=== PATIENT | male | born 1940 | race Caucasian/White ===

== ENCOUNTER → 2017-08-23 07:00 | Outpatient (CLI) | payer MEDICARE, SELFPAY ==
--- NOTE | 2017-08-23 07:04 | CT_ITS ---
STUDY: CT ABDOMEN AND PELVIS WITHOUT CONTRAST REASON FOR EXAM: Male, 77 years old. History of lymphoma in remission for 5 years. Follow-up exam. RADIATION DOSAGE (If Supplied By Facility): CTDIvol = ( 19.02 ) mGy, DLP = ( 1026.65 ) mGycm TECHNIQUE: Transaxial images were obtained from the dome of the diaphragm to the symphysis pubis without oral contrast, and without intravenous contrast. Sagittal and coronal images were reconstructed. Individualized dose optimization techniques were used for this CT. COMPARISON: 10/28/2016. FINDINGS: The visualized lung bases are unremarkable. The heart size is normal. There are pacemaker wires. There again is a small calcification in the liver unchanged since prior exam. No focal lesion is seen on this noncontrast examination Normal gallbladder and extrahepatic biliary system. Normal spleen. There is diffuse atrophy of the pancreas. Normal bilateral adrenal glands. There again is right extrarenal pelvis. There is nonspecific mild right perinephric stranding again unchanged. There is severe atrophy of the left kidney. There is a small hiatal hernia. Normal small intestine. There are multiple colonic diverticula consistent with diverticulosis. There is no evidence of acute diverticulitis. The appendix is visualized and appears normal. There is diffuse atherosclerotic calcification of the abdominal aorta, without a demonstrated aneurysm. Normal inferior vena cava. There is no evidence of retroperitoneal adenopathy. Hazy mesenteric stranding inferior to the pancreas is again seen The stomach consistent There are prostatic calcifications. There are small bilateral inguinal hernias containing fat. There are diffuse degenerative changes of the visualized lumbar spine. 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 CT/Abdomen/Pelvis without Cont IMPRESSION: No demonstrated acute process since the previous examination. No evidence of adenopathy. Diverticulosis without evidence of acute diverticulitis. Atrophic left kidney. 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 Electronically Signed: Jonathan Nuñez MD at 8:14 EST Tel , Service support ,
== END ==
PROVIDERS: Family Provider Family Medicine Geriatric Medicine; PCP Family Medicine Geriatric Medicine; Visit Provider Nurse Practitioner Family
DX: C83.30 Diffuse large B-cell lymphoma, unspecified site (principal); K57.30 Diverticulosis of large intestine without perforation or abscess without bleeding; N26.1 Atrophy of kidney (terminal); M16.12 Unilateral primary osteoarthritis, left hip
CPT/HCPCS: 74176

== ENCOUNTER → 2017-09-09 11:00 | Outpatient (CLI) | payer MEDICARE, SELFPAY | PROVIDERS: Family Provider Family Medicine Geriatric Medicine; PCP Family Medicine Geriatric Medicine; Visit Provider Internal Medicine Critical Care Medicine | DX: Z46.89 Encounter for fitting and adjustment of other specified devices (principal) | CPT/HCPCS: 98960; G0463 ==

== ENCOUNTER → 2017-12-05 14:05 | Outpatient (CLI) | payer MEDICARE, SELFPAY ==
--- NOTE | 2017-12-05 14:05 | DT_ITS ---
This patient was seen during an EMR downtime December 01, 2017 - December 08, 2017. This patient may have a combination of paper and electronic documentation or all paper documentation. All documentation is viewable within the e-chart portion of [facility] for each patient visit.
[2017-12-06 06:15] LABS: Anion Gap 11 (5-15); BUN 21 mg/dL (7-18); BUN/Creat Ratio 12.8 RATIO (10-20); Calcium,Total 8.6 mg/dL (8.5-10.1); Chloride 107 mmol/L (98-107); Creatinine, Serum 1.64 mg/dL (0.70-1.30); EST Glomerular Filtration Rate 44 mL/min (>60); Est Glom Filt Rate - Afr Amer 53 mL/min (>60); Glucose 74 mg/dL (74-106); Potassium 4.1 mmol/L (3.5-5.1); Sodium Level 143 mmol/L (136-145)
== END ==
PROVIDERS: Family Provider Family Medicine Geriatric Medicine; PCP Family Medicine Geriatric Medicine; Visit Provider Nurse Practitioner Family
DX: I42.9 Cardiomyopathy, unspecified (principal)
CPT/HCPCS: 36415; 80048

== ENCOUNTER → 2018-01-22 11:43 | Outpatient (CLI) | payer MEDICARE, SELFPAY ==
[2018-01-22 12:35] LABS: Absolute Lymphocyte Count 0.95 X10^3/ul (0.83-4.51); Absolute Neutrophil Count 7.5 X10^3/uL (2.0-7.7); Basophil# 0.02 X10^3/uL; Basophil% 0.2 % (0-1); Eosinophil# 0.06 X10^3/uL; Eosinophils% 0.6 % (0-5); Hematocrit 50.1 % (40-54); Hemoglobin 16.4 g/dl (13.0-16.5); Lymphocyte # 0.95 X10^3/ul (4.0); Lymphocyte % 10.2 % (19-41); Mean Corp Hgb Conc 32.7 g/gl (32-36); Mean Corpuscular Hgb 26.9 pg (27.0-32.0); Mean Corpuscular Volume 82.1 fL (80-94); Mean Platelet Vol. 10.3 fl (6.2-12.0); Monocyte% 7.5 % (0-10); Neutrophil # 7.54 X10^3/uL (2.7-7.7); Neutrophil % 81.3 % (47-70); Platelet Count 201 K/mm3 (150-450); RBC Distribution Width SD 51.4 fl (35.1-43.9); White Blood Count 9.3 K/mm3 (4.4-11.0)
[2018-01-22 12:36] LABS: POSITIVE COUNT NO; POSITIVE DIFFERENTIAL NO; POSITIVE MORPHOLOGY NO
[2018-01-22 12:59] LABS: ALB/GLOB Ratio 1.1 RATIO (0.9-2.4); AST(SGOT) 29 U/L (15-37); Alanine Aminotransfer ALT/SGPT 27 U/L (16-61); Albumin, Serum 3.7 g/dL (3.2-5.0); Alkaline Phosphatase 89 U/L (45-117); Anion Gap 7 (5-15); BUN 25 mg/dL (7-18); BUN/Creat Ratio 15.3 RATIO (10-20); Calcium,Total 8.7 mg/dL (8.5-10.1); Chloride 107 mmol/L (98-107); Creatinine, Serum 1.63 mg/dL (0.70-1.30); EST Glomerular Filtration Rate 44 mL/min (>60); Est Glom Filt Rate - Afr Amer 53 mL/min (>60); Globulin 3.3 g/dL (2.2-4.2); Glucose 92 mg/dL (74-106); Potassium 4.4 mmol/L (3.5-5.1); Sodium Level 143 mmol/L (136-145); Thyroid Stim Hormone (TSH) 1.84 uIU/mL (0.358-3.74); Uric Acid 6.4 mg/dL (3.5-7.2)
[2018-01-23 10:08] LABS: Vitamin D,25 Hydroxy 20.8 ng/mL (29.95-100.01)
== END ==
PROVIDERS: Family Provider Family Medicine Geriatric Medicine; PCP Family Medicine Geriatric Medicine; Visit Provider Family Medicine Geriatric Medicine
DX: E23.6 Other disorders of pituitary gland (principal); E55.9 Vitamin D deficiency, unspecified; I10 Essential (primary) hypertension; M10.9 Gout, unspecified
CPT/HCPCS: 36415; 80053; 82306; 84403; 84443; 84550; 85025

== ENCOUNTER → 2018-02-09 10:35 | Outpatient (CLI) | payer MEDICARE, SELFPAY | PROVIDERS: Family Provider Family Medicine Geriatric Medicine; PCP Family Medicine Geriatric Medicine; Visit Provider Nurse Practitioner Family | DX: I42.9 Cardiomyopathy, unspecified (principal); I48.0 Paroxysmal atrial fibrillation; I10 Essential (primary) hypertension; Z95.0 Presence of cardiac pacemaker | CPT/HCPCS: 93306; Q9957; A4216; C8929 ==

== ENCOUNTER → 2018-04-03 12:12 | Outpatient (CLI) | payer MEDICARE, SELFPAY ==
--- NOTE | 2018-04-03 12:17 | RAD_ITS ---
STUDY: X-RAY CHEST REASON FOR EXAM: Male, 77 years old. Cough. Chest congestion. TECHNIQUE: Frontal and lateral views of the chest. COMPARISON: 03/18/2017. FINDINGS: The lungs are clear and expanded. There is no demonstrated pleural abnormality. Normal size heart. Pacemaker is seen with leads terminating in the right atrium and right ventricle. Normal mediastinum and jay. Normal visualized pulmonary arteries. There is atherosclerotic tortuosity of the aortic arch and descending thoracic aorta. There are diffuse degenerative changes of the visualized thoracic spine. There is mild scoliosis to the right. There appears to be diffuse ankylosis. Normal visualized ribs, clavicles, and shoulders. There is no demonstrated abnormality of the visualized soft tissue structures of the upper abdomen. RAD/Chest PA and Lateral IMPRESSION: No definite change or acute chest disease. Electronically Signed: Jeffrey Lawrence MD at 23:22 EDT , Service support ,
== END ==
PROVIDERS: Family Provider Family Medicine Geriatric Medicine; PCP Family Medicine Geriatric Medicine; Visit Provider Family Medicine Geriatric Medicine
DX: R05 Cough (principal); R68.83 Chills (without fever)
CPT/HCPCS: 71046; 87633

== ENCOUNTER → 2018-07-28 13:53 | Outpatient (CLI) | payer MEDICARE, SELFPAY ==
[2018-07-16 10:31] VITALS: BMI 37.6
[2018-07-28 14:39] LABS: Absolute Lymphocyte Count 0.74 X10^3/ul (0.83-4.51); Absolute Neutrophil Count 8.2 X10^3/uL (2.0-7.7); Basophil# 0.02 X10^3/uL; Basophil% 0.2 % (0-1); Eosinophil# 0.05 X10^3/uL; Eosinophils% 0.5 % (0-5); Lymphocyte # 0.74 X10^3/ul (4.0); Lymphocyte % 7.7 % (19-41); Mean Corp Hgb Conc 31.4 g/gl (32-36); Mean Corpuscular Volume 89.1 fL (80-94); Mean Platelet Vol. 10.5 fl (6.2-12.0); Monocyte# 0.59 X10^3/uL; Monocyte% 6.1 % (0-10); Neutrophil # 8.23 X10^3/uL (2.7-7.7); Neutrophil % 85.2 % (47-70); Platelet Count 153 K/mm3 (150-450); RBC Distribution Width CV 17.5 % (11.6-14.6); Red Blood Count 6.68 M/mm3 (4.6-6.2); White Blood Count 9.7 K/mm3 (4.4-11.0)
[2018-07-28 14:40] LABS: Hematocrit 59.5 % (40-54)
[2018-07-28 14:47] LABS: Hemoglobin 18.7 g/dl (13.0-16.5); POSITIVE COUNT NO; POSITIVE DIFFERENTIAL NO; POSITIVE MORPHOLOGY NO
[2018-07-28 14:57] LABS: Vitamin D,25 Hydroxy 18.3 ng/mL (29.95-100.01)
[2018-07-28 15:01] LABS: ALB/GLOB Ratio 1.2 RATIO (0.9-2.4); AST(SGOT) 25 U/L (15-37); Alanine Aminotransfer ALT/SGPT 35 U/L (16-61); Albumin, Serum 3.8 g/dL (3.2-5.0); Alkaline Phosphatase 72 U/L (45-117); Anion Gap 7 (5-15); BUN 28 mg/dL (7-18); BUN/Creat Ratio 17.6 RATIO (10-20); Calcium,Total 8.9 mg/dL (8.5-10.1); Chloride 108 mmol/L (98-107); Creatinine, Serum 1.59 mg/dL (0.70-1.30); EST Glomerular Filtration Rate 45 mL/min (>60); Est Glom Filt Rate - Afr Amer 55 mL/min (>60); Globulin 3.2 g/dL (2.2-4.2); Glucose 83 mg/dL (74-106); Potassium 4.4 mmol/L (3.5-5.1); Sodium Level 141 mmol/L (136-145); T4 Free Direct 0.92 ng/dL (0.76-1.46); Thyroid Stim Hormone (TSH) 2.15 uIU/mL (0.358-3.74); Uric Acid 5.7 mg/dL (3.5-7.2)
== END ==
PROVIDERS: Family Provider Family Medicine Geriatric Medicine; PCP Family Medicine Geriatric Medicine; Visit Provider Family Medicine Geriatric Medicine
DX: I10 Essential (primary) hypertension (principal); E55.9 Vitamin D deficiency, unspecified; E23.6 Other disorders of pituitary gland; M10.9 Gout, unspecified; E23.7 Disorder of pituitary gland, unspecified; E29.1 Testicular hypofunction
CPT/HCPCS: 36415; 80053; 82306; 82533; 84403; 84439; 84443; 84550; 85025

== ENCOUNTER → 2018-08-06 17:25 | Outpatient (CLI) | payer MEDICARE, SELFPAY ==
[2018-08-06 10:02] VITALS: BMI 37.2
--- NOTE | 2018-08-06 17:30 | CT_ITS ---
STUDY: CT BRAIN WITHOUT CONTRAST REASON FOR EXAM: Male, 77 years old. 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 History of non-Hodgkin's lymphoma. RADIATION DOSAGE (If Supplied By Facility): CTDIvol = ( 60.81 ) mGy, DLP = ( 1089.89 ) mGycm TECHNIQUE: Transaxial CT imaging of the brain was performed without administration of intravenous contrast material. Individualized dose optimization techniques were used for this CT. COMPARISON: None. FINDINGS: Normal soft tissue structures. Normal calvarium. Normal size ventricles and extra-axial spaces for the patient's age. Normal white matter tracts of the cerebral hemispheres. Normal basal ganglia and thalami. Normal brainstem. Normal cerebellum. There is evidence of a empty sella. There is no intracranial hemorrhage. There are no findings of an acute ischemic infarction. Partial opacification of the maxillary sinus bilaterally. Partial opacification of the ethmoid sinuses bilaterally. CT/Brain/Head without Contrast IMPRESSION: Status post pituitary resection. Partial opacification of the maxillary sinuses and ethmoid sinuses Electronically Signed: Nik Martines MD at 15:36 EST , Service support ,
== END ==
PROVIDERS: Family Provider Family Medicine Geriatric Medicine; PCP Family Medicine Geriatric Medicine; Referring Provider Family Medicine Geriatric Medicine; Visit Provider Family Medicine Geriatric Medicine
DX: E23.0 Hypopituitarism (principal)
CPT/HCPCS: 70450

== ENCOUNTER → 2018-09-04 10:41 | Outpatient (CLI) | payer MEDICARE, SELFPAY ==
[2018-09-01 12:32] VITALS: BMI 37.2
[2018-09-04 11:26] LABS: Allen Test POS; Base Excess -2 mmol/L (-2 to +2); Bicarbonate 22.3 mmol/L (22-26); Blood Gas Specimen Type ART; O2 Delivery Device Room Air; PO2 97 mmHG (75-100); SITE R Radial; SO2 98 % (95-99); Time Given 1115; Total Carbon Dioxide 23 mmol/L; pCO2 32.8 mmHg (35-45); pH 7.44 (7.35-7.45)
== END ==
PROVIDERS: Family Provider Family Medicine Geriatric Medicine; PCP Family Medicine Geriatric Medicine; Referring Provider Internal Medicine Medical Oncology; Visit Provider Internal Medicine Medical Oncology
DX: C83.30 Diffuse large B-cell lymphoma, unspecified site (principal); D45 Polycythemia vera
CPT/HCPCS: 36600; 82803

== ENCOUNTER 2018-09-30 17:48 | Inpatient (IN) | payer MEDICARE, SELFPAY ==
[2018-09-29 10:15] VITALS: BMI 36.9
[2018-09-30] VITALS (8 sets, daily range): BP systolic 117–144; BP diastolic 62–73; PULSE 64–88; RESP 20–23; TEMP 36.4–37.2; O2SAT 91–96; BMI 37.3; BMI 36.0; BMI 36.1
--- NOTE | 2018-09-30 18:05 | RAD_ITS ---
STUDY: X-RAY CHEST REASON FOR EXAM: Male, 78 years old. Dyspnea. TECHNIQUE: Single AP portable upright view of the chest. The patient again is rotated to the left. COMPARISON: PA and lateral chest x-ray April 03, 2018. FINDINGS: Dual lead left subclavian cardiac pacemaker unchanged. There is patchy segmental/subsegmental density in the right base as well as smaller patchy subsegmental densities in the right midlung and medial left base that may be atelectasis or infection. Possible small nodule in the lateral left lung base. There is no demonstrated pleural abnormality. Normal size heart. Normal mediastinum and jay. Normal visualized pulmonary arteries. Normal visualized aortic arch and descending thoracic aorta. There are stable multilevel degenerative changes of the visualized thoracic spine. Normal visualized ribs, clavicles, and shoulders. There is no demonstrated abnormality of the visualized soft tissue structures of the upper abdomen. RAD/Chest 1 View (Portable) IMPRESSION: 1. Patchy atelectasis or infection in the bilateral lung bases and right midlung, as noted. 2. Possible small nodule in the lateral left lung base. These findings might be reevaluated for clearing on a time interval follow-up study. 3. Dual-lead cardiac pacemaker again noted. Heart size and pulmonary vascular pattern within normal limits. Electronically Signed: Connor Perkins MD at 18:33 EDT , Service support ,
[2018-09-30] MEDS: 0.9% Normal Saline 1,000 ML 150 ML IV (18:39)
[2018-09-30 18:49] LABS: Absolute Lymphocyte Count 0.72 X10^3/ul (0.83-4.51); Absolute Neutrophil Count 9.7 X10^3/uL (2.0-7.7); Basophil# 0.04 X10^3/uL; Basophil% 0.3 % (0-1); Eosinophil# 0.11 X10^3/uL; Eosinophils% 0.9 % (0-5); Hematocrit 50.4 % (40-54); Lymphocyte # 0.72 X10^3/ul (4.0); Lymphocyte % 6.1 % (19-41); Mean Corp Hgb Conc 33.7 g/gl (32-36); Mean Corpuscular Hgb 29.6 pg (27.0-32.0); Mean Corpuscular Volume 87.8 fL (80-94); Mean Platelet Vol. 9.7 fl (6.2-12.0); Monocyte% 10.2 % (0-10); Neutrophil # 9.67 X10^3/uL (2.7-7.7); Neutrophil % 82.4 % (47-70); Platelet Count 141 K/mm3 (150-450); RBC Distribution Width CV 16.7 % (11.6-14.6); RBC Distribution Width SD 53.5 fl (35.1-43.9); Red Blood Count 5.74 M/mm3 (4.6-6.2); White Blood Count 11.8 K/mm3 (4.4-11.0)
[2018-09-30 18:53] LABS: POSITIVE COUNT NO; POSITIVE DIFFERENTIAL NO; POSITIVE MORPHOLOGY NO
[2018-09-30 19:12] LABS: Anion Gap 9 (5-15); BUN 19 mg/dL (7-18); BUN/Creat Ratio 12.1 RATIO (10-20); Calcium,Total 7.9 mg/dL (8.5-10.1); Chloride 111 mmol/L (98-107); Creatinine, Serum 1.57 mg/dL (0.70-1.30); EST Glomerular Filtration Rate 46 mL/min (>60); Est Glom Filt Rate - Afr Amer 55 mL/min (>60); Estimated Creatinine Clearance 40.68 ml/min; Glucose 70 mg/dL (74-106); Potassium 3.4 mmol/L (3.5-5.1); Sodium Level 140 mmol/L (136-145)
[2018-09-30 19:16] LABS: Lactic Acid 1.1 mmol/L (0.4-2.0)
--- NOTE | 2018-09-30 19:54 | ED.VISSUMM ---
- ER Visit Summary Date of Service: 09/30/18 Chief Complaint: [Shortness of breath] History of Present Illness: The patient is a 78 M [presents the emergency department shortness of breath started 3 days ago. Patient complains of cough with brown sputum production. Patient was seen by his primary care physician in the office today and was given Rocephin and Zithromax IV. Patient also was given a breathing treatment. Patient has been complaining of just some generalized weakness and he had a sore throat for about 3 days. Patient developed drainage from both his eyes today. Fever up to 100 at home. While in the office today he started having sweats and felt presyncopal. Patient denies any chest pain.] Physical Examination: [HEENT-PERRLA, EOMI. Cranial nerves II through XII grossly intact. TMs clear. Mucous membranes moist. No adenopathy. Cardiovascular-regular rate and rhythm without murmur or ectopy Lungs-aeration bilaterally. Patient has coarse breath sounds bilaterally. Patient has some pain expiratory wheezes noted. Patient is tachypneic. No accessory muscle use or retractions. Abdomen-normoactive bowel sounds, soft, nontender, no rebound or rigidity, no peritoneal signs. Extremities-intact ?4, normal range of motion, normal pulses, atraumatic] Test Results: [Blood cultures ordered and pending. CBC with differential showed a white count of 11.8, heme globin 17, hematocrit 50, platelets 141. Chemistry showed a sodium 140, potassium 3.4, chloride 111, CO2 20, BUN 19, creatinine 1.57, glucose 70. Influenza was negative. Lactate was 1.1. Chest x-ray showed bilateral bibasilar patchy infiltrates] Emergency Department Course and Treatment: [Patient had been given Rocephin and Zithromax prior to arrival in emergency department IV. Patient was ordered a DuoNeb aerosol.] Treatment Plan: [Admit] Disposition: Admit [] Impression: [Bilateral [id number]] This note was generated with [employer] dictation software. It may contain incorrect words, spelling, and punctuation that were not noted in review of the chart prior to signing ED Disposition - Plan for ED Patient: Referrals: Suraj Damian Chi, MD [Primary Care Provider] -
--- NOTE | 2018-09-30 19:57 | ED.DCSUM_ITS ---
- ER Visit Summary Date of Service: 09/30/18 Chief Complaint: [Shortness of breath] History of Present Illness: The patient is a 78 M [presents the emergency department shortness of breath started 3 days ago. Patient complains of cough with brown sputum production. Patient was seen by his primary care physician in the office today and was given Rocephin and Zithromax IV. Patient also was given a breathing treatment. Patient has been complaining of just some generalized weakness and he had a sore throat for about 3 days. Patient developed drainage from both his eyes today. Fever up to 100 at home. While in the office today he started having sweats and felt presyncopal. Patient denies any chest pain.] Physical Examination: [HEENT-PERRLA, EOMI. Cranial nerves II through XII grossly intact. TMs clear. Mucous membranes moist. No adenopathy. Cardiovascular-regular rate and rhythm without murmur or ectopy Lungs-aeration bilaterally. Patient has coarse breath sounds bilaterally. Patient has some pain expiratory wheezes noted. Patient is tachypneic. No accessory muscle use or retractions. Abdomen-normoactive bowel sounds, soft, nontender, no rebound or rigidity, no peritoneal signs. Extremities-intact ?4, normal range of motion, normal pulses, atraumatic] Test Results: [Blood cultures ordered and pending. CBC with differential showed a white count of 11.8, heme globin 17, hematocrit 50, platelets 141. Chemistry showed a sodium 140, potassium 3.4, chloride 111, CO2 20, BUN 19, creatinine 1.57, glucose 70. Influenza was negative. Lactate was 1.1. Chest x-ray showed bilateral bibasilar patchy infiltrates] Emergency Department Course and Treatment: [Patient had been given Rocephin and Zithromax prior to arrival in emergency department IV. Patient was ordered a DuoNeb aerosol.] Treatment Plan: [Admit] Disposition: Admit [] Impression: [Bilateral uibexabqv-flopjccol-yxfstrzm] This note was generated with [employer] dictation software. It may contain incorrect words, spelling, and punctuation that were not noted in review of the chart prior to signing ED Disposition - Plan for ED Patient: Referrals: Suraj Damian Chi, MD [Primary Care Provider] -
--- NOTE | 2018-09-30 20:20 | CPS ---
PT REFUSED AEROSOL TREATMENT. DR. DIETRICH MADE AWARE.
--- NOTE | 2018-09-30 20:33 | HP.PCM_ITS ---
Problem List (1) Community acquired pneumonia Status: Acute History of Present Illness Date of Admission: 09/30/18 Chief Complaint: shortness of breath The patient is a 78 year old M with a significant congestive heart failure; pituitary benign tumor status post resection and on daily hydrocortisone; paroxysmal A. fib; hypertension; B-cell lymphoma who presented to the emergency department with a 2-day history of shortness of breath at rest. His shortness of breath increases markedly with mild exertion. Associated with his symptoms is productive cough of brown to alonzo sputum. Also he had nasal congestion; chills; generalized body aches; increased warmth; diaphoresis and poor appetite. He went to his PCPs office Dr. Damian where he was given Rocephin and azithromycin and IV hydration as well as a breathing treatment. Because the patient was very weak and was about to pass out he was sent to the emergency department. At the emergency department chest x-ray showed patchy infiltrates in bilateral lung base and right midlung; as well as possible small nodule in the lateral left lung base. Past Medical History Past Medical History (Chronic Problems): Chronic Problems (Last Reviewed 09/30/18 @ 21:40 by Rene Velez MD) History of non-Hodgkin's lymphoma (Chronic) History of pituitary adenoma (Chronic) Acute systolic (congestive) heart failure (Chronic) Dyspnea on exertion (Chronic) Nonrheumatic mitral (valve) insufficiency (Chronic) Cardiac pacemaker in situ (Chronic) January 02, 2015 Primary pacemaker insertion Mobitz (type) II atrioventricular block (Chronic) Hyperlipidemia (Chronic) Encounter for long-term (current) use of other medications (Chronic) Body mass index (BMI) 35 or more (Chronic) Diffuse large B cell lymphoma (Chronic) Cardiomyopathy (Chronic) Acute systolic heart failure (Chronic) PORTILLO (obstructive sleep apnea) (Chronic) 18/14 cmH2O Dyspnea (Chronic) The patient reports that his dyspnea on exertion has improved since initiating and becoming compliant with his pressure support therapy. No additional studies at this time. If dyspnea worsens may consider doing a pulmonary stress test or a complete pulmonary function test. Follow-up with Dr. Dorman in 3 months. Esophageal reflux (Chronic) Gout (Chronic) HTN (hypertension) (Chronic) Malignant lymphoma of extranodal and solid organ sites (Chronic) last chemo was 2 years ago.....treated with CHOP Hypercholesterolemia (Chronic) History of pituitary tumor (Chronic) Status post surgery, currently on hydrocortisone replacement. 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 Intermittent second degree atrioventricular block (Chronic) in the setting of beta blockers CKD (chronic kidney disease) stage 3, GFR 30-59 ml/min (Chronic) Simple obesity (Chronic) Medical History: Medical History (Last Reviewed 09/30/18 @ 21:40 by Rene Velez MD) History of non-Hodgkin's lymphoma (Chronic) Z85.72 History of pituitary adenoma (Chronic) Z86.39 Acute systolic (congestive) heart failure (Chronic) I50.21 Dyspnea on exertion (Chronic) R06.09 Nonrheumatic mitral (valve) insufficiency (Chronic) I34.0 Cardiac pacemaker in situ (Chronic) Z95.0 January 02, 2015 Primary pacemaker insertion Mobitz (type) II atrioventricular block (Chronic) I44.1 Hyperlipidemia (Chronic) E78.5 Encounter for long-term (current) use of other medications (Chronic) Z79.899 Body mass index (BMI) 35 or more (Chronic) Diffuse large B cell lymphoma (Chronic) C83.30 Cardiomyopathy (Chronic) I42.9 Acute systolic heart failure (Chronic) I50.21 PORTILLO (obstructive sleep apnea) (Chronic) G47.33 18/14 cmH2O Dyspnea (Chronic) R06.00 The patient reports that his dyspnea on exertion has improved since initiating and becoming compliant with his pressure support therapy. No additional studies at this time. If dyspnea worsens may consider doing a pulmonary stress test or a complete pulmonary function test. Follow-up with Dr. Dorman in 3 months. Esophageal reflux (Chronic) K21.9 Gout (Chronic) M10.9 HTN (hypertension) (Chronic) I10 Malignant lymphoma of extranodal and solid organ sites (Chronic) C85.99 last chemo was 2 years ago.....treated with CHOP Hypercholesterolemia (Chronic) E78.00 History of pituitary tumor (Chronic) Z87.898 Status post surgery, currently on hydrocortisone replacement. Secondary adrenal insufficiency (Chronic) E27.49 after pituitary surgery to remove a benign tumor Intermittent second degree atrioventricular block (Chronic) I44.1 in the setting of beta blockers CKD (chronic kidney disease) stage 3, GFR 30-59 ml/min (Chronic) Simple obesity (Chronic) E66.9 Community acquired pneumonia (Acute) J18.9 treated recently for CAP with Levaquin and culture was + for MRSA Pericardial effusion (Acute) I31.3 Pleural effusion (Acute) J90 MRSA (methicillin resistant staphylococcus aureus) pneumonia (Acute) J15.212 + MRSA on sputum from admission on 12/03 Hyponatremia (Acute) E87.1 PAF (paroxysmal atrial fibrillation) (Acute) I48.0 SSS (sick sinus syndrome) (Acute) I49.5 Sinus pause (Acute) I45.5 Allergies lisinopril Allergy (Verified 09/30/18 17:49) Swelling aspirin Adverse Reaction (Verified 09/30/18 17:49) Other Home Medications: Ambulatory Orders Medication Instructions Recorded Pravastatin [Pravachol] 40 mg PO DAILY #0 12/21/13 famotidine 40 mg tablet 40 mg PO DAILY 07/16/18 Hydrocortisone [Cortef] 20 mg PO DAILY 09/01/18 Allopurinol 300 mg PO DAILY 09/30/18 Carvedilol 25 mg PO QHS 09/30/18 Carvedilol [Coreg] 12.5 mg PO DAILY 09/30/18 Furosemide 40 mg PO QODAY 09/30/18 Hydrocortisone 10 mg PO QHS 09/30/18 Metoprolol Succinate [Toprol Xl] 25 mg PO DAILY 09/30/18 Omeprazole 20 mg PO DAILY 09/30/18 Surgical History: Surgical History (Last Reviewed 09/29/18 @ 10:15 by Kalee Tavares) History of surgical removal of pituitary gland E89.3 partial removal Surgical History: - - Pituitary Surgery. Placement of a port Psychiatric History: No pertinent psych hx Lives: With Family Smoking Status: Former smoker Alcohol: None - *Family History Maternal Family History: Family History (Last Reviewed 09/30/18 @ 21:25 by Rene Velez MD) Father FH: kidney cancer Mother Heart disease Diabetes History Items: No pertinent history Paternal Family History: Family History (Last Reviewed 09/30/18 @ 21:25 by Rene Velez MD) Father FH: kidney cancer Mother Heart disease Diabetes History Items: No pertinent history Review of Systems Constitutional: Reports: Chills. Denies: Fever, Weight Change HEENT: Reports: Sinus Congestion. Denies: Head Aches, Sinus Drainage Cardiovascular: Denies: Chest Pain, Palpitations Respiratory: Reports: Cough, Shortness of breath at rest, Sputum production Gastrointestinal: Denies: Abdominal Pain, Nausea, Vomiting Genitourinary: Denies: Dysuria Musculoskeletal: Denies: Joint Pain, Joint Tenderness Skin: Denies: Rash, Wounds Neurological: Denies: Numbness, Tingling, Focal weakness Psychiatric: Denies: Anxiety, Depression, Homicidal Ideations, Suicidal Ideations Hematologic/ Lymphatic: Denies: Easy Bruising, Easy Bleeding VTE Information - Inpt Only VTE Present on Admission: No VTE Mechan Device Prophylaxis: None VTE Pharm Prophylaxis ordered?: Yes Patient Problems: Active and Suspected Problems (Last Reviewed 09/30/18 @ 21:40 by Rene Velez MD) Community acquired pneumonia (Acute) - Physical Exam General: Alert, Oriented x3, Cooperative HEENT: Atraumatic, PERRLA, EOMI, Normocephalic Neck: Supple, No JVD, Negative Carotid Bruits Lungs: - - coarse Cardiovascular: Regular rate, No murmurs Abdomen: Bowel Sounds Present, Soft, Non Tender Extremities: No edema, Capillary Refill Less than 3 Seconds Skin: No rashes, No breakdown Musculoskeletal: No Tenderness to Palpation of Joints or Extremities Neurological: Neuro grossly intact Psych/Mental Status: Normal Affect, Appropriate Vital Signs Temp Pulse Resp BP Pulse Ox 97.5 F L 64 23 H 126/64 H 94 09/30/18 19:01 09/30/18 20:02 09/30/18 19:01 09/30/18 20:02 09/30/18 20:02 Oxygen Flow Rate (L/min) 2 Oxygen Delivery Method Nasal Cannula Weight: 118 kg Body Mass Index (BMI) 37.3 Microbiology Past 72 Hours 09/30/18 18:35 Influenza Types A,B Direct FA (JOSEPH) - Final Mucosa - Nose Laboratory Tests Past 24 Hrs 09/30/18 09/30/18 09/30/18 18:15 18:15 18:27 WBC 11.8 H RBC 5.74 Hgb 17.0 H Hct 50.4 MCV 87.8 MCH 29.6 MCHC 33.7 RDW 16.7 H RDW Differential 53.5 H Plt Count 141 L MPV 9.7 Immature Gran % (Auto) 0.100 Neut % (Auto) 82.4 H Lymph % (Auto) 6.1 L [place] % (Auto) 10.2 H Eos % (Auto) 0.9 Baso % (Auto) 0.3 Absolute Neuts (auto) 9.7 H Absolute Lymphs (auto) 0.72 L Total Counted Not Reportable Sodium 140 Potassium 3.4 L Chloride 111 H Carbon Dioxide 20.0 L Anion Gap 9 BUN 19 H Creatinine 1.57 H Estim Creat Clear Calc 40.68 Est GFR (MDRD) Af Amer 55 L Est GFR (MDRD) Non-Af 46 L BUN/Creatinine Ratio 12.1 Glucose 70 L Lactic Acid 1.1 Calcium 7.9 L Assessment/Plan All Active Problems (Last Reviewed 09/30/18 @ 21:40 by Rene Velez MD) Polycythemia (Resolved) Community acquired pneumonia (Acute) Community acquired pneumonia (Acute) Pericardial effusion (Acute) Pleural effusion (Acute) MRSA (methicillin resistant staphylococcus aureus) pneumonia (Acute) Hyponatremia (Acute) PAF (paroxysmal atrial fibrillation) (Acute) SSS (sick sinus syndrome) (Acute) Sinus pause (Acute) The patient is a 78 year old M with a significant congestive heart failure; pituitary benign tumor status post resection and on daily hydrocortisone; paroxysmal A. fib; hypertension; B-cell lymphoma who presented to the emergency department for 2-day history of shortness of breath at rest after he had received empiric treatment for community-acquired pneumonia at his PCPs office. Community-acquired pneumonia Insert pneumonia admission Lactic acid: 1.1 Blood culture ?2 is pending Chest x-ray:Showed patchy infiltrates in bilateral lung base and right midlung. As well as possible small nodule in the lateral left lung base. Chest x-ray was independently reviewed. Respiratory Gram stain and culture pending Antibiotics: Received azithromycin and ceftriaxone PCP's office on 09/30/2018. Azithromycin and ceftriaxone continued. IV hydration: Received normal saline hydration at emergency department. Received breathing treatment at emergency department. DuoNeb scheduled. Albuterol as needed Legionella antigen screen and Strep antigen ordered Lung nodule. Discussed with patient. Patient to follow-up longitudinally outpatient. Pituitary tumor status post resection Continue home Cortef. Congestive heart failure Furosemide continued. Continue Coreg Trend blood pressure Hypertension On admission his blood pressure was within goal. Coreg and furosemide continued Trend blood pressure and adjust blood pressure medications. Hypokalemia His potassium on admission was 3.4 Potassium supplement ordered. Trend BMP. CKD stage III. Stable Hypoglycemia On admission his blood glucose was 70 on BMP. Fingerstick QA CHS and hypoglycemia protocol ordered. Hypocalcemia On admission his calcium level was 7.9. Will get albumin level. DVT prophylaxis Subcutaneous Lovenox. Code Visit Inpatient E&M: 58910 Init Hosp L3
[2018-10-01] VITALS (10 sets, daily range): BP systolic 104–131; BP diastolic 55–73; PULSE 60–70; RESP 14–18; TEMP 36.3–36.6; O2SAT 94–98
[2018-10-01] MEDS: Carvedilol 25 MG Tablet PO ×2 (00:08→21:06)
[2018-10-01] MEDS: guaiFENesin 1,200 MG Tablet 1200 MG PO ×3 (00:08→21:06)
[2018-10-01] MEDS: Hydrocortisone 10 MG Tablet PO ×2 (00:09→21:06)
[2018-10-01 00:31] LABS: Bedside Glucose 97 mg/dL (70-110)
[2018-10-01] MEDS: 0.9% NaCl IVPB Med Flush (250 mL) 15 ML IV (04:21)
[2018-10-01 06:00] LABS: Absolute Lymphocyte Count 0.31 X10^3/ul (0.83-4.51); Absolute Neutrophil Count 8.4 X10^3/uL (2.0-7.7); Hematocrit 51.8 % (40-54); Hemoglobin 17.3 g/dl (13.0-16.5); Lymphocyte # 0.31 X10^3/ul (4.0); Lymphocyte % 3.4 % (19-41); Mean Corp Hgb Conc 33.4 g/gl (32-36); Mean Corpuscular Hgb 28.5 pg (27.0-32.0); Mean Corpuscular Volume 85.5 fL (80-94); Mean Platelet Vol. 9.6 fl (6.2-12.0); Monocyte# 0.35 X10^3/uL; Monocyte% 3.9 % (0-10); Neutrophil # 8.41 X10^3/uL (2.7-7.7); Neutrophil % 92.6 % (47-70); Platelet Count 146 K/mm3 (150-450); RBC Distribution Width CV 16.9 % (11.6-14.6); RBC Distribution Width SD 53.2 fl (35.1-43.9); Red Blood Count 6.06 M/mm3 (4.6-6.2); White Blood Count 9.1 K/mm3 (4.4-11.0)
[2018-10-01 06:08] LABS: Differential Indicated SCAN CRITERIA MET; POSITIVE COUNT NO; POSITIVE DIFFERENTIAL YES; POSITIVE MORPHOLOGY NO
[2018-10-01 06:17] LABS: Anion Gap 9 (5-15); BUN 29 mg/dL (7-18); BUN/Creat Ratio 17.2 RATIO (10-20); Calcium,Total 8.2 mg/dL (8.5-10.1); Chloride 111 mmol/L (98-107); Creatinine, Serum 1.69 mg/dL (0.70-1.30); EST Glomerular Filtration Rate 42 mL/min (>60); Est Glom Filt Rate - Afr Amer 51 mL/min (>60); Glucose 132 mg/dL (74-106); Potassium 4.2 mmol/L (3.5-5.1); Sodium Level 142 mmol/L (136-145)
[2018-10-01] MEDS: Ipratropium/Albuterol Sulfate 3 ML AMPUL.NEB INHALATION ×3 (06:35→19:06)
[2018-10-01] MEDS: Carvedilol 12.5 MG Tablet PO (07:59)
[2018-10-01] MEDS: Hydrocortisone 10 MG Tablet 20 MG PO (08:01)
[2018-10-01] MEDS: Allopurinol 300 MG Tablet PO (08:02)
[2018-10-01] MEDS: Furosemide 40 MG Tablet PO (08:03)
[2018-10-01] MEDS: Enoxaparin 40 MG/0.4 ML Syringe SC (08:03)
[2018-10-01] MEDS: Metoprolol(XL)Succ 25 MG Tablet PO (08:04)
[2018-10-01] MEDS: Famotidine 20 MG Tablet 40 MG PO (08:04)
[2018-10-01] MEDS: Ceftriaxone 1 GM/50 ML BAG IV (09:50)
--- NOTE | 2018-10-01 11:10 | CASEMGMT ---
RN CM Face to Face with patient for initial transition planning/care coordination assessment. RN CM introduced self and role at [facility]. Patient sitting in chair, alert and oriented. Patient willing to participate in assessment and is able to answer all questions appropriately. Care providers, pharmacy, and demographics verified. Patient wishes to discharge home, denies need for home health at this time. Patient states he has no further needs or concerns at this time. CM to follow for discharge planning needs that may arise. PCP: Rickie Specialists: Chandler, oncologist; Yanet, survey research manager; Dandy, complaint coordinator Preferred Pharmacy: [facility] Insurance: [employer] Prescription Benefit: yes Living Will/HPOA: yes, Benita Garces, HPOA LNOK: Living Arrangements: Patient lives with in 1 story home with 3 steps and railing to enter the home. Transportation: self/ DME/HHC: Patient has Cpap through [employer], denies further DME. Disposition Plan: Patient to discharge home with family support and follow-up plans in place. Lili MÁRQUEZ, RN, CM
[2018-10-01 11:50] LABS: Bedside Glucose 255 mg/dL (70-110)
--- NOTE | 2018-10-01 14:26 | PN_ITS ---
<Jonathan Vo - Last Filed: 10/01/18 14:21> Patient Problems: Active and Suspected Problems (Last Reviewed 09/30/18 @ 21:40 by Rene Velez MD) Community acquired pneumonia (Acute) Subjective: SOB has improved. Cough productive with brown sputum continues. He has been weaned off O2 at rest. He is still somewhat SOB. No fevers/chills. - Physical Exam General: Alert, Oriented x3, Cooperative HEENT: Atraumatic, PERRLA, EOMI, Normocephalic Neck: Supple, No JVD, Negative Carotid Bruits Lungs: Rales - BL bases, Wheezes Cardiovascular: Regular rate, No murmurs Abdomen: Bowel Sounds Present, Soft, Non Tender Extremities: No edema, Capillary Refill Less than 3 Seconds Skin: No rashes, No breakdown Musculoskeletal: No Tenderness to Palpation of Joints or Extremities Neurological: Cranial nerves II-XII grossly intact Psych/Mental Status: Normal Affect, Appropriate Vital Signs Temp Pulse Resp BP Pulse Ox 97.7 F L 63 18 104/62 97 10/01/18 11:36 10/01/18 13:06 10/01/18 13:06 10/01/18 11:36 10/01/18 11:36 Oxygen Flow Rate (L/min) 2 Oxygen Delivery Method Room Air Weight: 251 lb 4 oz Body Mass Index (BMI) 36.0 Intake and Output for Last 24 Hours 09/29/18 09/30/18 10/01/18 23:59 23:59 23:59 Intake Total 150 / 150 Balance 150 / 150 Microbiology Past 72 Hours 10/01/18 05:17 Streptococcus pneumoniae Antigen (M - Final Urine, Clean Catch 10/01/18 05:17 Legionella Antigen - Final Urine, Clean Catch 09/30/18 18:35 Influenza Types A,B Direct FA (JOSEPH) - Final Mucosa - Nose Laboratory Tests Past 24 Hrs 09/30/18 09/30/18 09/30/18 18:15 18:15 18:15 WBC 11.8 H RBC 5.74 Hgb 17.0 H Hct 50.4 MCV 87.8 MCH 29.6 MCHC 33.7 RDW 16.7 H RDW Differential 53.5 H Plt Count 141 L MPV 9.7 Immature Gran % (Auto) 0.100 Neut % (Auto) 82.4 H Lymph % (Auto) 6.1 L [place] % (Auto) 10.2 H Eos % (Auto) 0.9 Baso % (Auto) 0.3 Absolute Neuts (auto) 9.7 H Absolute Lymphs (auto) 0.72 L Total Counted Not Reportable Differential Comment Sodium 140 Potassium 3.4 L Chloride 111 H Carbon Dioxide 20.0 L Anion Gap 9 BUN 19 H Creatinine 1.57 H Estim Creat Clear Calc 40.68 Est GFR (MDRD) Af Amer 55 L Est GFR (MDRD) Non-Af 46 L BUN/Creatinine Ratio 12.1 Glucose 70 L Lactic Acid Calcium 7.9 L Albumin 3.0 L 09/30/18 10/01/18 10/01/18 18:27 05:32 05:32 WBC 9.1 RBC 6.06 Hgb 17.3 H Hct 51.8 MCV 85.5 MCH 28.5 MCHC 33.4 RDW 16.9 H RDW Differential 53.2 H Plt Count 146 L MPV 9.6 Immature Gran % (Auto) 0.100 Neut % (Auto) 92.6 H Lymph % (Auto) 3.4 L [place] % (Auto) 3.9 Eos % (Auto) 0.0 Baso % (Auto) 0.0 Absolute Neuts (auto) 8.4 H Absolute Lymphs (auto) 0.31 L Total Counted Not Reportable Differential Comment Sodium 142 Potassium 4.2 Chloride 111 H Carbon Dioxide 22.0 Anion Gap 9 BUN 29 H Creatinine 1.69 H Estim Creat Clear Calc 37.80 Est GFR (MDRD) Af Amer 51 L Est GFR (MDRD) Non-Af 42 L BUN/Creatinine Ratio 17.2 Glucose 132 H Lactic Acid 1.1 Calcium 8.2 L Albumin POC Glucose 10/01/18 10/01/18 11:44 00:22 POC Glucose 255 H 97 Medical Necessity - Tobacco Use Smoking Status: Former smoker Assessment/Plan All Active Problems (Last Reviewed 09/30/18 @ 21:40 by Rene Velez MD) Polycythemia (Resolved) Community acquired pneumonia (Acute) Community acquired pneumonia (Acute) Pericardial effusion (Acute) Pleural effusion (Acute) MRSA (methicillin resistant staphylococcus aureus) pneumonia (Acute) Hyponatremia (Acute) PAF (paroxysmal atrial fibrillation) (Acute) SSS (sick sinus syndrome) (Acute) Sinus pause (Acute) 1. Acute CAP - Continue current therapy. Pt is improving. WBC elevation resolved, afebrile. 2. Lung nodule - outpatient follow up. He does have a hx lymphoma, . 3. Hx pituitary tumor, s/p resection 4. Hx CHF - continue home diuretics, does not appear volume overloaded. 5. HTN -stable 6. CKD III - stable 7. Mild thrombocytopenia - stable 8. SSS, pafib - has PM. DVT ppx: lovenox DC planning: walking pulse ox, likely home tomorrow This patient was seen by Jonathan Vo PA-C under the supervision of Doctor Dary. <Gregoria Foote - Last Filed: 10/01/18 14:43> - Physical Exam Vital Signs Temp Pulse Resp BP Pulse Ox 97.7 F L 63 18 104/62 97 10/01/18 11:36 10/01/18 13:06 10/01/18 13:06 10/01/18 11:36 10/01/18 11:36 Oxygen Flow Rate (L/min) 2 Oxygen Delivery Method Room Air Weight: 251 lb 4 oz Body Mass Index (BMI) 36.0 Intake and Output for Last 24 Hours 09/29/18 09/30/18 10/01/18 23:59 23:59 23:59 Intake Total 1750 / 1750 Balance 1750 / 1750 Microbiology Past 72 Hours 10/01/18 08:12 Gram Stain - Final Sputum, Expectorated/Coughed 10/01/18 05:17 Streptococcus pneumoniae Antigen (M - Final Urine, Clean Catch 10/01/18 05:17 Legionella Antigen - Final Urine, Clean Catch 09/30/18 18:35 Influenza Types A,B Direct FA (JOSEPH) - Final Mucosa - Nose Laboratory Tests Past 24 Hrs 09/30/18 09/30/18 09/30/18 18:15 18:15 18:15 WBC 11.8 H RBC 5.74 Hgb 17.0 H Hct 50.4 MCV 87.8 MCH 29.6 MCHC 33.7 RDW 16.7 H RDW Differential 53.5 H Plt Count 141 L MPV 9.7 Immature Gran % (Auto) 0.100 Neut % (Auto) 82.4 H Lymph % (Auto) 6.1 L [place] % (Auto) 10.2 H Eos % (Auto) 0.9 Baso % (Auto) 0.3 Absolute Neuts (auto) 9.7 H Absolute Lymphs (auto) 0.72 L Total Counted Not Reportable Differential Comment Sodium 140 Potassium 3.4 L Chloride 111 H Carbon Dioxide 20.0 L Anion Gap 9 BUN 19 H Creatinine 1.57 H Estim Creat Clear Calc 40.68 Est GFR (MDRD) Af Amer 55 L Est GFR (MDRD) Non-Af 46 L BUN/Creatinine Ratio 12.1 Glucose 70 L Lactic Acid Calcium 7.9 L Albumin 3.0 L 09/30/18 10/01/18 10/01/18 18:27 05:32 05:32 WBC 9.1 RBC 6.06 Hgb 17.3 H Hct 51.8 MCV 85.5 MCH 28.5 MCHC 33.4 RDW 16.9 H RDW Differential 53.2 H Plt Count 146 L MPV 9.6 Immature Gran % (Auto) 0.100 Neut % (Auto) 92.6 H Lymph % (Auto) 3.4 L [place] % (Auto) 3.9 Eos % (Auto) 0.0 Baso % (Auto) 0.0 Absolute Neuts (auto) 8.4 H Absolute Lymphs (auto) 0.31 L Total Counted Not Reportable Differential Comment Sodium 142 Potassium 4.2 Chloride 111 H Carbon Dioxide 22.0 Anion Gap 9 BUN 29 H Creatinine 1.69 H Estim Creat Clear Calc 37.80 Est GFR (MDRD) Af Amer 51 L Est GFR (MDRD) Non-Af 42 L BUN/Creatinine Ratio 17.2 Glucose 132 H Lactic Acid 1.1 Calcium 8.2 L Albumin POC Glucose 10/01/18 10/01/18 11:44 00:22 POC Glucose 255 H 97 Assessment/Plan Patient seen by Jonathan Vo PA-C under my supervision. Patient was admitted with a complaint of shortness of breath and a productive cough and was found to have infiltrates on chest x-ray. He is been managed for community-acquired pneumonia and is on IV ceftriaxone and azithromycin. Patient seen and examined. He feels much better today. Shortness of breath has resolved. He still has a cough which is productive of brownish sputum. He denies any fever chills, palpitations or dizziness, chest pain, diarrhea vomiting. Review of systems otherwise negative. Labs and vitals reviewed. O/E: Vital Signs Height 5 ft 10 in Weight: 251 lb 4 oz Weight in Pounds 251.3 lbs Pulse Ox 98 Temperature 97.6 F Pulse Rate 65 Respiratory Rate 16 Blood Pressure [BP] 131/61 Blood Pressure 113/55 Blood Pressure Position [BP] Semi-Fowlers Blood Pressure Position Sitting General: Alert, Oriented x3, Cooperative HEENT: Atraumatic, PERRLA, EOMI, Normocephalic Neck: Supple, No JVD, Negative Carotid Bruits Lungs: Rales - BL bases, Wheezes Cardiovascular: Regular rate, No murmurs Abdomen: Bowel Sounds Present, Soft, Non Tender Extremities: No edema, Capillary Refill Less than 3 Seconds Skin: No rashes, No breakdown Musculoskeletal: No Tenderness to Palpation of Joints or Extremities Neurological: Cranial nerves II-XII grossly intact Plan is to continue with IV ceftriaxone and azithromycin for now. Titrate oxygen to maintain saturation above 90%. Continue breathing treatments. Rest of management as per Jonathan Vo PA-C's note which I have reviewed and endorse Code Visit Inpatient E&M: 88712 Subs Hosp L2
[2018-10-01] MEDS: Pantoprazole Sodium 20 MG Tablet PO (14:35)
[2018-10-01] MEDS: 0.9% NaCl Peripheral Flush Adult/Peds IV (14:42)
[2018-10-01 16:25] LABS: Bedside Glucose 146 mg/dL (70-110)
[2018-10-01] MEDS: Pravastatin 40 MG Tablet PO (21:06)
[2018-10-01 22:55] LABS: Bedside Glucose 138 mg/dL (70-110)
[2018-10-02] VITALS (8 sets, daily range): BP systolic 123–135; BP diastolic 58–73; PULSE 60–65; RESP 16–18; TEMP 36.3–36.4; O2SAT 94–96
[2018-10-02] MEDS: Ipratropium/Albuterol Sulfate 3 ML AMPUL.NEB INHALATION ×2 (00:50→07:18)
[2018-10-02 06:40] LABS: Bedside Glucose 144 mg/dL (70-110)
[2018-10-02 07:46] LABS: Absolute Lymphocyte Count 0.59 X10^3/ul (0.83-4.51); Absolute Neutrophil Count 12.4 X10^3/uL (2.0-7.7); Basophil# 0.01 X10^3/uL; Basophil% 0.1 % (0-1); Hematocrit 48.8 % (40-54); Hemoglobin 16.6 g/dl (13.0-16.5); Lymphocyte # 0.59 X10^3/ul (4.0); Lymphocyte % 4.3 % (19-41); Mean Corpuscular Hgb 28.7 pg (27.0-32.0); Mean Corpuscular Volume 84.4 fL (80-94); Mean Platelet Vol. 10.1 fl (6.2-12.0); Monocyte# 0.77 X10^3/uL; Monocyte% 5.6 % (0-10); Neutrophil # 12.35 X10^3/uL (2.7-7.7); Neutrophil % 89.7 % (47-70); Platelet Count 197 K/mm3 (150-450); RBC Distribution Width CV 16.9 % (11.6-14.6); RBC Distribution Width SD 52.4 fl (35.1-43.9); Red Blood Count 5.78 M/mm3 (4.6-6.2); White Blood Count 13.8 K/mm3 (4.4-11.0)
[2018-10-02 07:57] LABS: Differential Indicated SCAN CRITERIA MET; POSITIVE COUNT NO; POSITIVE DIFFERENTIAL YES; POSITIVE MORPHOLOGY NO
[2018-10-02] MEDS: Allopurinol 300 MG Tablet PO (08:40)
[2018-10-02] MEDS: Carvedilol 12.5 MG Tablet PO (08:40)
[2018-10-02] MEDS: Enoxaparin 40 MG/0.4 ML Syringe SC (08:41)
[2018-10-02] MEDS: Famotidine 20 MG Tablet 40 MG PO (08:42)
[2018-10-02] MEDS: Pantoprazole Sodium 20 MG Tablet PO (08:42)
[2018-10-02] MEDS: Metoprolol(XL)Succ 25 MG Tablet PO (08:42)
[2018-10-02] MEDS: guaiFENesin 1,200 MG Tablet 1200 MG PO (08:42)
[2018-10-02] MEDS: Furosemide 40 MG Tablet PO (08:43)
[2018-10-02] MEDS: Ceftriaxone 1 GM/50 ML BAG IV (09:20)
[2018-10-02] MEDS: 0.9% NaCl Peripheral Flush Adult/Peds IV (09:20)
[2018-10-02] MEDS: Hydrocortisone 10 MG Tablet 20 MG PO (10:45)
--- NOTE | 2018-10-02 11:41 | DCINST_ITS ---
- Discharge Diagnoses Current Active Problems: Current Active and Chronic Problems (Last Reviewed 09/30/18 @ 21:40 by Rene Velez MD) Community acquired pneumonia (Acute) You will use the following diet at home:: Cardiac Your food should be the consistency of: Regular Your liquids should be the consistency of: Regular/Thin Discharge Activity: Return to Normal Activity Allergies/Adverse Reactions: Allergies lisinopril Allergy (Verified 09/30/18 17:49) Swelling aspirin Adverse Reaction (Verified 09/30/18 17:49) Other Medications to take at Discharge Pravastatin [Pravachol] 40 mg PO DAILY #0 12/21/13 famotidine 40 mg tablet 40 mg PO DAILY 07/16/18 Hydrocortisone [Cortef] 20 mg PO DAILY 09/01/18 Allopurinol 300 mg PO DAILY 09/30/18 Carvedilol 25 mg PO QHS 09/30/18 Carvedilol [Coreg] 12.5 mg PO DAILY 09/30/18 Furosemide 40 mg PO QODAY 09/30/18 Hydrocortisone 10 mg PO QHS 09/30/18 Metoprolol Succinate [Toprol Xl] 25 mg PO DAILY 09/30/18 Omeprazole 20 mg PO DAILY 09/30/18 Azithromycin 500 mg PO DAILY #1 tablet 10/02/18 Cefdinir [Omnicef [equiv]] 300 mg PO Q12H #8 capsule 10/02/18 The following prescriptions were given: Azithromycin 500 mg PO DAILY #1 tablet Cefdinir [Omnicef [equiv]] 300 mg PO Q12H #8 capsule Primary Care Physician: Suraj Damian Chi, MD [Primary Care Provider] - Please follow up with your Primary Care Physician in: 1-2 weeks Test Results: Test results from this visit will be discussed in further detail at your follow- up appointment, if applicable. Proposed Discharge Date: 10/02/18
[2018-10-02 11:45] LABS: Bedside Glucose 169 mg/dL (70-110)
--- NOTE | 2018-10-02 14:56 | DS.PCM_ITS ---
<Jonathan Vo - Last Filed: 10/02/18 14:51> Discharge Date and Diagnosis Date of Admission: 09/30/18 Date of Discharge: 10/02/18 - Primary Discharge Diagnosis Acute CAP presumed streptococcal Lung nodule Hx pituitary tumor s/p resection Hx CHF HTN CKDIII Mild thrombocytopenia SSS, pAfib, s/p PM - Secondary Discharge Diagnosis Chronic Problems (Last Reviewed 09/30/18 @ 21:40 by Rene Velez MD) History of non-Hodgkin's lymphoma (Chronic) History of pituitary adenoma (Chronic) Acute systolic (congestive) heart failure (Chronic) Dyspnea on exertion (Chronic) Nonrheumatic mitral (valve) insufficiency (Chronic) Cardiac pacemaker in situ (Chronic) January 02, 2015 Primary pacemaker insertion Mobitz (type) II atrioventricular block (Chronic) Hyperlipidemia (Chronic) Encounter for long-term (current) use of other medications (Chronic) Body mass index (BMI) 35 or more (Chronic) Diffuse large B cell lymphoma (Chronic) Cardiomyopathy (Chronic) Acute systolic heart failure (Chronic) PORTILLO (obstructive sleep apnea) (Chronic) 18/14 cmH2O Dyspnea (Chronic) The patient reports that his dyspnea on exertion has improved since initiating and becoming compliant with his pressure support therapy. No additional studies at this time. If dyspnea worsens may consider doing a pulmonary stress test or a complete pulmonary function test. Follow-up with Dr. Dorman in 3 months. Esophageal reflux (Chronic) Gout (Chronic) HTN (hypertension) (Chronic) Malignant lymphoma of extranodal and solid organ sites (Chronic) last chemo was 2 years ago.....treated with CHOP Hypercholesterolemia (Chronic) History of pituitary tumor (Chronic) Status post surgery, currently on hydrocortisone replacement. 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 Patchy atelectasis or infection in the bilateral lung bases and right midlung, as noted. 2. Possible small nodule in the lateral left lung base. These findings might be reevaluated for clearing on a time interval follow-up study. 3. Dual-lead cardiac pacemaker again noted. Heart size and pulmonary vascular pattern within normal limits. Operations: None Procedures: None Summary of Care Provided: Hospital course: The patient is a 78 year old M past medical history as above who presented to the emergency room with complaints of shortness of breath over the past 2 days progressively worsening. He has also had a cough productive of brown sputum, congestion, chills, body aches, warmth, diaphoresis, poor appetite. He had been treated as an outpatient at his PCPs office with Rocephin and azithromycin however he felt very weak and that he might pass out so he was sent to the emergency room. In the ER chest x-ray demonstrated bilateral infiltrates and possible small nodule in the left lateral lung base, he was afebrile however he did have leukocytosis. He was able to maintain oxygen saturation without supplemental oxygen. He was given further Rocephin and azithromycin for community-acquired pneumonia. He was admitted to general medical floor and he progressively improved over the next 2 days. Respiratory panel was negative, respiratory culture was negative, urine antigens were negative. He was ambulated in the unit did not require oxygen. He was transitioned to p.o. Omnicef and azithromycin to complete a 5-day total course of antibiotics. He was advised to follow-up with his PCP in 1-2 weeks. He was discharged home in stable condition. He will need outpatient follow-up for his lung nodule by his PCP. This patient was seen by Jonathan Vo PA-C under the supervision of Doctor Foote. [] - Physical Exam General: Alert, Oriented x3, Cooperative HEENT: Atraumatic, PERRLA, EOMI, Normocephalic Neck: Supple, No JVD, Negative Carotid Bruits Lungs: Clear to auscultation, Normal air movement Cardiovascular: Regular rate, No murmurs Abdomen: Bowel Sounds Present, Soft, Non Tender Extremities: No edema, Capillary Refill Less than 3 Seconds Skin: No rashes, No breakdown Musculoskeletal: No Tenderness to Palpation of Joints or Extremities Neurological: Cranial nerves II-XII grossly intact Psych/Mental Status: Normal Affect, Appropriate, Alert and oriented to time, place, person, mood and affect Vital Signs Temp Pulse Resp BP Pulse Ox 97.5 F L 65 18 123/58 H 96 10/02/18 11:41 10/02/18 11:41 10/02/18 11:41 10/02/18 11:41 10/02/18 11:41 Oxygen Flow Rate (L/min) 2 Oxygen Delivery Method Room Air Weight: 251 lb 4 oz Body Mass Index (BMI) 36.0 Intake and Output for Last 24 Hours 09/30/18 10/01/18 10/02/18 23:59 23:59 23:59 Intake Total 1750 / 1750 2104 / 2104 Balance 1750 / 1750 210 / 210 Microbiology Past 72 Hours 10/01/18 08:12 Gram Stain - Final Sputum, Expectorated/Coughed Respiratory Culture - Preliminary Appears to be normal respiratory asha. Further studies to follow. 10/01/18 05:17 Streptococcus pneumoniae Antigen (M - Final Urine, Clean Catch 10/01/18 05:17 Legionella Antigen - Final Urine, Clean Catch 09/30/18 18:35 Influenza Types A,B Direct FA (JOSEPH) - Final Mucosa - Nose Laboratory Tests Past 24 Hrs 10/02/18 06:45 WBC 13.8 H RBC 5.78 Hgb 16.6 H Hct 48.8 MCV 84.4 MCH 28.7 MCHC 34.0 RDW 16.9 H RDW Differential 52.4 H Plt Count 197 MPV 10.1 Immature Gran % (Auto) 0.300 Neut % (Auto) 89.7 H Lymph % (Auto) 4.3 L [place] % (Auto) 5.6 Eos % (Auto) 0.0 Baso % (Auto) 0.1 Absolute Neuts (auto) 12.4 H Absolute Lymphs (auto) 0.59 L Total Counted Not Reportable Differential Comment COMMENT POC Glucose 10/02/18 10/02/18 10/01/18 11:36 06:37 22:50 POC Glucose 169 H 144 H 138 H 10/01/18 16:23 POC Glucose 146 H Discharge Diet: Low fat/ Low Cholesterol, 2000 mg Sodium Diet Discharge Activity: Return to Normal Activity Home Medications: Medications to take at Discharge Pravastatin [Pravachol] 40 mg PO DAILY #0 12/21/13 famotidine 40 mg tablet 40 mg PO DAILY 07/16/18 Hydrocortisone [Cortef] 20 mg PO DAILY 09/01/18 Allopurinol 300 mg PO DAILY 09/30/18 Carvedilol 25 mg PO QHS 09/30/18 Carvedilol [Coreg] 12.5 mg PO DAILY 09/30/18 Furosemide 40 mg PO QODAY 09/30/18 Hydrocortisone 10 mg PO QHS 09/30/18 Metoprolol Succinate [Toprol Xl] 25 mg PO DAILY 09/30/18 Omeprazole 20 mg PO DAILY 09/30/18 Azithromycin 500 mg PO DAILY #1 tablet 10/02/18 Cefdinir [Omnicef [equiv]] 300 mg PO Q12H #8 capsule 10/02/18 Following Prescrptions Were Given to Patient: Azithromycin 500 mg PO DAILY #1 tablet Cefdinir [Omnicef [equiv]] 300 mg PO Q12H #8 capsule Primary Care Physician: Suraj Damian Chi, MD [Primary Care Provider] - Please follow up with your Primary Care Physician in: 1-2 weeks Disposition: Home Minutes spent on discharge:: 35 Patient Condition:: Stable Medical Necessity - Tobacco Use Smoking Status: Former smoker Meaningful Use Info Meaningful Use Diagnoses (Choose all that apply): None applicable <LorenadulceGregoria Portilloa - Last Filed: 10/02/18 16:26> Discharge Date and Diagnosis - Secondary Discharge Diagnosis Chronic Problems (Last Reviewed 09/30/18 @ 21:40 by Rene Velez MD) History of non-Hodgkin's lymphoma (Chronic) History of pituitary adenoma (Chronic) Acute systolic (congestive) heart failure (Chronic) Dyspnea on exertion (Chronic) Nonrheumatic mitral (valve) insufficiency (Chronic) Cardiac pacemaker in situ (Chronic) January 02, 2015 Primary pacemaker insertion Mobitz (type) II atrioventricular block (Chronic) Hyperlipidemia (Chronic) Encounter for long-term (current) use of other medications (Chronic) Body mass index (BMI) 35 or more (Chronic) Diffuse large B cell lymphoma (Chronic) Cardiomyopathy (Chronic) Acute systolic heart failure (Chronic) PORTILLO (obstructive sleep apnea) (Chronic) 18/14 cmH2O Dyspnea (Chronic) The patient reports that his dyspnea on exertion has improved since initiating and becoming compliant with his pressure support therapy. No additional studies at this time. If dyspnea worsens may consider doing a pulmonary stress test or a complete pulmonary function test. Follow-up with Dr. Dorman in 3 months. Esophageal reflux (Chronic) Gout (Chronic) HTN (hypertension) (Chronic) Malignant lymphoma of extranodal and solid organ sites (Chronic) last chemo was 2 years ago.....treated with CHOP Hypercholesterolemia (Chronic) History of pituitary tumor (Chronic) Status post surgery, currently on hydrocortisone replacement. 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 He has a past medical history as listed. Cough was productive of bloody sputum. He has had assisted chills and fever. He went to his PCPs office where he was given IV Rocephin and azithromyc in. However due to persistent weakness he was sent to the ED where chest x-ray showed bilateral infiltrates and a possible small nodule in the left lateral lung base. He had elevated white cell count was afebrile. He was admitted and managed for community-acquired pneumonia and started on IV ceftriaxone and azithromycin. Patient did not require oxygen during admission. Respiratory panel was negative and respiratory cultures were also negative as well as urine for strep and Legionella antigens. Walking pulse ox did not indicates need for oxygen. He remained stable and was discharged home with a prescription for p.o. Omnicef and azithromycin to complete a 5-day course of antibiotics. He is to follow-up with his primary care doctor in 1-2 weeks. Primary care doctor to follow-up lung nodule with further imaging and for referral to pulmonology as needed. Patient seen and examined prior to discharge. He had no complaints and felt well. Cough is resolved. Review of systems otherwise negative. Labs and vitals reviewed. Home medication reviewed and reconciled. o/e: [] Vital Signs Height 5 ft 10 in Weight: 251 lb 4 oz Weight in Pounds 251.3 lbs Pulse Ox 96 Temperature 97.5 F Pulse Rate 65 Respiratory Rate 18 Blood Pressure [BP] 131/61 Blood Pressure 123/58 Blood Pressure Position [BP] Semi-Fowlers Blood Pressure Position Sitting General: Alert, Oriented x3, Cooperative HEENT: Atraumatic, PERRLA, EOMI, Normocephalic Neck: Supple, No JVD, Negative Carotid Bruits Lungs: clear to auscultation, no wheezes or crackles. Cardiovascular: Regular rate, No murmurs Abdomen: Bowel Sounds Present, Soft, Non Tender Extremities: No edema, Capillary Refill Less than 3 Seconds Skin: No rashes, No breakdown Musculoskeletal: No Tenderness to Palpation of Joints or Extremities Neurological: Cranial nerves II-XII grossly intact Plan as described above. - Physical Exam Vital Signs Temp Pulse Resp BP Pulse Ox 97.5 F L 65 18 123/58 H 96 10/02/18 11:41 10/02/18 11:41 10/02/18 11:41 10/02/18 11:41 10/02/18 11:41 Oxygen Flow Rate (L/min) 2 Oxygen Delivery Method Room Air Weight: 251 lb 4 oz Body Mass Index (BMI) 36.0 Intake and Output for Last 24 Hours 09/30/18 10/01/18 10/02/18 23:59 23:59 23:59 Intake Total 1750 / 1750 2104 / 2104 Balance 1750 / 1750 2104 / 2104 Microbiology Past 72 Hours 10/01/18 08:12 Gram Stain - Final Sputum, Expectorated/Coughed Respiratory Culture - Preliminary Appears to be normal respiratory asha. Further studies to follow. 10/01/18 05:17 Streptococcus pneumoniae Antigen (M - Final Urine, Clean Catch 10/01/18 05:17 Legionella Antigen - Final Urine, Clean Catch 09/30/18 18:35 Influenza Types A,B Direct FA (JOSEPH) - Final Mucosa - Nose Laboratory Tests Past 24 Hrs 10/02/18 06:45 WBC 13.8 H RBC 5.78 Hgb 16.6 H Hct 48.8 MCV 84.4 MCH 28.7 MCHC 34.0 RDW 16.9 H RDW Differential 52.4 H Plt Count 197 MPV 10.1 Immature Gran % (Auto) 0.300 Neut % (Auto) 89.7 H Lymph % (Auto) 4.3 L [place] % (Auto) 5.6 Eos % (Auto) 0.0 Baso % (Auto) 0.1 Absolute Neuts (auto) 12.4 H Absolute Lymphs (auto) 0.59 L Total Counted Not Reportable Differential Comment COMMENT POC Glucose 10/02/18 10/02/18 10/01/18 11:36 06:37 22:50 POC Glucose 169 H 144 H 138 H 10/01/18 16:23 POC Glucose 146 H Code Visit Inpatient E&M: 48625 Disch Hosp
--- NOTE | 2018-10-05 14:37 | CASEMGMT ---
RN CM DC PHONE CALL DC DATE: 10/03/18 DC Disposition: Home LACE/STRATA:04/01 Intro role of CM to patient via phone. Pt states he does not have questions re: medications, f/u or instructions. No care improvement suggestions were given. Pt states everyone was really nice and my care was great. Zahida LEALN RN ACM
== END 2018-10-02 12:33 | disposition home or self-care (01) | DRG 194 ==
LOC: ED 18:36 → MS3 21:19
PROVIDERS: Admitting Provider Hospitalist; Emergency Provider Emergency Medicine; Family Provider Family Medicine Geriatric Medicine; PCP Family Medicine Geriatric Medicine; Referring Provider Hospitalist; Visit Provider Student in an Organized Health Care Education/Training Program
DX: J15.4 Pneumonia due to other streptococci (principal); I13.0 Hypertensive heart and chronic kidney disease with heart failure and stage 1 through stage 4 chronic kidney disease, or unspecified chronic kidney disease; I50.20 Unspecified systolic (congestive) heart failure; I42.9 Cardiomyopathy, unspecified; E87.6 Hypokalemia; D69.6 Thrombocytopenia, unspecified; N18.3 Chronic kidney disease, stage 3 (moderate); E78.5 Hyperlipidemia, unspecified; Z85.72 Personal history of non-Hodgkin lymphomas; Z92.21 Personal history of antineoplastic chemotherapy; Z95.0 Presence of cardiac pacemaker; M10.9 Gout, unspecified; E66.9 Obesity, unspecified; Z68.36 Body mass index [BMI] 36.0-36.9, adult; Z87.891 Personal history of nicotine dependence; E83.51 Hypocalcemia; E16.2 Hypoglycemia, unspecified; R91.1 Solitary pulmonary nodule; G47.33 Obstructive sleep apnea (adult) (pediatric); I44.1 Atrioventricular block, second degree; K21.9 Gastro-esophageal reflux disease without esophagitis
CPT/HCPCS: 36415; 71045; 80048; 82040; 82962; 83605; 85025; 87040; 87070; 87205; 87449; 87804; 94640; 94668; 97162; 97165; 97530; 99282; J7030; J7050; A4216

== ENCOUNTER → 2018-10-08 10:29 | Outpatient (CLI) | payer MEDICARE, SELFPAY ==
[2018-09-30 21:58] VITALS: BMI 36.0
--- NOTE | 2018-10-08 10:34 | RAD_ITS ---
STUDY: X-RAY CHEST REASON FOR EXAM: Male, 78 years old. History of pneumonia. TECHNIQUE: PA and lateral views of the chest. COMPARISON: Comparison is made with prior study dated September 30, 2018. FINDINGS: Residual infiltrate is seen in the right lung base although this has improved as compared to prior study. Mild residual increased markings at the left lung base suggestive of scarring. The lungs are clear and expanded. There is no demonstrated pleural abnormality. There is borderline cardiomegaly. A left-sided dual-chamber pacemaker is seen. Normal mediastinum and jay. Normal visualized pulmonary arteries. There is atherosclerotic calcification of the aortic arch with tortuosity. There are diffuse degenerative changes of the visualized thoracic spine. Dextroscoliosis. Normal visualized ribs, clavicles, and shoulders. There is no demonstrated abnormality of the visualized soft tissue structures of the upper abdomen. RAD/Chest PA and Lateral IMPRESSION: Mild residual infiltrate in the right lung base although this has improved. Chronic scarring at the left lung base. Electronically Signed: Nik Martines, at 10:56 EDT , Service support ,
== END ==
PROVIDERS: Family Provider Family Medicine Geriatric Medicine; PCP Family Medicine Geriatric Medicine; Referring Provider Family Medicine Geriatric Medicine; Visit Provider Family Medicine Geriatric Medicine
DX: R06.02 Shortness of breath (principal)
CPT/HCPCS: 71046

== ENCOUNTER → 2018-10-21 12:41 | Outpatient (CLI) | payer MEDICARE, SELFPAY ==
[2018-09-30 21:58] VITALS: BMI 36.0
--- NOTE | 2018-10-21 12:45 | ECHOCS_ITS ---
Reason For Study: SOB Procedure This was a 2D Doppler, Color Flow transthoracic echocardiogram. Exam performed in department. Left Ventricle Normal LV size. Moderate concentric left ventricular hypertrophy. The estimated ejection fraction is 40 %. Moderate segmental systolic dysfunction (see wall motion). Septal motion consistent with IVCD. Stage 1 diastolic dysfunction. Harris : Severely Hypokinetic. Right Ventricle Normal RV size. ICD or pacer leads identified within the right ventricle. Normal systolic function. Atria Normal left atrium. Normal right atrium. Mitral Valve Normal mitral valve. Mild (1+) mitral valve insufficiency. Tricuspid Valve Normal tricuspid valve. Mild tricuspid valve insufficiency. Pulmonary artery systolic pressure is 21 mmHg. Aortic Valve Trisinus/trileaflet aortic valve. Mild focal aortic valve calcification. Peak aortic valve gradient 30 mmHg. Mean aortic valve gradient 16 mmHg. Calculated aortic valve area (continuity equation) is 1.2 cm2. Mild (1+) aortic valve insufficiency. Pulmonic Valve Normal pulmonic valve. Great Vessels Normal aortic root. The pulmonary artery is normal size. Normal inferior vena cava. Pericardium/Pleural No pericardial effusion. Medication 22 gauge I.V. with prn adaptor inserted into right arm. Diluted definity 4.5ml given slow IV push to enhance endocardial definition. MMode/2D Measurements & Calculations LVIDd: 5.1 cm IVSd: 1.4 cm LVOT diam: 2.1 cm LVIDs: 3.3 cm LVPWd: 1.4 cm FS: 35.5 % LVOT area: 3.4 cm2 Ao root diam: 4.3 cm LA dimension(2D): 4.8 cm Time Measurements MV dec time: 0.34 sec Doppler Measurements & Calculations MV E max terrence: 60.2 cm/sec Lat Peak E' Terrence: 2.8 cm/sec Med Peak E' Terrence: 3.4 cm/sec MV A max terrence: 105.3 cm/sec E/E' lat: 21.7 E/E' med: 17.6 MV E/A: 0.57 Ao V2 max: 273.9 cm/sec AI max terrence: 296.2 cm/sec LV V1 max: 97.2 cm/sec Ao max P.0 mmHg AI max P.2 mmHg LV V1 max P.8 mmHg Ao V2 mean: 188.2 cm/sec LV V1 mean P.0 mmHg Ao mean P.8 mmHg AI dec slope: 110.2 cm/sec2 LV V1 mean: 66.2 cm/sec Ao V2 VTI: 61.2 cm AI P1/2t: 787.3 msec LV V1 VTI: 22.8 cm GILMA(I,D): 1.3 cm2 GILMA(V,D): 1.2 cm2 SV(LVOT): 77.9 ml TR max terrence: 209.5 cm/sec TR max P.6 mmHg Interpretation Summary Normal LV size. The estimated ejection fraction is 40 %. Moderate concentric left ventricular hypertrophy. Mild focal aortic valve calcification. Mean aortic valve gradient 16 mmHg. Calculated aortic valve area (continuity equation) is 1.2 cm2. Moderate segmental systolic dysfunction (see wall motion). Stage 1 diastolic dysfunction. Compared to prior study, there is no significant change. Ordering Physician: Suraj Damian Referring Physician: Suraj Damian Chi Performed By: Vianey Marcano, TARAN, RVT
== END ==
PROVIDERS: Family Provider Family Medicine Geriatric Medicine; PCP Family Medicine Geriatric Medicine; Referring Provider Family Medicine Geriatric Medicine; Visit Provider Family Medicine Geriatric Medicine
DX: R06.02 Shortness of breath (principal)
CPT/HCPCS: 93306; Q9957; A4216; C8929

== ENCOUNTER → 2018-11-10 12:09 | Outpatient (CLI) | payer MEDICARE, SELFPAY ==
[2018-09-30 21:58] VITALS: BMI 36.0
[2018-11-10 13:16] LABS: Anion Gap 8 (5-15); BUN 19 mg/dL (7-18); BUN/Creat Ratio 10.9 RATIO (10-20); Calcium,Total 8.7 mg/dL (8.5-10.1); Chloride 106 mmol/L (98-107); Creatinine, Serum 1.74 mg/dL (0.70-1.30); EST Glomerular Filtration Rate 41 mL/min (>60); Est Glom Filt Rate - Afr Amer 49 mL/min (>60); Glucose 108 mg/dL (74-106); Potassium 3.4 mmol/L (3.5-5.1); Sodium Level 138 mmol/L (136-145)
[2018-11-10 13:18] LABS: Absolute Lymphocyte Count 0.53 X10^3/ul (0.83-4.51); Absolute Neutrophil Count 9.3 X10^3/uL (2.0-7.7); Basophil# 0.04 X10^3/uL; Basophil% 0.4 % (0-1); Differential Indicated SCAN CRITERIA MET; Eosinophil# 0.12 X10^3/uL; Eosinophils% 1.1 % (0-5); Hematocrit 49.3 % (40-54); Hemoglobin 16.6 g/dl (13.0-16.5); Lymphocyte # 0.53 X10^3/ul (4.0); Mean Corp Hgb Conc 33.7 g/gl (32-36); Mean Corpuscular Hgb 29.4 pg (27.0-32.0); Mean Corpuscular Volume 87.3 fL (80-94); Mean Platelet Vol. 9.8 fl (6.2-12.0); Monocyte# 0.63 X10^3/uL; Monocyte% 5.9 % (0-10); Neutrophil # 9.33 X10^3/uL (2.7-7.7); Neutrophil % 87.4 % (47-70); POSITIVE COUNT NO; POSITIVE DIFFERENTIAL YES; POSITIVE MORPHOLOGY NO; Platelet Count 132 K/mm3 (150-450); Red Blood Count 5.65 M/mm3 (4.6-6.2); White Blood Count 10.7 K/mm3 (4.4-11.0)
--- NOTE | 2018-11-10 13:30 | RAD_ITS ---
STUDY: X-RAY CHEST REASON FOR EXAM: Male, 78 years old. Cough, chest congestion and shortness of breath. TECHNIQUE: PA and lateral views of the chest. COMPARISON: Comparison is made with prior study dated October 08, 2014. FINDINGS: The lungs are clear and expanded. There is no demonstrated pleural abnormality. Normal size heart. A left-sided dual-chamber pacemaker is seen. Normal mediastinum and jay. Normal visualized pulmonary arteries. There is atherosclerotic tortuosity of the aortic arch and descending thoracic aorta. There are diffuse degenerative changes of the visualized thoracic spine. Dextroscoliosis. Increased thoracic kyphosis. Normal visualized ribs, clavicles, and shoulders. There is no demonstrated abnormality of the visualized soft tissue structures of the upper abdomen. RAD/Chest PA and Lateral IMPRESSION: Dextroscoliosis. The lungs are clear. Electronically Signed: Nik Martines, at 14:00 EDT , Service support ,
== END ==
LOC: POLAB3 12:09 → RAD 13:21
PROVIDERS: Family Provider Family Medicine Geriatric Medicine; PCP Family Medicine Geriatric Medicine; Referring Provider Family Medicine Geriatric Medicine; Visit Provider Family Medicine Geriatric Medicine
DX: R50.9 Fever, unspecified (principal); R05 Cough
CPT/HCPCS: 36415; 71046; 80048; 85025; 87040; 87633

== ENCOUNTER → 2019-01-26 10:57 | Outpatient (CLI) | payer MEDICARE, SELFPAY ==
[2018-08-06 10:02] VITALS: BMI 37.2
[2019-01-21 12:55] VITALS: BMI 35.4
[2019-01-26 13:03] LABS: Absolute Lymphocyte Count 0.69 X10^3/uL (0.83-4.51); Absolute Neutrophil Count 7.1 X10^3/uL (2.0-7.7); Basophil# 0.04 X10^3/uL; Basophil% 0.5 % (0-1); Eosinophil# 0.09 X10^3/uL; Eosinophils% 1.1 % (0-5); Hematocrit 45.9 % (40-54); Hemoglobin 15.5 g/dL (13.0-16.5); Lymphocyte # 0.69 X10^3/ul (4.0); Lymphocyte % 8.2 % (19-41); Mean Corp Hgb Conc 33.8 g/dL (32-36); Mean Corpuscular Hgb 31.7 pg (27.0-32.0); Mean Corpuscular Volume 93.9 fL (80-94); Monocyte# 0.49 X10^3/uL; Monocyte% 5.8 % (0-10); NRBC Flagged by Analyzer 0 % (0-5); Neutrophil % 83.9 % (47-70); Platelet Count 169 K/mm3 (150-450); RBC Distribution Width CV 13.6 % (11.6-14.6); RBC Distribution Width SD 46.7 fl (35.1-43.9); Red Blood Count 4.89 M/mm3 (4.6-6.2); White Blood Count 8.5 K/mm3 (4.4-11.0)
[2019-01-26 13:15] LABS: Vitamin D,25 Hydroxy 20.6 ng/mL (29.95-100.01)
[2019-01-26 13:56] LABS: ALB/GLOB Ratio 1.3 RATIO (0.9-2.4); AST(SGOT) 21 U/L (15-37); Alanine Aminotransfer ALT/SGPT 27 U/L (16-61); Albumin, Serum 3.5 g/dL (3.2-5.0); Alkaline Phosphatase 53 U/L (45-117); Anion Gap 12 (5-15); BUN 24 mg/dL (7-18); BUN/Creat Ratio 16.4 RATIO (10-20); Chloride 111 mmol/L (98-107); Creatinine, Serum 1.46 mg/dL (0.70-1.30); EST Glomerular Filtration Rate 50 mL/min (>60); Est Glom Filt Rate - Afr Amer 60 mL/min (>60); Globulin 2.7 g/dL (2.2-4.2); Glucose 95 mg/dL (74-106); Potassium 3.8 mmol/L (3.5-5.1); Protein, Total 6.2 g/dL (6.4-8.2); Sodium Level 143 mmol/L (136-145); Thyroid Stim Hormone (TSH) 1.76 uIU/mL (0.358-3.74); Uric Acid 7.4 mg/dL (3.5-7.2)
== END ==
PROVIDERS: Family Provider Family Medicine Geriatric Medicine; PCP Family Medicine Geriatric Medicine; Visit Provider Family Medicine Geriatric Medicine
DX: E23.6 Other disorders of pituitary gland (principal); E55.9 Vitamin D deficiency, unspecified; I10 Essential (primary) hypertension; M10.9 Gout, unspecified
CPT/HCPCS: 36415; 80053; 82306; 84403; 84443; 84550; 85025

== ENCOUNTER → 2019-06-04 12:01 | Outpatient (CLI) | payer MEDICARE, SELFPAY ==
[2019-06-04 11:19] VITALS: BMI 35.4
[2019-06-04 13:40] LABS: Free T3 3.2 pg/mL (2.18-3.98); T4 Free Direct 0.97 ng/dL (0.76-1.46)
[2019-06-07 09:36] LABS: Somatomedin C 124 ng/mL (37-172)
== END ==
PROVIDERS: Family Provider Family Medicine Geriatric Medicine; PCP Family Medicine Geriatric Medicine; Referring Provider Internal Medicine Endocrinology, Diabetes & Metabolism; Visit Provider Internal Medicine Endocrinology, Diabetes & Metabolism
DX: E23.0 Hypopituitarism (principal); Z86.39 Personal history of other endocrine, nutritional and metabolic disease
CPT/HCPCS: 36415; 84305; 84439; 84481

== ENCOUNTER → 2019-07-27 10:31 | Outpatient (CLI) | payer MEDICARE, SELFPAY ==
[2019-06-04 11:19] VITALS: BMI 35.4
[2019-07-27 12:31] LABS: Absolute Lymphocyte Count 0.68 X10^3/uL (0.83-4.51); Absolute Neutrophil Count 6.4 X10^3/uL (2.0-7.7); Basophil# 0.04 X10^3/uL; Basophil% 0.5 % (0-1); Eosinophil# 0.08 X10^3/uL; Hematocrit 46.5 % (40-54); Hemoglobin 15.7 g/dL (13.0-16.5); Lymphocyte # 0.68 X10^3/ul (4.0); Lymphocyte % 8.8 % (19-41); Mean Corp Hgb Conc 33.8 g/dL (32-36); Mean Corpuscular Hgb 31.5 pg (27.0-32.0); Mean Corpuscular Volume 93.4 fL (80-94); Mean Platelet Vol. 9.3 fl (6.2-12.0); Monocyte% 6.5 % (0-10); NRBC Flagged by Analyzer 0 % (0-5); Neutrophil # 6.35 X10^3/uL (2.7-7.7); Neutrophil % 82.6 % (47-70); Platelet Count 179 K/mm3 (150-450); RBC Distribution Width CV 12.8 % (11.6-14.6); RBC Distribution Width SD 43.9 fl (35.1-43.9); Red Blood Count 4.98 M/mm3 (4.6-6.2); White Blood Count 7.7 K/mm3 (4.4-11.0)
[2019-07-27 12:49] LABS: Vitamin D,25 Hydroxy 20.8 ng/mL (29.95-100.01)
[2019-07-27 12:57] LABS: ALB/GLOB Ratio 1.2 RATIO (0.9-2.4); AST(SGOT) 19 U/L (15-37); Alanine Aminotransfer ALT/SGPT 25 U/L (16-61); Albumin, Serum 3.6 g/dL (3.2-5.0); Alkaline Phosphatase 89 U/L (45-117); Anion Gap 6 (5-15); BUN 31 mg/dL (7-18); Calcium,Total 9.5 mg/dL (8.5-10.1); Chloride 109 mmol/L (98-107); Creatinine, Serum 1.63 mg/dL (0.70-1.30); EST Glomerular Filtration Rate 44 mL/min (>60); Est Glom Filt Rate - Afr Amer 53 mL/min (>60); Glucose 103 mg/dL (74-106); Potassium 4.3 mmol/L (3.5-5.1); Protein, Total 6.6 g/dL (6.4-8.2); Sodium Level 139 mmol/L (136-145); Thyroid Stim Hormone (TSH) 2.12 uIU/mL (0.358-3.74); Uric Acid 7.3 mg/dL (3.5-7.2)
== END ==
LOC: POLAB3 10:32
PROVIDERS: PCP Family Medicine Geriatric Medicine; Visit Provider Family Medicine Geriatric Medicine
DX: I10 Essential (primary) hypertension (principal); E55.9 Vitamin D deficiency, unspecified; M10.9 Gout, unspecified; E23.6 Other disorders of pituitary gland
CPT/HCPCS: 36415; 80053; 82306; 84403; 84443; 84550; 85025

== ENCOUNTER → 2019-12-03 10:54 | Outpatient (CLI) | payer MEDICARE, SELFPAY ==
[2019-12-03 10:37] VITALS: BMI 35.4
[2019-12-03 12:31] LABS: Hematocrit 49.5 % (40-54); Hemoglobin 16.3 g/dL (13.0-16.5)
[2019-12-08 12:08] LABS: Testosterone, Free 3.15 ng/dL (5.00-21.00)
[2019-12-08 12:18] LABS: Testosterone, % Free 2.28 % (1.50-4.20); Testosterone, Total 138 ng/dL (264-916)
== END ==
PROVIDERS: PCP Family Medicine Geriatric Medicine; Referring Provider Internal Medicine Endocrinology, Diabetes & Metabolism; Visit Provider Internal Medicine Endocrinology, Diabetes & Metabolism
DX: E27.49 Other adrenocortical insufficiency (principal); E29.1 Testicular hypofunction; Z12.5 Encounter for screening for malignant neoplasm of prostate
CPT/HCPCS: 36415; 84153; 84402; 84403; 85014; 85018; G0103

== ENCOUNTER → 2019-12-06 12:32 | Outpatient (CLI) | payer MEDICARE, SELFPAY ==
[2019-12-03 11:00] VITALS: BMI 35.9
[2019-12-06 13:32] LABS: Absolute Lymphocyte Count 0.57 X10^3/uL (0.83-4.51); Absolute Neutrophil Count 7.8 X10^3/uL (2.0-7.7); Basophil# 0.02 X10^3/uL; Basophil% 0.2 % (0-1); Eosinophil# 0.06 X10^3/uL; Eosinophils% 0.7 % (0-5); Hematocrit 43.8 % (40-54); Hemoglobin 14.9 g/dL (13.0-16.5); Lymphocyte # 0.57 X10^3/ul (4.0); Lymphocyte % 6.3 % (19-41); Mean Corpuscular Hgb 31.4 pg (27.0-32.0); Mean Corpuscular Volume 92.4 fL (80-94); Mean Platelet Vol. 9.1 fl (6.2-12.0); Monocyte# 0.69 X10^3/uL; Monocyte% 7.6 % (0-10); NRBC Flagged by Analyzer 0 % (0-5); Neutrophil # 7.75 X10^3/uL (2.7-7.7); Neutrophil % 84.9 % (47-70); POSITIVE DIFFERENTIAL YES; Platelet Count 165 K/mm3 (150-450); RBC Distribution Width CV 13.7 % (11.6-14.6); RBC Distribution Width SD 45.7 fl (35.1-43.9); Red Blood Count 4.74 M/mm3 (4.6-6.2); White Blood Count 9.1 K/mm3 (4.4-11.0)
[2019-12-06 13:37] LABS: Differential Indicated SCAN CRITERIA MET
[2019-12-06 13:40] LABS: Vitamin B12 262 pg/mL (211-911)
[2019-12-06 13:48] LABS: ALB/GLOB Ratio 1.2 RATIO (0.9-2.4); AST(SGOT) 19 U/L (15-37); Alanine Aminotransfer ALT/SGPT 26 U/L (16-61); Albumin, Serum 3.3 g/dL (3.2-5.0); Alkaline Phosphatase 95 U/L (45-117); Anion Gap 7 (5-15); BUN 22 mg/dL (7-18); BUN/Creat Ratio 15.5 RATIO (10-20); Calcium,Total 8.7 mg/dL (8.5-10.1); Chloride 114 mmol/L (98-107); Creatinine, Serum 1.42 mg/dL (0.70-1.30); EST Glomerular Filtration Rate 51 mL/min (>60); Est Glom Filt Rate - Afr Amer 62 mL/min (>60); Ferritin 205 ng/mL (26-388); Globulin 2.8 g/dL (2.2-4.2); Glucose 114 mg/dL (74-106); Iron 46 ug/dL (65-175); Iron Binding Capacity,Total 249 ug/dL (250-450); LDH 162 U/L (87-241); PERCENT IRON SATURATION 18.5 % (15.0-55.0); Potassium 4.2 mmol/L (3.5-5.1); Protein, Total 6.1 g/dL (6.4-8.2); Sodium Level 145 mmol/L (136-145)
== END ==
PROVIDERS: PCP Family Medicine Geriatric Medicine; Referring Provider Internal Medicine Medical Oncology; Visit Provider Internal Medicine Medical Oncology
DX: C83.30 Diffuse large B-cell lymphoma, unspecified site (principal); D75.1 Secondary polycythemia
CPT/HCPCS: 36415; 80053; 82607; 82728; 82746; 83540; 83550; 83615; 85025

== ENCOUNTER → 2019-12-17 07:40 | Outpatient (CLI) | payer MEDICARE, SELFPAY ==
[2019-12-13 10:52] VITALS: BMI 36.2
--- NOTE | 2019-12-17 07:41 | NM_ITS ---
CLINICAL: 79-year-old male with reported history of elevation of the serum PSA level. WHOLE BODY 99m Tc MDP RADIONUCLIDE BONE SCINTIGRAPHY COMPARISON: None available FINDINGS: Following the intravenous administration of 25.4 mCi of 99m Tc MDP, whole body bone images reveal: 1. Increased radiopharmaceutical concentration is identified in the acromioclavicular compartment of the right shoulder, sternoclavicular and glenohumeral compartments of both shoulders, the left wrist, bilateral hands, fifth-sixth thoracic, third lumbar vertebra, bilateral posterior sacrum, left hip, right-left knees, bilateral ankle articulations. 2. The remaining skeletal structures are scintigraphically unremarkable with normal-appearing renal images and urinary bladder activity identified. An increase in tracer distribution is defined in the bilateral maxilla most consistent with periodontal disease and/or periostitis. NM/Bone Scan Whole Body IMPRESSION: 1. The increase in radiopharmaceutical concentration identified in the bilateral shoulders, left wrist, right and left hands, thoracic and lumbar spine, sacrum, left hip, bilateral knees and ankles is most consistent with degenerative arthritis. Plain film radiography correlation may be of benefit in the region of the left hip. 2. There is no definitive typical scintigraphic evidence of diffuse axial skeletal metastatic disease on the current examination. Electronically Signed: Wale Cronin DO at 8:05 EDT Tel , Service support ,
== END ==
PROVIDERS: PCP Family Medicine Geriatric Medicine; Referring Provider Internal Medicine Medical Oncology; Visit Provider Internal Medicine Medical Oncology
DX: R97.20 Elevated prostate specific antigen [PSA] (principal); C83.30 Diffuse large B-cell lymphoma, unspecified site
CPT/HCPCS: 78306

== ENCOUNTER → 2019-12-21 07:48 | Outpatient (CLI) | payer MEDICARE, SELFPAY ==
[2019-12-13 10:52] VITALS: BMI 36.2
--- NOTE | 2019-12-21 07:48 | CT_ITS ---
STUDY: CT ABDOMEN AND PELVIS WITHOUT CONTRAST REASON FOR EXAM: Male, 79 years old. STAGING PROSTATE CA-NEW DX, HX- NHL IN 2012 HAD CHEMO AT THAT TIME, HAS SMALL LT KIDNEY, CHF,HTN, HAS PACEMAKER RADIATION DOSAGE (If Supplied By Facility): CTDIvol = ( 20.7 ) mGy, DLP = ( 1008.44 ) mGycm TECHNIQUE: Transaxial images were obtained from the dome of the diaphragm to the symphysis pubis without oral contrast, and without intravenous contrast. Sagittal and coronal images were reconstructed. Individualized dose optimization techniques were used for this CT. COMPARISON: 08/23/2017 FINDINGS: Lung bases show chronic interstitial changes with stable small subcentimeter pleural-based nodules in the left lung base on axial image 13. Pacer leads seen along the base of the heart. Normal liver. Subtle hyperdensities noted in the dependent gallbladder likely sludge or small gallstones. Normal spleen. There is atrophy of the pancreas. Normal bilateral adrenal glands. Normal right kidney. There is stable severe cortical atrophy of the left kidney. There is a small hiatal hernia. Normal small intestine. There are multiple colonic diverticula consistent with diverticulosis. The appendix is visualized and appears normal. Appendix best seen on axial image 102. Stable nonspecific induration of the mid mesenteric fat There is diffuse atherosclerotic calcification of the abdominal aorta, without a demonstrated aneurysm. Normal inferior vena cava. Normal retroperitoneum. Bladder is incompletely distended but shows diffuse wall thickening. There are prostatic calcifications. There is a right-sided inguinal hernia containing adipose tissue. There are diffuse degenerative changes of the visualized lumbar spine, and pelvis. Progression of changes in the left femoral head suggesting AVN. CT/Abdomen/Pelvis without Cont IMPRESSION: No new suspicious solid organ abnormality. Stable severe atrophy of the left kidney, stable pancreatic atrophy, hyperdense sludge or small gallstones noted without CT evidence of acute cholecystitis. Stable nonspecific induration of the mesenteric fat. No suspicious mesenteric or retroperitoneal adenopathy. Stable nonspecific bladder wall thickening likely due to patient''s history of prostate issues Degenerative bony changes with worsening left hip arthrosis, and changes of AVN. Electronically Signed: Connor Izaguirre MD at 8:36 EDT , Service support ,
== END ==
PROVIDERS: PCP Family Medicine Geriatric Medicine; Referring Provider Internal Medicine Medical Oncology; Visit Provider Internal Medicine Medical Oncology
DX: R97.20 Elevated prostate specific antigen [PSA] (principal); C83.30 Diffuse large B-cell lymphoma, unspecified site
CPT/HCPCS: 74176

== ENCOUNTER → 2020-01-20 11:21 | Outpatient (CLI) | payer MEDICARE, SELFPAY ==
[2019-12-27 09:04] VITALS: BMI 36.1
--- NOTE | 2020-01-20 | IMM_PTH ---
PATIENT: DANITZA JAIN LOC: [facility] U#:[id number] AGE/SX: 84/M ROOM: RE01/20/[address]: Dr. Domenico Starr MD : 1940 BED: DIS: SPEC #: [id number] RECD: 01/21/20 12:20 STATUS: MENDY REAngeles #: [id number] MARSHAL: 01/20/20 00:[address]: Domenico Starr DEPT: IMMUNOHISTOCHEMISTRY RECD BY: Michelle Monterroso ENTERED: 01/21/20 12:22 SP TYPE: IMMUNO OTHR DR: Dr. Suraj Damian MD Tissues: B - PROSTATE RIGHT C - PROSTATE RIGHT Procedures: 34BE12 (add) P40 (add) 34BE12 (initial) PHYSICIAN & INSTITUTION [place] [id number] SPECIMEN INFORMATION: Tissue Source: B - Right prostate, mid, core biopsy, C - Right prostate, base, core biopsy Clinical Info: Elevated PSA Specimen Number: [id number] B & C CPT code: 93843, 66490 x3 METHODOLOGY: Deparaffinized sections of prefer/formalin-fixed tissue or PAP/DQ stained slides are incubated with monoclonal/polyclonal antibodies/oligonucleotide probes. Localization is made via biotin free immunoperoxidase method. Appropriate controls are performed and reacted as expected. Results on target cell population are indicated in the following table: RESULTS: ANTIBODY / CLONE RESULT Block B P40 (BC28) negative 34BE12 (34BE12) negative Block C P40 (BC28) negative 34BE12 (34BE12) negative These tests were developed and their performance characteristics determined by [facility]. They may not have been cleared or approved by the U.S. Food and Drug Administration. The FDA has determined that such clearance or approval is not necessary. The above immunohistochemical/dualISH markers are ordered and reviewed by the Pathologist. INTERPRETATION: B. Right prostate, mid, core biopsy: Adenocarcinoma. C. Right prostate, base, core biopsy: Focal atypical small acinar proliferation (FÉLIX). See comment. AMBERLY:tiarra 01/21/20 Comment: C. Atypical focus consists of only two glands.
--- NOTE | 2020-01-20 | PROSBIL_PTH ---
PATIENT: DANITZA JAIN LOC: [facility] U#:[id number] AGE/SX: 84/M ROOM: RE01/20/[address]: Dr. Domenico Starr MD : 1940 BED: DIS: SPEC #: [id number] RECD: 01/20/20 12:29 STATUS: MENDY BONNIE #: [id number] MARSHAL: 01/20/20 00:[address]: Domenico Starr DEPT: SURGICAL PATHOLOGY RECD BY: Sebastian Marshall ENTERED: 01/20/20 12:29 SP TYPE: PROST BX RENETTA DR: Dr. Sruaj Damian MD Tissues: A - PROSTATE RIGHT B - PROSTATE RIGHT C - PROSTATE RIGHT D - PROSTATE LEFT E - PROSTATE LEFT F - PROSTATE LEFT Procedures: PROSTATE BX HEADER OPERATION: Prostate biopsy PRE-OP DIAGNOSIS: Elevated PSA TISSUE SUBMITTED: A - Right apex, B - Right mid, C - Right base, D - Left apex, E - Left mid, F - Left base MICROSCOPIC DIAGNOSIS A. Right prostate, apex, core biopsy: Prostatic tissue, negative for malignancy. B. Right prostate, mid, core biopsy: Prostatic adenocarcinoma. Sim grade: 3+3=6 Number of cores involved: 1/1 Proportion of tissue involved: ~5-10% Perineural invasion: Not identified. Greatest tumor length: 0.1 cm See comment. C. Right prostate, base, core biopsy: Focal atypical small acinar proliferation (FÉLIX). See comment. D. Left prostate, apex, core biopsy: Prostatic adenocarcinoma. Sim grade: 3+3=6 Number of cores involved: 1/1 Proportion of tissue involved: ~90% Perineural invasion: Present, focal Greatest tumor length: 0.8 cm E. Left prostate, mid, core biopsy: Prostatic adenocarcinoma. Sim grade: 3+4=7 Number of cores involved: 1/1 Proportion of tissue involved: ~90% Perineural invasion: Present, focal Greatest tumor length: 1.2 cm, discontinuous F. Left prostate, base, core biopsy: Prostatic adenocarcinoma. Huntington grade: 3+4=7 Number of cores involved: 1/1 Proportion of tissue involved: ~90% Perineural invasion: Present, focal Greatest tumor length: 1.4 cm, discontinuous. SJ:tiarra 01/21/20 COMMENT B. Immunohistochemistry ([id number]) supports the above diagnosis. C. Immunohistochemistry ([id number]) supports the above diagnosis. Atypical focus consists of only two glands. Case has been reviewed in consultation with Dr. Roca who concurs with the above diagnosis. IDC:AM MICROSCOPIC DESCRIPTION Slides are reviewed. GROSS DESCRIPTION A - Received is one container designated prostate, right apex. The specimen consists of one elongated fragment of light alonzo-white soft tissue measuring 1 cm in length and 0.1 cm in diameter. The specimen is totally submitted in one cassette. B - Received is one container designated prostate, right mid. The specimen consists of one elongated fragment of light alonzo-white soft tissue measuring 1.3 cm in length and 0.1 cm in diameter. The specimen is totally submitted in one cassette. C - Received is one container designated prostate, right base. The specimen consists of one elongated fragment of light alonzo-white soft tissue measuring 0.7 cm in length and 0.1 cm in diameter. The specimen is totally submitted in one cassette. D - Received is one container designated prostate, left apex. The specimen consists of one elongated fragment of light alonzo-white soft tissue measuring 1 cm in length and 0.1 cm in diameter. The specimen is totally submitted in one cassette. E - Received is one container designated prostate, left mid. The specimen consists of one elongated fragment of light alonzo-white soft tissue measuring 2 cm in length and 0.1 cm in diameter. The specimen is totally submitted in one cassette. F - Received is one container designated prostate, left base. The specimen consists of one elongated fragment of light alonzo-white soft tissue measuring 1.5 cm in length and 0.1 cm in diameter. The specimen is totally submitted in one cassette. / SJ:rg 01/20/20 TC:0 [facility]: [id number]
== END ==
PROVIDERS: PCP Family Medicine Geriatric Medicine; Referring Provider Urology; Visit Provider Urology
DX: R97.20 Elevated prostate specific antigen [PSA] (principal)
CPT/HCPCS: 88305; 88341; 88342; G0416

== ENCOUNTER → 2020-01-31 11:43 | Outpatient (CLI) | payer MEDICARE, SELFPAY ==
[2019-12-27 09:04] VITALS: BMI 36.1
[2020-01-31 12:17] LABS: Absolute Lymphocyte Count 0.92 X10^3/uL (0.83-4.51); Absolute Neutrophil Count 5.8 X10^3/uL (2.0-7.7); Basophil# 0.03 X10^3/uL; Basophil% 0.4 % (0-1); Eosinophils% 1.3 % (0-5); Hematocrit 44.8 % (40-54); Hemoglobin 14.9 g/dL (13.0-16.5); Lymphocyte # 0.92 X10^3/ul (4.0); Lymphocyte % 12.1 % (19-41); Mean Corp Hgb Conc 33.3 g/dL (32-36); Mean Corpuscular Hgb 31.4 pg (27.0-32.0); Mean Corpuscular Volume 94.3 fL (80-94); Mean Platelet Vol. 9.7 fl (6.2-12.0); Monocyte% 9.2 % (0-10); NRBC Flagged by Analyzer 0 % (0-5); Neutrophil # 5.82 X10^3/uL (2.7-7.7); Neutrophil % 76.5 % (47-70); Platelet Count 162 K/mm3 (150-450); RBC Distribution Width CV 13.5 % (11.6-14.6); RBC Distribution Width SD 46.6 fl (35.1-43.9); Red Blood Count 4.75 M/mm3 (4.6-6.2); White Blood Count 7.6 K/mm3 (4.4-11.0)
[2020-01-31 12:31] LABS: Vitamin D,25 Hydroxy 30.5 ng/mL
[2020-01-31 13:08] LABS: ALB/GLOB Ratio 1.2 RATIO (0.9-2.4); AST(SGOT) 19 U/L (15-37); Alanine Aminotransfer ALT/SGPT 24 U/L (16-61); Albumin, Serum 3.4 g/dL (3.2-5.0); Alkaline Phosphatase 85 U/L (45-117); Anion Gap 7 (5-15); BUN 31 mg/dL (7-18); BUN/Creat Ratio 20.8 RATIO (10-20); Calcium,Total 8.8 mg/dL (8.5-10.1); Chloride 111 mmol/L (98-107); Creatinine, Serum 1.49 mg/dL (0.70-1.30); EST Glomerular Filtration Rate 48 mL/min (>60); Est Glom Filt Rate - Afr Amer 59 mL/min (>60); Globulin 2.9 g/dL (2.2-4.2); Glucose 97 mg/dL (74-106); Protein, Total 6.3 g/dL (6.4-8.2); Sodium Level 143 mmol/L (136-145); Thyroid Stim Hormone (TSH) 3.13 uIU/mL (0.358-3.74); Uric Acid 8.2 mg/dL (3.5-7.2)
== END ==
PROVIDERS: PCP Family Medicine Geriatric Medicine; Visit Provider Family Medicine Geriatric Medicine
DX: E23.6 Other disorders of pituitary gland (principal); E55.9 Vitamin D deficiency, unspecified; I10 Essential (primary) hypertension; M10.9 Gout, unspecified
CPT/HCPCS: 36415; 80053; 82306; 84403; 84443; 84550; 85025

== ENCOUNTER 2020-02-25 06:19 | Day surgery (SDC) | payer MEDICARE, SELFPAY ==
[2019-12-27 09:04] VITALS: BMI 36.1
[2020-02-25 07:06] VITALS: BP 169/73; PULSE 60; RESP 16; TEMP 36.4; O2SAT 100; BMI 35.2
[2020-02-25] MEDS: Lactated Ringers 1,000 ML 100 ML IV (07:22)
--- NOTE | 2020-02-25 07:59 | HP.PCM_ITS ---
History of Present Illness Date of Admission: 02/25/20 Chief Complaint: Prostate cancer The patient is a 79 year old male with a PSA of 16, had [place] 7 intermediate risk well differentiated prostate cancer. He is elected undergo radiation therapy and today were to place gold markers for radiation and also spacer gel matrix. 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) Nonrheumatic aortic (valve) stenosis (Chronic) History of non-Hodgkin's lymphoma (Chronic) History of pituitary adenoma (Chronic) Acute systolic (congestive) heart failure (Chronic) Dyspnea on exertion (Chronic) Nonrheumatic mitral (valve) insufficiency (Chronic) Cardiac pacemaker in situ (Chronic) January 02, 2015 Primary pacemaker insertion Mobitz (type) II atrioventricular block (Chronic) Hyperlipidemia (Chronic) Encounter for long-term (current) use of other medications (Chronic) Body mass index (BMI) 35 or more (Chronic) Diffuse large B cell lymphoma (Chronic) Cardiomyopathy (Chronic) Acute systolic heart failure (Chronic) PORTILLO (obstructive sleep apnea) (Chronic) 18/14 cmH2O Dyspnea (Chronic) The patient reports that his dyspnea on exertion has improved since initiating and becoming compliant with his pressure support therapy. No additional studies at this time. If dyspnea worsens may consider doing a pulmonary stress test or a complete pulmonary function test. Follow-up with Dr. Dorman in 3 months. Esophageal reflux (Chronic) Gout (Chronic) HTN (hypertension) (Chronic) Malignant lymphoma of extranodal and solid organ sites (Chronic) last chemo was 2 years ago.....treated with CHOP Hypercholesterolemia (Chronic) History of pituitary tumor (Chronic) Status post surgery, currently on hydrocortisone replacement. 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 Intermittent second degree atrioventricular block (Chronic) in the setting of beta blockers CKD (chronic kidney disease) stage 3, GFR 30-59 ml/min (Chronic) Simple obesity (Chronic) Medical History: Medical History (Last Reviewed 02/25/20 @ 08:[address] Domenico Starr MD) History of non-Hodgkin's lymphoma (Chronic) Z85.72 History of pituitary adenoma (Chronic) Z86.39 Acute systolic (congestive) heart failure (Chronic) I50.21 Dyspnea on exertion (Chronic) R06.09 Nonrheumatic mitral (valve) insufficiency (Chronic) I34.0 Cardiac pacemaker in situ (Chronic) Z95.0 January 02, 2015 Primary pacemaker insertion Mobitz (type) II atrioventricular block (Chronic) I44.1 Hyperlipidemia (Chronic) E78.5 Encounter for long-term (current) use of other medications (Chronic) Z79.899 Body mass index (BMI) 35 or more (Chronic) Diffuse large B cell lymphoma (Chronic) C83.30 Cardiomyopathy (Chronic) I42.9 Acute systolic heart failure (Chronic) I50.21 PORTILLO (obstructive sleep apnea) (Chronic) G47.33 18/14 cmH2O Dyspnea (Chronic) R06.00 The patient reports that his dyspnea on exertion has improved since initiating and becoming compliant with his pressure support therapy. No additional studies at this time. If dyspnea worsens may consider doing a pulmonary stress test or a complete pulmonary function test. Follow-up with Dr. Dorman in 3 months. Esophageal reflux (Chronic) K21.9 Gout (Chronic) M10.9 HTN (hypertension) (Chronic) I10 Malignant lymphoma of extranodal and solid organ sites (Chronic) C85.99 last chemo was 2 years ago.....treated with CHOP Hypercholesterolemia (Chronic) E78.00 History of pituitary tumor (Chronic) Z87.898 Status post surgery, currently on hydrocortisone replacement. Secondary adrenal insufficiency (Chronic) E27.49 after pituitary surgery to remove a benign tumor Intermittent second degree atrioventricular block (Chronic) I44.1 in the setting of beta blockers CKD (chronic kidney disease) stage 3, GFR 30-59 ml/min (Chronic) Simple obesity (Chronic) E66.9 Community acquired pneumonia (Acute) J18.9 treated recently for CAP with Levaquin and culture was + for MRSA Pericardial effusion (Acute) I31.3 Pleural effusion (Acute) J90 MRSA (methicillin resistant staphylococcus aureus) pneumonia (Acute) J15.212 + MRSA on sputum from admission on 12/03 Hyponatremia (Acute) E87.1 PAF (paroxysmal atrial fibrillation) (Acute) I48.0 SSS (sick sinus syndrome) (Acute) I49.5 Sinus pause (Acute) I45.5 Allergies lisinopril Allergy (Verified 02/25/20 06:51) Swelling aspirin Adverse Reaction (Verified 02/25/20 06:51) Other Home Medications: Ambulatory Orders Medication Instructions Recorded Pravastatin [Pravachol] 40 mg PO DAILY #0 12/21/13 famotidine 40 mg tablet 40 mg PO DAILY 07/16/18 Allopurinol 300 mg PO DAILY 09/30/18 furosemide 40 mg tablet 40 mg PO QODAY #45 tab 01/21/19 potassium chloride 20 mEq 20 meq PO DAILY #90 tab 01/21/19 tablet,extended release(part/cryst) cholecalciferol (vitamin D3) 100 4,000 unit PO DAILY 06/04/19 mcg (4,000 unit) capsule testosterone 20.25 mg/1.25 gram 1 pump TOPICAL DAILY #75 g 06/04/19 (1.62 %) transdermal gel pump hydrocortisone 10 mg tablet See Rx Instructions PO BID #100 tab 12/03/19 Carvedilol 18.75 mg PO 0800 02/16/20 Carvedilol [Coreg] 25 mg PO 1800 02/16/20 Surgical History: Surgical History (Last Reviewed 12/27/19 @ 09:04 by Francheska Goldman) History of surgical removal of pituitary gland E89.3 partial removal Surgical History: - - Pituitary Surgery. Placement of a port Psychiatric History: No pertinent psych hx Smoking Status: Former smoker Tobacco Use: Non-smoker - *Family History Maternal Family History: Family History (Last Reviewed 12/27/19 @ 09:04 by Francheska Goldman) Father FH: kidney cancer Mother Heart disease Diabetes History Items: No pertinent history Paternal Family History: Family History (Last Reviewed 12/27/19 @ 09:04 by Francheska Goldman) Father FH: kidney cancer Mother Heart disease Diabetes History Items: No pertinent history Review of Systems Constitutional: Denies: Chills, Fever, Weight Change HEENT: Denies: Head Aches, Sinus Congestion, Sinus Drainage Cardiovascular: Denies: Chest Pain, Palpitations Respiratory: Denies: Cough, Shortness of breath at rest, Sputum production Gastrointestinal: Denies: Abdominal Pain, Nausea, Vomiting Genitourinary: Denies: Dysuria Musculoskeletal: Denies: Joint Pain, Joint Tenderness Skin: Denies: Rash, Wounds Neurological: Denies: Numbness, Tingling, Focal weakness Psychiatric: Denies: Anxiety, Depression, Homicidal Ideations, Suicidal Ideations Hematologic/ Lymphatic: Denies: Easy Bruising, Easy Bleeding VTE Information - Inpt Only VTE Present on Admission: No - Physical Exam Vitals/I&O's: Vital Signs Temp Pulse Resp BP Pulse Ox 97.6 F L 60 16 169/73 H 100 02/25/20 07:06 02/25/20 07:06 02/25/20 07:06 02/25/20 07:06 02/25/20 07:06 Oxygen Delivery Method Room Air Weight: 111.2 kg Body Mass Index (BMI) 35.2 General: Alert, Oriented x3, Cooperative HEENT: Atraumatic, PERRLA, EOMI, Normocephalic Neck: Supple, No JVD, Negative Carotid Bruits Lungs: Clear to auscultation, Normal air movement Cardiovascular: Regular rate, No murmurs Abdomen: Bowel Sounds Present, Soft, Non Tender Extremities: No edema, Capillary Refill Less than 3 Seconds Skin: No rashes, No breakdown Musculoskeletal: No Tenderness to Palpation of Joints or Extremities Neurological: Cranial nerves II-XII grossly intact Psych/Mental Status: Normal Affect, Appropriate Current Medications Cefazolin Sodium 2 gm/ Sodium (Chloride) 110 mls @ 150 mls/hr IV PREOP ONE Stop: 02/25/20 11:08 Lactated Ringer's () 1,000 mls @ 100 mls/hr IV .Q10H RACHEAL Last Admin: 02/25/20 07:22 Dose: 100 mls/hr Documented by: Assessment/Plan All Active Problems (Last Reviewed 12/27/19 @ 09:03 by Francheska Goldman) Increasing prostate specific antigen level (Acute) Polycythemia (Resolved) Community acquired pneumonia (Acute) Community acquired pneumonia (Acute) Pericardial effusion (Acute) Pleural effusion (Acute) MRSA (methicillin resistant staphylococcus aureus) pneumonia (Acute) Hyponatremia (Acute) PAF (paroxysmal atrial fibrillation) (Acute) SSS (sick sinus syndrome) (Acute) Sinus pause (Acute) Plan to proceed with placement of gold fiducial markers and spacer organ at risk gel matrix and is also can proceed with hormone deprivation therapy and high- dose radiation therapy.
--- NOTE | 2020-02-25 08:01 | DCINST_ITS ---
Discharge Diet: Light diet - advance as tolerated Discharge Activity: Return to Normal Activity Allergies/Adverse Reactions: Allergies lisinopril Allergy (Verified 02/25/20 06:51) Swelling aspirin Adverse Reaction (Verified 02/25/20 06:51) Other Medications to take at Discharge Pravastatin [Pravachol] 40 mg PO DAILY #0 12/21/13 famotidine 40 mg tablet 40 mg PO DAILY 07/16/18 Allopurinol 300 mg PO DAILY 09/30/18 furosemide 40 mg tablet 40 mg PO QODAY #45 tab 01/21/19 potassium chloride 20 mEq tablet,extended release(part/cryst) 20 meq PO DAILY #90 tab 01/21/19 cholecalciferol (vitamin D3) 100 mcg (4,000 unit) capsule 4,000 unit PO DAILY 06/04/19 testosterone 20.25 mg/1.25 gram (1.62 %) transdermal gel pump 1 pump TOPICAL DAILY #75 g 06/04/19 hydrocortisone 10 mg tablet See Rx Instructions PO BID #100 tab 12/03/19 Carvedilol 18.75 mg PO 0800 02/16/20 Carvedilol [Coreg] 25 mg PO 1800 02/16/20 Primary Care Physician: Suraj Damian Chi, MD [Primary Care Provider] - Test Results: Test results from this visit will be discussed in further detail at your follow- up appointment, if applicable. Please Follow Up With: Domenico Starr MD When: Keep appointment for hormone therapy shot
[2020-02-25] MEDS: Cefazolin 2 GM in 0.9% Normal Saline 100 ML IV (08:04)
--- NOTE | 2020-02-25 08:23 | PCM.OPRPT ---
Report of Operation Date of Procedure: 02/25/20 Pre-Operative Diagnosis: Prostate cancer Post-Operative Diagnosis: The same Surgery/Procedure Performed:: Transrectal ultrasound-guided placement of gold fiducial markers. Transrectal ultrasound-guided placement of a spacer gel matrix Description of Surgical Findings:: 79-year-old male with a history of prostate cancer he is elected to undergo radiation treatments today when taken to surgery for placement of gold fiducial markers for the radiation treatments and also organ to place a spacer gel matrix between the rectum and the prostate. Patient was taken back to the operating room after smooth induction of general anesthesia he was placed in dorsolithotomy position with the legs in high lithotomy. The testicles scrotum and penis were taped to the anterior abdominal wall to allow for access to the perineum. The perineum was then prepped and draped in usual sterile fashion, I then placed a ultrasound biplanar probe into the rectum performed ultrasonography identified the landmarks identified the prostate seminal vesicles the base apex middle the prostate and the bladder. I then used the first gold fiducial marker and placed that through the perineum to the prostate left base and deployed the marker, I then placed a second head inspector and center marker and placed into the right base of the prostate and deployed a marker and then placed a final fiducial marker in the apex of the prostate. Once all 3 gold fiducial markers were placed in the prostate the gel matrix was prepared in the back table per supervisor inspection and testing's instructions. I then used the bevel needle down tip to advance below the prostate into the space Denonvilliers' fascia gently injected normal saline into the space and the created a nice separation between the rectum and the prostate once the space was identified using biplanar ultrasonography guidance I then injected the gel matrix between the rectum and the prostate over a course of 15 seconds the 10 cc of gel matrix was then injected had a nice separation between the rectum the prostate I then withdrew the needle the perineum was cleaned patient is taken out of lithotomy and was taken back to the PACU in good condition he will then proceed for radiation treatment and see me in the office for hormone therapy. Type of Anesthesia:: General Drains: none - Admit VTE Documentation VTE Present on Admission: No VTE Mechan Device Prophylaxis: SCD's
[2020-02-25 08:30] VITALS: BP 105/60; BP 169/73; PULSE 60; RESP 16; TEMP 36.2; O2SAT 93
[2020-02-25 08:45] VITALS: BP 123/67; BP 169/73; PULSE 64; RESP 16; TEMP 36.1; O2SAT 94
[2020-02-25 09:45] VITALS: BP 142/78; BP 169/73; PULSE 59; RESP 16; TEMP 35.7; O2SAT 98
== END 2020-02-25 09:50 | disposition home or self-care (01) ==
LOC: SDC 06:19 → AC 06:20
PROVIDERS: Anesthesiology; PCP Family Medicine Geriatric Medicine; Referring Provider Urology; Visit Provider Urology
PROC: (CPT 55874; principal; 2020-02-25 08:15)
DX: C61 Malignant neoplasm of prostate (principal); Z11.59 Encounter for screening for other viral diseases; I13.0 Hypertensive heart and chronic kidney disease with heart failure and stage 1 through stage 4 chronic kidney disease, or unspecified chronic kidney disease; I50.22 Chronic systolic (congestive) heart failure; G47.33 Obstructive sleep apnea (adult) (pediatric); E78.5 Hyperlipidemia, unspecified; I42.9 Cardiomyopathy, unspecified; N18.3 Chronic kidney disease, stage 3 (moderate); K21.9 Gastro-esophageal reflux disease without esophagitis; I48.0 Paroxysmal atrial fibrillation; M10.9 Gout, unspecified; Z87.891 Personal history of nicotine dependence; Z85.72 Personal history of non-Hodgkin lymphomas; Z79.899 Other long term (current) drug therapy; Z95.0 Presence of cardiac pacemaker
CPT/HCPCS: 00902; 55876; 87635; 94799; J7120; J2405; U0003

== ENCOUNTER → 2020-03-10 11:35 | Outpatient (CLI) | payer MEDICARE, SELFPAY ==
[2019-12-27 09:04] VITALS: BMI 36.1
[2020-02-25 07:06] VITALS: BMI 35.2
[2020-03-09 12:44] LABS: Absolute Lymphocyte Count 0.76 X10^3/uL (0.83-4.51); Absolute Neutrophil Count 6.2 X10^3/uL (2.0-7.7); Basophil# 0.03 X10^3/uL; Basophil% 0.4 % (0-1); Eosinophil# 0.09 X10^3/uL; Eosinophils% 1.1 % (0-5); Hematocrit 45.7 % (40-54); Hemoglobin 15.5 g/dL (13.0-16.5); Lymphocyte # 0.76 X10^3/ul (4.0); Lymphocyte % 9.7 % (19-41); Mean Corp Hgb Conc 33.9 g/dL (32-36); Mean Corpuscular Hgb 31.4 pg (27.0-32.0); Mean Corpuscular Volume 92.5 fL (80-94); Mean Platelet Vol. 9.4 fl (6.2-12.0); Monocyte# 0.72 X10^3/uL; Monocyte% 9.2 % (0-10); NRBC Flagged by Analyzer 0 % (0-5); Platelet Count 172 K/mm3 (150-450); RBC Distribution Width CV 13.1 % (11.6-14.6); RBC Distribution Width SD 43.8 fl (35.1-43.9); Red Blood Count 4.94 M/mm3 (4.6-6.2); White Blood Count 7.9 K/mm3 (4.4-11.0)
--- NOTE | 2020-03-10 11:37 | CT_ITS ---
STUDY: CT PELVIS WITHOUT CONTRAST REASON FOR EXAM: Male, 79 years old. PROSTATE CA THERAPY PLANNING. RADIATION DOSAGE (If Supplied By Facility): CTDIvol = ( 24.62 ) mGy, DLP = ( 874.93 ) mGycm TECHNIQUE: Transaxial imaging of the pelvis was performed with oral contrast, and without intravenous administration of contrast material. Individualized dose optimization techniques were used for this CT. COMPARISON: Comparison is made with prior study dated 12/21/2019. FINDINGS: Small capacity urinary bladder with diffusely thickened bladder wall. Central calcifications are seen within the prostate. The prostate measures 3.6 cm x 4.8 cm. Metallic radiation seeds are seen. Normal visualized small intestine. There are multiple colonic diverticula of the sigmoid colon consistent with chronic diverticulosis. There is no pelvic fluid. There is no pelvic mass lesion or lymphadenopathy. There is diffuse atherosclerotic calcification of the pelvic arteries. Normal abdominal wall. There are diffuse degenerative changes of the visualized lumbar spine. CT/CT Pelvis w/o Cont/Therapy IMPRESSION: Diffusely thickened urinary bladder wall. Prostatic seeds are seen. Electronically Signed: Nik Martines, at 13:03 EDT , Service support ,
== END ==
PROVIDERS: PCP Family Medicine Geriatric Medicine; Referring Provider Radiology Radiation Oncology; Visit Provider Radiology Radiation Oncology
DX: Z01.818 Encounter for other preprocedural examination (principal); C61 Malignant neoplasm of prostate
CPT/HCPCS: 36415; 51600; 72192; 84153; 85025

== ENCOUNTER → 2020-04-04 10:13 | Outpatient (CLI) | payer MEDICARE, SELFPAY ==
[2020-03-17 11:11] VITALS: BMI 36.0
[2020-04-04 12:23] LABS: Absolute Lymphocyte Count 0.63 X10^3/uL (0.83-4.51); Absolute Neutrophil Count 6.8 X10^3/uL (2.0-7.7); Basophil# 0.03 X10^3/uL; Basophil% 0.4 % (0-1); Eosinophil# 0.14 X10^3/uL; Eosinophils% 1.7 % (0-5); Hematocrit 44.8 % (40-54); Hemoglobin 14.8 g/dL (13.0-16.5); Lymphocyte # 0.63 X10^3/ul (4.0); Lymphocyte % 7.6 % (19-41); Mean Corpuscular Hgb 31.2 pg (27.0-32.0); Mean Corpuscular Volume 94.3 fL (80-94); Mean Platelet Vol. 9.4 fl (6.2-12.0); Monocyte# 0.66 X10^3/uL; Monocyte% 7.9 % (0-10); NRBC Flagged by Analyzer 0 % (0-5); Neutrophil # 6.84 X10^3/uL (2.7-7.7); Neutrophil % 81.9 % (47-70); Platelet Count 146 K/mm3 (150-450); RBC Distribution Width CV 12.9 % (11.6-14.6); RBC Distribution Width SD 44.7 fl (35.1-43.9); Red Blood Count 4.75 M/mm3 (4.6-6.2); White Blood Count 8.3 K/mm3 (4.4-11.0)
== END ==
PROVIDERS: PCP Family Medicine Geriatric Medicine; Referring Provider Radiology Radiation Oncology; Visit Provider Radiology Radiation Oncology
DX: C61 Malignant neoplasm of prostate (principal)
CPT/HCPCS: 36415; 85025

== ENCOUNTER → 2020-06-01 11:42 | Outpatient (CLI) | payer MEDICARE, SELFPAY ==
[2020-03-17 11:11] VITALS: BMI 36.0
[2020-06-01 12:36] LABS: Hematocrit 43.4 % (40-54); Hemoglobin 14.5 g/dL (13.0-16.5); Mean Corp Hgb Conc 33.4 g/dL (32-36); Mean Corpuscular Hgb 31.7 pg (27.0-32.0); Mean Corpuscular Volume 94.8 fL (80-94); Mean Platelet Vol. 9.3 fl (6.2-12.0); Platelet Count 154 K/mm3 (150-450); RBC Distribution Width CV 13.5 % (11.6-14.6); Red Blood Count 4.58 M/mm3 (4.6-6.2); White Blood Count 7.1 K/mm3 (4.4-11.0)
[2020-06-01 12:42] LABS: PTHIN 54.1 pg/mL (18.4-80.1)
[2020-06-01 12:55] LABS: Albumin, Serum 3.6 g/dL (3.2-5.0); BUN 25 mg/dL (7-18); BUN/Creat Ratio 17.4 RATIO (10-20); Calcium,Total 9.1 mg/dL (8.5-10.1); Chloride 109 mmol/L (98-107); Creatinine, Serum 1.44 mg/dL (0.70-1.30); EST Glomerular Filtration Rate 50 mL/min (>60); Est Glom Filt Rate - Afr Amer 61 mL/min (>60); Ferritin 375 ng/mL (26-388); Glucose 95 mg/dL (74-106); Iron 93 ug/dL (65-175); Iron Binding Capacity,Total 280 ug/dL (250-450); PERCENT IRON SATURATION 33.2 % (15.0-55.0); Phosphorus 3.7 mg/dL (2.5-4.9); Potassium 4.1 mmol/L (3.5-5.1); Sodium Level 141 mmol/L (136-145)
== END ==
LOC: LAB.FUTURE 11:42 → LAB 06-07 06:42
PROVIDERS: PCP Family Medicine Geriatric Medicine; Referring Provider Internal Medicine Nephrology; Visit Provider Internal Medicine Nephrology
DX: N18.31 Chronic kidney disease, stage 3a (principal); D50.9 Iron deficiency anemia, unspecified
CPT/HCPCS: 36415; 80069; 82728; 83540; 83550; 83970; 85027

== ENCOUNTER → 2020-07-31 10:09 | Outpatient (CLI) | payer MEDICARE, SELFPAY ==
[2020-03-17 11:11] VITALS: BMI 36.0
[2020-07-31 12:34] LABS: Absolute Lymphocyte Count 0.99 X10^3/uL (0.83-4.51); Absolute Neutrophil Count 4.1 X10^3/uL (2.0-7.7); Basophil# 0.03 X10^3/uL; Basophil% 0.5 % (0-1); Eosinophil# 0.11 X10^3/uL; Eosinophils% 1.8 % (0-5); Hematocrit 43.2 % (40-54); Hemoglobin 14.5 g/dL (13.0-16.5); Lymphocyte # 0.99 X10^3/ul (4.0); Lymphocyte % 16.6 % (19-41); Mean Corp Hgb Conc 33.6 g/dL (32-36); Mean Corpuscular Hgb 32.4 pg (27.0-32.0); Mean Corpuscular Volume 96.4 fL (80-94); Mean Platelet Vol. 9.5 fl (6.2-12.0); Monocyte# 0.72 X10^3/uL; NRBC Flagged by Analyzer 0 % (0-5); Neutrophil % 68.6 % (47-70); Platelet Count 176 K/mm3 (150-450); RBC Distribution Width CV 13.2 % (11.6-14.6); RBC Distribution Width SD 46.2 fl (35.1-43.9); Red Blood Count 4.48 M/mm3 (4.6-6.2)
[2020-07-31 12:58] LABS: ALB/GLOB Ratio 1.2 RATIO (0.9-2.4); AST(SGOT) 23 U/L (15-37); Alanine Aminotransfer ALT/SGPT 33 U/L (16-61); Albumin, Serum 3.5 g/dL (3.2-5.0); Alkaline Phosphatase 96 U/L (45-117); Anion Gap 8 (5-15); BUN 28 mg/dL (7-18); Calcium,Total 9.2 mg/dL (8.5-10.1); Chloride 108 mmol/L (98-107); Creatinine, Serum 1.47 mg/dL (0.70-1.30); EST Glomerular Filtration Rate 49 mL/min (>60); Est Glom Filt Rate - Afr Amer 59 mL/min (>60); Globulin 2.9 g/dL (2.2-4.2); Glucose 92 mg/dL (74-106); Potassium 3.8 mmol/L (3.5-5.1); Protein, Total 6.4 g/dL (6.4-8.2); Sodium Level 144 mmol/L (136-145); Thyroid Stim Hormone (TSH) 3.01 uIU/mL (0.358-3.74); Uric Acid 7.1 mg/dL (3.5-7.2)
[2020-07-31 14:48] LABS: Vitamin D,25 Hydroxy 23.8 ng/mL
== END ==
PROVIDERS: PCP Family Medicine Geriatric Medicine; Visit Provider Family Medicine Geriatric Medicine
DX: E23.6 Other disorders of pituitary gland (principal); E55.9 Vitamin D deficiency, unspecified; I10 Essential (primary) hypertension; M10.9 Gout, unspecified
CPT/HCPCS: 36415; 80053; 82306; 84403; 84443; 84550; 85025

== ENCOUNTER 2020-08-31 12:55 | Outpatient (RCR) | payer MEDICARE, SELFPAY ==
[2020-03-17 11:11] VITALS: BMI 36.0
[2020-08-31] MEDS: COVID-19 VACC, MRNA(PFIZER)/PF 30 MCG/0.3 ML SYRINGE IM (12:49)
[2020-09-21] MEDS: COVID-19 VACC, MRNA(PFIZER)/PF 30 MCG/0.3 ML SYRINGE IM (12:44)
== END 2020-08-31 23:59 ==
LOC: IMMUN 12:55
PROVIDERS: PCP Family Medicine Geriatric Medicine; Visit Provider Family Medicine
DX: Z23 Encounter for immunization (principal)
CPT/HCPCS: 0001A; 0002A; 91300

== ENCOUNTER → 2020-11-02 09:54 | Outpatient (CLI) | payer MEDICARE, SELFPAY ==
[2020-03-17 11:11] VITALS: BMI 36.0
[2020-11-02 11:42] LABS: Albumin, Serum 3.6 g/dL (3.2-5.0); BUN 32 mg/dL (7-18); BUN/Creat Ratio 24.2 RATIO (10-20); Chloride 107 mmol/L (98-107); Creatinine, Serum 1.32 mg/dL (0.70-1.30); EST Glomerular Filtration Rate 56 mL/min (>60); Est Glom Filt Rate - Afr Amer 67 mL/min (>60); Glucose 74 mg/dL (74-106); Phosphorus 3.9 mg/dL (2.5-4.9); Potassium 4.7 mmol/L (3.5-5.1); Sodium Level 142 mmol/L (136-145)
== END ==
PROVIDERS: PCP Family Medicine Geriatric Medicine; Referring Provider Internal Medicine Nephrology; Visit Provider Internal Medicine Nephrology
DX: N18.31 Chronic kidney disease, stage 3a (principal)
CPT/HCPCS: 36415; 80069

== ENCOUNTER → 2020-11-23 12:50 | Outpatient (CLI) | payer MEDICARE, SELFPAY ==
[2020-11-17 14:22] VITALS: BMI 36.4
--- NOTE | 2020-11-23 12:51 | ECHOCS_ITS ---
Reason For Study: DYSPNEA Procedure This was a 2D Doppler, Color Flow transthoracic echocardiogram. The study was technically difficult. Contrast injection was performed. Exam performed in department. Left Ventricle Normal LV size. The estimated ejection fraction is 40 %. Mild to moderate segmental systolic dysfunction (see wall motion). Stage 1 diastolic dysfunction. Ardara : Akinetic. The rest of the wall segments are hypokinetic. Apical wall motion abnormality may reflect pacemaker activation. Right Ventricle Normal RV size. ICD or pacer leads identified within the right ventricle. Normal systolic function. Mitral Valve Normal mitral valve. Mild (1+) eccentric mitral valve insufficiency. Aortic Valve Trisinus/trileaflet aortic valve. Mild focal aortic valve calcification. Peak aortic valve gradient 41 mmHg. Mean aortic valve gradient 22 mmHg. Moderate aortic stenosis. Mild (1+) aortic valve insufficiency. Pulmonic Valve The pulmonic valve is not well visualized. Great Vessels Normal aortic root. Pericardium/Pleural No pericardial effusion. Medication 22 gauge I.V. with prn adaptor inserted into right arm. Diluted definity 4ml given slow IV push to enhance endocardial definition. MMode/2D Measurements & Calculations LVIDd: 5.8 cm IVSd: 1.0 cm LVOT diam: 2.0 cm LVIDs: 4.1 cm LVPWd: 0.99 cm LVOT area: 3.0 cm2 RVDd: 3.8 cm FS: 29.0 % Ao root diam: 4.4 cm LAV(MOD-bp): 56.1 ml LVAd ap4: 46.2 cm2 LAV(MOD-bp) Indexed: 24.3 ml/m2 LVLd ap4: 10.2 cm LAV(MOD-sp2): 67.7 ml EDV(MOD-sp4): 168.9 ml LAV(MOD-sp4): 45.4 ml EDV(sp4-el): 177.5 ml LVAs ap4: 34.8 cm2 LVLs ap4: 9.2 cm ESV(MOD-sp4): 108.6 ml ESV(sp4-el): 112.1 ml EF(MOD-sp4): 35.7 % EF(sp4-el): 36.9 % SV(MOD-sp4): 60.3 ml SV(sp4-el): 65.4 ml LA A4 area: 19.0 cm2 LA dimension(2D): 4.6 cm RA A4 area: 15.7 cm2 Time Measurements MV dec time: 0.69 sec Doppler Measurements & Calculations MV E max terrence: 54.3 cm/sec Lat Peak E' Terrence: 3.9 cm/sec Med Peak E' Terrence: 3.9 cm/sec MV A max terrence: 117.6 cm/sec E/E' lat: 14.0 E/E' med: 14.0 MV E/A: 0.46 Ao V2 max: 320.0 cm/sec AI max terrence: 423.8 cm/sec LV V1 max: 88.5 cm/sec Ao max P.1 mmHg AI max P.2 mmHg LV V1 max P.1 mmHg Ao V2 mean: 225.0 cm/sec LV V1 mean P.7 mmHg Ao mean P.3 mmHg AI dec slope: 333.9 cm/sec2 LV V1 mean: 61.3 cm/sec Ao V2 VTI: 74.3 cm AI P1/2t: 371.8 msec LV V1 VTI: 23.3 cm GILMA(I,D): 0.94 cm2 GILMA(V,D): 0.83 cm2 SV(LVOT): 69.6 ml ECHO/Echo Complete W/ Contrast Interpretation Summary The estimated ejection fraction is 40 %. Mild to moderate segmental systolic dysfunction (see wall motion). Normal LV size. Mild (1+) aortic valve insufficiency. ICD or pacer leads identified within the right ventricle. Stage 1 diastolic dysfunction. Moderate aortic stenosis. Contrast injection was performed. Ordering Physician: Ammon Holt Referring Physician: RENAN ALCALA Performed By: Vianey Marcano, GALILEACS, RVT
== END ==
PROVIDERS: PCP Family Medicine Geriatric Medicine; Referring Provider Internal Medicine Cardiovascular Disease; Visit Provider Internal Medicine Cardiovascular Disease
DX: I48.0 Paroxysmal atrial fibrillation (principal)
CPT/HCPCS: 93306; Q9957; C8929; J3490

== ENCOUNTER → 2020-11-28 09:37 | Outpatient (CLI) | payer MEDICARE, SELFPAY ==
[2020-11-17 14:22] VITALS: BMI 36.4
[2020-11-28 11:36] LABS: PSA,Total- Diagnostic 0.04 ng/mL (0.0-4.0)
== END ==
PROVIDERS: PCP Family Medicine Geriatric Medicine; Referring Provider Urology; Visit Provider Urology
DX: C61 Malignant neoplasm of prostate (principal)
CPT/HCPCS: 36415; 84153

== ENCOUNTER → 2020-12-13 15:16 | Outpatient (CLI) | payer MEDICARE, SELFPAY ==
[2020-12-01 09:30] VITALS: BMI 36.4
--- NOTE | 2020-12-13 | CYSPIN_PTH ---
PATIENT: DANITZA JAIN LOC: [facility] U#:[id number] AGE/SX: 84/M ROOM: RE12/13/[address]: Dr. Domenico Starr MD : 1940 BED: DIS: SPEC #: [id number] RECD: 12/14/20 08:14 STATUS: MENDY BONNIE #: [id number] MARSHAL: 12/13/20 00:[address]: Domenico Starr DEPT: CYTOLOGY RECD BY: Sebastian Marshall ENTERED: 12/14/20 08:14 SP TYPE: CYSPIN FL OTHR DR: Dr. Suraj Damian MD Tissues: Urine Procedures: Pap Stain (control) Special Stain Group II Cytospin Fluid HEADER OPERATION: Not noted PRE-OP DIAGNOSIS: Gross hematuria TISSUE SUBMITTED: Urine for cytology DIAGNOSIS CYTOLOGY Urine for cytology (cytospin): Positive for malignant cells, consistent with high-grade urothelial carcinoma. AM:tiarra 12/15/2020 COMMENT Case has been reviewed in consultation with Dr. Navarrete who concurs with the above diagnosis. IDC:SJ CYTOLOGY STUDY Slides are reviewed. CYTOLOGY GROSS Received is 60 ml of red cloudy fluid labeled with the patient's name and and designated per the requisition as urine. Submitted for cytology preparation. / tiarra 12/14/2020 TC:0 [facility]: [id number]
[2020-12-13 15:27] LABS: Cytology, Body Fluid / CSF SEE PATHOLOGY REPORT
== END ==
PROVIDERS: PCP Family Medicine Geriatric Medicine; Visit Provider Urology
DX: R31.0 Gross hematuria (principal)
CPT/HCPCS: 88108; 88313

== ENCOUNTER → 2020-12-18 07:09 | Outpatient (CLI) | payer MEDICARE, SELFPAY ==
[2020-12-01 09:30] VITALS: BMI 36.4
--- NOTE | 2020-12-18 07:12 | CT_ITS ---
STUDY: CT ABDOMEN AND PELVIS WITH AND WITHOUT CONTRAST REASON FOR EXAM: Male, 80 years old. MALIGNANT NEOPLASM OF PROSTATE RADIATION DOSAGE (If Supplied By Facility): CTDIvol = ( 24.22 ) mGy, DLP = ( 5716.82 ) mGycm TECHNIQUE: Transaxial images were obtained from the dome of the diaphragm to the symphysis pubis without oral contrast. 75mL Isovue 300 was administered. Sagittal and coronal images were reconstructed. Individualized dose optimization techniques were used for this CT. COMPARISON: None. FINDINGS: The visualized lung bases are unremarkable. The visualized portions of the heart are within normal limits. Normal liver. Small gallbladder with possible tiny stones. Normal spleen. Small pancreas. Normal bilateral adrenal glands. Right kidney measures 10.8 x 6.8 with fullness of the right renal pelvis no stone formation noted. The left kidney is extremely small barely identified. Normal visualized stomach. Normal small intestine. There are multiple diverticula involving the sigmoid and descending colon without obvious diverticulitis. The appendix is visualized and appears normal. Extensive calcifications of the abdominal aorta. Normal inferior vena cava. Normal retroperitoneum. Normal urinary bladder. Normal abdominal wall. Normal osseous structures. No evidence of free air or ascites. CT/CT Abd/Pelvis W/WO Contrast IMPRESSION: Atrophic left kidney. Colonic diverticulosis Multiple tiny gallstones Electronically Signed: Michael Boyer, at 11:54 EDT Tel , Service support ,
[2020-12-18 07:31] LABS: CREATININE FINGERSTICK 1.2 mg/dL (0.70-1.30); EGFR FINGERSTICK > 60.0000 mL/min (>60)
== END ==
PROVIDERS: PCP Family Medicine Geriatric Medicine; Referring Provider Urology; Visit Provider Urology
DX: C61 Malignant neoplasm of prostate (principal); K57.30 Diverticulosis of large intestine without perforation or abscess without bleeding; N26.1 Atrophy of kidney (terminal)
CPT/HCPCS: 74178; Q9967

== ENCOUNTER 2020-12-27 09:21 | Day surgery (SDC) | payer MEDICARE, SELFPAY ==
[2020-12-01 09:30] VITALS: BMI 36.4
[2020-12-25 13:23] VITALS: BMI 38.2
--- NOTE | 2020-12-27 09:33 | EKG12_ITS ---
Test Reason : PRE OP Blood Pressure : / mmHG Vent. Rate : 060 BPM Atrial Rate : 060 BPM P-R Int : 226 ms QRS Dur : 194 ms QT Int : 506 ms P-R-T Axes : -07 -71 107 degrees QTc Int : 506 ms AV dual-paced rhythm with prolonged AV conduction Abnormal ECG Confirmed by MARCUS NICHOLAS, JESUS ([id number]), newspaper copy editor CAROL MANSFIELD ([id number]) on 01/03/2021 2:13:53 PM Referred By: Domenico Starr Confirmed By:JESUS VELAZQUEZ MD
[2020-12-27 09:47] VITALS: BP 170/83; PULSE 71; RESP 18; TEMP 35.7; O2SAT 100; BMI 37.4
[2020-12-27] MEDS: Lactated Ringers 1,000 ML 100 ML IV (10:05)
[2020-12-27] MEDS: Cefazolin 2 GM in 0.9% Normal Saline 100 ML IV (11:30)
--- NOTE | 2020-12-27 12:45 | TISS_PTH ---
PATIENT: DANITZA JAIN LOC: [facility] U#:[id number] AGE/SX: 80/M ROOM: RE12/27/[address]: Dr. Domenico Starr MD : 1940 BED: DIS: 12/27/2020 SPEC #: [id number] RECD: 12/27/20 14:46 STATUS: MENDY REAngeles #: [id number] MARSHAL: 12/27/20 12:[address]: Domenico Starr DEPT: SURGICAL PATHOLOGY RECD BY: Dipti Farmer ENTERED: 12/28/20 07:08 SP TYPE: Tissue Bx OT DR: Dr. Suraj Damian MD Tissues: Kidney, NOS Procedures: Surgery Specimen Level IV HEADER OPERATION: Cystoscopy, cauterization of bladder for radiation cystitis PRE-OP DIAGNOSIS: Gross hematuria TISSUE SUBMITTED: Tumor right renal pelvis MICROSCOPIC DIAGNOSIS Right renal pelvis tumor, biopsy: Papillary urothelial carcinoma, grade 1-2. See comment. AM:tiarra 12/29/2020 COMMENT There is no evidence of lamina propria invasion. Clinical correlation is suggested. Reference is made to the patient's previous cytology ([id number]) from 12/15/20 in which malignant cells consistent with high-grade urothelial carcinoma were identified. Case has been reviewed in consultation with Dr. Navarrete who concurs with the above diagnosis. BRITT:AMBERLY MICROSCOPIC DESCRIPTION Slides are reviewed. GROSS DESCRIPTION Received in metal wire basked labeled with the patient's name and designated tumor right renal pelvis. The specimen consists of multiple fragments of brownish-black tissue measuring in aggregate 0.4 x 0.4 x 0.1 cm. The entire specimen is submitted in one cassette. / AMBERLY:tiarra 12/28/20 TC:0 CPT: 95090
--- NOTE | 2020-12-27 13:45 | PCM.HP.STD ---
HPI - General HPI Narrative DANITZA JAIN, is a 80 M who presents for evaluation he has a history of prostate cancer treated in the past with radiation but has been having recurrent bleeding on CAT scan I suspect it might be a tumor up in the right kidney and working to do a cystoscopy right retrograde pyelogram diagnostic right ureteroscopy hopefully biopsy and fulguration to identify the cause of the recurrent bleeding. [facility] Medical History (Updated 12/27/20 @ 13:[address] Domenico Starr MD) Arthritis Back pain Body mass index (BMI) 35 or more Cancer Cardiac pacemaker in situ (01/02/15) Cardiology follow-up encounter Chronic systolic (congestive) heart failure CKD (chronic kidney disease) stage 3, GFR 30-59 ml/min Community acquired pneumonia CPAP (continuous positive airway pressure) dependence Diffuse large B cell lymphoma Dyspnea on exertion Esophageal reflux Former smoker Gastric reflux Gout Gout High cholesterol History of CHF (congestive heart failure) History of diverticulitis History of edema History of non-Hodgkin's lymphoma History of pacemaker History of pituitary adenoma History of pituitary tumor History of renal disease History of steroid therapy History of stress test History of ulceration Hx of echocardiogram Hyperlipidemia Hyponatremia Increasing prostate specific antigen level Malignant lymphoma of extranodal and solid organ sites Mobitz (type) II atrioventricular block MRSA (methicillin resistant staphylococcus aureus) pneumonia Non-ischemic cardiomyopathy PORTILLO (obstructive sleep apnea) PAF (paroxysmal atrial fibrillation) Pericardial effusion Pleural effusion Prostate cancer Prostate disease Secondary adrenal insufficiency Shortness of breath on exertion Simple obesity SSS (sick sinus syndrome) Wears partial dentures Home Medications pravastatin 40 mg PO DAILY #0 12/21/13 [History Last Taken 12/26/20] famotidine 40 mg tablet 40 mg PO DAILY 07/16/18 [History Last Taken 12/27/20] allopurinol 300 mg PO DAILY 09/30/18 [History Last Taken 12/26/20] potassium chloride 20 mEq tablet,extended release(part/cryst) 20 meq PO DAILY #90 tab 01/21/19 [Rx Last Taken 12/26/20] carvedilol 25 mg tablet 25 mg PO BID 11/17/20 [History Last Taken 12/26/20] furosemide [Lasix] 40 mg PO PRN PRN 12/26/20 [History Last Taken 12/26/20] hydrocortisone 5 mg PO QHS 12/26/20 [History Last Taken 12/26/20] hydrocortisone 20 mg PO DAILY 12/26/20 [History Last Taken 12/26/20] ciprofloxacin HCl [Cipro] 500 mg PO BID #10 tab 12/27/20 [Rx Last Taken Unknown] oxycodone-acetaminophen 1 tab PO Q4H PRN 7 Days #14 tab 12/27/20 [Rx Last Taken Unknown] Allergy/AdvReac Type Severity Reaction Status Date / Time lisinopril Allergy Swelling Verified 12/26/20 11:11 aspirin AdvReac GI BLEED, Verified 12/27/20 09:46 UPPER Family History Father FH: kidney cancer Mother Heart disease Diabetes Surgical History (Updated 12/26/20 @ 11:30 by Fariba Farris) History of cardiac catheterization History of surgical removal of pituitary gland History of vascular access device Hx of lymph node biopsy Status post transsphenoidal pituitary resection Social History (Updated 12/25/20 @ 13:38 by Carito Zaragoza) Smoking Status: Former smoker quit date: 06/30/81 pack-years: 20 how long ago did patient quit smokin second hand exposure: No alcohol intake: never substance use type: does not use caffeine: Yes Type: coffee Number of servings: 3 what type of physical activity do you participate in: none xavi/moravian: Uatsdin seatbelt use: always do you feel safe at home: Yes ROS Constitutional Constitutional: Denies chills, fever(s) or malaise Eyes Eyes: Denies blurry vision or change in vision ENT HEENT: Reports none Cardiovascular Cardiovascular: Denies chest pain or palpitations Respiratory/Chest Respiratory/Chest: Denies cough or shortness of breath with exertion Gastrointestinal Gastrointestinal: Denies abdominal pain, constipation or diarrhea Musculoskeletal Musculoskeletal: Denies back pain, joint stiffness or joint swelling Integumentary Integumentary: Denies dry skin, jaundice, lesions or rash Neurologic Neurologic: Denies confusion, syncope or weakness Psychiatric Psychiatric: Reports none; Denies anxiety or depression Endocrine Endocrinology: Denies excessive sweating, fatigue or flushing Hematologic/Lymphatic Hematologic/Lymphatic: Denies anemia, easy bleeding or easy bruising Vital Signs Vital Signs Vital Signs: 12/27/20 09:47 Temperature 96.3 F L Temperature Source Temporal Pulse Rate 71 Respiratory Rate 18 Respiratory Pattern Normal Blood Pressure 170/83 H Blood Pressure Mean 112 Blood Pressure Source Monitor Blood Pressure Position Semi-Fowlers Blood Pressure Location Left Arm Pulse Ox 100 Oxygen Delivery Method Room Air Weight Weight: 114.9 kg Body Mass Index (BMI) 37.4 Physical Exam Const alert and oriented x3 General Appearance: cooperative HEENT normocephalic, head/scalp atraumatic, EAC's normal and TM's normal bilaterally Eyes PERRL and EOMs intact bilaterally Pupil: sluggish Neck no lymphadenopathy, supple and no JVD General: trachea midline Lymph Lymphatic: no lymphadenopathy noted, lymphedema and lymphadenopathy Resp normal respiratory effort, normal air movement and clear to auscultation bilaterally Cardio regular rate, regular rhythm and peripheral pulses 2+ throughout GI soft to palpation, non-tender and non-distended Extremity normal capillary refill and no clubbing, cyanosis or edema General Extremity: no tenderness to palpation of joints or extremities Skin no rashes or lesions noted General Skin Exam: turgor normal Lesions: no lesions Rashes: no rashes Neuro CN's II-XII intact bilaterally Speech: speech normal Motor Exam: strength 5/5 throughout; Negative for general weakness Psych thought process normal, cooperative and affect normal Appearance: appropriate Assessment & Plan Assessment/Plan (1) Gross hematuria: PLAN: Plan to proceed with cystoscopy diagnostic retrograde pyelogram ureteroscopy biopsy for suspected tumor in the right kidney he does have a solitary right kidney will need a stent afterwards.
--- NOTE | 2020-12-27 13:47 | PCM.DC ---
Discharge Instructions Diet Discharge Diet: No restrictions Activity Discharge Activity: Return to Normal Activity and May Not Drive (while taking narcotic pain medications.) Dressing / Incision Call your doctor if you observe: Fever of 101 or Higher Follow Up Care Please Follow Up With: Domenico Starr MD When: Call [phone] for an appointment Test Results: Test results from this visit will be discussed in further detail at your follow-up appointment, if applicable. Discharge Plan Admission Primary Reason for Your Visit: ureteroscopy and biopsy Attending Provider: Domenico Starr Primary Care Provider: Suraj Damian Chi Discharge Orders/Prescriptions Prescriptions: New ciprofloxacin HCl [Cipro] 500 mg tablet 500 mg PO BID Qty: 10 RF: 0 oxycodone-acetaminophen 5-325 mg tablet 1 tab PO Q4H PRN (Reason: pain) 7 Days Qty: 14 RF: 0 Continued famotidine 40 mg tablet 40 mg PO DAILY RF: 0 potassium chloride 20 mEq tablet,ER particles/crystals 20 meq PO DAILY Qty: 90 RF: 3 carvedilol [Coreg] 25 mg tablet 25 mg PO BID RF: 0 pravastatin 40 MG tablet 40 mg PO DAILY Qty: 0 RF: 0 allopurinol 300 MG tablet 300 mg PO DAILY RF: 0 hydrocortisone 10 mg Tablet 5 mg PO QHS RF: 0 furosemide [Lasix] 40 mg tablet 40 mg PO PRN PRN (Reason: water retention) RF: 0 hydrocortisone 10 mg tablet 20 mg PO DAILY RF: 0 Referrals / Follow Up: Domenico Starr MD [STAFF PHYSICIAN] - Suraj Damian Chi, MD [Primary Care Provider] - Disposition Disposition (needs filled in before D/C Order can be placed): Home, Self Care
--- NOTE | 2020-12-27 14:09 | CYSPIN_PTH ---
PATIENT: DANITZA JAIN LOC: [facility] [place] U[place][id number] AGE/SX: 80/M ROOM: RE12/27/[address]: Dr. Domenico Starr MD : 1940 BED: DIS: 12/27/2020 SPEC #: [id number] RECD: 12/28/20 07:05 STATUS: MENDY RE #: [id number] MARSHAL: 12/27/20 14:[address]: Domenico Starr DEPT: CYTOLOGY RECD BY: Dipti Farmer ENTERED: 12/28/20 07:06 SP TYPE: CYSPIN FL OTHR DR: Dr. Suraj Damian MD Tissues: Urine Procedures: Pap Stain (control) Special Stain Group II Cytospin Fluid HEADER OPERATION: Not noted PRE-OP DIAGNOSIS: Hematuria TISSUE SUBMITTED: Urine for cytology DIAGNOSIS CYTOLOGY Urine for cytology (cytospin): Positive for malignant cells consistent with urothelial carcinoma. AM:tiarra 12/29/2020 COMMENT Please see recent biopsy ([id number]) in which urothelial carcinoma was identified. Case has been reviewed in consultation with Dr. Navarrete who concurs with the above diagnosis. IDC:SJ CYTOLOGY STUDY Slides are reviewed. CYTOLOGY GROSS Received is 5 ml of red cloudy fluid labeled with the patient's name and and designated per the requisition as urine. Submitted for cytology preparation. / tiarra 12/28/2020 TC:0 CPT: 53530
[2020-12-27 14:20] LABS: Cytology, Body Fluid / CSF SEE PATHOLOGY REPORT
--- NOTE | 2020-12-27 14:22 | OP.PCM_ITS ---
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 Description of Surgical Findings:: Patient was taken back to the operating room at the smooth induction of general anesthesia he was placed in supine position and then dorsolithotomy position. The penis and testicles were prepped and draped in usual sterile fashion went into the bladder with a 21 [place] rigid cystourethroscope, the length the urethra was normal the prostate was normal inside the bladder there was a lot of blood in that the bladder neck there was some bleeding from the length Asiatic blood vessels from radiation cystitis the blood vessels were cauterized with a Bugbee electrode I then performed a retrograde pyelogram and on the retrograde I thought I could identify what appeared to be a filling defect in the right kidney and the retrograde pyelogram. I then obtained urine for cytology from the right kidney renal pelvis. And then I advanced a wire up into the right kidney and over the wire went over the flexible ureteroscope once I got into the kidney there was some blood in the renal pelvis and then once the blood was cleared out I could see a tumor that was fairly large about 2 cm in size occupying the renal pelvis in the midpole of the kidney. 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 At this point the bladder was drained patient acetic reversed we will see him next week for discussion of the possible surgery to do a percutaneous approach to resect this transitional cell carcinoma of the kidney other option would be to do a nephrectomy and then dialysis. Surgeon: lay Type of Anesthesia: General Drains: none Admit VTE Documentation VTE Present on Admission: No VTE Mechan Device Prophylaxis: SCD's
[2020-12-27 14:36] VITALS: BP 170/67; BP 170/83; PULSE 60; RESP 16; TEMP 35.8; O2SAT 98
[2020-12-27 14:45] VITALS: BP 136/61; BP 170/83; PULSE 62; RESP 16; O2SAT 98
[2020-12-27 15:00] VITALS: BP 143/68; BP 170/83; PULSE 60; RESP 16; O2SAT 95
[2020-12-27 15:05] VITALS: BP 163/64; BP 170/83; PULSE 62; RESP 16; TEMP 35.6; O2SAT 97
[2020-12-27 16:12] VITALS: BP 170/83; BP 172/53; PULSE 61; RESP 16; TEMP 36.2; O2SAT 100
== END 2020-12-27 16:21 | disposition home or self-care (01) ==
LOC: SDC 09:22 → AC 09:23
PROVIDERS: PCP Family Medicine Geriatric Medicine; Referring Provider Urology; Visit Provider Urology
PROC: 0TBB8ZX Excision of Bladder, Via Natural or Artificial Opening Endoscopic, Diagnostic (ICD-10-PCS; CPT 52354; principal; 2020-12-27 12:35)
DX: N30.41 Irradiation cystitis with hematuria (principal); Y84.2 Radiological procedure and radiotherapy as the cause of abnormal reaction of the patient, or of later complication, without mention of misadventure at the time of the procedure; C65.1 Malignant neoplasm of right renal pelvis; Z85.46 Personal history of malignant neoplasm of prostate; E78.5 Hyperlipidemia, unspecified; G47.33 Obstructive sleep apnea (adult) (pediatric); I48.0 Paroxysmal atrial fibrillation; I50.22 Chronic systolic (congestive) heart failure; N18.30 Chronic kidney disease, stage 3 unspecified; Z79.82 Long term (current) use of aspirin; Z86.018 Personal history of other benign neoplasm; Z87.891 Personal history of nicotine dependence; Z95.0 Presence of cardiac pacemaker
CPT/HCPCS: 00912; 52354; 76000; 88108; 88305; 88313; 93005; J7120; C1769; J2405

== ENCOUNTER 2020-12-29 09:29 | Inpatient (IN) | payer MEDICARE, SELFPAY ==
[2020-12-29] VITALS (11 sets, daily range): BP systolic 90–148; BP diastolic 44–70; PULSE 78–83; RESP 16–20; TEMP 36.1–38.1; O2SAT 95–97; BMI 36.9; BMI 37.6
--- NOTE | 2020-12-29 09:48 | EDS_ITS ---
HPI History of Present Illness Chief Complaint: Complaint Informant: patient Narrative Narrative: Patient is a 80-year-old male who presents to the emergency department for inability to urinate and right-sided flank pain. He had a kidney biopsy performed this past Friday. He states last time he was able to urinate was 2 yesterday and it was only a few small drops of blood. He does not have the urge to urinate at this time. He currently rates his pain as a 6 out of 10. He has been taking medicines at home for this pain. He has been nauseous and vomited started last night. He denies any fevers or chills. He has been mildly constipated. He is not on any blood thinning medications or antiplatelet medications. Patient CT scan did show hydronephrosis with blood in the ureter. His creatinine has increased to almost 5. He does have a leukocytosis associated with this. Findings discussed with his urologist. Patient will be admitted to the hospital at this time. [facility] Medical History (Updated 12/29/20 @ 13:58 by Verónica Avila) AAA (abdominal aortic aneurysm) Arthritis Back pain Body mass index (BMI) 35 or more Cancer Cardiac pacemaker in situ (01/02/15) Cardiology follow-up encounter Chronic systolic (congestive) heart failure CKD (chronic kidney disease) stage 3, GFR 30-59 ml/min Community acquired pneumonia Congestive heart failure (CHF) CPAP (continuous positive airway pressure) dependence Diffuse large B cell lymphoma Dyspnea on exertion Esophageal reflux Former smoker Gastric reflux Gout Gout High cholesterol History of CHF (congestive heart failure) History of diverticulitis History of edema History of non-Hodgkin's lymphoma History of pacemaker History of pituitary adenoma History of pituitary tumor History of renal disease History of steroid therapy History of stress test History of ulceration Hx of echocardiogram Hyperlipidemia Hyponatremia Increasing prostate specific antigen level Kidney disease Malignant lymphoma of extranodal and solid organ sites Mobitz (type) II atrioventricular block MRSA (methicillin resistant staphylococcus aureus) pneumonia Non-ischemic cardiomyopathy PORTILLO (obstructive sleep apnea) Pacemaker PAF (paroxysmal atrial fibrillation) Pericardial effusion Pleural effusion Prostate cancer Prostate disease Secondary adrenal insufficiency Shortness of breath on exertion Simple obesity Sleep apnea SSS (sick sinus syndrome) Wears partial dentures Home Medications pravastatin 40 mg PO DAILY #0 12/21/13 [History Last Taken 12/26/20] famotidine 40 mg tablet 40 mg PO DAILY 07/16/18 [History Last Taken 12/27/20] allopurinol 300 mg PO DAILY 09/30/18 [History Last Taken 12/26/20] carvedilol 25 mg tablet 25 mg PO BID 11/17/20 [History Last Taken 12/26/20] furosemide [Lasix] 40 mg PO PRN PRN 12/26/20 [History Last Taken 12/26/20] hydrocortisone 5 mg PO QHS 12/26/20 [History Last Taken 12/26/20] hydrocortisone 20 mg PO DAILY 12/26/20 [History Last Taken 12/26/20] oxycodone-acetaminophen 1 tab PO Q4H PRN 7 Days #14 tab 12/27/20 [Rx Last Taken 3 Days Ago ~12/26/20] ciprofloxacin HCl [Cipro] 500 mg PO BID 12/29/20 [History Last Taken 12/27/20] potassium chloride 20 meq PO DAILY 12/29/20 [History Last Taken 3 Days Ago ~12/26/20] Allergy/AdvReac Type Severity Reaction Status Date / Time lisinopril Allergy Swelling Verified 12/29/20 09:32 aspirin AdvReac GI BLEED, Verified 12/29/20 09:32 UPPER Family History Father FH: kidney cancer Mother Heart disease Diabetes Surgical History History of cardiac catheterization History of surgical removal of pituitary gland History of vascular access device Hx of lymph node biopsy Status post transsphenoidal pituitary resection Social History Smoking Status: Former smoker quit date: 06/30/81 pack-years: 20 how long ago did patient quit smokin second hand exposure: No alcohol intake: never substance use type: does not use caffeine: Yes Type: coffee Number of servings: 3 what type of physical activity do you participate in: none xavi/yarsanism: Orthodox seatbelt use: always do you feel safe at home: Yes ROS ROS ED Constitutional Constitutional ED: Denies chills or fever(s) Eyes Eyes: Denies change in vision ENT ENT ED: Denies epistaxis or rhinorrhea Cardiovascular Cardiovascular: Denies chest pain or palpitations Respiratory/Chest Respiratory/Chest: Denies cough, dyspnea or dyspnea on exertion Gastrointestinal Gastrointestinal: Reports abdominal pain, nausea and vomiting; Denies diarrhea Genitourinary Genitourinary ED: Reports hematuria Musculoskeletal Musculoskeletal: Reports back pain; Denies neck pain Integumentary Denies rash Neurologic Neurologic: Denies dizziness, headache(s) or weakness EXAM Physical Exam Const Vital Signs: 12/29/20 09:30 12/29/20 10:19 Temperature 98 F 98 F Temperature Source Temporal Temporal Pulse Rate 82 82 Respiratory Rate 20 H 20 H Blood Pressure 141/60 H 141/60 H Blood Pressure Mean 87 87 Pulse Ox 96 96 Oxygen Delivery Method Room Air Room Air Positive well nourished and well developed General Appearance ED: well developed and NAD HEENT Reports normocephalic, head/scalp atraumatic and moist mucous membranes Eyes PERRL and EOMs intact bilaterally Neck no lymphadenopathy and supple General: Negative for tenderness Chest Wall inspection of chest normal Resp normal respiratory effort and clear to auscultation bilaterally Auscultation: Negative for rales, rhonchi or wheezes Cardio regular rate and regular rhythm GI normal to inspection, nondistended, normoactive bowel sounds and non-tender Palpation: soft; Negative for guarding or rebound tenderness present Back/Spine no CVA tenderness Extremity normal to inspection General Extremety ED: Negative for edema or tenderness General Extremity: Negative for edema Neuro oriented x3, CN's II-XII intact bilaterally and no sensory deficits noted Sensorium / Orientation: alert Motor Exam: strength 5/5 throughout Psych mental status grossly normal Skin no rashes or lesions noted MDM MDM MDM Narrative Medical decision making narrative: Patient presents the ED for inability to urinate. He does not have the urge at this time. He did have a kidney biopsy performed. He does have a history of prostate cancer with no kidney mass. His urologist, Dr. Starr, requested that he get a CT scan of his abdomen/pelvis. He will likely need ureteral stent placed in the hospital setting. Will check basic lab work. Patient currently declining anything for pain or nausea. Patient CT scan did show hydronephrosis. There is obstruction with likely blood in the right ureter. Left kidney is atrophied. His creatinine is elevated. I did speak with his urologist about findings. Patient will require hospital admission. He otherwise has been stable throughout ED stay. Lab Data Labs: Laboratory Results - last 24 hr 12/29/20 12/29/20 10:15 10:15 WBC 15.7 H RBC 4.79 Hgb 15.3 Hct 45.4 MCV 94.8 H MCH 31.9 MCHC 33.7 RDW Std Deviation 47.0 H RDW Coeff of Deyvi 13.5 Plt Count 122 L MPV 9.7 Immature Gran % (Auto) 0.700 Neut % (Auto) 84.3 H Lymph % (Auto) 5.1 L [place] % (Auto) 9.3 Eos % (Auto) 0.3 Baso % (Auto) 0.3 Absolute Neuts (auto) 13.3 H Absolute Lymphs (auto) 0.80 L Nucleated RBC % 0 Sodium 132 L Potassium 5.1 Chloride 102 Carbon Dioxide 20.0 L Anion Gap 10 BUN 41 H Creatinine 4.95 H Estim Creat Clear Calc 12.10 Est GFR (MDRD) Af Amer 15 L Est GFR (MDRD) Non-Af 12 L BUN/Creatinine Ratio 8.3 L Glucose 93 Calcium 8.3 L Total Bilirubin 2.00 H AST 51 H ALT 22 Alkaline Phosphatase 63 Total Protein 6.0 L Albumin 2.9 L Globulin 3.1 Albumin/Globulin Ratio 0.9 Radiography Diagnostic Testing: Radiology Impression Abdomen/Pelvis CT 12/29/20 10:49 IMPRESSION: Right hydronephrosis and hydroureter with increased density within the collecting system suggestive of blood. Mild degree of right perinephric and periureteric stranding. New small bilateral pleural effusions with bibasilar atelectasis more prominent on the right side. Small gallstones. Electronically Signed: Nik Martines MD at 11:31 EDT , Service support , Discharge Plan Dx/Rx/DC Orders Clinical Impression: Obstructed, uropathy, DELIA (acute kidney injury), Leukocytosis, Flank pain Disposition Disposition: Acute Care Hospital [facility] Discharge Date/Time: 12/29/20 13:47
[2020-12-29 10:26] LABS: Absolute Neutrophil Count 13.3 X10^3/uL (2.0-7.7); Basophil# 0.04 X10^3/uL; Basophil% 0.3 % (0-1); Eosinophil# 0.04 X10^3/uL; Eosinophils% 0.3 % (0-5); Hematocrit 45.4 % (40-54); Hemoglobin 15.3 g/dL (13.0-16.5); Lymphocyte % 5.1 % (19-41); Mean Corp Hgb Conc 33.7 g/dL (32-36); Mean Corpuscular Hgb 31.9 pg (27.0-32.0); Mean Corpuscular Volume 94.8 fL (80-94); Mean Platelet Vol. 9.7 fl (6.2-12.0); Monocyte# 1.46 X10^3/uL; Monocyte% 9.3 % (0-10); NRBC Flagged by Analyzer 0 % (0-5); Neutrophil # 13.27 X10^3/uL (2.7-7.7); Neutrophil % 84.3 % (47-70); Platelet Count 122 K/mm3 (150-450); RBC Distribution Width CV 13.5 % (11.6-14.6); Red Blood Count 4.79 M/mm3 (4.6-6.2); White Blood Count 15.7 K/mm3 (4.4-11.0)
[2020-12-29 10:41] LABS: ALB/GLOB Ratio 0.9 RATIO (0.9-2.4); AST(SGOT) 51 U/L (15-37); Alanine Aminotransfer ALT/SGPT 22 U/L (16-61); Albumin, Serum 2.9 g/dL (3.2-5.0); Alkaline Phosphatase 63 U/L (45-117); Anion Gap 10 (5-15); BUN 41 mg/dL (7-18); BUN/Creat Ratio 8.3 RATIO (10-20); Calcium,Total 8.3 mg/dL (8.5-10.1); Chloride 102 mmol/L (98-107); Creatinine, Serum 4.95 mg/dL (0.70-1.30); EST Glomerular Filtration Rate 12 mL/min (>60); Est Glom Filt Rate - Afr Amer 15 mL/min (>60); Globulin 3.1 g/dL (2.2-4.2); Glucose 93 mg/dL (74-106); Potassium 5.1 mmol/L (3.5-5.1); Sodium Level 132 mmol/L (136-145)
--- NOTE | 2020-12-29 10:49 | CT_ITS ---
STUDY: CT ABDOMEN AND PELVIS WITHOUT CONTRAST REASON FOR EXAM: Male, 80 years old. Flank pain post R kidney biopsy, new DELIA. Hematuria. Urinary retention. RADIATION DOSAGE (If Supplied By Facility): CTDIvol = ( 21.08 ) mGy, DLP = ( 1095.61 ) mGycm TECHNIQUE: Transaxial images were obtained from the dome of the diaphragm to the symphysis pubis without oral contrast, and without intravenous contrast. Sagittal and coronal images were reconstructed. Individualized dose optimization techniques were used for this CT. COMPARISON: Comparison is made with prior study dated 12/18/2020. FINDINGS: There are new small bilateral pleural effusions right greater than left with bibasilar atelectasis. Dual-chamber pacemaker is seen. Coronary artery calcification. Normal liver. There are small gallstones along the dependent portion of the gallbladder lumen. Normal spleen. Normal pancreas. Normal bilateral adrenal glands. Moderate degree of right hydronephrosis. The right renal pelvis and calyceal system is distended with hyperdense material. This may represent blood. There is evidence of hydroureter down to the ureterovesical junction. There is severe cortical atrophy of the left kidney, consistent with chronic medical renal disease. Normal visualized stomach. Normal small intestine. There are multiple colonic diverticula consistent with diverticulosis. The appendix is visualized and appears normal. There is diffuse atherosclerotic calcification of the abdominal aorta and its major visceral branches, without a demonstrated aneurysm. Normal inferior vena cava. Normal retroperitoneum. Small caliber urinary bladder with diffuse bladder wall thickening. A small amount of air is seen in the anterior aspect of the bladder most likely secondary to the recent manipulation. There are prostatic calcifications. Metallic radiation seeds are seen within the prostate. Normal abdominal wall. There are diffuse degenerative changes of the visualized lumbar spine. CT/Abdomen/Pelvis without Cont IMPRESSION: Right hydronephrosis and hydroureter with increased density within the collecting system suggestive of blood. Mild degree of right perinephric and periureteric stranding. New small bilateral pleural effusions with bibasilar atelectasis more prominent on the right side. Small gallstones. Electronically Signed: Nik Martines MD at 11:31 EDT , Service support ,
--- NOTE | 2020-12-29 12:50 | NURSING ---
med surg lay simran
[2020-12-29 13:26] LABS: Bacteria 0 SEEN /hpf (None Seen); Mucous, Urine 0 SEEN /hpf (<or=2+); Squamous Epithelial Cells - UA 0 SEEN /hpf (0-5)
[2020-12-29 13:50] LABS: Color, Urine Red (Yellow); Glucose, Dipstick Normal (Normal); Ketone-Dipstick 15 mg/dl (Negative); Leukocyte Esterase-Dipstick Negative /ul (Negative); Nitrite-Dipstick Negative (Negative); Occult Blood-Urine 250 /ul (Negative); Protein-Dipstick 500 mg/dl (Negative); Specific Gravity, Urine 1.015 (1.002-1.030); Urine Bilirubin Dipstick Negative (Negative); Urine Clarity Turbid (Clear); Urine Urobilinogen Normal (Normal)
[2020-12-29 14:15] LABS: Red Blood Cells-Urine > 100 SEEN /hpf (0-5)
[2020-12-29 14:29] LABS: White Blood Cells 10-25 SEEN /hpf (0-5)
--- NOTE | 2020-12-29 14:58 | PN.HOSP_ITS ---
Documented by User: Adali Feliciano NP, [employer] 12/29/20 15:38 Subjective Subjective Patient seen and examined. Reports hematuria which has been ongoing since Friday and has worsened since that time. 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 Patient states yesterday and today he has had difficulty urinating and hematuria has worsened. He denies fever, chills. He does report nausea with emesis today and was unable to take his morning medications. He reports right flank pain. Denies chest pain, shortness of breath. Objective Data Objective Data Vital Signs: Vital Signs Temp Pulse Resp BP Pulse Ox 98.5 F 80 16 146/58 H 96 12/29/20 14:29 12/29/20 14:29 12/29/20 14:29 12/29/20 14:29 12/29/20 14:29 Oxygen Delivery Method Room Air Weight: 255 lb Body Mass Index (BMI) 37.6 Intake & Output: Intake and Output for Last 24 Hours 12/27/20 12/28/20 12/29/20 23:59 23:59 23:59 Intake Total 500 / 500 Balance 500 / 500 Lab / Micro Data Result Diagrams: 12/29/20 10:15 12/29/20 10:15 Labs: Laboratory Results - last 24 hr 12/29/20 12/29/20 12/29/20 10:15 10:15 13:15 WBC 15.7 H RBC 4.79 Hgb 15.3 Hct 45.4 MCV 94.8 H MCH 31.9 MCHC 33.7 RDW Std Deviation 47.0 H RDW Coeff of Deyvi 13.5 Plt Count 122 L MPV 9.7 Immature Gran % (Auto) 0.700 Neut % (Auto) 84.3 H Lymph % (Auto) 5.1 L [place] % (Auto) 9.3 Eos % (Auto) 0.3 Baso % (Auto) 0.3 Absolute Neuts (auto) 13.3 H Absolute Lymphs (auto) 0.80 L Nucleated RBC % 0 Sodium 132 L Potassium 5.1 Chloride 102 Carbon Dioxide 20.0 L Anion Gap 10 BUN 41 H Creatinine 4.95 H Estim Creat Clear Calc 12.10 Est GFR (MDRD) Af Amer 15 L Est GFR (MDRD) Non-Af 12 L BUN/Creatinine Ratio 8.3 L Glucose 93 Calcium 8.3 L Total Bilirubin 2.00 H AST 51 H ALT 22 Alkaline Phosphatase 63 Total Protein 6.0 L Albumin 2.9 L Globulin 3.1 Albumin/Globulin Ratio 0.9 Urine Color Red Urine Clarity Turbid Urine pH 7.0 Ur Specific [place] 1.015 Urine Protein 500 H Urine Glucose (UA) Normal Urine Ketones 15 H Urine Occult Blood 250 H Urine Nitrite Negative Urine Bilirubin Negative Urine Urobilinogen Normal Ur Leukocyte Esterase Negative Urine RBC > 100 SEEN Urine WBC 10-25 SEEN Ur Squamous Epith Cells 0 SEEN Urine Bacteria 0 SEEN Urine Mucus 0 SEEN Radiography Diagnostic Testing: Radiology Impression Abdomen/Pelvis CT 12/29/20 10:49 IMPRESSION: Right hydronephrosis and hydroureter with increased density within the collecting system suggestive of blood. Mild degree of right perinephric and periureteric stranding. New small bilateral pleural effusions with bibasilar atelectasis more prominent on the right side. Small gallstones. Electronically Signed: Nik Martines MD at 11:31 EDT , Service support , Physical Exam Narrative Siva hematuria noted, Phipps catheter in place Const alert, oriented x3 and no apparent distress Orientation / Consciousness: awake, oriented to person, oriented to place and oriented to time HEENT normocephalic and moist oral mucous membranes Eyes PERRL, EOMs intact bilaterally and conjunctivae normal Neck no lymphadenopathy Resp normal respiratory effort and clear to auscultation bilaterally Cardio regular rate, regular rhythm and no murmurs Peripheral Pulses: pulses 2+ throughout GI normal to inspection, nondistended, normoactive bowel sounds, non-tender and non-distended Extremity normal to inspection Skin no rashes or lesions noted Lesions: no lesions Rashes: no rashes Trauma: no lacerations or abrasions Neuro CN's II-XII intact bilaterally, no focal motor deficits, no sensory deficits noted and deep tendon reflexes 2+ bilaterally Psych mental status grossly normal and affect normal Assessment & Plan Assessment/Plan (1) DELIA (acute kidney injury): (2) Obstructed, uropathy: (3) Gross hematuria: PLAN: 1. DELIA on CKD stage IIIa secondary to obstructive uropathy with associated hematuria-CT of abdomen pelvis on admission shows right hydronephrosis and hydroureter. Mild degree of right perinephric and periureteric stranding, increased density within the collecting system. Phipps in place. Urology admitting. Plan for likely ureteral stent placement. 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 Starr. Management per urology. 2. 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 Prostate biopsy diagnosed 01/20/2020 followed by ADT and radiation. Following with Dr. Starr and Dr. Arteaga. 3. Nonischemic cardiomyopathy-echocardiogram 11/23/2020 demonstrated an EF of 40%, mild aortic valve insufficiency, stage I diastolic dysfunction. Temporarily hold Lasix pending improvement in renal function. 4. Status post pacemaker placement- follows with Dr. Holt. 5. Hypertension- stable, continue carvedilol. Hold Lasix. 6. Hyperlipidemia- continue statin. 7. Adrenal insufficiency- Following with Dr. Yuan, endocrinology. On hydrocortisone. 8. PORTILLO-on CPAP. 9. GERD- on famotidine. 10. Gout- on allopurinol. DVT prophylaxis- SCDs This patient was seen by Adali Feliciano NP-Nick under the supervision of Dr. Joyce. Documented by User: Dr. Cristian Joyce DO 12/29/20 18:06 Objective Data Lab / Micro Data Result Diagrams: 12/29/20 10:15 12/29/20 10:15 Charges/Coding Addendum Addendum: Patient was seen and examined independently of Adali Feliciano today, he underwent placement of a stent in the right ureter today due to severe hematuria and hydronephrosis, patient had a kidney biopsy done earlier in the week that was positive for transitional carcinoma of the right kidney. Patient was seen by me postop, I talked at length with his who was in the room. I will give the patient a dose of Rocephin tonight. I talked briefly with urology about his care. Patient's creatinine and BUN were elevated as well as his white blood cell count. On examination he appeared in good health and spirits. Vital signs as documented. Skin warm and dry and without overt rashes. Neck without JVD, neck was supple, trachea midline, thyroid was normal. Lungs clear bilaterally, normal air movement was noted. Heart exam notable for regular rhythm, normal sounds and absence of murmurs, rubs or gallops. Abdomen unremarkable and without evidence of organomegaly, masses, or abdominal aortic enlargement. Bowel sounds are pre sent, abdomen is not distended. Extremities nonedematous, no cyanosis was noted, no clubbing was noted. Neuro: Cranial nerves II through XII are grossly intact, no focal motor deficits were noted, sensation to light touch and pinprick intact, motor exam 5/5 throughout. Psych: Patient is alert and oriented x3, he does not appear anxious or depressed, he does not appear agitated. I have reviewed Adali Feliciano's progress note including her medical assessment and plan of care and endorse it. Visit Charges Inpatient E&M: 34224 Subs Hosp L2
--- NOTE | 2020-12-29 15:20 | RAD_ITS ---
HISTORY: pre-op for surgery today. TECHNIQUE: XR Chest 1 View. # of images incl. paperwork: 1. COMPARISON: 11/10/2018. FINDINGS: CARDIOMEDIASTINAL STRUCTURES: Cardiac silhouette not enlarged. Mediastinal contour unchanged with cardiac pacemaker again noted. LUNGS: Probable calcified granuloma in the left midlung. Mild scarring in the right lung base. PLEURA: No significant pleural effusion or pneumothorax. OSSEOUS STRUCTURES: Degenerative change. RAD/Chest 1 View (Portable) IMPRESSION: No radiographic evidence of acute cardiopulmonary disease. Mild right basilar scarring. at 1607 Reported and signed by: Susan Pfeiffer MD Electronically Signed: Susan Pfeiffer MD at 16:06 EDT Tel , Service support ,
--- NOTE | 2020-12-29 15:22 | NURSING ---
pt to surgeryr
[2020-12-29] MEDS: 0.9% Normal Saline 1,000 ML 15 ML IV (15:23)
--- NOTE | 2020-12-29 15:25 | NURSING ---
pt being taken down for surgery.. CPS and XRay called to update that pt is currently heading down to [facility] to do the CXR and EKG down there.
[2020-12-29] MEDS: Lidocaine Jelly 2% 20 ML Syringe (URO-JET) 20 APPLIC (16:00)
--- NOTE | 2020-12-29 16:04 | CON.PCM.UR_ITS ---
Assessment & Plan Assessment/Plan (1) Hydronephrosis: (2) Transitional cell carcinoma of right kidney: PLAN: Plan to proceed with a cystoscopy right stent placement. HPI Consult Data Date of Consult: 12/29/20 HPI Narrative HPI Narrative: DANITZA JAIN, is a 80 M who presents to the emergency room with severe pain on the right side also an uric has not been able to void catheter was placed with minimal to no urine output CAT scan was done demonstrated hydronephrosis in the right kidney he is going to go surgery today for placement of a stent in the right side he does have a tumor within the right kidney that is bleeding causing obstruction had a biopsy recently. [facility] Medical History (Updated 12/29/20 @ 16:[address] Domenico Starr MD) AAA (abdominal aortic aneurysm) Arthritis Back pain Body mass index (BMI) 35 or more Cancer Cardiac pacemaker in situ (01/02/15) Cardiology follow-up encounter Chronic systolic (congestive) heart failure CKD (chronic kidney disease) stage 3, GFR 30-59 ml/min Community acquired pneumonia Congestive heart failure (CHF) CPAP (continuous positive airway pressure) dependence Diffuse large B cell lymphoma Dyspnea on exertion Esophageal reflux Former smoker Gastric reflux Gout Gout High cholesterol History of CHF (congestive heart failure) History of diverticulitis History of edema History of non-Hodgkin's lymphoma History of pacemaker History of pituitary adenoma History of pituitary tumor History of renal disease History of steroid therapy History of stress test History of ulceration Hx of echocardiogram Hyperlipidemia Hyponatremia Increasing prostate specific antigen level Kidney disease Malignant lymphoma of extranodal and solid organ sites Mobitz (type) II atrioventricular block MRSA (methicillin resistant staphylococcus aureus) pneumonia Non-ischemic cardiomyopathy PORTILLO (obstructive sleep apnea) Pacemaker PAF (paroxysmal atrial fibrillation) Pericardial effusion Pleural effusion Prostate cancer Prostate disease Secondary adrenal insufficiency Shortness of breath on exertion Simple obesity Sleep apnea SSS (sick sinus syndrome) Wears partial dentures Home Medications pravastatin 40 mg PO DAILY #0 12/21/13 [History Last Taken 12/26/20] famotidine 40 mg tablet 40 mg PO DAILY 07/16/18 [History Last Taken 12/27/20] allopurinol 300 mg PO DAILY 09/30/18 [History Last Taken 12/26/20] carvedilol 25 mg tablet 25 mg PO BID 11/17/20 [History Last Taken 12/26/20] furosemide [Lasix] 40 mg PO PRN PRN 12/26/20 [History Last Taken 12/26/20] hydrocortisone 5 mg PO QHS 12/26/20 [History Last Taken 12/26/20] hydrocortisone 20 mg PO DAILY 12/26/20 [History Last Taken 12/26/20] oxycodone-acetaminophen 1 tab PO Q4H PRN 7 Days #14 tab 12/27/20 [Rx Last Taken 3 Days Ago ~12/26/20] ciprofloxacin HCl [Cipro] 500 mg PO BID 12/29/20 [History Last Taken 12/27/20] potassium chloride 20 meq PO DAILY 12/29/20 [History Last Taken 3 Days Ago ~12/26/20] Allergy/AdvReac Type Severity Reaction Status Date / Time lisinopril Allergy Swelling Verified 12/29/20 09:32 aspirin AdvReac GI BLEED, Verified 12/29/20 09:32 UPPER Family History Father FH: kidney cancer Mother Heart disease Diabetes Surgical History History of cardiac catheterization History of surgical removal of pituitary gland History of vascular access device Hx of lymph node biopsy Status post transsphenoidal pituitary resection Social History Smoking Status: Former smoker quit date: 06/30/81 pack-years: 20 how long ago did patient quit smokin second hand exposure: No alcohol intake: never substance use type: does not use caffeine: Yes Type: coffee Number of servings: 3 what type of physical activity do you participate in: none xavi/hindu: Uatsdin seatbelt use: always do you feel safe at home: Yes ROS Constitutional Constitutional: Denies chills, fever(s) or malaise Eyes Eyes: Denies blurry vision or change in vision ENT HEENT: Reports none Cardiovascular Cardiovascular: Denies chest pain or palpitations Respiratory/Chest Respiratory/Chest: Denies cough or shortness of breath with exertion Gastrointestinal Gastrointestinal: Denies abdominal pain, constipation or diarrhea Musculoskeletal Musculoskeletal: Denies back pain, joint stiffness or joint swelling Integumentary Integumentary: Denies dry skin, jaundice, lesions or rash Neurologic Neurologic: Denies confusion, syncope or weakness Psychiatric Psychiatric: Reports none; Denies anxiety or depression Endocrine Endocrinology: Denies excessive sweating, fatigue or flushing Hematologic/Lymphatic Hematologic/Lymphatic: Denies anemia, easy bleeding or easy bruising Physical Exam Const alert and oriented x3 General Appearance: cooperative HEENT normocephalic, head/scalp atraumatic, EAC's normal and TM's normal bilaterally Eyes PERRL and EOMs intact bilaterally Pupil: sluggish Neck no lymphadenopathy, supple and no JVD General: trachea midline Lymph Lymphatic: no lymphadenopathy noted, lymphedema and lymphadenopathy Resp normal respiratory effort, normal air movement and clear to auscultation bilaterally Cardio regular rate, regular rhythm and peripheral pulses 2+ throughout GI soft to palpation, non-tender and non-distended Extremity normal capillary refill and no clubbing, cyanosis or edema General Extremity: no tenderness to palpation of joints or extremities Skin no rashes or lesions noted General Skin Exam: turgor normal Lesions: no lesions Rashes: no rashes Neuro CN's II-XII intact bilaterally Speech: speech normal Motor Exam: strength 5/5 throughout; Negative for general weakness Psych thought process normal, cooperative and affect normal Appearance: appropriate Lab / Micro Data Result Diagrams: 12/29/20 10:15 12/29/20 10:15 Labs: Laboratory Results - last 24 hr 12/29/20 12/29/20 12/29/20 10:15 10:15 13:15 WBC 15.7 H RBC 4.79 Hgb 15.3 Hct 45.4 MCV 94.8 H MCH 31.9 MCHC 33.7 RDW Std Deviation 47.0 H RDW Coeff of Deyvi 13.5 Plt Count 122 L MPV 9.7 Immature Gran % (Auto) 0.700 Neut % (Auto) 84.3 H Lymph % (Auto) 5.1 L [place] % (Auto) 9.3 Eos % (Auto) 0.3 Baso % (Auto) 0.3 Absolute Neuts (auto) 13.3 H Absolute Lymphs (auto) 0.80 L Nucleated RBC % 0 Sodium 132 L Potassium 5.1 Chloride 102 Carbon Dioxide 20.0 L Anion Gap 10 BUN 41 H Creatinine 4.95 H Estim Creat Clear Calc 12.10 Est GFR (MDRD) Af Amer 15 L Est GFR (MDRD) Non-Af 12 L BUN/Creatinine Ratio 8.3 L Glucose 93 Calcium 8.3 L Total Bilirubin 2.00 H AST 51 H ALT 22 Alkaline Phosphatase 63 Total Protein 6.0 L Albumin 2.9 L Globulin 3.1 Albumin/Globulin Ratio 0.9 Urine Color Red Urine Clarity Turbid Urine pH 7.0 Ur Specific [place] 1.015 Urine Protein 500 H Urine Glucose (UA) Normal Urine Ketones 15 H Urine Occult Blood 250 H Urine Nitrite Negative Urine Bilirubin Negative Urine Urobilinogen Normal Ur Leukocyte Esterase Negative Urine RBC > 100 SEEN Urine WBC 10-25 SEEN Ur Squamous Epith Cells 0 SEEN Urine Bacteria 0 SEEN Urine Mucus 0 SEEN Radiology Impression Abdomen/Pelvis CT 12/29/20 10:49 IMPRESSION: Right hydronephrosis and hydroureter with increased density within the collecting system suggestive of blood. Mild degree of right perinephric and periureteric stranding. New small bilateral pleural effusions with bibasilar atelectasis more prominent on the right side. Small gallstones. Electronically Signed: Nik Martines MD at 11:31 EDT , Service support ,
--- NOTE | 2020-12-29 16:13 | PCM.OPRPT ---
Report of Operation Date of Procedure: 12/29/20 Pre-Operative Diagnosis: Right hydronephrosis, tumor in the right renal pelvis transitional cell carcinoma status post biopsy 2 days ago Post-Operative Diagnosis: Same Surgery/Procedure Performed:: Cystoscopy and right stent placement Description of Surgical Findings:: This is a 80-year-old male who has been having bleeding from the right kidney 2 days ago at went to surgery here at [facility] and looked up in the right kidney and found a tumor growing in the renal pelvis a small biopsy was this was taken which came back positive transitional cell carcinoma he then went home called back today the family said that he not been urinating so instructed to go the emergency room CAT scan was done demonstrated what appeared to be some blood clots in the proximal ureter causing obstruction and hydronephrosis also elevated creatinine senses this is practically his only kidney left kidney is atrophic. He was brought back to the operating room today underwent anesthesia and then he was prepped and draped in usual sterile fashion went in the bladder with a 21 Samo[place] rigid cystourethroscope cannulated the right ureteral orifice with a wire advanced up to the right kidney coil in the kidney and then after coil then advanced a 7 Samoan by 26 cm stent and then the stent was up in the kidney pulled the wire the stent coiled in the kidney bladder good position I then drained the bladder and was draining dark bloody urine. His anesthesia was reversed taken back to PACU in good condition. Type of Anesthesia: General Admit VTE Documentation VTE Present on Admission: No VTE Mechan Device Prophylaxis: SCD's
[2020-12-29] MEDS: 0.9% Normal Saline 1,000 ML 125 ML IV (20:15)
[2020-12-29] MEDS: Ceftriaxone 1 GM/50 ML BAG IV (22:14)
[2020-12-29] MEDS: Hydrocortisone 10 MG Tablet 5 MG PO (22:15)
[2020-12-29] MEDS: Carvedilol 25 MG Tablet PO (22:15)
[2020-12-29] MEDS: Pravastatin 40 MG Tablet PO (22:15)
[2020-12-30] VITALS (7 sets, daily range): BP systolic 92–122; BP diastolic 42–59; PULSE 63–75; RESP 18; TEMP 36.2–36.9; O2SAT 93–99
[2020-12-30] MEDS: 0.9% Normal Saline 1,000 ML 125 ML IV ×4 (04:04→17:14)
[2020-12-30 07:43] LABS: Absolute Lymphocyte Count 0.47 X10^3/uL (0.83-4.51); Absolute Neutrophil Count 8.1 X10^3/uL (2.0-7.7); Basophil# 0.01 X10^3/uL; Basophil% 0.1 % (0-1); Eosinophil# 0.04 X10^3/uL; Eosinophils% 0.4 % (0-5); Hematocrit 35.5 % (40-54); Hemoglobin 11.5 g/dL (13.0-16.5); Lymphocyte # 0.47 X10^3/ul (0.83-4.51); Lymphocyte % 4.9 % (19-41); Mean Corp Hgb Conc 32.4 g/dL (32-36); Mean Corpuscular Hgb 31.6 pg (27.0-32.0); Mean Corpuscular Volume 97.5 fL (80-94); Mean Platelet Vol. 9.1 fl (6.2-12.0); Monocyte# 0.87 X10^3/uL; Monocyte% 9.1 % (0-10); NRBC Flagged by Analyzer 0 % (0-5); Neutrophil # 8.13 X10^3/uL (2.7-7.7); Neutrophil % 84.9 % (47-70); POSITIVE DIFFERENTIAL YES; Platelet Count 101 K/mm3 (150-450); RBC Distribution Width CV 13.5 % (11.6-14.6); RBC Distribution Width SD 49.1 fl (35.1-43.9); Red Blood Count 3.64 M/mm3 (4.6-6.2); White Blood Count 9.6 K/mm3 (4.4-11.0)
[2020-12-30 07:47] LABS: Differential Indicated SCAN CRITERIA MET
--- NOTE | 2020-12-30 07:56 | PCM.PN.GU ---
Subjective Subjective Status post ureteroscopy and biopsy on Friday for a tumor growing in the renal pelvis the biopsy came back positive with transitional cell carcinoma low-grade cytology was also positive unfortunately he bled from the biopsy which caused a large hematoma in the renal pelvis and he developed acute renal failure creatinine going up to 4 with no to very little urine output. He presented to the hospital yesterday we took him the surgery but a stent and over the course of the night he is only produced about 450 cc of urine his creatinine is pending this morning. Objective Data Objective Data Vital Signs: Vital Signs Temp Pulse Resp BP Pulse Ox 98.2 F 75 18 92/42 L 98 12/30/20 03:30 12/30/20 07:47 12/30/20 07:47 12/30/20 03:30 12/30/20 07:47 Oxygen Delivery Method Room Air Weight: 116.8 kg Body Mass Index (BMI) 37.6 Intake & Output: Intake and Output for Last 24 Hours 12/28/20 12/29/20 12/30/20 23:59 23:59 23:59 Intake Total 500.25 / 500.25 1906.25 / 1906.25 Output Total 0 / 300 450 / 450 Balance 500.25 / 200.25 1456.25 / 1456.25 Lab / Micro Data Result Diagrams: 12/30/20 07:27 12/29/20 10:15 Labs: Laboratory Results - last 24 hr 12/29/20 12/29/20 12/29/20 10:15 10:15 13:15 WBC 15.7 H RBC 4.79 Hgb 15.3 Hct 45.4 MCV 94.8 H MCH 31.9 MCHC 33.7 RDW Std Deviation 47.0 H RDW Coeff of Deyvi 13.5 Plt Count 122 L MPV 9.7 Immature Gran % (Auto) 0.700 Neut % (Auto) 84.3 H Lymph % (Auto) 5.1 L [place] % (Auto) 9.3 Eos % (Auto) 0.3 Baso % (Auto) 0.3 Absolute Neuts (auto) 13.3 H Absolute Lymphs (auto) 0.80 L Nucleated RBC % 0 Sodium 132 L Potassium 5.1 Chloride 102 Carbon Dioxide 20.0 L Anion Gap 10 BUN 41 H Creatinine 4.95 H Estim Creat Clear Calc 12.10 Est GFR (MDRD) Af Amer 15 L Est GFR (MDRD) Non-Af 12 L BUN/Creatinine Ratio 8.3 L Glucose 93 Calcium 8.3 L Total Bilirubin 2.00 H AST 51 H ALT 22 Alkaline Phosphatase 63 Total Protein 6.0 L Albumin 2.9 L Globulin 3.1 Albumin/Globulin Ratio 0.9 Urine Color Red Urine Clarity Turbid Urine pH 7.0 Ur Specific [place] 1.015 Urine Protein 500 H Urine Glucose (UA) Normal Urine Ketones 15 H Urine Occult Blood 250 H Urine Nitrite Negative Urine Bilirubin Negative Urine Urobilinogen Normal Ur Leukocyte Esterase Negative Urine RBC > 100 SEEN Urine WBC 10-25 SEEN Ur Squamous Epith Cells 0 SEEN Urine Bacteria 0 SEEN Urine Mucus 0 SEEN 12/30/20 07:27 WBC 9.6 RBC 3.64 L Hgb 11.5 L Hct 35.5 L MCV 97.5 H MCH 31.6 MCHC 32.4 RDW Std Deviation 49.1 H RDW Coeff of Deyvi 13.5 Plt Count 101 L MPV 9.1 Immature Gran % (Auto) 0.600 Neut % (Auto) 84.9 H Lymph % (Auto) 4.9 L [place] % (Auto) 9.1 Eos % (Auto) 0.4 Baso % (Auto) 0.1 Absolute Neuts (auto) 8.1 H Absolute Lymphs (auto) 0.47 L Nucleated RBC % 0 Sodium Potassium Chloride Carbon Dioxide Anion Gap BUN Creatinine Estim Creat Clear Calc Est GFR (MDRD) Af Amer Est GFR (MDRD) Non-Af BUN/Creatinine Ratio Glucose Calcium Total Bilirubin AST ALT Alkaline Phosphatase Total Protein Albumin Globulin Albumin/Globulin Ratio Urine Color Urine Clarity Urine pH Ur Specific [place] Urine Protein Urine Glucose (UA) Urine Ketones Urine Occult Blood Urine Nitrite Urine Bilirubin Urine Urobilinogen Ur Leukocyte Esterase Urine RBC Urine WBC Ur Squamous Epith Cells Urine Bacteria Urine Mucus Radiography Diagnostic Testing: Radiology Impression Abdomen/Pelvis CT 12/29/20 10:49 IMPRESSION: Right hydronephrosis and hydroureter with increased density within the collecting system suggestive of blood. Mild degree of right perinephric and periureteric stranding. New small bilateral pleural effusions with bibasilar atelectasis more prominent on the right side. Small gallstones. Electronically Signed: Nik Martines MD at 11:31 EDT , Service support , Chest X-Ray 12/29/20 15:20 IMPRESSION: No radiographic evidence of acute cardiopulmonary disease. Mild right basilar scarring. at 1607 Reported and signed by: Susan Pfeiffer MD Electronically Signed: Susan Pfeiffer MD at 16:06 EDT Tel , Service support , Physical Exam Const alert and oriented x3 General Appearance: cooperative HEENT normocephalic, head/scalp atraumatic, EAC's normal and TM's normal bilaterally Eyes PERRL and EOMs intact bilaterally Pupil: sluggish Neck no lymphadenopathy, supple and no JVD General: trachea midline Lymph Lymphatic: no lymphadenopathy noted, lymphedema and lymphadenopathy Resp normal respiratory effort, normal air movement and clear to auscultation bilaterally Cardio regular rate, regular rhythm and peripheral pulses 2+ throughout GI soft to palpation, non-tender and non-distended Extremity normal capillary refill and no clubbing, cyanosis or edema General Extremity: no tenderness to palpation of joints or extremities Skin no rashes or lesions noted General Skin Exam: turgor normal Lesions: no lesions Rashes: no rashes Neuro CN's II-XII intact bilaterally Speech: speech normal Motor Exam: strength 5/5 throughout; Negative for general weakness Psych thought process normal, cooperative and affect normal Appearance: appropriate Assessment & Plan Assessment/Plan (1) Transitional cell carcinoma of right kidney: PLAN: 80-year-old male presented to the hospital after biopsy of a renal pelvic mass still continues to bleed him hemoglobin is coming down some his creatinine is pending this morning I would expect it to improve but it might still be very high we will probably set him for 2 days to let the blood in the urine clear out but if he continues to bleed probably out the taken back surgery may be Friday for ureteroscopy and cauterization of the renal pelvic mass to see if we can control the bleeding may not be possible to cauterize this mass completely since it is a fairly large mass but would like to see if we get the bleeding to stop we will see if over the next 2 days we can do conservative measures to stop the bleeding but if it does not plan to taken the surgery Friday for ureteroscopy and cauterization of the renal pelvic mass.
[2020-12-30 08:16] LABS: Anion Gap 10 (5-15); BUN 53 mg/dL (7-18); Chloride 105 mmol/L (98-107); Creatinine, Serum 6.65 mg/dL (0.70-1.30); EST Glomerular Filtration Rate 9 mL/min (>60); Est Glom Filt Rate - Afr Amer 10 mL/min (>60); Estimated Creatinine Clearance 9.01 ml/min; Glucose 99 mg/dL (74-106); Potassium 5.3 mmol/L (3.5-5.1); Sodium Level 137 mmol/L (136-145)
[2020-12-30] MEDS: Carvedilol 25 MG Tablet PO ×2 (10:16→22:32)
[2020-12-30] MEDS: Hydrocortisone 10 MG Tablet 20 MG PO (10:16)
[2020-12-30] MEDS: Famotidine 20 MG Tablet 40 MG PO (10:16)
--- NOTE | 2020-12-30 10:59 | PN.HOSP_ITS ---
Subjective Subjective Patient seen and examined. Reports right flank pain that has improved. Denies further nausea, vomiting. Continues to have significant hematuria. Denies other symptoms or complaints. Objective Data Objective Data Vital Signs: Vital Signs Temp Pulse Resp BP Pulse Ox 97.8 F 75 18 100/59 L 98 12/30/20 09:30 12/30/20 09:30 12/30/20 09:30 12/30/20 09:30 12/30/20 09:30 Oxygen Delivery Method Room Air Weight: 257 lb 7.999 oz Body Mass Index (BMI) 37.6 Intake & Output: Intake and Output for Last 24 Hours 12/28/20 12/29/20 12/30/20 23:59 23:59 23:59 Intake Total 500.25 / 500.25 2677.08 / 2677.08 Output Total 0 / 300 450 / 450 Balance 500.25 / 200.25 2227.08 / 2227.08 Lab / Micro Data Result Diagrams: 12/30/20 07:27 12/30/20 07:27 Labs: Laboratory Results - last 24 hr 12/29/20 12/30/20 12/30/20 13:15 07:27 07:27 WBC 9.6 RBC 3.64 L Hgb 11.5 L Hct 35.5 L MCV 97.5 H MCH 31.6 MCHC 32.4 RDW Std Deviation 49.1 H RDW Coeff of Deyvi 13.5 Plt Count 101 L MPV 9.1 Immature Gran % (Auto) 0.600 Neut % (Auto) 84.9 H Lymph % (Auto) 4.9 L [place] % (Auto) 9.1 Eos % (Auto) 0.4 Baso % (Auto) 0.1 Absolute Neuts (auto) 8.1 H Absolute Lymphs (auto) 0.47 L Nucleated RBC % 0 Sodium 137 Potassium 5.3 H Chloride 105 Carbon Dioxide 22.0 Anion Gap 10 BUN 53 H Creatinine 6.65 H Estim Creat Clear Calc 9.01 Est GFR (MDRD) Af Amer 10 L Est GFR (MDRD) Non-Af 9 L BUN/Creatinine Ratio 8.0 L Glucose 99 Calcium 8.0 L Urine Color Red Urine Clarity Turbid Urine pH 7.0 Ur Specific [place] 1.015 Urine Protein 500 H Urine Glucose (UA) Normal Urine Ketones 15 H Urine Occult Blood 250 H Urine Nitrite Negative Urine Bilirubin Negative Urine Urobilinogen Normal Ur Leukocyte Esterase Negative Urine RBC > 100 SEEN Urine WBC 10-25 SEEN Ur Squamous Epith Cells 0 SEEN Urine Bacteria 0 SEEN Urine Mucus 0 SEEN Radiography Diagnostic Testing: Radiology Impression Abdomen/Pelvis CT 12/29/20 10:49 IMPRESSION: Right hydronephrosis and hydroureter with increased density within the collecting system suggestive of blood. Mild degree of right perinephric and periureteric stranding. New small bilateral pleural effusions with bibasilar atelectasis more prominent on the right side. Small gallstones. Electronically Signed: Nik Martines MD at 11:31 EDT , Service support , Chest X-Ray 12/29/20 15:20 IMPRESSION: No radiographic evidence of acute cardiopulmonary disease. Mild right basilar scarring. at 1607 Reported and signed by: Susan Pfeiffer MD Electronically Signed: Susan Pfeiffer MD at 16:06 EDT Tel , Service support , Physical Exam Const alert, oriented x3 and no apparent distress Orientation / Consciousness: awake, oriented to person, oriented to place and oriented to time HEENT normocephalic and moist oral mucous membranes Eyes PERRL, EOMs intact bilaterally and conjunctivae normal Neck no lymphadenopathy Resp normal respiratory effort and clear to auscultation bilaterally Cardio regular rate, regular rhythm and no murmurs Peripheral Pulses: pulses 2+ throughout GI normal to inspection, nondistended, normoactive bowel sounds, non-tender and non-distended Extremity normal to inspection Skin no rashes or lesions noted Lesions: no lesions Rashes: no rashes Trauma: no lacerations or abrasions Neuro CN's II-XII intact bilaterally, no focal motor deficits, no sensory deficits noted and deep tendon reflexes 2+ bilaterally Psych mental status grossly normal and affect normal Assessment & Plan Assessment/Plan (1) DELIA (acute kidney injury): (2) Obstructed, uropathy: (3) Gross hematuria: PLAN: 1. DELIA on CKD stage IIIa secondary to obstructive uropathy with associated hematuria-CT of abdomen pelvis on admission shows right hydronephrosis and hydroureter. Mild degree of right perinephric and periu reteric stranding, increased density within the collecting system. Phipps in place. Urology admitting. Underwent right ureteral stent placement 12/29/20. 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 Starr. Management per urology. May need to return to or on Friday if patient continues to have bleeding for possible cauterization of mass. 2. 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 Prostate biopsy diagnosed 01/20/2020 followed by ADT and radiation. Following with Dr. Starr and Dr. Arteaga. 3. Nonischemic cardiomyopathy-echocardiogram 11/23/2020 demonstrated an EF of 40%, mild aortic valve insufficiency, stage I diastolic dysfunction. Lasix on hold. 4. Status post pacemaker placement- follows with Dr. Holt. 5. Hypertension- stable, continue carvedilol. Hold Lasix. 6. Hyperlipidemia- continue statin. 7. Adrenal insufficiency- Following with Dr. Yuan, endocrinology. On hydrocortisone. 8. PORTILLO-on CPAP. 9. GERD- on famotidine. 10. Gout- on allopurinol. DVT prophylaxis- SCDs This patient was seen by BONIFACIO Tarango under the supervision of Dr. Joyce.
--- NOTE | 2020-12-30 11:00 | CASEMGMT ---
GIANNI TURPIN assessment: Face to Face with patient for initial transition planning/care coordination assessment. GIANNI TURPIN introduced self and role at [facility], pt voices understanding and consents to assessment. Pt is sitting up in chair in no distress. Pt is A/Ox4 and answers all questions appropriately. Care providers, pharmacy, and demographics verified. Presentation: Inability to urinate, recent surgery Admitting dx: Obstructive uropathy, DELIA PCP: Rickie Specialists: Ro, uro; Yanet, cardio; diego Yuan Preferred [facility]acy: [facility] Insurance: [facility] Prescription Benefit: [facility] Living Will/HPOA: Pt states has LW/HPOA and is aware that they are not on file at [facility]. Pt encouraged to bring AD's in. Pt states his , Bneita Garces, is HPOA. LNOK: Benita Garces, Living Arrangements: Pt states lives with in 1 story home and states no concerns at home. Pt states is independent with ADL's. Transportation: Pt states drives self and states no transportation concerns. DME/HHC: Pt states has a cpap thru [facility] and states no need for any further DME. Pt states no hx of SNF but has had HHC in the past. Pt states no concerns with going home at time of discharge. Pt is retired. Pt states does not smoke cigarettes or drink ETOH. Pt states no further concerns/needs. CM to follow for any further discharge planning/needs. Advised pt to ask for CM if any further questions/concerns/needs arise, voices understanding. Pt Goal: Home Plan[place] GIANNI TURPIN
[2020-12-30] MEDS: Pravastatin 40 MG Tablet PO (22:32)
[2020-12-30] MEDS: Hydrocortisone 10 MG Tablet 5 MG PO (22:32)
[2020-12-31] MEDS: 0.9% Normal Saline 1,000 ML 125 ML IV ×3 (00:47→18:04)
[2020-12-31 04:20] VITALS: BP 131/94; PULSE 67; RESP 18; TEMP 35.8; O2SAT 97
[2020-12-31 06:12] LABS: Absolute Lymphocyte Count 0.28 X10^3/uL (0.83-4.51); Absolute Neutrophil Count 7.3 X10^3/uL (2.0-7.7); Basophil# 0.01 X10^3/uL; Basophil% 0.1 % (0-1); Eosinophil# 0.06 X10^3/uL; Eosinophils% 0.7 % (0-5); Hematocrit 33.8 % (40-54); Hemoglobin 11.4 g/dL (13.0-16.5); Lymphocyte # 0.28 X10^3/ul (0.83-4.51); Lymphocyte % 3.4 % (19-41); Mean Corp Hgb Conc 33.7 g/dL (32-36); Mean Corpuscular Hgb 32.5 pg (27.0-32.0); Mean Corpuscular Volume 96.3 fL (80-94); Mean Platelet Vol. 9.2 fl (6.2-12.0); Monocyte# 0.56 X10^3/uL; Monocyte% 6.8 % (0-10); NRBC Flagged by Analyzer 0 % (0-5); Neutrophil % 88.5 % (47-70); POSITIVE DIFFERENTIAL YES; Platelet Count 107 K/mm3 (150-450); RBC Distribution Width CV 13.8 % (11.6-14.6); RBC Distribution Width SD 48.3 fl (35.1-43.9); Red Blood Count 3.51 M/mm3 (4.6-6.2); White Blood Count 8.3 K/mm3 (4.4-11.0)
[2020-12-31 06:18] LABS: Differential Indicated SCAN CRITERIA MET
[2020-12-31 06:35] LABS: Anion Gap 10 (5-15); BUN 67 mg/dL (7-18); BUN/Creat Ratio 9.9 RATIO (10-20); Calcium,Total 8.3 mg/dL (8.5-10.1); Chloride 105 mmol/L (98-107); Creatinine, Serum 6.75 mg/dL (0.70-1.30); EST Glomerular Filtration Rate 8 mL/min (>60); Est Glom Filt Rate - Afr Amer 10 mL/min (>60); Estimated Creatinine Clearance 8.87 ml/min; Glucose 123 mg/dL (74-106); Potassium 5.3 mmol/L (3.5-5.1); Sodium Level 137 mmol/L (136-145)
[2020-12-31 07:30] VITALS: BP 115/46; PULSE 61; RESP 16; TEMP 36.7; O2SAT 97
[2020-12-31] MEDS: Hydrocortisone 10 MG Tablet 20 MG PO (07:41)
--- NOTE | 2020-12-31 07:53 | PCM.PN.GU ---
Subjective Subjective bleeding slowed down h/h stable cr peaked good urine output Objective Data Objective Data Vital Signs: Vital Signs Temp Pulse Resp BP Pulse Ox 98.0 F 61 16 115/46 L 97 12/31/20 07:30 12/31/20 07:30 12/31/20 07:30 12/31/20 07:30 12/31/20 07:30 Oxygen Delivery Method Room Air Weight: 120.9 kg Body Mass Index (BMI) 37.6 Intake & Output: Intake and Output for Last 24 Hours 12/29/20 12/30/20 12/31/20 23:59 23:59 23:59 Intake Total 500.25 / 500.25 5637.16 / 5637.16 943.75 / 943.75 Output Total 0 / 300 1125 / 1550 925 / 925 Balance 500.25 / 200.25 4512.16 / 4087.16 18.75 / 18.75 Lab / Micro Data Result Diagrams: 12/31/20 05:30 12/31/20 05:30 Labs: Laboratory Results - last 24 hr 12/30/20 12/31/20 12/31/20 07:27 05:30 05:30 WBC 8.3 RBC 3.51 L Hgb 11.4 L Hct 33.8 L MCV 96.3 H MCH 32.5 H MCHC 33.7 RDW Std Deviation 48.3 H RDW Coeff of Deyvi 13.8 Plt Count 107 L MPV 9.2 Immature Gran % (Auto) 0.500 Neut % (Auto) 88.5 H Lymph % (Auto) 3.4 L [place] % (Auto) 6.8 Eos % (Auto) 0.7 Baso % (Auto) 0.1 Absolute Neuts (auto) 7.3 Absolute Lymphs (auto) 0.28 L Nucleated RBC % 0 Sodium 137 137 Potassium 5.3 H 5.3 H Chloride 105 105 Carbon Dioxide 22.0 22.0 Anion Gap 10 10 BUN 53 H 67 H Creatinine 6.65 H 6.75 H Estim Creat Clear Calc 9.01 8.87 Est GFR (MDRD) Af Amer 10 L 10 L Est GFR (MDRD) Non-Af 9 L 8 L BUN/Creatinine Ratio 8.0 L 9.9 L Glucose 99 123 H Calcium 8.0 L 8.3 L Physical Exam Const alert and oriented x3 General Appearance: cooperative HEENT normocephalic, head/scalp atraumatic, EAC's normal and TM's normal bilaterally Eyes PERRL and EOMs intact bilaterally Pupil: sluggish Neck no lymphadenopathy, supple and no JVD General: trachea midline Lymph Lymphatic: no lymphadenopathy noted, lymphedema and lymphadenopathy Resp normal respiratory effort, normal air movement and clear to auscultation bilaterally Cardio regular rate, regular rhythm and peripheral pulses 2+ throughout GI soft to palpation, non-tender and non-distended Extremity normal capillary refill and no clubbing, cyanosis or edema General Extremity: no tenderness to palpation of joints or extremities Skin no rashes or lesions noted General Skin Exam: turgor normal Lesions: no lesions Rashes: no rashes Neuro CN's II-XII intact bilaterally Speech: speech normal Motor Exam: strength 5/5 throughout; Negative for general weakness Psych thought process normal, cooperative and affect normal Appearance: appropriate Assessment & Plan Assessment/Plan (1) Transitional cell carcinoma of right kidney: PLAN: plan to take to surgery in morning to cauterize bleeding tumor from right kidney, hopefully cr will improve at least stable and good urine output, Dr Langford spoke to nephrology Dr Modi who thinks his kidney function should improve with hydration, no dialysis needed now. patient knows that he has a solitary kidney with a bleedin tumor after biopsy (tumor was bleeding even before biopsy) and possible in the future he may lose his kidney to the tumor or may requrie dialysis or multiple sugeries to control his tumor, no guarentee were made to patient that his only kidney can be save. (2) Gross hematuria:
--- NOTE | 2020-12-31 09:42 | PN.HOSP_ITS ---
Documented by User: Adali Feliciano NP, [employer] OPERATOR-C 12/31/20 09:55 Subjective Subjective Patient seen and examined. Denies current symptoms or complaints. No acute events overnight. Patient states he follows with Dr. Gonzales if nephrology is consulted. Objective Data Objective Data Vital Signs: Vital Signs Temp Pulse Resp BP Pulse Ox 98.0 F 61 16 115/46 L 97 12/31/20 07:30 12/31/20 07:30 12/31/20 07:30 12/31/20 07:30 12/31/20 07:30 Oxygen Delivery Method Room Air Weight: 266 lb 8.622 oz Body Mass Index (BMI) 37.6 Intake & Output: Intake and Output for Last 24 Hours 12/29/20 12/30/20 12/31/20 23:59 23:59 23:59 Intake Total 500.25 / 500.25 5637.16 / 5637.16 943.75 / 943.75 Output Total 0 / 300 1125 / 1550 925 / 925 Balance 500.25 / 200.25 4512.16 / 4087.16 18.75 / 18.75 Lab / Micro Data Result Diagrams: 12/31/20 05:30 12/31/20 05:30 Labs: Laboratory Results - last 24 hr 12/31/20 12/31/20 05:30 05:30 WBC 8.3 RBC 3.51 L Hgb 11.4 L Hct 33.8 L MCV 96.3 H MCH 32.5 H MCHC 33.7 RDW Std Deviation 48.3 H RDW Coeff of Deyvi 13.8 Plt Count 107 L MPV 9.2 Immature Gran % (Auto) 0.500 Neut % (Auto) 88.5 H Lymph % (Auto) 3.4 L Esmeralda % (Auto) 6.8 Eos % (Auto) 0.7 Baso % (Auto) 0.1 Absolute Neuts (auto) 7.3 Absolute Lymphs (auto) 0.28 L Nucleated RBC % 0 Sodium 137 Potassium 5.3 H Chloride 105 Carbon Dioxide 22.0 Anion Gap 10 BUN 67 H Creatinine 6.75 H Estim Creat Clear Calc 8.87 Est GFR (MDRD) Af Amer 10 L Est GFR (MDRD) Non-Af 8 L BUN/Creatinine Ratio 9.9 L Glucose 123 H Calcium 8.3 L Physical Exam Const alert, oriented x3 and no apparent distress Orientation / Consciousness: awake, oriented to person, oriented to place and oriented to time HEENT normocephalic and moist oral mucous membranes Eyes PERRL, EOMs intact bilaterally and conjunctivae normal Neck no lymphadenopathy Resp normal respiratory effort and clear to auscultation bilaterally Cardio regular rate, regular rhythm and no murmurs Peripheral Pulses: pulses 2+ throughout GI normal to inspection, nondistended, normoactive bowel sounds, non-tender and non-distended Extremity normal to inspection Skin no rashes or lesions noted Lesions: no lesions Rashes: no rashes Trauma: no lacerations or abrasions Neuro CN's II-XII intact bilaterally, no focal motor deficits, no sensory deficits noted and deep tendon reflexes 2+ bilaterally Psych mental status grossly normal and affect normal Assessment & Plan Assessment/Plan (1) DELIA (acute kidney injury): (2) Obstructed, uropathy: (3) Gross hematuria: PLAN: 1. DELIA on CKD stage IIIa secondary to obstructive uropathy with associated hematuria-CT of abdomen pelvis on admission shows right hydronephrosis and hydroureter. Mild degree of right perinephric and periureteric stranding, increased density within the collecting system. Phipps in place. Urology admitting. Underwent right ureteral stent placement 12/29/20. 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 Starr. Management per urology. Plan to return to OR on Friday if patient for cauterization of mass. Patient follows with Dr. Gonzales, plan to consult if renal function worsens. 2. 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 Prostate biopsy diagnosed 01/20/2020 followed by ADT and radiation. Following with Dr. Starr and Dr. Arteaga. 3. Nonischemic cardiomyopathy-echocardiogram 11/23/2020 demonstrated an EF of 40%, mild aortic valve insufficiency, stage I diastolic dysfunction. Lasix on hold. 4. Status post pacemaker placement- follows with Dr. Holt. 5. Hypertension- stable, continue carvedilol. Hold Lasix. 6. Hyperlipidemia- continue statin. 7. Adrenal insufficiency- Following with Dr. Yuan, endocrinology. On hydrocortisone. 8. PORTILLO-on CPAP. 9. GERD- on famotidine. 10. Gout- on allopurinol. DVT prophylaxis- SCDs This patient was seen by Adali Feliciano NP-C under the supervision of Dr. Joyce. Documented by User: Dr. Cristian Joyce, 12/31/20 11:56 Objective Data Lab / Micro Data Result Diagrams: 12/31/20 05:30 12/31/20 05:30 Charges/Coding Addendum Addendum: Patient was seen and examined independently of Adali Feliciano, his creatinine remains elevated and essentially unchanged from yesterday. I talked with urology about his care, they are planning on taking him to surgery tomorrow for cauterization of his renal tumor. I do not think is necessary to get nephrology involved with his care at this point, he is putting out urine. On examination he appeared in good health and spirits. Vital signs as documented. Skin warm and dry and without overt rashes. Neck without JVD, neck was supple, trachea midline, thyroid was normal. Lungs clear bilaterally, normal air movement was noted. Heart exam notable for regular rhythm, normal sounds and absence of murmurs, rubs or gallops. Abdomen unremarkable and without evidence of organomegaly, masses, or abdominal aortic enlargement. Bowel sounds are present, abdomen is not distended. Extremities nonedematous, no cyanosis was no mateo, no clubbing was noted. Neuro: Cranial nerves II through XII are grossly intact, no focal motor deficits were noted, sensation to light touch and pinprick intact, motor exam 5/5 throughout. Psych: Patient is alert and oriented x3, he does not appear anxious or depressed, he does not appear romana tated. I have reviewed Adali Feliciano's progress note including her medical assessment and plan of care and endorse it. Visit Charges Inpatient E&M: 22504 Subs Hosp L2
[2020-12-31] MEDS: Polyethylene Glycol 3350 17 GM PACKET PO (10:24)
[2020-12-31] MEDS: Famotidine 20 MG Tablet 40 MG PO (10:24)
[2020-12-31] MEDS: Carvedilol 25 MG Tablet PO ×2 (10:24→23:00)
--- NOTE | 2020-12-31 10:28 | CON.PCM.RE_ITS ---
Assessment & Plan Assessment/Plan (1) DELIA (acute kidney injury): PLAN: DELIA on CKD due to ATN, obstruction in functioning kidney, atrophic left kidney. Baseline creatinine 1.3 increased to 6.75. Currently with mild uremic symptoms of anrexia, no nausea, vomiting, confusion. Mild leg edema, nonoliguric. Will hold on dialysis today. Discussed with pt and family at bedside that he may need temporary dialysis if azotemia does not improve next few days. (2) CKD (chronic kidney disease) stage 3, GFR 30-59 ml/min: PLAN: due to renal atrophy on left, hypertensive nephropathy (3) Flank pain: PLAN: on right due to obstruction from blood clot, renal mass (4) Hematuria: PLAN: s/p cauterization with continued hematuria, to OR tomorrow (5) Obstructed, uropathy: PLAN: due to clot, renal mass (6) History of pituitary adenoma: PLAN: endocrine following (7) Prostate cancer: PLAN: following (8) History of non-Hodgkin's lymphoma: PLAN: hx chemo (9) Essential (primary) hypertension: PLAN: stable BP (10) Cardiac pacemaker in situ: (11) Secondary adrenal insufficiency: PLAN: hx pituitary adenoma, empty sella HPI Consult Data Date of Consult: 12/31/20 HPI Narrative HPI Narrative: DANITZA JAIN, is a 80 M well known to me with CKD stage 3 due to left renal atrophy, baseline creatinine 1.32 in October 2020 when he was last seen in my office. I was told today that he was in the hospital for acute on CKD by medical team and asked to see pt on consult per pt request. He presented to [facility] on 12/29/20 for gross hematuria. He was seen by on 12/27 undergoing cystoscopy with prophylactic antibiotics given, name of antibiotic unknown. Creatinine 1.39 on 12/25 now with gross hematuria since Friday with blood clots in the urine. Admits to right flank pain. He underwent ureteral stent in the right kidney for hydronephrosis. He had a shadow in the right kidney with recent CT abdomen w/o iv contrast s/p biopsy with cysto/stent placement. He denied change in urine output. He had intermittent hematuria past several weeks according to the pt present at bedside with his son. He had anorexia, nausea since past Friday. Creatinine on admit 4.95 on 12/29 progressed to 6.65 on 12/30, 6.75 today. He is scheduled for surgery tomorrow by for cauterization of bleeding tumor. He had a CT abdomen w/o iv contrast in November 2019 that showed normal right kidney, atrophic LK. He has a history of prostate cancer s/p radiation with elevated PSA, NHL s/p chemotherapy, pituitary adenoma with adrenal insufficiency on cortef managed by endocrine. He continues to have gross hematuria in gutiérrez. He is nonoliguric. Denies nauasea, vomiting, tremors, confusion, or SOB. He has mild leg swelling. [facility] Medical History (Updated 12/29/20 @ 16:[address] Domenico Starr MD) AAA (abdominal aortic aneurysm) Arthritis Back pain Body mass index (BMI) 35 or more Cancer Cardiac pacemaker in situ (01/02/15) Cardiology follow-up encounter Chronic systolic (congestive) heart failure CKD (chronic kidney disease) stage 3, GFR 30-59 ml/min Community acquired pneumonia Congestive heart failure (CHF) CPAP (continuous positive airway pressure) dependence Diffuse large B cell lymphoma Dyspnea on exertion Esophageal reflux Former smoker Gastric reflux Gout Gout High cholesterol History of CHF (congestive heart failure) History of diverticulitis History of edema History of non-Hodgkin's lymphoma History of pacemaker History of pituitary adenoma History of pituitary tumor History of renal disease History of steroid therapy History of stress test History of ulceration Hx of echocardiogram Hyperlipidemia Hyponatremia Increasing prostate specific antigen level Kidney disease Malignant lymphoma of extranodal and solid organ sites Mobitz (type) II atrioventricular block MRSA (methicillin resistant staphylococcus aureus) pneumonia Non-ischemic cardiomyopathy PORTILLO (obstructive sleep apnea) Pacemaker PAF (paroxysmal atrial fibrillation) Pericardial effusion Pleural effusion Prostate cancer Prostate disease Secondary adrenal insufficiency Shortness of breath on exertion Simple obesity Sleep apnea SSS (sick sinus syndrome) Wears partial dentures Home Medications pravastatin 40 mg PO DAILY #0 12/21/13 [History Last Taken 12/26/20] famotidine 40 mg tablet 40 mg PO DAILY 07/16/18 [History Last Taken 12/27/20] allopurinol 300 mg PO DAILY 09/30/18 [History Last Taken 12/26/20] carvedilol 25 mg tablet 25 mg PO BID 11/17/20 [History Last Taken 12/26/20] furosemide [Lasix] 40 mg PO PRN PRN 12/26/20 [History Last Taken 12/26/20] hydrocortisone 5 mg PO QHS 12/26/20 [History Last Taken 12/26/20] hydrocortisone 20 mg PO DAILY 12/26/20 [History Last Taken 12/26/20] oxycodone-acetaminophen 1 tab PO Q4H PRN 7 Days #14 tab 12/27/20 [Rx Last Taken 3 Days Ago ~12/26/20] ciprofloxacin HCl [Cipro] 500 mg PO BID 12/29/20 [History Last Taken 12/27/20] potassium chloride 20 meq PO DAILY 12/29/20 [History Last Taken 3 Days Ago ~12/26/20] Allergy/AdvReac Type Severity Reaction Status Date / Time lisinopril Allergy Swelling Verified 12/29/20 09:32 aspirin AdvReac GI BLEED, Verified 12/29/20 09:32 UPPER Family History Father FH: kidney cancer Mother Heart disease Diabetes Surgical History History of cardiac catheterization History of surgical removal of pituitary gland History of vascular access device Hx of lymph node biopsy Status post transsphenoidal pituitary resection Social History Smoking Status: Former smoker quit date: 06/30/81 pack-years: 20 how long ago did patient quit smokin second hand exposure: No alcohol intake: never substance use type: does not use caffeine: Yes Type: coffee Number of servings: 3 what type of physical activity do you participate in: none xavi/sikh: Uatsdin seatbelt use: always do you feel safe at home: Yes ROS Constitutional Constitutional: Reports weakness; Denies chills or fever(s) Eyes Eyes: Denies loss of vision ENT HEENT: Denies epistaxis Cardiovascular Cardiovascular: Reports edema and leg edema; Denies chest pain, diaphoresis, dyspnea on exertion or syncope Respiratory/Chest Respiratory/Chest: Denies hemoptysis or productive cough Gastrointestinal Gastrointestinal: Reports anorexia and nausea; Denies abdominal pain, diarrhea or vomiting Genitourinary Genitourinary: Reports flank pain, hematuria and other Details: hematuria intermittent past several weeks, worse on Friday. s/p cysto on as outpt, rt ureteral stent on 12/29. ; Denies change in urinary stream Musculoskeletal Musculoskeletal: Reports other Details: leg swelling bilat Integumentary Integumentary: Denies rash Neurologic Neurologic: Denies confusion, numbness or tremor(s) Psychiatric Psychiatric: Reports anxiety Endocrine Endocrinology: Reports fatigue Hematologic/Lymphatic Hematologic/Lymphatic: Reports anemia Physical Exam Const alert, oriented x3 and no apparent distress Nutritional Appearance: morbidly obese HEENT normocephalic Resp clear to auscultation bilaterally Cardio regular rate and no rub GI non-tender and non-distended GI Narrative: obese Palpation: soft Narrative: gross dark, maroon hematuria Bladder / Kidney Exam: catheter in place Back/Spine normal ROM Extremity General Extremity: edema bilateral (legs wrapped) Skin no wounds Neuro Sensorium / Orientation: awake and alert Psych cooperative Lab / Micro Data Result Diagrams: 12/31/20 05:30 12/31/20 05:30 Labs: Laboratory Results - last 24 hr 12/31/20 12/31/20 05:30 05:30 WBC 8.3 RBC 3.51 L Hgb 11.4 L Hct 33.8 L MCV 96.3 H MCH 32.5 H MCHC 33.7 RDW Std Deviation 48.3 H RDW Coeff of Deyvi 13.8 Plt Count 107 L MPV 9.2 Immature Gran % (Auto) 0.500 Neut % (Auto) 88.5 H Lymph % (Auto) 3.4 L [place] % (Auto) 6.8 Eos % (Auto) 0.7 Baso % (Auto) 0.1 Absolute Neuts (auto) 7.3 Absolute Lymphs (auto) 0.28 L Nucleated RBC % 0 Sodium 137 Potassium 5.3 H Chloride 105 Carbon Dioxide 22.0 Anion Gap 10 BUN 67 H Creatinine 6.75 H Estim Creat Clear Calc 8.87 Est GFR (MDRD) Af Amer 10 L Est GFR (MDRD) Non-Af 8 L BUN/Creatinine Ratio 9.9 L Glucose 123 H Calcium 8.3 L
[2020-12-31 14:51] VITALS: BP 150/58; PULSE 60; RESP 16; TEMP 36.6; O2SAT 96
[2020-12-31 22:57] VITALS: BP 165/77; PULSE 63; RESP 18; TEMP 36.4; O2SAT 96
[2020-12-31] MEDS: Pravastatin 40 MG Tablet PO (23:00)
[2020-12-31] MEDS: Hydrocortisone 10 MG Tablet 5 MG PO (23:00)
[2021-01-01] VITALS (12 sets, daily range): BP systolic 110–162; BP diastolic 50–87; PULSE 59–61; RESP 16–20; TEMP 36.2–36.7; O2SAT 16–99; BMI 39.9
[2021-01-01] MEDS: 0.9% Normal Saline 1,000 ML 125 ML IV ×3 (02:33→23:35)
[2021-01-01 05:50] LABS: Absolute Lymphocyte Count 0.34 X10^3/uL (0.83-4.51); Absolute Neutrophil Count 5.7 X10^3/uL (2.0-7.7); Basophil# 0.01 X10^3/uL; Basophil% 0.1 % (0-1); Eosinophil# 0.08 X10^3/uL; Eosinophils% 1.2 % (0-5); Hematocrit 33.3 % (40-54); Lymphocyte # 0.34 X10^3/ul (0.83-4.51); Lymphocyte % 5.1 % (19-41); Mean Corpuscular Hgb 31.9 pg (27.0-32.0); Mean Corpuscular Volume 96.5 fL (80-94); Mean Platelet Vol. 9.5 fl (6.2-12.0); Monocyte# 0.55 X10^3/uL; Monocyte% 8.2 % (0-10); NRBC Flagged by Analyzer 0 % (0-5); Neutrophil # 5.71 X10^3/uL (2.7-7.7); POSITIVE DIFFERENTIAL YES; Platelet Count 131 K/mm3 (150-450); RBC Distribution Width CV 13.9 % (11.6-14.6); RBC Distribution Width SD 49.1 fl (35.1-43.9); Red Blood Count 3.45 M/mm3 (4.6-6.2); White Blood Count 6.7 K/mm3 (4.4-11.0)
[2021-01-01 05:53] LABS: Differential Indicated SCAN CRITERIA MET
--- NOTE | 2021-01-01 05:55 | EKG12_ITS ---
Test Reason : PRE-OP Blood Pressure : / mmHG Vent. Rate : 064 BPM Atrial Rate : 064 BPM P-R Int : 116 ms QRS Dur : 194 ms QT Int : 506 ms P-R-T Axes : -28 -69 097 degrees QTc Int : 522 ms Normal sinus rhythm Ventricular Pacing Abnormal ECG When compared with ECG of 27-DEC-2020 09:53, MANUAL COMPARISON REQUIRED, DATA IS UNCONFIRMED Confirmed by TEQUILA NICHOLAS, MARIA LUZ ([id number]), magazine editor MAGALI COLE ([id number]) on 01/09/2021 7:51:32 AM Referred By: Domenico Starr Confirmed By:MARIA LUZ MANDEL MD
[2021-01-01 06:12] LABS: Anion Gap 9 (5-15); BUN 82 mg/dL (7-18); BUN/Creat Ratio 12.4 RATIO (10-20); Calcium,Total 7.9 mg/dL (8.5-10.1); Chloride 110 mmol/L (98-107); Creatinine, Serum 6.59 mg/dL (0.70-1.30); EST Glomerular Filtration Rate 9 mL/min (>60); Est Glom Filt Rate - Afr Amer 11 mL/min (>60); Estimated Creatinine Clearance 9.09 ml/min; Glucose 102 mg/dL (74-106); Potassium 5.8 mmol/L (3.5-5.1); Sodium Level 140 mmol/L (136-145)
--- NOTE | 2021-01-01 06:55 | NURSING ---
Pt is off the floor for surgery.
--- NOTE | 2021-01-01 07:54 | OP.PCM_ITS ---
Report of Operation Date of Procedure: 01/01/21 Pre-Operative Diagnosis: Solitary right kidney with transitional cell tumor wit hin the kidney with bleeding Post-Operative Diagnosis: Same Surgery/Procedure Performed:: Cystoscopy, right retrograde pyelogram, right ureteroscopy cauterization of bleeding tumor, evacuation of blood clots, and right stent placement 8.5 Vietnamese by 26 cm Description of Surgical Findings:: 80-year-old male with a solitary right kidney has been bleeding now for several weeks saw him in the office and we add him onto the schedule last week we did a cystoscopy ureteroscopy last Friday at that time we saw bleeding tumor up in the right kidney it is a solitary kidney biopsy was done which came back with transitional cell carcinoma cytology was also positive unfortunately at the biopsy he had bleeding presented back to the hospital with bleeding in the kidney and acute acute renal failure he underwent cystoscopy and stent placement over the weekend his urine output has improved and now you were taken back to surgery may be put a larger stent and to help with drainage and see if and cauterized the tumor if possible. Patient was taken back to the operating room at the [facility] general anesthesia he was placed in dorsolithotomy position. The penis and testicles were prepped and draped in usual sterile fashion. Went into the bladder with a 21 Vietnamese rigid cystourethroscope grabbed the existing 7 Vietnamese stent and pulled it out to the meatus advance a wire through the stent up into the kidney over the wire advanced the Pollack catheter performed a retrograde pyelogram could see a large blood clot within the kidney on the retrograde pyelogram. I then advanced a wire up into the kidney over the wire advanced an access sheath and put the access sheath all the way up into the renal pelvis and then through the access sheath and went in with the flexible ureteroscope. Once I got up into the kidney there was a significant blood clots cut try to get these all irrigated out there was a lot of tumor necrosis within the kidney and there was a lot of fluffy sloughy tissue within the kidney really difficult to visualize everything clearly cauterized some of the tumor a little bit but been sick since visualization was still difficult and bleeding was still ongoing I could not really cauterize the tumor completely only cauterized a super the superficial supra surface area this tumor will probably be heroic measures to try to get this tumor cauterized. So at this point I backed down the ureter and advance a wire up into the kidney and over the wire place a larger stent it was a 6 Vietnamese by 26 cm stent once a stent was in good position then I left the stent in place and then put a catheter in the bladder. At this point solitary kidney with a large bleeding tumor renal transitional cell carcinoma within the kidney we will see if the kidney will recover may be very difficult heroic to try to get this tumor out want to see if that may be an option he may want to consider nephrectomy and dialysis. We will see if his kidney function will recover and if it is if it is possible for him to have any procedures done to to resect that tumor but at this point very difficult situation where there is bleeding tumor and a solitary kidney may end up leading to dialysis and a nephrectomy if his bleeding does not stop or if his kidney function is a recover from this event. Surgeon: lay Type of Anesthesia: General Drains: stent and gutiérrez Admit VTE Documentation VTE Present on Admission: No VTE Mechan Device Prophylaxis: SCD's
[2021-01-01] MEDS: Ondansetron 4 MG/2 ML Vial IV (09:06)
--- NOTE | 2021-01-01 09:47 | PN_ITS ---
Documented by User: Adali Feliciano NP, LOTUS NOTES ADMINISTRATOR-C 01/01/21 10:07 Progress Note Patient seen and examined. Resting comfortably in bed. Family at bedside. Patient went to the OR this morning for right ureteroscopy with cauterization of bleeding tumor and right stent placement. Physical Exam Const alert, oriented x3 and no apparent distress Orientation / Consciousness: awake, oriented to person, oriented to place and oriented to time HEENT normocephalic and moist oral mucous membranes Eyes PERRL, EOMs intact bilaterally and conjunctivae normal Neck no lymphadenopathy Resp normal respiratory effort and clear to auscultation bilaterally Cardio regular rate, regular rhythm and no murmurs Peripheral Pulses: pulses 2+ throughout GI normal to inspection, nondistended, normoactive bowel sounds, non-tender and non-distended Extremity normal to inspection Skin no rashes or lesions noted Lesions: no lesions Rashes: no rashes Trauma: no lacerations or abrasions Neuro CN's II-XII intact bilaterally, no focal motor deficits, no sensory deficits noted and deep tendon reflexes 2+ bilaterally Psych mental status grossly normal and affect normal Assessment & Plan Assessment/Plan (1) Hematuria: (2) Obstructed, uropathy: (3) DELIA (acute kidney injury): PLAN: 1. DELIA on CKD stage IIIa secondary to obstructive uropathy with associated hematuria-CT of abdomen pelvis on admission shows right hydronephrosis and hydroureter. Mild degree of right perinephric and periureteric stranding, increased density within the collecting system. Phipps in place. Urology admitting. Underwent right ureteral stent placement 12/29/20. 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 Starr. Management per urology. Nephrology, Dr. Gonzales consulted. Underwent right ureteroscopy with cauterization of bleeding tumor and right stent placement 01/01/21. 2. 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 Prostate biopsy diagnosed 01/20/2020 followed by ADT and radiation. Following with Dr. Starr and Dr. Arteaga. 3. Nonischemic cardiomyopathy-echocardiogram 11/23/2020 demonstrated an EF of 40%, mild aortic valve insufficiency, stage I diastolic dysfunction. Lasix on hold. 4. Status post pacemaker placement- follows with Dr. Holt. 5. Hypertension- stable, continue carvedilol. Hold Lasix. 6. Hyperlipidemia- continue statin. 7. Adrenal insufficiency- Following with Dr. Yuan, endocrinology. On hydrocortisone. 8. PORTILLO-on CPAP. 9. GERD- on famotidine. 10. Gout- on allopurinol. DVT prophylaxis- SCDs This patient was seen by BONIFACIO Tarango under the supervision of Dr. Foote. Documented by User: Dr. Gregoria Foote MD 01/01/21 10:46 Addendum Addendum: Patient seen by Adali Lord under my supervision Patient seen and examined. He had just come back from his urological procedure, whre he had right ureteroscopy with cauterization of bhe bleeding tumor and right stent placement; he complained of some nausea. Review of systems is otherwise negative. He has remained hemodynamically stable. O/E: Const alert, oriented x3 and no apparent distress Orientation / Consciousness: awake, oriented to person, oriented to place and oriented to time HEENT normocephalic and moist oral mucous membranes Eyes PERRL, EOMs intact bilaterally and conjunctivae normal Neck no lymphadenopathy Resp normal respiratory effort and clear to auscultation bilaterally Cardio regular rate, regular rhythm and no murmurs Peripheral Pulses: pulses 2+ throughout GI normal to inspection, nondistended, normoactive bowel sounds, non-tender and non-distended Extremity normal to inspection Skin no rashes or lesions noted Lesions: no lesions Rashes: no rashes Trauma: no lacerations or abrasions Neuro CN's II-XII intact bilaterally, no focal motor deficits, no sensory deficits noted and deep tendon reflexes 2+ bilaterally Psych mental status grossly normal and affect normal Urology on board. Nephrology also on board for DELIA. Patient has hyperkalemia with potassium of 5.9 today. Given a dose of Kayexalate. On carvedilol and statin as well as hydrocortisone for adrenal insufficiency. On SCDs for DVT prophylaxis. Rest as per primary team urology. Rest as per BONIFACIO Tarango's note which I have reviewed and endorsed. Visit Charges Inpatient E&M: 43217 Subs Hosp L2
[2021-01-01] MEDS: Famotidine 20 MG Tablet 40 MG PO (10:31)
[2021-01-01] MEDS: Sodium Polystyrene Sulfonate 15 GM/60 ML UDC PO (10:31)
[2021-01-01] MEDS: Hydrocortisone 10 MG Tablet 20 MG PO (10:31)
[2021-01-01] MEDS: Carvedilol 25 MG Tablet PO ×3 (10:31→23:33)
--- NOTE | 2021-01-01 11:20 | PN.RENAL_ITS ---
Subjective Subjective underwent OR today, reviewed op report. Still with gross hematuria. Creatinine slightly improved. Still with nausea, no vomiting. Mild leg edema, receivign iv fluids. [facility] [id number] [place] [address] Consultation - Twirkyqdjk63/04/21 [id number]#: [id number]:[id number]:DANITZA JAIN #:[id number]: [id number]: Meliza Gonzales DOPCP:Dr. Suraj Damian MD Status:ADM INLocation: [id number] Assessment & Plan Assessment/Plan (1) DELIA (acute kidney injury): PLAN: DELIA on CKD due to ATN, obstruction in functioning kidney, atrophic left kidney. Baseline creatinine 1.3 increased to 6.75. Currently with mild uremic symptoms of anrexia, nausea, no vomiting, confusion. Mild leg edema, nonoliguric. Will hold on dialysis today. (2) CKD (chronic kidney disease) stage 3, GFR 30-59 ml/min: PLAN: due to renal atrophy on left, hypertensive nephropathy (3) Flank pain: PLAN: on right due to obstruction from blood clot, renal mass (4) Hematuria: PLAN: s/p cauterization with continued hematuria, OR today. Still with hematuria (5) Obstructed, uropathy: PLAN: due to clot, renal mass (6) History of pituitary adenoma: PLAN: endocrine following as outpt. BP stable on cortef (7) Prostate cancer: PLAN: following (8) History of non-Hodgkin's lymphoma: PLAN: hx chemo (9) Essential (primary) hypertension: PLAN: stable BP 10 hyperkalemia kayexalate and repeat labs tonite Objective Data Objective Data Vital Signs: Vital Signs Temp Pulse Resp BP Pulse Ox 97.7 F L 60 20 H 138/51 H 98 01/01/21 08:45 01/01/21 08:45 01/01/21 08:45 01/01/21 08:45 01/01/21 10:41 Oxygen Flow Rate (L/min) 2 Oxygen Delivery Method Room Air Weight: 122.7 kg Body Mass Index (BMI) 39.9 Intake & Output: Intake and Output for Last 24 Hours 12/30/20 12/31/20 01/01/21 23:59 23:59 23:59 Intake Total 5637.16 / 5637.16 2902.08 / 3102.08 1200 / 1200 Output Total 1125 / 1550 2325 / 2825 1455 / 1455 Balance 4512.16 / 4087.16 577.08 / 277.08 -255 / -255 Lab / Micro Data Result Diagrams: 01/01/21 05:41 01/01/21 05:41 Labs: Laboratory Results - last 24 hr 01/01/21 01/01/21 05:41 05:41 WBC 6.7 RBC 3.45 L Hgb 11.0 L Hct 33.3 L MCV 96.5 H MCH 31.9 MCHC 33.0 RDW Std Deviation 49.1 H RDW Coeff of Deyvi 13.9 Plt Count 131 L MPV 9.5 Immature Gran % (Auto) 0.400 Neut % (Auto) 85.0 H Lymph % (Auto) 5.1 L [place] % (Auto) 8.2 Eos % (Auto) 1.2 Baso % (Auto) 0.1 Absolute Neuts (auto) 5.7 Absolute Lymphs (auto) 0.34 L Nucleated RBC % 0 Sodium 140 Potassium 5.8 H Chloride 110 H Carbon Dioxide 21.0 Anion Gap 9 BUN 82 H Creatinine 6.59 H Estim Creat Clear Calc 9.09 Est GFR (MDRD) Af Amer 11 L Est GFR (MDRD) Non-Af 9 L BUN/Creatinine Ratio 12.4 Glucose 102 Calcium 7.9 L Physical Exam Const alert, oriented x3 and no apparent distress Resp Auscultation: rhonchi Cardio regular rate GI non-tender and non-distended GI Narrative: obese Palpation: soft Narrative: gross hematuria Extremity General Extremity: edema bilateral Neuro Sensorium / Orientation: awake and alert Psych cooperative
--- NOTE | 2021-01-01 12:10 | CHAPLAIN ---
Type of Pastoral Visit _x__ Initial Visit ___ Follow-up Visit ___ On-call Visit ___ General Patient Visit ___ Spiritual Assessment ___ Family Conference ___ Bereavement ___ Rapid Response ___ Code Blue ___ Other (describe below) Pastoral Care Referral From _x__ Patient ___ Family ___ Nurse ___ Physician ___ Environmental Compliance Engineer ___ Bench Worker Binding ___ Other (describe below) Sacrament/Intervention ___ Active listening ___ Anointing ___ Yazidism ___ Bereavement ___ Communion ___ Edith exploration ___ ___ Life review _x__ Prayer ___ Reconciliation ___ Sacrament of Sick _x__ Supportive presence ___ Wedding ___ Other (describe below) Pastoral Comments post surgery patient is back in room; pt states that a prayer would be appreciated;
[2021-01-01 18:40] LABS: Albumin, Serum 2.3 g/dL (3.2-5.0); BUN 86 mg/dL (7-18); BUN/Creat Ratio 13.4 RATIO (10-20); Calcium,Total 7.9 mg/dL (8.5-10.1); Chloride 113 mmol/L (98-107); EST Glomerular Filtration Rate 9 mL/min (>60); Est Glom Filt Rate - Afr Amer 11 mL/min (>60); Estimated Creatinine Clearance 9.36 ml/min; Glucose 86 mg/dL (74-106); Phosphorus 6.3 mg/dL (2.5-4.9); Potassium 5.3 mmol/L (3.5-5.1); Sodium Level 144 mmol/L (136-145)
[2021-01-01] MEDS: Pravastatin 40 MG Tablet PO (23:33)
[2021-01-01] MEDS: Hydrocortisone 10 MG Tablet 5 MG PO (23:34)
[2021-01-02 04:59] VITALS: BP 135/45; PULSE 65; RESP 18; TEMP 36.6; O2SAT 96
[2021-01-02 06:05] LABS: Absolute Neutrophil Count 4.8 X10^3/uL (2.0-7.7); Basophil# 0.02 X10^3/uL; Basophil% 0.3 % (0-1); Eosinophil# 0.09 X10^3/uL; Eosinophils% 1.5 % (0-5); Hematocrit 33.9 % (40-54); Hemoglobin 10.8 g/dL (13.0-16.5); Lymphocyte % 6.6 % (19-41); Mean Corp Hgb Conc 31.9 g/dL (32-36); Mean Corpuscular Hgb 31.2 pg (27.0-32.0); Mean Platelet Vol. 9.1 fl (6.2-12.0); Monocyte% 13.1 % (0-10); NRBC Flagged by Analyzer 0 % (0-5); Neutrophil # 4.76 X10^3/uL (2.7-7.7); Neutrophil % 78.2 % (47-70); POSITIVE DIFFERENTIAL YES; Platelet Count 150 K/mm3 (150-450); RBC Distribution Width CV 14.2 % (11.6-14.6); RBC Distribution Width SD 51.5 fl (35.1-43.9); Red Blood Count 3.46 M/mm3 (4.6-6.2); White Blood Count 6.1 K/mm3 (4.4-11.0)
[2021-01-02 06:09] LABS: Differential Indicated SCAN CRITERIA MET
[2021-01-02 06:35] LABS: Albumin, Serum 2.2 g/dL (3.2-5.0); BUN 86 mg/dL (7-18); BUN/Creat Ratio 14.5 RATIO (10-20); Calcium,Total 7.8 mg/dL (8.5-10.1); Chloride 115 mmol/L (98-107); Creatinine, Serum 5.93 mg/dL (0.70-1.30); EST Glomerular Filtration Rate 10 mL/min (>60); Est Glom Filt Rate - Afr Amer 12 mL/min (>60); Glucose 93 mg/dL (74-106); Phosphorus 5.9 mg/dL (2.5-4.9); Potassium 5.4 mmol/L (3.5-5.1); Sodium Level 143 mmol/L (136-145)
[2021-01-02] MEDS: 0.9% Normal Saline 1,000 ML 125 ML IV (06:44)
--- NOTE | 2021-01-02 07:16 | PCM.PN.GU ---
Subjective Subjective 80-year-old male who status post ureteroscopy attempted to laser the tumor but it was too bloody to difficult hard to see was not safe cauterized or laser the tumor at this point cauterized a little bit of it but a larger stent and his creatinine is coming down to 5.9 so hopefully his kidney is recovering more. At this point we do take out the catheter. I slow down his IV fluids. Objective Data Objective Data Vital Signs: Vital Signs Temp Pulse Resp BP Pulse Ox 97.8 F 65 18 135/45 H 96 01/02/21 04:59 01/02/21 04:59 01/02/21 04:59 01/02/21 04:59 01/02/21 04:59 Oxygen Flow Rate (L/min) 2 Oxygen Delivery Method Room Air Weight: 122.7 kg Body Mass Index (BMI) 39.9 Intake & Output: Intake and Output for Last 24 Hours 12/31/20 01/01/21 01/02/21 23:59 23:59 23:59 Intake Total 2902.08 / 3102.08 4750 / 4750 893.75 / 893.75 Output Total 2325 / 2825 3180 / 3180 550 / 550 Balance 577.08 / 277.08 1570 / 1570 343.75 / 343.75 Lab / Micro Data Result Diagrams: 01/02/21 05:28 01/02/21 05:28 Labs: Laboratory Results - last 24 hr 01/01/21 01/02/21 01/02/21 18:15 05:28 05:28 WBC 6.1 RBC 3.46 L Hgb 10.8 L Hct 33.9 L MCV 98.0 H MCH 31.2 MCHC 31.9 L RDW Std Deviation 51.5 H RDW Coeff of Deyvi 14.2 Plt Count 150 MPV 9.1 Immature Gran % (Auto) 0.300 Neut % (Auto) 78.2 H Lymph % (Auto) 6.6 L [place] % (Auto) 13.1 H Eos % (Auto) 1.5 Baso % (Auto) 0.3 Absolute Neuts (auto) 4.8 Absolute Lymphs (auto) 0.40 L Nucleated RBC % 0 Sodium 144 143 Potassium 5.3 H 5.4 H Chloride 113 H 115 H Carbon Dioxide 21.0 18.0 L BUN 86 H 86 H Creatinine 6.40 H 5.93 H Estim Creat Clear Calc 9.36 10.10 Est GFR (MDRD) Af Amer 11 L 12 L Est GFR (MDRD) Non-Af 9 L 10 L BUN/Creatinine Ratio 13.4 14.5 Glucose 86 93 Calcium 7.9 L 7.8 L Phosphorus 6.3 H 5.9 H Albumin 2.3 L 2.2 L Physical Exam Const alert and oriented x3 General Appearance: cooperative HEENT normocephalic, head/scalp atraumatic, EAC's normal and TM's normal bilaterally Eyes PERRL and EOMs intact bilaterally Pupil: sluggish Neck no lymphadenopathy, supple and no JVD General: trachea midline Lymph Lymphatic: no lymphadenopathy noted, lymphedema and lymphadenopathy Resp normal respiratory effort, normal air movement and clear to auscultation bilaterally Cardio regular rate, regular rhythm and peripheral pulses 2+ throughout GI soft to palpation, non-tender and non-distended Extremity normal capillary refill and no clubbing, cyanosis or edema General Extremity: no tenderness to palpation of joints or extremities Skin no rashes or lesions noted General Skin Exam: turgor normal Lesions: no lesions Rashes: no rashes Neuro CN's II-XII intact bilaterally Speech: speech normal Motor Exam: strength 5/5 throughout; Negative for general weakness Psych thought process normal, cooperative and affect normal Appearance: appropriate Assessment & Plan Assessment/Plan (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 Solitary kidney.
[2021-01-02 07:27] VITALS: BP 147/67; PULSE 60; RESP 16; TEMP 36.6; O2SAT 96
[2021-01-02] MEDS: Hydrocortisone 10 MG Tablet 20 MG PO (07:48)
[2021-01-02] MEDS: Sodium Polystyrene Sulfonate 15 GM/60 ML UDC 30 GM PO (09:13)
--- NOTE | 2021-01-02 09:27 | PCM.PN.HOSP ---
Documented by User: Adali Feliciano NP, CATALYST MANUFACTURING OPERATOR-C 01/02/21 09:31 Subjective Subjective Creatinine trending down.Patient seen and examined. Phipps taken out this morning. Patient denies symptoms or complaints. Objective Data Objective Data Vital Signs: Vital Signs Temp Pulse Resp BP Pulse Ox 97.8 F 60 16 147/67 H 96 01/02/21 07:27 01/02/21 07:27 01/02/21 07:27 01/02/21 07:27 01/02/21 07:27 Oxygen Flow Rate (L/min) 2 Oxygen Delivery Method Room Air Weight: 276 lb 14.409 oz Body Mass Index (BMI) 39.9 Intake & Output: Intake and Output for Last 24 Hours 12/31/20 01/01/21 01/02/21 23:59 23:59 23:59 Intake Total 2902.08 / 3102.08 4750 / 4750 962.50 / 962.50 Output Total 2325 / 2825 3180 / 3180 850 / 850 Balance 577.08 / 277.08 1570 / 1570 112.50 / 112.50 Lab / Micro Data Result Diagrams: 01/02/21 05:28 01/02/21 05:28 Labs: Laboratory Results - last 24 hr 01/01/21 01/02/21 01/02/21 18:15 05:28 05:28 WBC 6.1 RBC 3.46 L Hgb 10.8 L Hct 33.9 L MCV 98.0 H MCH 31.2 MCHC 31.9 L RDW Std Deviation 51.5 H RDW Coeff of Deyvi 14.2 Plt Count 150 MPV 9.1 Immature Gran % (Auto) 0.300 Neut % (Auto) 78.2 H Lymph % (Auto) 6.6 L [place] % (Auto) 13.1 H Eos % (Auto) 1.5 Baso % (Auto) 0.3 Absolute Neuts (auto) 4.8 Absolute Lymphs (auto) 0.40 L Nucleated RBC % 0 Sodium 144 143 Potassium 5.3 H 5.4 H Chloride 113 H 115 H Carbon Dioxide 21.0 18.0 L BUN 86 H 86 H Creatinine 6.40 H 5.93 H Estim Creat Clear Calc 9.36 10.10 Est GFR (MDRD) Af Amer 11 L 12 L Est GFR (MDRD) Non-Af 9 L 10 L BUN/Creatinine Ratio 13.4 14.5 Glucose 86 93 Calcium 7.9 L 7.8 L Phosphorus 6.3 H 5.9 H Albumin 2.3 L 2.2 L Physical Exam Const alert, oriented x3 and no apparent distress Orientation / Consciousness: awake, oriented to person, oriented to place and oriented to time HEENT normocephalic and moist oral mucous membranes Eyes PERRL, EOMs intact bilaterally and conjunctivae normal Neck no lymphadenopathy Resp normal respiratory effort and clear to auscultation bilaterally Cardio regular rate, regular rhythm and no murmurs Peripheral Pulses: pulses 2+ throughout GI normal to inspection, nondistended, normoactive bowel sounds, non-tender and non-distended Extremity normal to inspection Skin no rashes or lesions noted Lesions: no lesions Rashes: no rashes Trauma: no lacerations or abrasions Neuro CN's II-XII intact bilaterally, no focal motor deficits, no sensory deficits noted and deep tendon reflexes 2+ bilaterally Psych mental status grossly normal and affect normal Assessment & Plan Assessment/Plan (1) DELIA (acute kidney injury): (2) Obstructed, uropathy: (3) Gross hematuria: PLAN: 1. DELIA on CKD stage IIIa secondary to obstructive uropathy with associated hematuria-CT of abdomen pelvis on admission shows right hydronephrosis and hydroureter. Mild degree of right perinephric and periureteric stranding, increased density within the collecting system. Urology primary. Underwent right ureteral stent placement 12/29/20. 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 Starr. Nephrology, Dr. Gonzales consulted. Underwent right ureteroscopy with cauterization of bleeding tumor and right stent placement 01/01/21. Creatinine trending down. Phipps removed this morning. Possible DC 01/03/2021 per urology if continued improvement in creatinine and passes voiding trial. 2. 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 Prostate biopsy diagnosed 01/20/2020 followed by ADT and radiation. Following with Dr. Starr and Dr. Arteaga. 3. Nonischemic cardiomyopathy-echocardiogram 11/23/2020 demonstrated an EF of 40%, mild aortic valve insufficiency, stage I diastolic dysfunction. Lasix on hold. 4. Status post pacemaker placement- follows with Dr. Holt. 5. Hypertension- stable, continue carvedilol. Hold Lasix. 6. Hyperlipidemia- continue statin. 7. Adrenal insufficiency- Following with Dr. Yuan, endocrinology. On hydrocortisone. 8. PORTILLO-on CPAP. 9. GERD- on famotidine. 10. Gout- on allopurinol. DVT prophylaxis- SCDs This patient was seen by BONIFACIO Tarango under the supervision of Dr. Foote. Documented by User: Dr. Gregoria Foote MD 01/02/21 12:23 Objective Data Lab / Micro Data Result Diagrams: 01/02/21 05:28 01/02/21 05:28 Charges/Coding Addendum Addendum: Patient seen by Adali VALDOVINOS under my supervision Patient seen and examined. He feels well this morning and has no complaints. His Phipps catheter was removed this morning. Review of systems otherwise negative. He has remained hemodynamically stable. O/E: Const alert, oriented x3 and no apparent distress Orientation / Consciousness: awake, oriented to person, oriented to place and oriented to time HEENT normocephalic and moist oral mucous membranes Eyes PERRL, EOMs intact bilaterally and conjunctivae normal Neck no lymphadenopathy Resp normal respiratory effort and clear to auscultation bilaterally Cardio regular rate, regular rhythm and no murmurs Peripheral Pulses: pulses 2+ throughout GI normal to inspection, nondistended, normoactive bowel sounds, non-tender and non-distended Extremity normal to inspection Skin no rashes or lesions noted Lesions: no lesions Rashes: no rashes Trauma: no lacerations or abrasions Neuro CN's II-XII intact bilaterally, no focal motor deficits, no sensory deficits noted and deep tendon reflexes 2+ bilaterally Psych mental status grossly normal and affect normal Urology on board. Nephrology also on board for DELIA. Patient still hyperkalemic today with potassium of 5.4. Given p.o. Kayexalate. Bicarb is down to 18 and he has a non-anion gap metabolic acidosis which is likely due to DELIA on CKD. Creatinine is trending down and is down to 5.93 today. Nephrology on board. On carvedilol and statin as well as hydrocortisone for adrenal insufficiency. On SCDs for DVT prophylaxis. Rest as per primary team urology. Rest as per BONIFACIO Tarango's note which I have reviewed and endorsed. Visit Charges Inpatient E&M: 27317 Subs Hosp L2
[2021-01-02] MEDS: Polyethylene Glycol 3350 17 GM PACKET PO (10:52)
[2021-01-02] MEDS: Famotidine 20 MG Tablet 40 MG PO (10:52)
[2021-01-02 13:43] VITALS: BP 158/64; PULSE 61; RESP 16; TEMP 36.6; O2SAT 96
--- NOTE | 2021-01-02 14:16 | PN.RENAL_ITS ---
Subjective Subjective mild cough, dyspnea with exertion. Gutiérrez removed. Gross hematuria improving, creatinine improving Objective Data Objective Data Vital Signs: Vital Signs Temp Pulse Resp BP Pulse Ox 97.8 F 61 16 158/64 H 96 01/02/21 13:43 01/02/21 13:43 01/02/21 13:43 01/02/21 13:43 01/02/21 13:43 Oxygen Flow Rate (L/min) 2 Oxygen Delivery Method Room Air Weight: 125.6 kg Body Mass Index (BMI) 39.9 Intake & Output: Intake and Output for Last 24 Hours 12/31/20 01/01/21 01/02/21 23:59 23:59 23:59 Intake Total 2902.08 / 3102.08 4750 / 4750 962.50 / 962.50 Output Total 2325 / 2825 3180 / 3180 1050 / 1050 Balance 577.08 / 277.08 1570 / 1570 -87.50 / -87.50 Lab / Micro Data Result Diagrams: 01/02/21 05:28 01/02/21 05:28 Labs: Laboratory Results - last 24 hr 01/01/21 01/02/21 01/02/21 18:15 05:28 05:28 WBC 6.1 RBC 3.46 L Hgb 10.8 L Hct 33.9 L MCV 98.0 H MCH 31.2 MCHC 31.9 L RDW Std Deviation 51.5 H RDW Coeff of Deyvi 14.2 Plt Count 150 MPV 9.1 Immature Gran % (Auto) 0.300 Neut % (Auto) 78.2 H Lymph % (Auto) 6.6 L [place] % (Auto) 13.1 H Eos % (Auto) 1.5 Baso % (Auto) 0.3 Absolute Neuts (auto) 4.8 Absolute Lymphs (auto) 0.40 L Nucleated RBC % 0 Sodium 144 143 Potassium 5.3 H 5.4 H Chloride 113 H 115 H Carbon Dioxide 21.0 18.0 L BUN 86 H 86 H Creatinine 6.40 H 5.93 H Estim Creat Clear Calc 9.36 10.10 Est GFR (MDRD) Af Amer 11 L 12 L Est GFR (MDRD) Non-Af 9 L 10 L BUN/Creatinine Ratio 13.4 14.5 Glucose 86 93 Calcium 7.9 L 7.8 L Phosphorus 6.3 H 5.9 H Albumin 2.3 L 2.2 L Physical Exam Const alert, oriented x3 and no apparent distress Resp Resp Narrative: exp wheeze bilateral bases Cardio regular rate GI non-tender and non-distended GI Narrative: obese Palpation: soft Narrative: gutiérrez removed, gross hematuria in urinal Extremity General Extremity: edema Neuro Sensorium / Orientation: awake and alert Psych cooperative Assessment & Plan Assessment/Plan (1) DELIA (acute kidney injury): PLAN: in single functioning kidney on right due to clot. Creatinine improving s/p cysto, ureteral stent, cauterization. Creatinine improving. No need for dialysis (2) CKD (chronic kidney disease) stage 3, GFR 30-59 ml/min: QUALIFIERS: Chronic kidney disease stage 3 subtype: stage 3a (GFR 45-59) Qualified Code(s): N18.31 - Chronic kidney disease, stage 3a PLAN: baseline creatinine 1.30 Oct 2020 (3) Transitional cell carcinoma of right kidney: PLAN: following (4) Hydronephrosis: PLAN: s/p stent on right (5) Gross hematuria: PLAN: less blood. Urine output good (6) Obstructed, uropathy: PLAN: following (7) Flank pain: PLAN: resolved (8) Hyperkalemia: PLAN: improved with kayexalate, follow low K diet
[2021-01-02 21:30] VITALS: BP 147/88; PULSE 66; RESP 18; TEMP 36.4; O2SAT 98
[2021-01-02] MEDS: Pravastatin 40 MG Tablet PO (21:35)
[2021-01-02] MEDS: Hydrocortisone 10 MG Tablet 5 MG PO (21:36)
[2021-01-02] MEDS: Carvedilol 25 MG Tablet PO (21:36)
[2021-01-03] VITALS (7 sets, daily range): BP systolic 136–178; BP diastolic 58–77; PULSE 60–71; RESP 18–24; TEMP 36.6–36.8; O2SAT 94–100
[2021-01-03] MEDS: 0.9% Normal Saline 1,000 ML 50 ML IV (01:08)
--- NOTE | 2021-01-03 01:35 | RAD_ITS ---
STUDY: X-RAY CHEST REASON FOR EXAM: Male, 80 years old. SOB TECHNIQUE: Single AP portable view of the chest. COMPARISON: 12/29/2020 FINDINGS: Mild COPD is stable. Development of bibasilar airspace disease suggesting pulmonary edema. No consolidation. Small left effusion. Stable left chest wall pacing device There is mild cardiac enlargement. Normal mediastinum and jay. Normal visualized pulmonary arteries. Normal visualized aortic arch and descending thoracic aorta. Normal visualized thoracic spine. Normal visualized ribs, clavicles, and shoulders. There is no demonstrated abnormality of the visualized soft tissue structures of the upper abdomen. RAD/Chest 1 View (Portable) IMPRESSION: COPD with bibasilar pulmonary edema. Small left effusion Electronically Signed: John Tobar DO at 2:50 EDT Tel , Service support ,
--- NOTE | 2021-01-03 01:37 | PN_ITS ---
Progress Note Nurse reported patient's is becoming more short of breath with exertion. Wheezes and crackles in the right base. Patient required supplemental oxyg enation. Normal saline at 50 mL/h started. Get stat chest x-ray.
--- NOTE | 2021-01-03 02:57 | PCM.PN.BLA ---
Progress Note Chest x-ray with bibasilar pulmonary edema and small left pleural effusion. Nurse report that patient still continues to complain of shortness of breath. Lasix 40 mg IV ordered.
[2021-01-03] MEDS: Furosemide 40 MG/4 ML Vial IV (03:04)
[2021-01-03 05:43] LABS: Anion Gap 7 (5-15); BUN 90 mg/dL (7-18); BUN/Creat Ratio 16.3 RATIO (10-20); Calcium,Total 8.2 mg/dL (8.5-10.1); Chloride 114 mmol/L (98-107); Creatinine, Serum 5.53 mg/dL (0.70-1.30); EST Glomerular Filtration Rate 11 mL/min (>60); Est Glom Filt Rate - Afr Amer 13 mL/min (>60); Estimated Creatinine Clearance 10.83 ml/min; Glucose 103 mg/dL (74-106); Potassium 5.1 mmol/L (3.5-5.1); Sodium Level 143 mmol/L (136-145)
--- NOTE | 2021-01-03 07:28 | PN_ITS ---
Progress Note Status post placement of a larger stent, creatinine is improving, Phipps catheter removed yesterday. Patient stable Physical Exam Const alert and oriented x3 General Appearance: cooperative HEENT normocephalic, head/scalp atraumatic, EAC's normal and TM's normal bilaterally Eyes PERRL and EOMs intact bilaterally Pupil: sluggish Neck no lymphadenopathy, supple and no JVD General: trachea midline Lymph Lymphatic: no lymphadenopathy noted, lymphedema and lymphadenopathy Resp normal respiratory effort, normal air movement and clear to auscultation bilaterally Cardio regular rate, regular rhythm and peripheral pulses 2+ throughout GI soft to palpation, non-tender and non-distended Extremity normal capillary refill and no clubbing, cyanosis or edema General Extremity: no tenderness to palpation of joints or extremities Skin no rashes or lesions noted General Skin Exam: turgor normal Lesions: no lesions Rashes: no rashes Neuro CN's II-XII intact bilaterally Speech: speech normal Motor Exam: strength 5/5 throughout; Negative for general weakness Psych thought process normal, cooperative and affect normal Appearance: appropriate Assessment & Plan Assessment/Plan (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 For now catheter was removed and if the creatinine keeps improving once stable will discharge home.
[2021-01-03] MEDS: Polyethylene Glycol 3350 17 GM PACKET PO (09:36)
[2021-01-03] MEDS: Hydrocortisone 10 MG Tablet 20 MG PO (09:36)
[2021-01-03] MEDS: Carvedilol 25 MG Tablet PO (09:36)
[2021-01-03] MEDS: Famotidine 20 MG Tablet 40 MG PO (09:37)
--- NOTE | 2021-01-03 10:31 | PCM.PN.HOSP ---
Documented by User: Adali Feliciano CHAINSTITCH BINDER, CHAINSTITCH BINDER-C 01/03/21 10:35 Subjective Subjective Patient seen and examined. Developed shortness of breath overnight and received IV Lasix, shortness of breath resolved. Further fluids discontinued. Patient denies other symptoms or complaints. Objective Data Objective Data Vital Signs: Vital Signs Temp Pulse Resp BP Pulse Ox 97.8 F 66 18 162/77 H 99 01/03/21 09:45 01/03/21 09:45 01/03/21 09:45 01/03/21 09:45 01/03/21 09:45 Oxygen Flow Rate (L/min) 1 Oxygen Delivery Method Room Air Weight: 271 lb 13.279 oz Body Mass Index (BMI) 39.9 Intake & Output: Intake and Output for Last 24 Hours 01/01/21 01/02/21 01/03/21 23:59 23:59 23:59 Intake Total 4750 / 4750 962.50 / 962.50 916.66 / 916.66 Output Total 3180 / 3180 1050 / 1050 900 / 900 Balance 1570 / 1570 -87.50 / -87.50 16.66 / 16.66 Lab / Micro Data Result Diagrams: 01/02/21 05:28 01/03/21 04:48 Labs: Laboratory Results - last 24 hr 01/03/21 04:48 Sodium 143 Potassium 5.1 Chloride 114 H Carbon Dioxide 22.0 Anion Gap 7 BUN 90 H Creatinine 5.53 H Estim Creat Clear Calc 10.83 Est GFR (MDRD) Af Amer 13 L Est GFR (MDRD) Non-Af 11 L BUN/Creatinine Ratio 16.3 Glucose 103 Calcium 8.2 L Radiography Diagnostic Testing: Radiology Impression Chest X-Ray 01/03/21 01:35 IMPRESSION: COPD with bibasilar pulmonary edema. Small left effusion Electronically Signed: John Tobar DO at 2:50 EDT Tel , Service support , Physical Exam Const alert, oriented x3 and no apparent distress Orientation / Consciousness: awake, oriented to person, oriented to place and oriented to time HEENT normocephalic and moist oral mucous membranes Eyes PERRL, EOMs intact bilaterally and conjunctivae normal Neck no lymphadenopathy Resp normal respiratory effort and clear to auscultation bilaterally Cardio regular rate, regular rhythm and no murmurs Peripheral Pulses: pulses 2+ throughout GI normal to inspection, nondistended, normoactive bowel sounds, non-tender and non-distended Extremity normal to inspection Skin no rashes or lesions noted Lesions: no lesions Rashes: no rashes Trauma: no lacerations or abrasions Neuro CN's II-XII intact bilaterally, no focal motor deficits, no sensory deficits noted and deep tendon reflexes 2+ bilaterally Psych mental status grossly normal and affect normal Assessment & Plan Assessment/Plan (1) Obstructed, uropathy: (2) Gross hematuria: (3) DELIA (acute kidney injury): PLAN: 1. DELIA on CKD stage IIIa secondary to ATN and obstructive uropathy with associated hematuria-CT of abdomen pelvis on admission shows right hydronephrosis and hydroureter. Mild degree of right perinephric and periureteric stranding, increased density within the collecting system. Urology primary. Underwent right ureteral stent placement 12/29/20. 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 Starr. Nephrology, Dr. Gonzales consulted. Underwent right ureteroscopy with cauterization of bleeding tumor and right stent placement 01/01/21. Creatinine trending down. Phipps removed, voiding without diffuculty. Possible DC 01/03/2021 per urology if continued improvement in creatinine and passes voiding trial. 2. 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 Prostate biopsy diagnosed 01/20/2020 followed by ADT and radiation. Following with Dr. Starr and Dr. Arteaga. 3. Nonischemic cardiomyopathy-echocardiogram 11/23/2020 demonstrated an EF of 40%, mild aortic valve insufficiency, stage I diastolic dysfunction. Lasix on hold. 4. Status post pacemaker placement- follows with Dr. Holt. 5. Hypertension- stable, continue carvedilol. Hold Lasix. 6. Hyperlipidemia- continue statin. 7. Adrenal insufficiency- Following with Dr. Yuan, endocrinology. On hydrocortisone. 8. PORTILLO-on CPAP. 9. GERD- on famotidine. 10. Gout- on allopurinol. 11. Acute blood loss anemia secondary to bleeding tumor-status post cauterization as noted above. Baseline hemoglobin 15.3. Hemoglobin at discharge 10.8. Recommend repeat CBC as outpatient. DVT prophylaxis- SCDs Discharge plan: Okay for discharge from a medical standpoint. This patient was seen by BONIFACIO Tarango under the supervision of Dr. Foote. Documented by User: Dr. Gregoria Foote MD 01/03/21 14:02 Objective Data Lab / Micro Data Result Diagrams: 01/02/21 05:28 01/03/21 04:48 Charges/Coding Addendum Addendum: Patient seen by Adali VALDOVINOS under my supervision Patient seen and examined. He did get a little short of breath overnight and received a dose of IV lasix which helped. He was on room air at time of review and had no complaints. REview of systems is otherwise negative. O/E: Const alert, oriented x3 and no apparent distress Orientation / Consciousness: awake, oriented to person, oriented to place and oriented to time HEENT normocephalic and moist oral mucous membranes Eyes PERRL, EOMs intact bilaterally and conjunctivae normal Neck no lymphadenopathy Resp normal respiratory effort and clear to auscultation bilaterally Cardio regular rate, regular rhythm and no murmurs Peripheral Pulses: pulses 2+ throughout GI normal to inspection, nondistended, normoactive bowel sounds, non-tender and non-distended Extremity normal to inspection Skin no rashes or lesions noted Lesions: no lesions Rashes: no rashes Trauma: no lacerations or abrasions Neuro CN's II-XII intact bilaterally, no focal motor deficits, no sensory deficits noted and deep tendon reflexes 2+ bilaterally Psych mental status grossly normal and affect normal Plan is to DC any IV fluids and keep patient off IV fluids. Creatinine is trending down. Potassium is down to 5.1. Bicarb is up to 22, and CR is down to 5.53. Nephrology on board. Stable from hospitalist standpoint. Rest as per primary team urology. Rest as per Adali Feliciano CHAINSTITCH BINDER-C's note, which I have reviewed and endorsed. Visit Charges Inpatient E&M: 96116 Subs Hosp L2
--- NOTE | 2021-01-03 10:37 | PCM.PN.REN ---
Subjective Subjective episode of SOB last night improved with lasix. Creatinine slightly improved to 5.5 potassium 5.1 today. Still with hematuria but less severe. Denies flank pain Objective Data Objective Data Vital Signs: Vital Signs Temp Pulse Resp BP Pulse Ox 97.8 F 66 18 162/77 H 99 01/03/21 09:45 01/03/21 09:45 01/03/21 09:45 01/03/21 09:45 01/03/21 09:45 Oxygen Flow Rate (L/min) 1 Oxygen Delivery Method Room Air Weight: 123.3 kg Body Mass Index (BMI) 39.9 Intake & Output: Intake and Output for Last 24 Hours 01/01/21 01/02/21 01/03/21 23:59 23:59 23:59 Intake Total 4750 / 4750 962.50 / 962.50 916.66 / 916.66 Output Total 3180 / 3180 1050 / 1050 900 / 900 Balance 1570 / 1570 -87.50 / -87.50 16.66 / 16.66 Lab / Micro Data Result Diagrams: 01/02/21 05:28 01/03/21 04:48 Labs: Laboratory Results - last 24 hr 01/03/21 04:48 Sodium 143 Potassium 5.1 Chloride 114 H Carbon Dioxide 22.0 Anion Gap 7 BUN 90 H Creatinine 5.53 H Estim Creat Clear Calc 10.83 Est GFR (MDRD) Af Amer 13 L Est GFR (MDRD) Non-Af 11 L BUN/Creatinine Ratio 16.3 Glucose 103 Calcium 8.2 L Radiography Diagnostic Testing: Radiology Impression Chest X-Ray 01/03/21 01:35 IMPRESSION: COPD with bibasilar pulmonary edema. Small left effusion Electronically Signed: John Tobar DO at 2:50 EDT Tel , Service support , Physical Exam Const alert, oriented x3 and no apparent distress Resp clear to auscultation bilaterally Cardio regular rate and no rub GI non-tender and non-distended GI Narrative: obese Palpation: soft Narrative: hematuria persists, less intense Extremity General Extremity: edema bilateral (improved with lasix and off iv fluids) Neuro Neuro Narrative: no tremor Sensorium / Orientation: awake and alert Psych cooperative Assessment & Plan Assessment/Plan (1) DELIA (acute kidney injury): PLAN: in single functioning kidney on right due to clot. Creatinine improved to 5.5 s/p cysto, ureteral stent, cauterization. 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 Urine output good (6) Obstructed, uropathy: PLAN: following (7) Flank pain: PLAN: resolved (8) Hyperkalemia: PLAN: improved with kayexalate, follow low K diet
--- NOTE | 2021-01-03 15:37 | CASEMGMT ---
Pt screened with [facility] Palliative Care Screening Tool due to strata 3, pt did not meet criteria.
--- NOTE | 2021-01-04 07:49 | PCM.DC.SUM ---
Providers Date of Admission: 12/29/20 Primary Care Physician: Dr. Suraj Damian MD Consultations 12/29/20 14:26 Consult: Hospitalist Routine Consulting Provider: Cristian Joyce Reason for Consult: medical management EMERGENT Consult: No Notified: Yes Date Notified: 12/29/20 Time Notified: 14:55 Method of Notification: per phone 12/31/20 09:59 Consult: Nephrology Routine Consulting Provider: Meliza Gonzales Reason for Consult: DELIA EMERGENT Consult: No Notified: Yes Date Notified: 12/31/20 Time Notified: 09:59 Method of Notification: Verbal Reason For Visit: OBSTRUCTED UROPATHY / DELIA Diagnosis Discharge Diagnosis (1) DELIA (acute kidney injury): Status: Acute Code(s): N17.9 - Acute kidney failure, unspecified (2) CKD (chronic kidney disease) stage 3, GFR 30-59 ml/min: Status: Chronic Qualifiers: Chronic kidney disease stage 3 subtype: stage 3a (GFR 45-59) Qualified Code(s): N18.31 - Chronic kidney disease, stage 3a (3) Transitional cell carcinoma of right kidney: Status: Acute Code(s): C64.1 - Malignant neoplasm of right kidney, except renal pelvis (4) Hydronephrosis: Status: Acute Code(s): N13.30 - Unspecified hydronephrosis (5) Gross hematuria: Status: Acute Code(s): R31.0 - Gross hematuria (6) Obstructed, uropathy: Status: Acute Code(s): N13.9 - Obstructive and reflux uropathy, unspecified (7) Flank pain: Status: Acute Code(s): R10.9 - Unspecified abdominal pain (8) Hyperkalemia: Status: Acute Code(s): E87.5 - Hyperkalemia Medications at Discharge Home Medications pravastatin 40 mg PO DAILY #0 12/21/13 famotidine 40 mg tablet 40 mg PO DAILY 07/16/18 carvedilol 25 mg tablet 25 mg PO BID 11/17/20 furosemide [Lasix] 40 mg PO PRN PRN 12/26/20 hydrocortisone 5 mg PO QHS 12/26/20 hydrocortisone 20 mg PO DAILY 12/26/20 oxycodone-acetaminophen 1 tab PO Q4H PRN 7 Days #14 tab 12/27/20 ciprofloxacin HCl [Cipro] 500 mg PO BID 12/29/20 Hospital Course Summary of Care Provided Hospital Course: Patient was admitted to the hospital with hydronephrosis and hematoma within a solitary kidney after biopsy of a tumor within the renal pelvis which was transitional cell carcinoma, I also positive cytology from the solitary kidney with cancer cells. His creatinine had gone up significantly up to 6 and had very little urine output he was taken to surgery immediately stent was placed, then over the weekend his kidney function stabilized urine output improved taken back to surgery 3 days later to washout the kidney more blood clots were washed out from the solitary kidney into the renal pelvis attempted to cauterize the tumor but it was too difficult so at this point was not able to do that. I did place a larger stent 8 Bangladeshi by 26 cm stent he had steady urine output and his creatinine started coming down. On discharge his creatinine was still high but trending downwards so nephrology was okay with discharge as well as hospitalist service he will go home he will follow-up with PCP nephrology and urology difficult decision will be as to what to do with his solitary kidney that has a growing tumor whether he could consider a nephrectomy and dialysis or if he want to do any sort of salvage heroic procedure to try to remove the tumor and save the kidney I have to have a discussion with the patient regarding this when he follows up in my office. Weight / BMI Weight Weight: 123.3 kg Body Mass Index (BMI) 39.9 ABG / Lab / Microbiology Data Result Diagrams: 01/02/21 05:28 01/03/21 04:48 Meaningful Use Info Meaningful Use Diagnoses (Choose all that apply): None applicable Discharge Plan Admission Admit Date/Time: 12/29/20 15:03 Attending Provider: Gregoria Foote Primary Care Provider: Suraj Damian Chi Consulting Providers: Cristian Joyce ; Meliza Gonzales Instructions Additional Instructions / Restrictions: follow up with PCP in 1 week, follow up with dr starr in 2 weeks Discharge Orders/Prescriptions Prescriptions: No Action famotidine 40 mg tablet 40 mg PO DAILY RF: 0 carvedilol [Coreg] 25 mg tablet 25 mg PO BID RF: 0 pravastatin 40 MG tablet 40 mg PO DAILY Qty: 0 RF: 0 hydrocortisone 10 mg Tablet 5 mg PO QHS RF: 0 furosemide [Lasix] 40 mg tablet 40 mg PO PRN PRN (Reason: water retention) RF: 0 hydrocortisone 10 mg tablet 20 mg PO DAILY RF: 0 oxycodone-acetaminophen 5-325 mg tablet 1 tab PO Q4H PRN (Reason: pain) 7 Days Qty: 14 RF: 0 ciprofloxacin HCl [Cipro] 500 mg tablet 500 mg PO BID RF: 0 Referrals / Follow Up: Suraj Damian Chi, MD [Primary Care Provider] - Disposition Discharge Orders: Discharge Patient (Routine); Ordered 01/03/21 Ordered By: Dr. Domenico Starr
--- NOTE | 2021-01-04 15:33 | CASEMGMT ---
GIANNI TURPIN Discharge Follow Up Phone Call: Strata:3 Call Date: 01/04/21 Discharge Date: 01/03/21 Time of Call: 1533 Duration: 4 min Admitting Dx: obstructed uropathy GIANNI TURPIN completed follow up phone call after recent hospitalization. Pt states he is doing well. He feels he is getting stronger as he is walking in the house. He states his urine is getting more looking like urine than blood. Pt has made his follow up appts. Dr. Damian tomorrow, Dr. Gonzales 01/18/21 and 01/15/21. He denies questions regarding his medications but is questioning where he could go on the internet to find out what foods are low in potassium and recipes. TC to A[facility] neighborhood aide who gave [facility] as well as the outpt neighborhood aide phone number. TC back to pt to make aware of this. He was thankful for the info and denied further questions.
== END 2021-01-03 18:05 | disposition home or self-care (01) | DRG 660 ==
LOC: ED 12:58 → MS3 15:10
PROVIDERS: Internal Medicine; Internal Medicine Nephrology; Nurse Practitioner Family; Admitting Provider Urology; Emergency Provider Emergency Medicine; PCP Family Medicine Geriatric Medicine; Visit Provider Student in an Organized Health Care Education/Training Program
PROC: 0T768DZ Dilation of Right Ureter with Intraluminal Device, Via Natural or Artificial Opening Endoscopic (ICD-10-PCS; principal; 2020-12-29 15:50)
PROC: 0TBB8ZX Excision of Bladder, Via Natural or Artificial Opening Endoscopic, Diagnostic (ICD-10-PCS; principal; 2021-01-01 07:00)
DX: N17.0 Acute kidney failure with tubular necrosis (principal); D62 Acute posthemorrhagic anemia; I50.22 Chronic systolic (congestive) heart failure; C65.1 Malignant neoplasm of right renal pelvis; N30.41 Irradiation cystitis with hematuria; I42.8 Other cardiomyopathies; I13.0 Hypertensive heart and chronic kidney disease with heart failure and stage 1 through stage 4 chronic kidney disease, or unspecified chronic kidney disease; E27.49 Other adrenocortical insufficiency; N18.31 Chronic kidney disease, stage 3a; E11.22 Type 2 diabetes mellitus with diabetic chronic kidney disease; K59.00 Constipation, unspecified; M19.90 Unspecified osteoarthritis, unspecified site; K21.9 Gastro-esophageal reflux disease without esophagitis; E78.5 Hyperlipidemia, unspecified; G47.33 Obstructive sleep apnea (adult) (pediatric); I48.0 Paroxysmal atrial fibrillation; N13.1 Hydronephrosis with ureteral stricture, not elsewhere classified; Y84.2 Radiological procedure and radiotherapy as the cause of abnormal reaction of the patient, or of later complication, without mention of misadventure at the time of the procedure; M10.9 Gout, unspecified; E66.9 Obesity, unspecified; N26.1 Atrophy of kidney (terminal); E87.5 Hyperkalemia; Z79.51 Long term (current) use of inhaled steroids; Z79.899 Other long term (current) drug therapy; Z95.0 Presence of cardiac pacemaker; Z87.891 Personal history of nicotine dependence; Z85.46 Personal history of malignant neoplasm of prostate; Z85.72 Personal history of non-Hodgkin lymphomas; Z68.39 Body mass index [BMI] 39.0-39.9, adult; Z92.21 Personal history of antineoplastic chemotherapy
CPT/HCPCS: 36415; 71045; 74176; 76000; 80048; 80053; 80069; 81001; 85025; 88108; 88305; 88313; 93005; 97802; 99285; J7030; J7040; J7120; A4216; C1769; C1874; C1894; C2617; J1940; J2405; J3490

== ENCOUNTER → 2021-01-05 12:37 | Outpatient (CLI) | payer MEDICARE, SELFPAY ==
[2021-01-01 05:46] VITALS: BMI 39.9
[2021-01-05 13:21] LABS: Absolute Lymphocyte Count 0.33 X10^3/uL (0.83-4.51); Absolute Neutrophil Count 7.8 X10^3/uL (2.0-7.7); Basophil# 0.03 X10^3/uL; Basophil% 0.3 % (0-1); Eosinophil# 0.06 X10^3/uL; Eosinophils% 0.7 % (0-5); Hematocrit 34.4 % (40-54); Hemoglobin 11.1 g/dL (13.0-16.5); Lymphocyte # 0.33 X10^3/ul (0.83-4.51); Lymphocyte % 3.7 % (19-41); Mean Corp Hgb Conc 32.3 g/dL (32-36); Mean Corpuscular Hgb 31.4 pg (27.0-32.0); Mean Corpuscular Volume 97.5 fL (80-94); Mean Platelet Vol. 9.2 fl (6.2-12.0); Monocyte# 0.58 X10^3/uL; Monocyte% 6.5 % (0-10); NRBC Flagged by Analyzer 0 % (0-5); Neutrophil # 7.82 X10^3/uL (2.7-7.7); POSITIVE DIFFERENTIAL YES; Platelet Count 248 K/mm3 (150-450); Red Blood Count 3.53 M/mm3 (4.6-6.2); White Blood Count 8.9 K/mm3 (4.4-11.0)
[2021-01-05 13:29] LABS: Differential Indicated SCAN CRITERIA MET
[2021-01-05 13:32] LABS: Anion Gap 9 (5-15); BUN 84 mg/dL (7-18); BUN/Creat Ratio 18.4 RATIO (10-20); Calcium,Total 8.2 mg/dL (8.5-10.1); Chloride 113 mmol/L (98-107); Creatinine, Serum 4.57 mg/dL (0.70-1.30); EST Glomerular Filtration Rate 13 mL/min (>60); Est Glom Filt Rate - Afr Amer 16 mL/min (>60); Glucose 109 mg/dL (74-106); Potassium 5.1 mmol/L (3.5-5.1); Sodium Level 143 mmol/L (136-145)
[2021-01-05 13:53] LABS: Differential Comment SCANNED
== END ==
PROVIDERS: PCP Family Medicine Geriatric Medicine; Visit Provider Family Medicine Geriatric Medicine
DX: N17.9 Acute kidney failure, unspecified (principal); R31.9 Hematuria, unspecified
CPT/HCPCS: 36415; 80048; 85025

== ENCOUNTER → 2021-01-11 10:13 | Outpatient (CLI) | payer MEDICARE, SELFPAY ==
[2021-01-01 05:46] VITALS: BMI 39.9
[2021-01-11 12:39] LABS: BUN 51 mg/dL (7-18); BUN/Creat Ratio 16.3 RATIO (10-20); Calcium,Total 8.5 mg/dL (8.5-10.1); Chloride 115 mmol/L (98-107); Creatinine, Serum 3.12 mg/dL (0.70-1.30); EST Glomerular Filtration Rate 21 mL/min (>60); Est Glom Filt Rate - Afr Amer 25 mL/min (>60); Glucose 91 mg/dL (74-106); Phosphorus 4.4 mg/dL (2.5-4.9); Potassium 4.3 mmol/L (3.5-5.1); Sodium Level 144 mmol/L (136-145)
== END ==
PROVIDERS: PCP Family Medicine Geriatric Medicine; Referring Provider Internal Medicine Nephrology; Visit Provider Internal Medicine Nephrology
DX: N18.31 Chronic kidney disease, stage 3a (principal)
CPT/HCPCS: 36415; 80069

== ENCOUNTER → 2021-01-22 10:18 | Outpatient (CLI) | payer MEDICARE, SELFPAY ==
[2021-01-01 05:46] VITALS: BMI 39.9
[2021-01-22 12:40] LABS: Albumin, Serum 3.1 g/dL (3.2-5.0); BUN 40 mg/dL (7-18); BUN/Creat Ratio 17.9 RATIO (10-20); Calcium,Total 8.5 mg/dL (8.5-10.1); Chloride 114 mmol/L (98-107); Creatinine, Serum 2.23 mg/dL (0.70-1.30); EST Glomerular Filtration Rate 30 mL/min (>60); Est Glom Filt Rate - Afr Amer 37 mL/min (>60); Glucose 102 mg/dL (74-106); Phosphorus 3.5 mg/dL (2.5-4.9); Potassium 4.2 mmol/L (3.5-5.1); Sodium Level 142 mmol/L (136-145)
== END ==
PROVIDERS: PCP Family Medicine Geriatric Medicine; Referring Provider Internal Medicine Nephrology; Visit Provider Internal Medicine Nephrology
DX: N17.9 Acute kidney failure, unspecified (principal)
CPT/HCPCS: 36415; 80069

== ENCOUNTER 2021-01-24 15:54 | Observation (INO) | payer MEDICARE, SELFPAY ==
[2021-01-01 05:46] VITALS: BMI 39.9
[2021-01-24] VITALS (13 sets, daily range): BP systolic 99–157; BP diastolic 53–76; PULSE 60–65; RESP 14–18; TEMP 35.8–36.7; O2SAT 96–100; BMI 35.9
[2021-01-24] MEDS: Lactated Ringers 1,000 ML 100 ML IV ×2 (10:27→13:00)
--- NOTE | 2021-01-24 12:05 | RAD_ITS ---
STUDY: X-RAY - ABDOMEN/PELVIS REASON FOR EXAM: Male, 80 years old. RIGHT NEPHRO TUBE PLACEMENT TECHNIQUE: Single AP view of the abdomen / pelvis. COMPARISON: None. FINDINGS: Intraoperative imaging was provided for placement of a right nephrostomy tube. RAD/Abdomen Single View IMPRESSION: Intraoperative imaging provided for placement of a right nephrostomy tube. Electronically Signed: Nik Martines MD at 22:03 EDT , Service support ,
[2021-01-24] MEDS: Cefazolin 2 GM in 0.9% Normal Saline 100 ML IV (12:29)
--- NOTE | 2021-01-24 12:39 | PCM.HP.STD ---
HPI - General HPI Narrative DANITZA JAIN, is a 80 M who presents for management of And transitional cell carcinomaAnd a solitary right kidney He presents for percutaneous resection of a mass in the right kidney. [facility] Medical History (Updated 01/17/21 @ 15:30 by Natalia Haider) AAA (abdominal aortic aneurysm) Arthritis Back pain Body mass index (BMI) 35 or more Cancer Cardiac pacemaker in situ (01/02/15) Cardiology follow-up encounter Chronic systolic (congestive) heart failure CKD (chronic kidney disease) stage 3, GFR 30-59 ml/min Community acquired pneumonia Congestive heart failure (CHF) CPAP (continuous positive airway pressure) dependence Diffuse large B cell lymphoma Dyspnea on exertion Esophageal reflux Former smoker Gastric reflux Gout Gout High cholesterol History of CHF (congestive heart failure) History of diverticulitis History of edema History of non-Hodgkin's lymphoma History of pacemaker History of pituitary adenoma History of pituitary tumor History of renal disease History of steroid therapy History of steroid therapy History of stress test History of ulceration Hx of echocardiogram Hyperlipidemia Hypertension Hyponatremia Increasing prostate specific antigen level Kidney disease Malignant lymphoma of extranodal and solid organ sites Mobitz (type) II atrioventricular block MRSA (methicillin resistant staphylococcus aureus) pneumonia Non-ischemic cardiomyopathy PORTILLO (obstructive sleep apnea) Pacemaker PAF (paroxysmal atrial fibrillation) Pericardial effusion Pleural effusion Prostate cancer Prostate disease Secondary adrenal insufficiency Shortness of breath on exertion Simple obesity Sleep apnea SSS (sick sinus syndrome) Wears partial dentures Home Medications pravastatin 40 mg PO QHS #0 12/21/13 [History Last Taken 12/26/20] famotidine 40 mg tablet 40 mg PO DAILY 07/16/18 [History Last Taken 01/24/21 09:15] carvedilol 25 mg tablet 25 mg PO BID 11/17/20 [History Last Taken 12/26/20] furosemide [Lasix] 40 mg PO PRN PRN 12/26/20 [History Last Taken 12/26/20] hydrocortisone 5 mg PO QHS 12/26/20 [History Last Taken 12/26/20] hydrocortisone 20 mg PO DAILY 12/26/20 [History Last Taken 12/26/20] ciprofloxacin HCl [Cipro] 250 mg PO BID #10 tab 01/24/21 [Rx Last Taken Unknown] oxycodone-acetaminophen 1 tab PO Q6H PRN 7 Days #14 tab 01/24/21 [Rx Last Taken Unknown] Allergy/AdvReac Type Severity Reaction Status Date / Time lisinopril Allergy Swelling Verified 12/29/20 09:32 aspirin AdvReac GI BLEED, Verified 12/29/20 09:32 UPPER Family History Father FH: kidney cancer Mother Heart disease Diabetes Surgical History (Updated 01/17/21 @ 15:25 by Natalia Haider) History of cardiac catheterization History of cystoscopy History of surgical removal of pituitary gland History of vascular access device Hx of lymph node biopsy Status post transsphenoidal pituitary resection Social History Smoking Status: Former smoker quit date: 06/30/81 pack-years: 20 how long ago did patient quit smokin second hand exposure: No alcohol intake: never substance use type: does not use caffeine: Yes Type: coffee Number of servings: 3 what type of physical activity do you participate in: none xavi/protestant: Orthodox seatbelt use: always do you feel safe at home: Yes ROS Constitutional Constitutional: Denies chills, fever(s) or malaise Eyes Eyes: Denies blurry vision or change in vision ENT HEENT: Reports none Cardiovascular Cardiovascular: Denies chest pain or palpitations Respiratory/Chest Respiratory/Chest: Denies cough or shortness of breath with exertion Gastrointestinal Gastrointestinal: Denies abdominal pain, constipation or diarrhea Musculoskeletal Musculoskeletal: Denies back pain, joint stiffness or joint swelling Integumentary Integumentary: Denies dry skin, jaundice, lesions or rash Neurologic Neurologic: Denies confusion, syncope or weakness Psychiatric Psychiatric: Reports none; Denies anxiety or depression Endocrine Endocrinology: Denies excessive sweating, fatigue or flushing Hematologic/Lymphatic Hematologic/Lymphatic: Denies anemia, easy bleeding or easy bruising Vital Signs Vital Signs Vital Signs: 01/24/21 10:15 01/24/21 10:20 Temperature 97 F L Temperature Source Temporal Pulse Rate 60 Respiratory Rate 16 Respiratory Pattern Normal Blood Pressure 157/66 H Blood Pressure Mean 96 Blood Pressure Source Monitor Blood Pressure Position Semi-Fowlers Blood Pressure Location Right Arm Pulse Ox 99 Oxygen Delivery Method Room Air Weight Weight: 113.6 kg Body Mass Index (BMI) 35.9 Physical Exam Const alert and oriented x3 General Appearance: cooperative HEENT normocephalic, head/scalp atraumatic, EAC's normal and TM's normal bilaterally Eyes PERRL and EOMs intact bilaterally Pupil: sluggish Neck no lymphadenopathy, supple and no JVD General: trachea midline Lymph Lymphatic: no lymphadenopathy noted, lymphedema and lymphadenopathy Resp normal respiratory effort, normal air movement and clear to auscultation bilaterally Cardio regular rate, regular rhythm and peripheral pulses 2+ throughout GI soft to palpation, non-tender and non-distended Extremity normal capillary refill and no clubbing, cyanosis or edema General Extremity: no tenderness to palpation of joints or extremities Skin no rashes or lesions noted General Skin Exam: turgor normal Lesions: no lesions Rashes: no rashes Neuro CN's II-XII intact bilaterally Speech: speech normal Motor Exam: strength 5/5 throughout; Negative for general weakness Psych thought process normal, cooperative and affect normal Appearance: appropriate Assessment & Plan Assessment/Plan (1) Transitional cell carcinoma of right kidney: PLAN: 80-year-old male with solitary right kidney with a renal pelvic mass growing within the right kidney status post biopsy to prove that it was cancer he now presents for percutaneous resection of this tumor he understands the rare chance we may not be able to resect the tumor rare chance that have to remove the kidney at some point.
--- NOTE | 2021-01-24 12:41 | PCM.DC ---
Discharge Instructions Diet Discharge Diet: No restrictions Activity Discharge Activity: Return to Normal Activity and May Not Drive (while taking narcotic pain medications.) Dressing / Incision Call your doctor if you observe: Fever of 101 or Higher Follow Up Care Please Follow Up With: Domenico Starr MD When: Call [phone] for an appointment Test Results: Test results from this visit will be discussed in further detail at your follow-up appointment, if applicable. Discharge Plan Admission Primary Reason for Your Visit: percutaneous resection of right renal pelvic tumor, solitary right kidney Attending Provider: Domenico Starr Primary Care Provider: Suraj Damian Chi Discharge Orders/Prescriptions Prescriptions: New ciprofloxacin HCl [Cipro] 250 mg tablet 250 mg PO BID Qty: 10 RF: 0 oxycodone-acetaminophen 5-325 mg tablet 1 tab PO Q6H PRN (Reason: pain) 7 Days Qty: 14 RF: 0 Continued famotidine 40 mg tablet 40 mg PO DAILY RF: 0 carvedilol [Coreg] 25 mg tablet 25 mg PO BID RF: 0 pravastatin 40 MG tablet 40 mg PO QHS Qty: 0 RF: 0 hydrocortisone 10 mg Tablet 5 mg PO QHS RF: 0 furosemide [Lasix] 40 mg tablet 40 mg PO PRN PRN (Reason: water retention) RF: 0 hydrocortisone 10 mg tablet 20 mg PO DAILY RF: 0 Referrals / Follow Up: Domenico Starr MD [STAFF PHYSICIAN] - Suraj Damian Chi, MD [Primary Care Provider] - Disposition Disposition (needs filled in before D/C Order can be placed): Home, Self Care
--- NOTE | 2021-01-24 14:04 | PCM.OPRPT ---
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, large tumor Post-Operative Diagnosis: The same Surgery/Procedure Performed:: Cystoscopy, placement of access sheath in the right ureter, guided access and placement of a new nephrostomy tube in the right kidney, percutaneous resection of right renal mass, nephrostogram and placement of nephrostomy tube Description of Surgical Findings:: This is a 80-year-old male who presented to the hospital for treatment of a large papillary growth in the right kidney suspicious for transitional cell carcinoma and had a biopsy done that proved to be transitional cell carcinoma on ureteroscopy the tumor appeared to be noninvasive so organ to proceed with a nephron sparing approach where to place a nephrostomy tube in the patient and then resect the tumor in the renal pelvis. Patient was taken back to the operating room after smooth induction of general anesthesia he was placed in dorsolithotomy position. Went into the bladder with a 21 [place]ian rigid cystourethroscope grabbed the existing stent pulled out the meatus and the navigator wire through the stent and then to the wire all the way up into the kidney and then once in the kidney then I advanced the access sheath up into the ureter as far as possible and performed a retrograde pyelogram. Patient was then repositioned on the table with facedown with the back up in the we went to the right side I used the flexible ureteroscope through the access sheath that had a established through the penis and then worked my way up inspected the kidney and found the lower pole for axis to the kidney then using triangulation technique to use a tube trocar needle 18-gauge to triangulate towards the lower pole of the kidney until I was into the kidney I could see myself in the kidney under direct visualization with the ureteroscope I then put a wire and the wire went down the ureter and I put a second wire then over the wire I dilated with an 8 [place]iboutian dilator, then a 10 [place]ib[place]ian dilator, the 12 [place]iboutian dilator, I then placed a dual-lumen catheter and put a secure access to the kidney with a Super Stiff wire and a Glidewire the Glidewire was then secured to the drapes. Then over the Super Stiff wire advanced a 30 [place]ib[place]ian balloon dilator and dilated the nephrostomy tube track once this was dilated and made sure I did not dilate the UPJ I checked this with the ureteroscope and then after dilating the tract then the access sheath over the access sheath advanced a nephrostomy tube access sheath over the top of it and then through this and I was able to get access to the kidney then I went to the kidney with the nephroscope inspected the inside of the renal pelvis and identify the tumor I then switched over to the Olympus bipolar resectoscope I used the button vaporization device on the resectoscope and resected this tumor in the renal pelvis it was a complete resection I inspected the upper pole midpole lower pole again there was no other tumors seen this 2 cm tumor was completely resected and cauterized completely there was no specimen since I used the button vaporization to vaporize the tumor completely down to the base. Once the tumor was resected completely and it was a noninvasive superficial looking tumor then I advanced the nephrostomy tube through the access sheath and then coiled the nephrostomy tube performed number nephrostogram to confirm is in the kidney and then I pulled the access sheath back at this point I then experienced some bleeding coming from the kidney so I placed some FloSeal in the nephrostomy tube track held pressure and at the end of the case still had a little bit of dripping bleeding from the access site decided not to redilate just to let this heal on its own we left a nephrostomy tube in place we trended to a gravity drainage bag we will hydrate the patient patient aggressively and I expect the bleeding to stop on its own. Nephrostomy tube was left in place I took out the access sheath to the plate patient only had nephrostomy tube no Phipps catheter patient was extubated taken back to the PACU in good condition and it was a complete resection of the visible tumor of course of the ureter chance of recurrence so we will continue with observation after resecting the tumor nephrostomy tube was left in place and is taken back to PACU in good condition. Type of Anesthesia: General Drains: right nephrostomy tube Admit VTE Documentation VTE Present on Admission: No VTE Mechan Device Prophylaxis: SCD's
--- NOTE | 2021-01-24 14:13 | SUR.PHASEI ---
PACU ARRIVAL: DR YUSUF FLUSHED NEPHROSTOMY TUBE, INSTRUCTED TO REMIND MS 3 STAFF TO FLUSH NEPHROSTOMY TUBE Q1HOUR SCHEDULED.
[2021-01-24] MEDS: 0.9% Saline Lock 10 ML Syringe IV ×2 (14:15→15:30)
--- NOTE | 2021-01-24 15:05 | SUR.PHASEI ---
LEAKING SMALL AMOUNT SANGUINOUS DRAINAGE AROUND NEPHROSTOMY TUBE DRESSING. IRRIGATED NEPHROSTOMY TUBE WITH 10 ML NSS, FLUSHES EASILY.
--- NOTE | 2021-01-24 15:22 | SUR.PHASEI ---
PACU ARRIVAL: DR YUSUF FLUSHED NEPHROSTOMY TUBE, INSTRUCTED TO REMIND MS 3 STAFF TO FLUSH NEPHROSTOMY Q1HOUR ROUTINELY.
[2021-01-24] MEDS: 0.9% Normal Saline 1,000 ML 150 ML IV ×2 (15:40→20:55)
[2021-01-24] MEDS: HYDROcodone Bitartrate/Apap 5/325 Tablet PO (18:59)
[2021-01-24] MEDS: Cefazolin 1 GM/50 ML BAG IV (20:55)
[2021-01-24] MEDS: Pravastatin 40 MG Tablet PO (21:02)
[2021-01-24] MEDS: Hydrocortisone 10 MG Tablet 5 MG PO (21:02)
[2021-01-24] MEDS: Carvedilol 25 MG Tablet PO (21:02)
[2021-01-25] VITALS (7 sets, daily range): BP systolic 118–161; BP diastolic 51–59; PULSE 60–65; RESP 16–18; TEMP 36.1–36.9; O2SAT 96–99
[2021-01-25] MEDS: 0.9% Normal Saline 1,000 ML 150 ML IV ×4 (04:13→23:43)
[2021-01-25] MEDS: Cefazolin 1 GM/50 ML BAG IV (04:13)
[2021-01-25 06:16] LABS: Hematocrit 27.8 % (40-54); Mean Corp Hgb Conc 32.4 g/dL (32-36); Mean Corpuscular Volume 95.9 fL (80-94); Mean Platelet Vol. 9.4 fl (6.2-12.0); Platelet Count 149 K/mm3 (150-450); RBC Distribution Width CV 13.4 % (11.6-14.6); RBC Distribution Width SD 46.5 fl (35.1-43.9); White Blood Count 9.9 K/mm3 (4.4-11.0)
[2021-01-25 06:51] LABS: Anion Gap 7 (5-15); BUN 45 mg/dL (7-18); Calcium,Total 8.2 mg/dL (8.5-10.1); Chloride 113 mmol/L (98-107); EST Glomerular Filtration Rate 27 mL/min (>60); Est Glom Filt Rate - Afr Amer 32 mL/min (>60); Estimated Creatinine Clearance 24.74 ml/min; Glucose 144 mg/dL (74-106); Sodium Level 141 mmol/L (136-145)
--- NOTE | 2021-01-25 07:30 | PCM.PN.GU ---
Subjective Subjective Status post percutaneous resection of tumor in the right renal pelvis it was a successful procedure with complete resection of the tumor had nephrostomy tube in place slight bleeding afterwards but now it stopped and urine was coming out and will dark urine. Creatinine stable at 2.5 he is feeling well. Objective Data Objective Data Vital Signs: Vital Signs Temp Pulse Resp BP Pulse Ox 97.9 F 65 16 136/57 H 96 01/25/21 04:18 01/25/21 04:18 01/25/21 04:18 01/25/21 04:18 01/25/21 04:18 Oxygen Delivery Method Room Air Weight: 113.6 kg Body Mass Index (BMI) 35.9 Intake & Output: Intake and Output for Last 24 Hours 01/23/21 01/24/21 01/25/21 23:59 23:59 23:59 Intake Total 3017.5 / 3017.5 1130 / 1130 Output Total 470 / 470 885 / 885 Balance 2547.5 / 2547.5 245 / 245 Lab / Micro Data Result Diagrams: 01/25/21 05:50 01/25/21 05:50 Labs: Laboratory Results - last 24 hr 01/25/21 05:50: WBC 9.9, RBC 2.90 L, Hgb 9.0 L, Hct 27.8 L, MCV 95.9 H, MCH 31.0, MCHC 32.4, RDW Std Deviation 46.5 H, RDW Coeff of Deyvi 13.4, Plt Count 149 L, MPV 9.4 01/25/21 05:50: Sodium 141, Potassium 5.0, Chloride 113 H, Carbon Dioxide 21.0, Anion Gap 7, BUN 45 H, Creatinine 2.50 H, Estim Creat Clear Calc 24.74, Est GFR (MDRD) Af Amer 32 L, Est GFR (MDRD) Non-Af 27 L, BUN/Creatinine Ratio 18.0, Glucose 144 H, Calcium 8.2 L Radiography Diagnostic Testing: Radiology Impression KUB X-Ray 01/24/21 12:05 IMPRESSION: Intraoperative imaging provided for placement of a right nephrostomy tube. Electronically Signed: Nik Martines MD at 22:03 EDT , Service support , Physical Exam Const alert and oriented x3 General Appearance: cooperative HEENT normocephalic, head/scalp atraumatic, EAC's normal and TM's normal bilaterally Eyes PERRL and EOMs intact bilaterally Pupil: sluggish Neck no lymphadenopathy, supple and no JVD General: trachea midline Lymph Lymphatic: no lymphadenopathy noted, lymphedema and lymphadenopathy Resp normal respiratory effort, normal air movement and clear to auscultation bilaterally Cardio regular rate, regular rhythm and peripheral pulses 2+ throughout GI soft to palpation, non-tender and non-distended Extremity normal capillary refill and no clubbing, cyanosis or edema General Extremity: no tenderness to palpation of joints or extremities Skin no rashes or lesions noted General Skin Exam: turgor normal Lesions: no lesions Rashes: no rashes Neuro CN's II-XII intact bilaterally Speech: speech normal Motor Exam: strength 5/5 throughout; Negative for general weakness Psych thought process normal, cooperative and affect normal Appearance: appropriate Assessment & Plan Assessment/Plan (1) Transitional cell carcinoma of right kidney: PLAN: Status post resection of the transitional cell carcinoma in the right renal pelvis nephrostomy tube in place still slightly bloody but no more active bleeding will continue with IV fluids nurses can now flushes every 4 hours to keep it clear we will continue to monitor.
[2021-01-25] MEDS: Carvedilol 25 MG Tablet PO ×2 (08:11→21:32)
[2021-01-25] MEDS: Famotidine 20 MG Tablet 40 MG PO (08:11)
[2021-01-25] MEDS: Hydrocortisone 10 MG Tablet 20 MG PO (08:11)
--- NOTE | 2021-01-25 15:44 | CASEMGMT ---
GIANNI CM in to discuss [place] form with patient. RN CM explained [place] form, patient voiced understanding. Pt signed form and filed in chart. Pt provided with a copy of signed [place] form. Patient had no further questions or concerns at this time.
[2021-01-25] MEDS: 0.9% Saline Lock 10 ML Syringe IV ×4 (20:02→23:41)
[2021-01-25] MEDS: Hydrocortisone 10 MG Tablet 5 MG PO (21:32)
[2021-01-25] MEDS: Pravastatin 40 MG Tablet PO (21:32)
[2021-01-26 03:57] VITALS: BP 146/49; PULSE 63; RESP 20; TEMP 36.6; O2SAT 99
[2021-01-26] MEDS: 0.9% Normal Saline 1,000 ML 150 ML IV ×3 (05:41→17:46)
--- NOTE | 2021-01-26 07:08 | PN.URO_ITS ---
Subjective Subjective Status post right percutaneous resection of a tumor within the renal pelvis it was transitional cell carcinoma. Urine is clear written clamped nephrostomy tube today. Objective Data Objective Data Vital Signs: Vital Signs Temp Pulse Resp BP Pulse Ox 98 F 63 20 H 146/49 H 99 01/26/21 03:57 01/26/21 03:57 01/26/21 03:57 01/26/21 03:57 01/26/21 03:57 Oxygen Delivery Method Room Air Weight: 113.6 kg Body Mass Index (BMI) 35.9 Intake & Output: Intake and Output for Last 24 Hours 01/24/21 01/25/21 01/26/21 23:59 23:59 23:59 Intake Total 3017.5 / 3017.5 4195.0 / 4195.0 895 / 895 Output Total 470 / 470 2910 / 2910 700 / 700 Balance 2547.5 / 2547.5 1285.0 / 1285.0 195 / 195 Medical Nutrition Assessment Dietitian: Nutrition Therapy Diagnosis Start: 01/25/21 10:48 Freq: Status: Active Protocol: Document 01/25/21 11:07 BP (Rec: 01/25/21 11:07 BP [id number]) Nutrition Malnutrition Evidence of Malnutrition Exists No Intake Problem Decreased Nutrient Needs (specify) Etiology sodium related to chronic heart failure and fluid retention Signs/Symptoms as evidenced by BLE 2+ pitting edema. Status Active Problem Clinical Problem Altered Nutrient-Related Laboratory Values Etiology related to kidney dysfunction, CKD stage 3 Signs/Symptoms as evidenced by GFR:27, BUN: 45, Creatinine: 2.5. Status Active Problem Recommendation Dietitian Recommendations/Changes Will provide Cardiac: sodium restricted diet. Will discontinue ONS ensure enlive 120 ml at medpass as pt with good intake at meals. Will provide further nutrition education as warranted by pt prior to discharge. Lab / Micro Data Result Diagrams: 01/25/21 05:50 01/25/21 05:50 Physical Exam Const alert and oriented x3 General Appearance: cooperative HEENT normocephalic, head/scalp atraumatic, EAC's normal and TM's normal bilaterally Eyes PERRL and EOMs intact bilaterally Pupil: sluggish Neck no lymphadenopathy, supple and no JVD General: trachea midline Lymph Lymphatic: no lymphadenopathy noted, lymphedema and lymphadenopathy Resp normal respiratory effort, normal air movement and clear to auscultation bi laterally Cardio regular rate, regular rhythm and peripheral pulses 2+ throughout GI soft to palpation, non-tender and non-distended Extremity normal capillary refill and no clubbing, cyanosis or edema General Extremity: no tenderness to palpation of joints or extremities Skin no rashes or lesions noted General Skin Exam: turgor normal Lesions: no lesions Rashes: no rashes Neuro CN's II-XII intact bilaterally Speech: speech normal Motor Exam: strength 5/5 throughout; Negative for general weakness Psych thought process normal, cooperative and affect normal Appearance: appropriate Assessment & Plan Assessment/Plan (1) Transitional cell carcinoma of right kidney: PLAN: Status post resection of tumor in the right kidney. Clamped nephrostomy tube today monitor overnight possible removal nephrostomy tube tomorrow.
[2021-01-26] MEDS: Hydrocortisone 10 MG Tablet 20 MG PO (08:20)
[2021-01-26] MEDS: Carvedilol 25 MG Tablet PO ×2 (08:20→21:30)
[2021-01-26] MEDS: Famotidine 20 MG Tablet 40 MG PO (08:21)
[2021-01-26 08:45] VITALS: BP 149/65; PULSE 60; RESP 16; TEMP 36.8; O2SAT 98
[2021-01-26 11:56] VITALS: BP 141/60; PULSE 61; RESP 16; TEMP 36.7; O2SAT 99
[2021-01-26 14:37] VITALS: BP 134/58; PULSE 60; RESP 16; TEMP 36.6; O2SAT 99
[2021-01-26 21:26] VITALS: BP 158/69; PULSE 61; RESP 18; TEMP 36.8; O2SAT 99
[2021-01-26] MEDS: Hydrocortisone 10 MG Tablet 5 MG PO (21:30)
[2021-01-26] MEDS: Pravastatin 40 MG Tablet PO (21:30)
[2021-01-27] MEDS: 0.9% Normal Saline 1,000 ML 150 ML IV ×2 (00:08→05:11)
[2021-01-27 05:09] VITALS: BP 143/63; PULSE 67; RESP 16; TEMP 36.6; O2SAT 98
[2021-01-27 07:56] VITALS: BP 144/56; PULSE 62; RESP 16; TEMP 36.5; O2SAT 100
[2021-01-27 08:04] LABS: Hematocrit 26.1 % (40-54); Hemoglobin 8.2 g/dL (13.0-16.5); Mean Corp Hgb Conc 31.4 g/dL (32-36); Mean Corpuscular Hgb 30.8 pg (27.0-32.0); Mean Corpuscular Volume 98.1 fL (80-94); Mean Platelet Vol. 9.4 fl (6.2-12.0); Platelet Count 138 K/mm3 (150-450); RBC Distribution Width CV 13.7 % (11.6-14.6); RBC Distribution Width SD 48.4 fl (35.1-43.9); Red Blood Count 2.66 M/mm3 (4.6-6.2); White Blood Count 6.6 K/mm3 (4.4-11.0)
[2021-01-27 08:17] LABS: Anion Gap 5 (5-15); BUN 45 mg/dL (7-18); BUN/Creat Ratio 22.3 RATIO (10-20); Calcium,Total 7.9 mg/dL (8.5-10.1); Chloride 119 mmol/L (98-107); Creatinine, Serum 2.02 mg/dL (0.70-1.30); EST Glomerular Filtration Rate 34 mL/min (>60); Est Glom Filt Rate - Afr Amer 41 mL/min (>60); Estimated Creatinine Clearance 30.62 ml/min; Glucose 90 mg/dL (74-106); Potassium 4.3 mmol/L (3.5-5.1); Sodium Level 145 mmol/L (136-145)
[2021-01-27] MEDS: Hydrocortisone 10 MG Tablet 20 MG PO (08:55)
[2021-01-27] MEDS: Famotidine 20 MG Tablet 40 MG PO (08:55)
[2021-01-27] MEDS: Carvedilol 25 MG Tablet PO (08:55)
--- NOTE | 2021-01-27 10:43 | DS.PCM_ITS ---
Providers Date of Admission: 01/24/21 Primary Care Physician: Dr. Suraj Damian MD Reason For Visit: PERCUTANEOUS RESECTION RENAL PELVIS TUMOR,NEPHROST Diagnosis Discharge Diagnosis (1) Transitional cell carcinoma of right kidney: Status: Acute Code(s): C64.1 - Malignant neoplasm of right kidney, except renal pelvis Medications at Discharge Home Medications pravastatin 40 mg PO QHS #0 12/21/13 famotidine 40 mg tablet 40 mg PO DAILY 07/16/18 carvedilol 25 mg tablet 25 mg PO BID 11/17/20 furosemide [Lasix] 40 mg PO PRN PRN 12/26/20 hydrocortisone 5 mg PO QHS 12/26/20 hydrocortisone 20 mg PO DAILY 12/26/20 ciprofloxacin HCl [Cipro] 250 mg PO BID #10 tab 01/24/21 oxycodone-acetaminophen 1 tab PO Q6H PRN 7 Days #14 tab 01/24/21 Hospital Course Summary of Care Provided Hospital Course: Status post resection of transitional cell carcinoma from the right kidney through a percutaneous approach he was observed for several days afterwards in the hospital to make sure that nothing was stable it was his only kidney is a solitary kidney bleeding stopped nephrostomy tube removed and he will be go home today. Physical Exam Const alert and oriented x3 General Appearance: cooperative HEENT normocephalic, head/scalp atraumatic, EAC's normal and TM's normal bilaterally Eyes PERRL and EOMs intact bilaterally Pupil: sluggish Neck no lymphadenopathy, supple and no JVD General: trachea midline Lymph Lymphatic: no lymphadenopathy noted, lymphedema and lymphadenopathy Resp normal respiratory effort, normal air movement and clear to auscultation bilaterally Cardio regular rate, regular rhythm and peripheral pulses 2+ throughout GI soft to palpation, non-tender and non-distended Extremity normal capillary refill and no clubbing, cyanosis or edema General Extremity: no tenderness to palpation of joints or extremities Skin no rashes or lesions noted General Skin Exam: turgor normal Lesions: no lesions Rashes: no rashes Neuro CN's II-XII intact bilaterally Speech: speech normal Motor Exam: strength 5/5 throughout; Negative for general weakness Psych thought process normal, cooperative and affect normal Appearance: appropriate Medical Records Data Medical Nutrition Assessment Dietitian: Nutrition Therapy Diagnosis Start: 01/25/21 10:48 Freq: Status: Active Protocol: Document 01/25/21 11:07 BP (Rec: 01/25/21 11:07 BP [id number]) Nutrition Malnutrition Evidence of Malnutrition Exists No Intake Problem Decreased Nutrient Needs (specify) Etiology sodium related to chronic heart failure and fluid retention Signs/Symptoms as evidenced by BLE 2+ pitting edema. Status Active Problem Clinical Problem Altered Nutrient-Related Laboratory Values Etiology related to kidney dysfunction, CKD stage 3 Signs/Symptoms as evidenced by GFR:27, BUN: 45, Creatinine: 2.5. Status Active Problem Recommendation Dietitian Recommendations/Changes Will provide Cardiac: sodium restricted diet. Will discontinue ONS ensure enlive 120 ml at medpass as pt with good intake at meals. Will provide further nutrition education as warranted by pt prior to discharge. Weight / BMI Weight Weight: 113.6 kg Body Mass Index (BMI) 35.9 ABG / Lab / Microbiology Data Result Diagrams: 01/27/21 07:09 01/27/21 07:09 Laboratory: Laboratory Results - last 24 hr 01/27/21 07:09: WBC 6.6, RBC 2.66 L, Hgb 8.2 L, Hct 26.1 L, MCV 98.1 H, MCH 30.8, MCHC 31.4 L, RDW Std Deviation 48.4 H, RDW Coeff of Deyvi 13.7, Plt Count 13 8 L, MPV 9.4 01/27/21 07:09: Sodium 145, Potassium 4.3, Chloride 119 H, Carbon Dioxide 21.0, Anion Gap 5, BUN 45 H, Creatinine 2.02 H, Estim Creat Clear Calc 30.62, Est GFR (MDRD) Af Amer 41 L, Est GFR (MDRD) Non-Af 34 L, BUN/Creatinine Ratio 22.3 H, Glucose 90, Calcium 7.9 L D/C Instructions Discharge Diet: No restrictions Call your doctor if you observe: Fever of 101 or Higher Please Follow Up With: Domenico Starr MD When: Call [phone] for an appointment Meaningful Use Info Meaningful Use Diagnoses (Choose all that apply): None applicable Discharge Plan Admission Admit Date/Time: 01/24/21 15:54 Primary Reason for Your Visit: percutaneous resection of right renal pelvic tumor, solitary right kidney Attending Provider: Domenico Starr Primary Care Provider: Suraj Damian Chi Discharge Orders/Prescriptions Prescriptions: New ciprofloxacin HCl [Cipro] 250 mg tablet 250 mg PO BID Qty: 10 RF: 0 oxycodone-acetaminophen 5-325 mg tablet 1 tab PO Q6H PRN (Reason: pain) 7 Days Qty: 14 RF: 0 Continued famotidine 40 mg tablet 40 mg PO DAILY RF: 0 carvedilol [Coreg] 25 mg tablet 25 mg PO BID RF: 0 pravastatin 40 MG tablet 40 mg PO QHS Qty: 0 RF: 0 hydrocortisone 10 mg Tablet 5 mg PO QHS RF: 0 furosemide [Lasix] 40 mg tablet 40 mg PO PRN PRN (Reason: water retention) RF: 0 hydrocortisone 10 mg tablet 20 mg PO DAILY RF: 0 Referrals / Follow Up: Doemnico Starr MD [STAFF PHYSICIAN] - Suraj Damian Chi, MD [Primary Care Provider] - Disposition Discharge Orders: Discharge Patient (Routine); Ordered 01/27/21 Ordered By: Dr. Domenico Starr
== END 2021-01-27 11:56 | disposition home or self-care (01) ==
LOC: MS3 17:41 → SDC 01-26 10:49
PROVIDERS: Admitting Provider Urology; PCP Family Medicine Geriatric Medicine; Referring Provider Urology; Visit Provider Urology
PROC: (CPT 50562; principal; 2021-01-24 11:55)
DX: C64.1 Malignant neoplasm of right kidney, except renal pelvis (principal); I13.0 Hypertensive heart and chronic kidney disease with heart failure and stage 1 through stage 4 chronic kidney disease, or unspecified chronic kidney disease; I50.22 Chronic systolic (congestive) heart failure; N18.32 Chronic kidney disease, stage 3b; C83.30 Diffuse large B-cell lymphoma, unspecified site; K21.9 Gastro-esophageal reflux disease without esophagitis; E78.5 Hyperlipidemia, unspecified; E66.9 Obesity, unspecified; G47.33 Obstructive sleep apnea (adult) (pediatric); I42.8 Other cardiomyopathies; I48.0 Paroxysmal atrial fibrillation; Z95.0 Presence of cardiac pacemaker; Z87.891 Personal history of nicotine dependence; Z79.899 Other long term (current) drug therapy; Z68.35 Body mass index [BMI] 35.0-35.9, adult
CPT/HCPCS: 00862; 50562; 36415; 74018; 76000; 80048; 85027; 96361; 96365; 96366; 97802; 99218; J7030; J7050; J7120; A4216; C1758; C1769; G0378; J2405

== ENCOUNTER → 2021-02-06 09:33 | Outpatient (CLI) | payer MEDICARE, SELFPAY ==
[2021-01-01 05:46] VITALS: BMI 39.9
[2021-01-24 16:45] VITALS: BMI 35.9
[2021-02-06 12:25] LABS: Absolute Lymphocyte Count 0.45 X10^3/uL (0.83-4.51); Basophil# 0.02 X10^3/uL; Basophil% 0.2 % (0-1); Eosinophil# 0.06 X10^3/uL; Eosinophils% 0.5 % (0-5); Hematocrit 30.3 % (40-54); Hemoglobin 9.6 g/dL (13.0-16.5); Lymphocyte # 0.45 X10^3/ul (0.83-4.51); Mean Corp Hgb Conc 31.7 g/dL (32-36); Mean Corpuscular Volume 97.7 fL (80-94); Mean Platelet Vol. 9.2 fl (6.2-12.0); Monocyte# 0.55 X10^3/uL; Monocyte% 4.9 % (0-10); NRBC Flagged by Analyzer 0 % (0-5); Neutrophil % 89.8 % (47-70); POSITIVE DIFFERENTIAL YES; Platelet Count 228 K/mm3 (150-450); RBC Distribution Width CV 13.7 % (11.6-14.6); RBC Distribution Width SD 48.8 fl (35.1-43.9); White Blood Count 11.2 K/mm3 (4.4-11.0)
[2021-02-06 12:28] LABS: Differential Indicated SCAN CRITERIA MET
[2021-02-06 12:46] LABS: ALB/GLOB Ratio 1.1 RATIO (0.9-2.4); AST(SGOT) 14 U/L (15-37); Alanine Aminotransfer ALT/SGPT 21 U/L (16-61); Albumin, Serum 3.2 g/dL (3.2-5.0); Alkaline Phosphatase 71 U/L (45-117); Anion Gap 7 (5-15); BUN 29 mg/dL (7-18); BUN/Creat Ratio 15.3 RATIO (10-20); Calcium,Total 8.6 mg/dL (8.5-10.1); Chloride 110 mmol/L (98-107); Creatinine, Serum 1.89 mg/dL (0.70-1.30); EST Glomerular Filtration Rate 37 mL/min (>60); Est Glom Filt Rate - Afr Amer 44 mL/min (>60); Glucose 101 mg/dL (74-106); Phosphorus 3.6 mg/dL (2.5-4.9); Potassium 4.2 mmol/L (3.5-5.1); Protein, Total 6.2 g/dL (6.4-8.2); Sodium Level 142 mmol/L (136-145); Thyroid Stim Hormone (TSH) 2.84 uIU/mL (0.358-3.74); Uric Acid 6.2 mg/dL (3.5-7.2)
[2021-02-06 12:52] LABS: Hypochromasia 1+; Platelet Estimate ADEQUATE (ADEQ)
[2021-02-06 15:31] LABS: Vitamin D,25 Hydroxy 23.9 ng/mL
== END ==
PROVIDERS: PCP Family Medicine Geriatric Medicine; Visit Provider Internal Medicine Nephrology
DX: N17.9 Acute kidney failure, unspecified (principal); I12.9 Hypertensive chronic kidney disease with stage 1 through stage 4 chronic kidney disease, or unspecified chronic kidney disease; N18.31 Chronic kidney disease, stage 3a; D50.9 Iron deficiency anemia, unspecified; E23.6 Other disorders of pituitary gland; E55.9 Vitamin D deficiency, unspecified; M10.9 Gout, unspecified
CPT/HCPCS: 36415; 80053; 82306; 84100; 84403; 84443; 84550; 85025

== ENCOUNTER → 2021-04-17 11:07 | Outpatient (CLI) | payer MEDICARE, SELFPAY ==
--- NOTE | 2021-04-17 | CYSPIN_PTH ---
PATIENT: DANITZA JAIN LOC: LAB U#:[id number] AGE/SX: 84/M ROOM: RE04/17/[address]: Dr. Domenico Starr MD : 1940 BED: DIS: SPEC #: [id number] RECD: 04/18/21 10:55 STATUS: MENDY REQ #: [id number] MARSHAL: 04/17/21 00:[address]: Domenico Starr DEPT: CYTOLOGY RECD BY: Dipti Farmer ENTERED: 04/18/21 10:56 SP TYPE: CYSPIN FL OTHR DR: Dr. 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 AM:tiarra 04/19/2021 COMMENT Reference is made to the patient's urine for cytology ([id number]) with similar findings. Case has been reviewed in consultation with Dr. Navarrete who concurs with the above diagnosis. IDC:SJ CYTOLOGY STUDY Slides are reviewed. CYTOLOGY GROSS Received is 20.5 ml of dark yellow cloudy fluid labeled with the patient's name and and designated per the requisition as urine. Submitted for cytology preparation. / tiarra 04/18/2021 TC:0 CPT: 29397
[2021-04-17 12:11] LABS: PSA,Total- Diagnostic 0.02 ng/mL (0.0-4.0)
[2021-04-17 17:02] LABS: Cytology, Body Fluid / CSF SEE PATHOLOGY REPORT
== END ==
PROVIDERS: PCP Family Medicine Geriatric Medicine; Referring Provider Urology; Visit Provider Urology
DX: C61 Malignant neoplasm of prostate (principal)
CPT/HCPCS: 36415; 84153; 88108; 88313

== ENCOUNTER 2021-05-09 06:53 | Day surgery (SDC) | payer MEDICARE, SELFPAY ==
[2021-05-03 14:43] LABS: Hematocrit 41.7 % (40-54); Hemoglobin 13.4 g/dL (13.0-16.5); Mean Corp Hgb Conc 32.1 g/dL (32-36); Mean Corpuscular Hgb 29.5 pg (27.0-32.0); Mean Corpuscular Volume 91.6 fL (80-94); Mean Platelet Vol. 9.3 fl (6.2-12.0); Platelet Count 160 K/mm3 (150-450); RBC Distribution Width CV 14.4 % (11.6-14.6); RBC Distribution Width SD 47.8 fl (35.1-43.9); Red Blood Count 4.55 M/mm3 (4.6-6.2); White Blood Count 8.9 K/mm3 (4.4-11.0)
[2021-05-03 15:02] LABS: Anion Gap 9 (5-15); BUN 32 mg/dL (7-18); BUN/Creat Ratio 15.9 RATIO (10-20); Calcium,Total 9.2 mg/dL (8.5-10.1); Chloride 107 mmol/L (98-107); Creatinine, Serum 2.01 mg/dL (0.70-1.30); EST Glomerular Filtration Rate 34 mL/min (>60); Est Glom Filt Rate - Afr Amer 41 mL/min (>60); Glucose 98 mg/dL (74-106); Potassium 4.4 mmol/L (3.5-5.1); Sodium Level 141 mmol/L (136-145)
[2021-05-09 07:14] VITALS: BP 177/66; PULSE 67; RESP 16; TEMP 36.1; O2SAT 100; BMI 37.0
[2021-05-09] MEDS: Lactated Ringers 1,000 ML 100 ML IV (07:18)
--- NOTE | 2021-05-09 08:55 | BLA_PTH ---
PATIENT: DANITZA JAIN LOC: [facility] [place] U#:[id number] AGE/SX: 80/M ROOM: RE05/09/[address]: Dr. Domenico Starr MD : 1940 BED: DIS: 05/09/2021 SPEC #: [id number] RECD: 05/09/21 10:12 STATUS: MENDY REAngeles #: [id number] MARSHAL: 05/09/21 08:[address]: Domenico Starr DEPT: SURGICAL PATHOLOGY RECD BY: Francoise Carty ENTERED: 05/09/21 13:30 SP TYPE: BLADDER BX OTHR DR: Dr. Suraj Damian MD Tissues: Urinary bladder, NOS Procedures: Surgery Specimen Level IV HEADER OPERATION: Cysto, ureteroscopy PRE-OP DIAGNOSIS: Transitional cell carcinoma of right kidney TISSUE SUBMITTED: Biopsy of bladder MICROSCOPIC DIAGNOSIS Bladder, biopsy: A minute fragment of urothelial mucosa with flat urothelial carcinoma in situ. Moderate chronic inflammation. See comment. AMBERLY:tiarra 05/10/2021 COMMENT Overlying epithelium is predominantly denuded. Lamina propria or lymphvascular invasion is not seen. Detrusor muscle is not present in the specimen. 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 and ([id number], [id number] and [id number]) urine for cytology with diagnosis of ?positive for malignant cells.? Case has been reviewed in consultation with Dr. Roca who concurs with the above diagnosis. IDC:AM MICROSCOPIC DESCRIPTION Slides are reviewed. GROSS DESCRIPTION Received in fixative is one container labeled with the patient's name and designated biopsy of bladder. The specimen consists of one minute fragment of alonzo soft tissue measuring <0.1 cm in greatest dimension. The entire specimen is submitted in one cassette. / AMBERLY:tiarra 05/09/21 TC:0 CPT: 27827
--- NOTE | 2021-05-09 08:55 | PCM.HP.STD ---
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 He has a history of transitional cell carcinoma involving the right kidney is a solitary right kidney. [facility] Medical History AAA (abdominal aortic aneurysm) Arthritis Back pain Body mass index (BMI) 35 or more Cancer Cardiac pacemaker in situ (01/02/15) Cardiology follow-up encounter Chronic systolic (congestive) heart failure CKD (chronic kidney disease) stage 3, GFR 30-59 ml/min Community acquired pneumonia Congestive heart failure (CHF) CPAP (continuous positive airway pressure) dependence Diffuse large B cell lymphoma Dyspnea on exertion Esophageal reflux Former smoker Gastric reflux Gout Gout High cholesterol History of CHF (congestive heart failure) History of diverticulitis History of edema History of non-Hodgkin's lymphoma History of pacemaker History of pituitary adenoma History of pituitary tumor History of renal disease History of steroid therapy History of steroid therapy History of stress test History of ulceration Hx of echocardiogram Hyperlipidemia Hypertension Hyponatremia Increasing prostate specific antigen level Kidney disease Malignant lymphoma of extranodal and solid organ sites Mobitz (type) II atrioventricular block MRSA (methicillin resistant staphylococcus aureus) pneumonia Non-ischemic cardiomyopathy PORTILLO (obstructive sleep apnea) Pacemaker PAF (paroxysmal atrial fibrillation) Pericardial effusion Pleural effusion Prostate cancer Prostate disease Secondary adrenal insufficiency Shortness of breath on exertion Simple obesity Sleep apnea SSS (sick sinus syndrome) Wears partial dentures Home Medications pravastatin 40 mg PO QHS #0 12/21/13 [History Last Taken 12/26/20] famotidine 40 mg tablet 40 mg PO DAILY 07/16/18 [History Last Taken 05/09/21] furosemide [Lasix] 40 mg PO PRN PRN 12/26/20 [History Last Taken 12/26/20] carvedilol 25 mg tablet 25 mg PO BID #180 tab 02/06/21 [Rx Last Taken Unknown] allopurinol 300 mg PO DAILY 05/02/21 [History Last Taken Unknown] hydrocortisone 10 mg PO QHS 05/02/21 [History Last Taken Unknown] hydrocortisone 20 mg PO DAILY 05/02/21 [History Last Taken Unknown] potassium chloride 20 meq PO PRN PRN 05/02/21 [History Last Taken Unknown] ciprofloxacin HCl [Cipro] 250 mg PO BID #6 tab 05/09/21 [Rx Last Taken Unknown] Allergy/AdvReac Type Severity Reaction Status Date / Time lisinopril Allergy Swelling Verified 05/09/21 07:10 shellfish derived Allergy Angioedema Verified 05/09/21 07:10 aspirin AdvReac GI BLEED, Verified 05/09/21 07:10 UPPER Family History Father FH: kidney cancer Mother Heart disease Diabetes Surgical History History of cardiac catheterization History of cystoscopy History of surgical removal of pituitary gland History of vascular access device Hx of lymph node biopsy Hx of nephrostomy Status post transsphenoidal pituitary resection Social History Smoking Status: Former smoker quit date: 06/30/81 pack-years: 20 how long ago did patient quit smokin second hand exposure: No alcohol intake: never substance use type: does not use caffeine: Yes Type: coffee Number of servings: 3 what type of physical activity do you participate in: none axvi/religious: Latter-Day seatbelt use: always do you feel safe at home: Yes Vital Signs Vital Signs Vital Signs: 05/09/21 07:14 Temperature 96.9 F L Temperature Source Temporal Pulse Rate 67 Respiratory Rate 16 Respiratory Pattern Normal Blood Pressure 177/66 H Blood Pressure Mean 103 Blood Pressure Source Monitor Blood Pressure Position Semi-Fowlers Blood Pressure Location Right Arm Pulse Ox 100 Oxygen Delivery Method Room Air Weight Weight: 117 kg Body Mass Index (BMI) 37.0 Physical Exam Const alert and oriented x3 General Appearance: cooperative HEENT normocephalic, head/scalp atraumatic, EAC's normal and TM's normal bilaterally Eyes PERRL and EOMs intact bilaterally Pupil: sluggish Neck no lymphadenopathy, supple and no JVD General: trachea midline Lymph Lymphatic: no lymphadenopathy noted, lymphedema and lymphadenopathy Resp normal respiratory effort, normal air movement and clear to auscultation bilaterally Cardio regular rate, regular rhythm and peripheral pulses 2+ throughout GI soft to palpation, non-tender and non-distended Extremity normal capillary refill and no clubbing, cyanosis or edema General Extremity: no tenderness to palpation of joints or extremities Skin no rashes or lesions noted General Skin Exam: turgor normal Lesions: no lesions Rashes: no rashes Neuro CN's II-XII intact bilaterally Speech: speech normal Motor Exam: strength 5/5 throughout; Negative for general weakness Psych thought process normal, cooperative and affect normal Appearance: appropriate Results Lab / Micro Data Result Diagrams: 05/03/21 14:16 05/03/21 14:16 Assessment & Plan Assessment/Plan (1) Transitional cell carcinoma of right kidney:
--- NOTE | 2021-05-09 08:58 | PCM.DC ---
Discharge Instructions Diet Discharge Diet: No restrictions Activity Discharge Activity: Return to Normal Activity and May Not Drive (while taking narcotic pain medications.) Dressing / Incision Call your doctor if you observe: Fever of 101 or Higher Follow Up Care Please Follow Up With: Domenico Starr MD When: Call [phone] for an appointment Test Results: Test results from this visit will be discussed in further detail at your follow-up appointment, if applicable. Discharge Plan Admission Primary Reason for Your Visit: solitray right kidney with TCC Attending Provider: Domenico Starr Primary Care Provider: Suraj Damian Chi Discharge Orders/Prescriptions Prescriptions: New ciprofloxacin HCl [Cipro] 250 mg tablet 250 mg PO BID Qty: 6 RF: 0 Continued famotidine 40 mg tablet 40 mg PO DAILY RF: 0 pravastatin 40 MG tablet 40 mg PO QHS Qty: 0 RF: 0 furosemide [Lasix] 40 mg tablet 40 mg PO PRN PRN (Reason: water retention) RF: 0 potassium chloride 20 mEq Tablet,Er Particles/Crystals 20 meq PO PRN PRN (Reason: WITH USE OF LASIX) RF: 0 hydrocortisone 20 mg Tablet 10 mg PO QHS RF: 0 allopurinol 300 mg Tablet 300 mg PO DAILY RF: 0 hydrocortisone 10 mg tablet 20 mg PO DAILY RF: 0 carvedilol [Coreg] 25 mg tablet 25 mg PO BID Qty: 180 RF: 3 Referrals / Follow Up: Suraj Damian Chi, MD [Primary Care Provider] - Disposition Disposition (needs filled in before D/C Order can be placed): Home, Self Care
[2021-05-09] MEDS: Cefazolin 2 GM in 0.9% Normal Saline 100 ML IV (09:06)
--- NOTE | 2021-05-09 09:39 | OP.PCM_ITS ---
Report of Operation Date of Procedure: 05/09/21 Pre-Operative Diagnosis: History of transitional cell carcinoma of the right so litary kidney history of bladder cancer Post-Operative Diagnosis: Same Surgery/Procedure Performed:: Cystoscopy biopsy of lesion in the back of the bladder and fulguration of the site, right ureteroscopy and fulguration of a small right renal pelvic tumor, laser lithotripsy of a stone in the right renal pelvis. No stent placement. Description of Surgical Findings:: Indication is a 80-year-old male with a solitary right kidney was found to have spontaneous bleeding and when I did ureteroscopy was found to have a tumor in the right renal pelvis a biopsy was done and this proved to be transitional cell carcinoma not invasive given the fact is a solitary right kidney we have elected to proceed with organ sparing approach and he is undergone a resection of this tumor in the past that was successful and then at this point urine cytology was checked and came back positive with cancer cells Patsy proceed with a diagnostic cystoscopy ureteroscopy and possible biopsy and fulguration of any lesions detected during the evaluation. Patient was taken back to the operating room after smooth induction of general anesthesia he was placed in dorsolithotomy position. The penis and testicles were prepped and draped in usual sterile fashion, I went into the bladder with a 21 [place] rigid cystourethroscope the entire length the urethra was normal the prostate is slightly obstructive at the bladder neck there was an area of prior fulguration from a prior tumor this looked completely treated once inside the bladder inspected the bladder the trigone was identified and normal in the posterior aspect the bladder there was a raised flat lesion that looks suspicious for carcinoma a biopsy of this was done with a cold cup biopsy forcep and sent off of the specimen I then used the Bugbee electrode and sent it to 80 on the coag and cauterized the site completely after this biopsy site was cauterized completely then I cannulated the right ureter orifice with a wire advanced up into the kidney over the wire went in with an 8 [place] Olympus flexible ureteroscope I went up the wire with the ureteroscope once I got into the renal pelvis I inspected in the medial aspect of the renal pelvis was clear on the lateral aspect of the renal pelvis was a few small papillary-looking lesions in the kidney but this is very small and there was a stone also in the upper part of the kidney I 1st treated the papillary lesions with the Bugbee electrode and this was treated successfully. I then used 270 ?m laser fiber laser the stone that was in the renal pelvis of the kidney once the stone was completely lasered I then used the Bugbee electrode to cauterize small is a little bit more of the papillary lesions there were no more papillary lesions seen x-ray is very pleased with the result the renal pelvis is actually fairly clear the rest of the ureter coming down was clear of any tumors no other tumors in the bladder so at this point given his recurrence I think we will get a set him up for mitomycin-C treatments of the bladder and the in the kidney probably weekly instillations for 6 weeks to help prevent further recurrences. Surgeon: lay Type of Anesthesia: General Specimen's removed: bladder lesion biopsy Drains: none Admit VTE Documentation VTE Present on Admission: No VTE Mechan Device Prophylaxis: SCD's VTE Pharm Prophylaxis ordered?: No
[2021-05-09 09:51] VITALS: BP 152/80; BP 177/66; PULSE 63; RESP 18; TEMP 36.2; O2SAT 93
[2021-05-09 10:00] VITALS: BP 148/68; BP 177/66; PULSE 61; RESP 16; O2SAT 97
[2021-05-09 10:15] VITALS: BP 162/78; BP 177/66; PULSE 61; RESP 16; O2SAT 99
[2021-05-09 10:27] VITALS: BP 161/71; BP 177/66; PULSE 61; RESP 16; TEMP 35.6; O2SAT 99
[2021-05-09 10:45] VITALS: BP 177/66
== END 2021-05-09 11:41 ==
LOC: SDC 06:54 → AC 06:54
PROVIDERS: Anesthesiology; PCP Family Medicine Geriatric Medicine; Referring Provider Urology; Visit Provider Urology
PROC: 0TBB8ZX Excision of Bladder, Via Natural or Artificial Opening Endoscopic, Diagnostic (ICD-10-PCS; CPT 52235; principal; 2021-05-09 08:45)
PROC: (CPT 50575; 2021-05-09 08:45)
DX: C64.1 Malignant neoplasm of right kidney, except renal pelvis (principal); D09.0 Carcinoma in situ of bladder; Q60.0 Renal agenesis, unilateral; I50.22 Chronic systolic (congestive) heart failure; I13.0 Hypertensive heart and chronic kidney disease with heart failure and stage 1 through stage 4 chronic kidney disease, or unspecified chronic kidney disease; K21.9 Gastro-esophageal reflux disease without esophagitis; E78.5 Hyperlipidemia, unspecified; G47.33 Obstructive sleep apnea (adult) (pediatric); N18.32 Chronic kidney disease, stage 3b; I48.0 Paroxysmal atrial fibrillation; E66.9 Obesity, unspecified; I42.8 Other cardiomyopathies; M10.9 Gout, unspecified; Z68.37 Body mass index [BMI] 37.0-37.9, adult; Z85.51 Personal history of malignant neoplasm of bladder; Z95.0 Presence of cardiac pacemaker; Z87.891 Personal history of nicotine dependence; Z79.899 Other long term (current) drug therapy
CPT/HCPCS: 52235; 52353; 52354; 36415; 80048; 85027; 88305; J7120; C1769; J2405

== ENCOUNTER → 2021-05-22 10:56 | Outpatient (CLI) | payer MEDICARE, SELFPAY ==
[2021-05-22 11:19] LABS: Hematocrit 41.7 % (40-54); Hemoglobin 13.6 g/dL (13.0-16.5); Mean Corp Hgb Conc 32.6 g/dL (32-36); Mean Corpuscular Hgb 29.4 pg (27.0-32.0); Mean Corpuscular Volume 90.3 fL (80-94); Mean Platelet Vol. 9.5 fl (6.2-12.0); Platelet Count 165 K/mm3 (150-450); RBC Distribution Width CV 14.6 % (11.6-14.6); RBC Distribution Width SD 48.2 fl (35.1-43.9); Red Blood Count 4.62 M/mm3 (4.6-6.2); White Blood Count 9.7 K/mm3 (4.4-11.0)
== END ==
PROVIDERS: PCP Family Medicine Geriatric Medicine; Referring Provider Internal Medicine Nephrology; Visit Provider Internal Medicine Nephrology
DX: N17.9 Acute kidney failure, unspecified (principal); D50.9 Iron deficiency anemia, unspecified
CPT/HCPCS: 36415; 85027

== ENCOUNTER → 2021-05-23 13:10 | Outpatient (CLI) | payer MEDICARE, SELFPAY ==
[2021-05-23 16:34] LABS: Albumin, Serum 3.3 g/dL (3.2-5.0); BUN 28 mg/dL (7-18); BUN/Creat Ratio 13.7 RATIO (10-20); Calcium,Total 9.4 mg/dL (8.5-10.1); Chloride 109 mmol/L (98-107); Creatinine, Serum 2.04 mg/dL (0.70-1.30); EST Glomerular Filtration Rate 34 mL/min (>60); Est Glom Filt Rate - Afr Amer 41 mL/min (>60); Glucose 111 mg/dL (74-106); Phosphorus 3.9 mg/dL (2.5-4.9); Potassium 4.5 mmol/L (3.5-5.1); Sodium Level 143 mmol/L (136-145)
[2021-05-23 16:38] LABS: Protein, Urine (Random) 30.5 mg/dL (<11.9); Protein:Creat Ratio 218 mg/g CRE (0-200)
== END ==
PROVIDERS: PCP Family Medicine Geriatric Medicine; Visit Provider Internal Medicine Nephrology
DX: N17.9 Acute kidney failure, unspecified (principal); D50.9 Iron deficiency anemia, unspecified
CPT/HCPCS: 80069; 82570; 84156

== ENCOUNTER → 2021-06-18 10:45 | Outpatient (CLI) | payer MEDICARE, SELFPAY ==
[2021-06-18 12:50] LABS: BUN 30 mg/dL (7-18); BUN/Creat Ratio 13.3 RATIO (10-20); Calcium,Total 9.1 mg/dL (8.5-10.1); Chloride 107 mmol/L (98-107); Creatinine, Serum 2.25 mg/dL (0.70-1.30); EST Glomerular Filtration Rate 30 mL/min (>60); Est Glom Filt Rate - Afr Amer 36 mL/min (>60); Glucose 102 mg/dL (74-106); Phosphorus 3.7 mg/dL (2.5-4.9); Potassium 3.7 mmol/L (3.5-5.1); Sodium Level 142 mmol/L (136-145)
== END ==
PROVIDERS: PCP Family Medicine Geriatric Medicine; Visit Provider Internal Medicine Nephrology
DX: N18.32 Chronic kidney disease, stage 3b (principal); D50.9 Iron deficiency anemia, unspecified
CPT/HCPCS: 36415; 80069

== ENCOUNTER 2021-07-12 10:56 | Outpatient (CLI) | payer MEDICARE, SELFPAY ==
--- NOTE | 2021-07-12 10:59 | RAD_ITS ---
EXAM: XR CHEST, 2 VIEWS CLINICAL INDICATION: SOB TECHNIQUE: Frontal and lateral views of the chest. This report was created using Done In :60 Seconds report generation technology. COMPARISON: Chest x-ray 01/03/2021. FINDINGS: LUNGS AND PLEURAL SPACES: Minimal linear opacities at the bases probably represent scarring or subsegmental atelectasis. No pneumothorax. No effusion. HEART: Unremarkable. Cardiac silhouette not enlarged. MEDIASTINUM: Central airways and mediastinal contour are unremarkable. BONES/JOINTS: Single frontal view of the chest with multilevel spine degenerative changes. Degenerative changes of spine. Diffuse osteopenia. SOFT TISSUES: Unremarkable. TUBES, LINES AND DEVICES: Stable left-sided AICD/pacer. RAD/Chest PA and Lateral IMPRESSION: No acute disease. Electronically Signed: Joseph Calderon MD at 0:49 EST Tel , Service support ,
[2021-07-12 12:08] LABS: Anion Gap 9 (5-15); BUN 36 mg/dL (7-18); BUN/Creat Ratio 14.4 RATIO (10-20); Calcium,Total 9.2 mg/dL (8.5-10.1); Chloride 107 mmol/L (98-107); EST Glomerular Filtration Rate 27 mL/min (>60); Est Glom Filt Rate - Afr Amer 32 mL/min (>60); Glucose 112 mg/dL (74-106); Potassium 4.2 mmol/L (3.5-5.1); Sodium Level 142 mmol/L (136-145)
[2021-07-12 12:09] LABS: BNP,B-Type NATRIURETIC PEPTIDE 341.5 pg/mL (0-100)
== END 2021-07-12 23:59 | disposition short-term general hospital (02) ==
PROVIDERS: PCP Family Medicine Geriatric Medicine; Referring Provider Nurse Practitioner Family; Visit Provider Nurse Practitioner Family
DX: I50.22 Chronic systolic (congestive) heart failure (principal); I42.8 Other cardiomyopathies; R06.00 Dyspnea, unspecified
CPT/HCPCS: 36415; 71046; 80048; 83880

== ENCOUNTER 2021-07-23 12:42 | Outpatient (CLI) | payer MEDICARE, SELFPAY ==
--- NOTE | 2021-07-23 12:49 | ECHOCS_ITS ---
Reason For Study: PAF Procedure This was a 2D Doppler, Color Flow transthoracic echocardiogram. The study was technically difficult. Contrast injection was performed. Exam performed in department. Left Ventricle Normal LV size. The estimated ejection fraction is 37 %. Stage 1 diastolic dysfunction. [place] : Severely Hypokinetic. Right Ventricle Normal RV size. ICD or pacer leads identified within the right ventricle. Normal systolic function. Mitral Valve Normal mitral valve. Mild-Moderate (1-2+) eccentric mitral valve insufficiency. Tricuspid Valve Normal tricuspid valve. Mild (1+) tricuspid valve insufficiency. Pulmonary artery systolic pressure is 26 mmHg. Aortic Valve Trisinus/trileaflet aortic valve. Mild diffuse aortic valve thickening. Peak aortic valve gradient 46 mmHg. Mean aortic valve gradient 23.5 mmHg. Mild (1+) eccentric aortic valve insufficiency. Pulmonic Valve Normal pulmonic valve. Mild (1+) pulmonic valve insufficiency. Great Vessels Normal aortic root. The pulmonary artery is normal size. Normal inferior vena cava. Pericardium/Pleural No pericardial effusion. Medication 22 gauge I.V. with prn adaptor inserted into right arm. Diluted definity 3ml given slow IV push to enhance endocardial definition. MMode/2D Measurements & Calculations LVIDd: 6.6 cm IVSd: 1.1 cm LVOT diam: 2.0 cm LVIDs: 4.1 cm LVPWd: 1.0 cm LVOT area: 3.2 cm2 RVDd: 3.9 cm FS: 38.1 % Ao root diam: 4.1 cm LAV(MOD-bp): 55.7 ml Aortic Valve Planimetry: 0.98 cm2 ACS: 0.84 cm LAV(MOD-bp) Indexed: 23.9 ml/m2 LA dimension: 4.9 cm LAV(MOD-sp2): 50.5 ml LAV(MOD-sp4): 58.3 ml LA A4 area: 20.9 cm2 RA A4 area: 15.8 cm2 Time Measurements MV dec time: 0.39 sec Doppler Measurements & Calculations MV E max terrence: 67.1 cm/sec Lat Peak E' [place]: 3.9 cm/sec Med Peak E' [place]: 4.5 cm/sec MV A max [place]: 109.7 cm/sec E/E' lat: 17.0 E/E' med: 15.1 MV E/A: 0.61 MV V2 max: 121.0 cm/sec MV P1/2t max [place]: 66.0 cm/sec Ao V2 max: 336.4 cm/sec MV max P.9 mmHg MV P1/2t: 156.6 msec Ao max P.3 mmHg MV V2 mean: 63.2 cm/sec MV dec slope: 123.4 cm/sec2 Ao V2 mean: 225.5 cm/sec MV mean P.9 mmHg Ao mean P.5 mmHg MV V2 VTI: 33.1 cm MVA(P1/2t): 1.4 cm2 Ao V2 VTI: 79.0 cm MVA(VTI): 2.4 cm2 GILMA(I,D): 0.99 cm2 GILMA(V,D): 0.95 cm2 AI max terrence: 372.9 cm/sec LV V1 max: 99.2 cm/sec MR max terrence: 561.7 cm/sec AI max P.7 mmHg LV V1 max P.9 mmHg MR max P.2 mmHg LV V1 mean P.1 mmHg MR mean terrence: 406.4 cm/sec AI dec slope: 193.5 cm/sec2 LV V1 mean: 67.0 cm/sec MR mean P.7 mmHg AI P1/2t: 564.4 msec LV V1 VTI: 24.3 cm MR VTI: 227.3 cm SV(LVOT): 78.5 ml PA V2 max: 98.4 cm/sec TR max terrence: 227.2 cm/sec TR max P.7 mmHg ECHO/Echo Complete W/ Contrast Interpretation Summary Normal LV size. The estimated ejection fraction is 37 %. [place] : Severely Hypokinetic. Stage 1 diastolic dysfunction. Contrast injection was performed. Compared to previous study, the left ventricu lar systolic function is the same.. Ordering Physician: Suraj Kendall Referring Physician: Suraj Damian Chi Performed By: Trace Cristina RCS
== END 2021-07-23 23:59 | disposition short-term general hospital (02) ==
LOC: CVS 12:43
PROVIDERS: PCP Family Medicine Geriatric Medicine; Visit Provider Nurse Practitioner Family
DX: I48.0 Paroxysmal atrial fibrillation (principal)
CPT/HCPCS: 93306; Q9957; A4216; C8929

== ENCOUNTER 2021-08-07 10:02 | Outpatient (CLI) | payer MEDICARE, SELFPAY ==
[2021-08-07 12:17] LABS: Absolute Lymphocyte Count 0.66 X10^3/uL (0.83-4.51); Absolute Neutrophil Count 6.4 X10^3/uL (2.0-7.7); Basophil# 0.04 X10^3/uL; Basophil% 0.5 % (0-1); Eosinophil# 0.13 X10^3/uL; Eosinophils% 1.6 % (0-5); Hematocrit 38.5 % (40-54); Hemoglobin 12.5 g/dL (13.0-16.5); Lymphocyte # 0.66 X10^3/ul (0.83-4.51); Lymphocyte % 8.3 % (19-41); Mean Corp Hgb Conc 32.5 g/dL (32-36); Mean Corpuscular Hgb 30.1 pg (27.0-32.0); Mean Corpuscular Volume 92.8 fL (80-94); Mean Platelet Vol. 9.4 fl (6.2-12.0); Monocyte# 0.71 X10^3/uL; NRBC Flagged by Analyzer 0 % (0-5); Neutrophil # 6.35 X10^3/uL (2.7-7.7); Neutrophil % 80.1 % (47-70); Platelet Count 185 K/mm3 (150-450); RBC Distribution Width CV 14.7 % (11.6-14.6); RBC Distribution Width SD 49.7 fl (35.1-43.9); Red Blood Count 4.15 M/mm3 (4.6-6.2); White Blood Count 7.9 K/mm3 (4.4-11.0)
[2021-08-07 12:40] LABS: Vitamin D,25 Hydroxy 16.4 ng/mL
[2021-08-07 13:20] LABS: ALB/GLOB Ratio 1.1 RATIO (0.9-2.4); AST(SGOT) 18 U/L (15-37); Alanine Aminotransfer ALT/SGPT 23 U/L (16-61); Albumin, Serum 3.4 g/dL (3.2-5.0); Alkaline Phosphatase 70 U/L (45-117); Anion Gap 11 (5-15); BUN 34 mg/dL (7-18); Calcium,Total 9.2 mg/dL (8.5-10.1); Chloride 106 mmol/L (98-107); Creatinine, Serum 2.43 mg/dL (0.70-1.30); EST Glomerular Filtration Rate 27 mL/min (>60); Est Glom Filt Rate - Afr Amer 33 mL/min (>60); Globulin 3.2 g/dL (2.2-4.2); Glucose 100 mg/dL (74-106); Potassium 3.9 mmol/L (3.5-5.1); Protein, Total 6.6 g/dL (6.4-8.2); Sodium Level 140 mmol/L (136-145); Thyroid Stim Hormone (TSH) 3.42 uIU/mL (0.358-3.74); Uric Acid 8.8 mg/dL (3.5-7.2)
== END 2021-08-07 23:59 | disposition home or self-care (01) ==
LOC: POLAB3 10:04
PROVIDERS: PCP Family Medicine Geriatric Medicine; Visit Provider Family Medicine Geriatric Medicine
DX: E23.6 Other disorders of pituitary gland (principal); E55.9 Vitamin D deficiency, unspecified; I10 Essential (primary) hypertension; M10.9 Gout, unspecified
CPT/HCPCS: 36415; 80053; 82306; 84403; 84443; 84550; 85025

== ENCOUNTER 2021-08-15 09:38 | Day surgery (SDC) | payer MEDICARE, SELFPAY ==
[2021-08-15] MEDS: Lactated Ringers 1,000 ML 15 ML IV (10:05)
[2021-08-15 10:06] VITALS: BP 163/67; PULSE 62; RESP 18; TEMP 36.4; O2SAT 100; BMI 36.0
--- NOTE | 2021-08-15 11:55 | TISS_PTH ---
PATIENT: DANITZA JAIN LOC: [facility] [place] U#:[id number] AGE/SX: 81/M ROOM: RE08/15/[address]: Dr. Domenico Starr MD : 1940 BED: DIS: 08/15/2021 SPEC #: [id number] RECD: 08/15/21 13:19 STATUS: MENDY [place]eles #: [id number] MARSHAL: 08/15/21 11:[address]: Domenico Starr DEPT: SURGICAL PATHOLOGY RECD BY: Dipti Farmer ENTERED: 08/16/21 07:44 SP TYPE: Tissue Bx OT DR: Dr. Suraj Damian MD Tissues: Pelvis, NOS Procedures: Surgery Specimen Level IV HEADER OPERATION: Cystoscopy, right ureteroscopy, biopsy of right renal pelvis PRE-OP DIAGNOSIS: History of bladder CA; right renal pelvic CA TISSUE SUBMITTED: Biopsy from right renal pelvis MICROSCOPIC DIAGNOSIS Right renal pelvis, biopsy: Scant minute fragment of epithelium, insufficient for further evaluation. See comment. AMBERLY:tiarra 08/17/2021 COMMENT Clinical correlation and appropriate follow up are necessary. Please make reference to previous specimens ([id number]) bladder, biopsy with diagnosis of ?a minute fragment of urothelial mucosa with flat urothelial carcinoma in situ? 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 MICROSCOPIC DESCRIPTION Slides are reviewed. GROSS DESCRIPTION Received in fixative is one container labeled with the patient's name and designated biopsy from right renal pelvis. The specimen consists of a scant amount of soft tissue. The specimen is totally submitted for cell block preparation. / AMBERLY:tiarra 08/16/2021 TC: Cannot code CPT: 37887
--- NOTE | 2021-08-15 12:03 | PCM.HP.STD ---
HPI - General HPI Narrative DANITZA JAIN, is a 81 M who presents treatment of bladder cancer, carcinoma in situ solitary right kidney with transitional cell carcinoma of the right kidney history of recurrent tumors in the kidney. [facility] Medical History (Updated 08/08/21 @ 09:33 by Lucila Ortega) AAA (abdominal aortic aneurysm) Arthritis Back pain Body mass index (BMI) 35 or more Cancer Cardiac pacemaker in situ (01/02/15) Cardiology follow-up encounter Chronic systolic (congestive) heart failure CKD (chronic kidney disease) stage 3, GFR 30-59 ml/min Community acquired pneumonia Congestive heart failure (CHF) CPAP (continuous positive airway pressure) dependence Diffuse large B cell lymphoma Dyspnea on exertion Esophageal reflux Former smoker Gastric reflux Gout Gout High cholesterol History of CHF (congestive heart failure) History of diverticulitis History of edema History of non-Hodgkin's lymphoma History of pacemaker History of pituitary adenoma History of pituitary tumor History of renal disease History of steroid therapy History of steroid therapy History of stress test History of ulceration Hx of echocardiogram Hyperlipidemia Hypertension Hyponatremia Increasing prostate specific antigen level Kidney disease Malignant lymphoma of extranodal and solid organ sites Mobitz (type) II atrioventricular block MRSA (methicillin resistant staphylococcus aureus) pneumonia Non-ischemic cardiomyopathy PORTILLO (obstructive sleep apnea) Pacemaker PAF (paroxysmal atrial fibrillation) Pericardial effusion Pleural effusion Prostate cancer Prostate disease Secondary adrenal insufficiency Shortness of breath on exertion Simple obesity Sleep apnea SSS (sick sinus syndrome) Wears partial dentures Home Medications pravastatin 40 mg PO QHS #0 12/21/13 [History Last Taken 12/26/20] carvedilol 25 mg tablet 25 mg PO BID #180 tab 02/06/21 [Rx Last Taken Unknown] allopurinol 300 mg PO DAILY 05/02/21 [History Last Taken Unknown] hydrocortisone 10 mg tablet See Rx Instructions PO BID #270 tab 06/12/21 [Rx Last Taken Unknown] famotidine 40 mg tablet 40 mg PO DAILY tab 07/12/21 [History Last Taken Unknown] potassium chloride 20 mEq tablet,extended release(part/cryst) 20 meq PO DAILY tab 07/12/21 [History Last Taken Unknown] furosemide 40 mg tablet 40 mg PO QODAY tab 07/17/21 [History Last Taken Unknown] amlodipine [Norvasc] 5 mg PO DAILY 08/08/21 [History Last Taken Unknown] ciprofloxacin HCl [Cipro] 250 mg PO BID #6 tab 08/15/21 [Rx Last Taken Unknown] Allergy/AdvReac Type Severity Reaction Status Date / Time lisinopril Allergy Swelling Verified 08/15/21 10:05 shellfish derived Allergy Angioedema Verified 08/15/21 10:05 aspirin AdvReac GI BLEED, Verified 08/15/21 10:05 UPPER Family History Father FH: kidney cancer Mother Heart disease Diabetes Surgical History History of cardiac catheterization History of cystoscopy (~04/2021) History of surgical removal of pituitary gland History of vascular access device Hx of lymph node biopsy Hx of nephrostomy Status post transsphenoidal pituitary resection Social History Smoking Status: Former smoker quit date: 06/30/81 pack-years: 20 how long ago did patient quit smokin second hand exposure: No alcohol intake: never substance use type: does not use caffeine: Yes Type: coffee Number of servings: 3 what type of physical activity do you participate in: none xavi/mu-ism: Yarsani seatbelt use: always do you feel safe at home: Yes Vital Signs Vital Signs Vital Signs: 08/15/21 10:06 Temperature 97.6 F L Temperature Source Temporal Pulse Rate 62 Respiratory Rate 18 Respiratory Pattern Normal Blood Pressure 163/67 H Blood Pressure Mean 99 Blood Pressure Source Monitor Blood Pressure Position Sitting Blood Pressure Location Left Arm Pulse Ox 100 Oxygen Delivery Method Room Air Weight Weight: 114 kg Body Mass Index (BMI) 36.0
--- NOTE | 2021-08-15 12:04 | PCM.DC ---
Discharge Instructions Diet Discharge Diet: No restrictions Activity Discharge Activity: Return to Normal Activity and May Not Drive (while taking narcotic pain medications.) Dressing / Incision Call your doctor if you observe: Fever of 101 or Higher Follow Up Care Please Follow Up With: Domenico Starr MD When: Call [phone] for an appointment Test Results: Test results from this visit will be discussed in further detail at your follow-up appointment, if applicable. Discharge Plan Admission Primary Reason for Your Visit: right ureteroscopy biopsy and stent Attending Provider: Domenico Starr Primary Care Provider: Suraj Damian Chi Discharge Orders/Prescriptions Prescriptions: New ciprofloxacin HCl [Cipro] 250 mg tablet 250 mg PO BID Qty: 6 RF: 0 Continued famotidine 40 mg tablet 40 mg PO DAILY RF: 0 pravastatin 40 MG tablet 40 mg PO QHS Qty: 0 RF: 0 allopurinol 300 mg Tablet 300 mg PO DAILY RF: 0 potassium chloride 20 mEq tablet,ER particles/crystals 20 meq PO DAILY RF: 0 amlodipine [Norvasc] 2.5 mg tablet 5 mg PO DAILY RF: 0 carvedilol [Coreg] 25 mg tablet 25 mg PO BID Qty: 180 RF: 3 hydrocortisone 10 mg tablet See Rx Instructions PO BID Qty: 270 RF: 2 furosemide [Lasix] 40 mg tablet 40 mg PO QODAY RF: 0 Referrals / Follow Up: Domenico Starr MD [STAFF PHYSICIAN] - Suraj Damian Chi, MD [Primary Care Provider] - Disposition Disposition (needs filled in before D/C Order can be placed): Home, Self Care
--- NOTE | 2021-08-15 12:04 | PCM.OPRPT ---
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 All this was reviewed with the patient at preoperative setting and also in the office he answered all the questions and preoperative settings. Patient was taken back to the operating room after smooth induction of general anesthesia penis and testicles were prepped and draped in usual sterile fashion patient is uncircumcised and he has a very stenotic foreskin but able to get into the urethra with the cystoscope. The entire length the urethra is normal and clear, the sphincter sphincter was intact verumontanum was identified he had mild bilateral hypertrophy but no significant obstruction inside the bladder there was some area of scar tissue at the bladder neck from prior resection of a tumor there is no visible tumors left over from this area there was another area of cauterization the posterior bladder this was also clear I inspected the bladder completely he had the right left trigone was identified the left wall left right wall posterior wall, these were all clear of tumors. I then cannulated the right ureteral orifice with a Pollick catheter performed a retrograde pyelogram to see contrast going up to the kidney and its any clear filling defects. I then put a wire up into the kidney and then over the wire went in with a flexible ureteroscope was able to get into the kidney quite easily once we reached the kidney then inspected the upper pole midpole lower pole the kidney there was some papillary small looking lesion in the renal pelvis and the right side a biopsy of this was done a very small biopsy this sent off a specimen. I then used a Bugbee electrode and cauterized the lesion in the renal pelvis after cauterizing this completely I then backed out of the ureter we put a wire up into the kidney and then over the wire loaded a stent it was a 6 [place] by 26 cm stent then over the 0.083 tipless Glidewire I advanced a stent it was 6 [place] by 26 cm stent once a stent was in good position I pulled the wire and the stent coiled in the kidney and bladder in good position. Bladder was drained patient anesthetic was reversed I will see him next week to review the biopsies possible the biopsies are so small may not have specimen, and then will plan for BCG therapy. Surgeon: lay Type of Anesthesia: General Drains: stent Admit VTE Documentation VTE Present on Admission: No VTE Mechan Device Prophylaxis: SCD's VTE Pharm Prophylaxis ordered?: No
[2021-08-15 12:13] VITALS: BP 115/67; BP 163/67; PULSE 67; RESP 16; TEMP 36.4; O2SAT 92
[2021-08-15 12:15] VITALS: BP 129/58; BP 163/67; PULSE 61; RESP 16; O2SAT 93
[2021-08-15 12:30] VITALS: BP 118/68; BP 163/67; PULSE 60; RESP 16; O2SAT 94
[2021-08-15 12:43] VITALS: BP 137/70; BP 163/67; PULSE 63; RESP 16; TEMP 36.3; O2SAT 96
[2021-08-15 13:12] VITALS: BP 163/67
== END 2021-08-15 23:59 | disposition home or self-care (01) ==
LOC: SDC 09:39 → AC 09:41
PROVIDERS: PCP Family Medicine Geriatric Medicine; Referring Provider Urology; Visit Provider Urology
PROC: 0TBB8ZX Excision of Bladder, Via Natural or Artificial Opening Endoscopic, Diagnostic (ICD-10-PCS; CPT 52354; principal; 2021-08-15 11:45)
DX: C64.1 Malignant neoplasm of right kidney, except renal pelvis (principal); C79.01 Secondary malignant neoplasm of right kidney and renal pelvis; I42.8 Other cardiomyopathies; I50.22 Chronic systolic (congestive) heart failure; I13.0 Hypertensive heart and chronic kidney disease with heart failure and stage 1 through stage 4 chronic kidney disease, or unspecified chronic kidney disease; C67.9 Malignant neoplasm of bladder, unspecified; I48.0 Paroxysmal atrial fibrillation; N18.30 Chronic kidney disease, stage 3 unspecified; E78.5 Hyperlipidemia, unspecified; G47.33 Obstructive sleep apnea (adult) (pediatric); K21.9 Gastro-esophageal reflux disease without esophagitis; M10.9 Gout, unspecified; E66.9 Obesity, unspecified; M19.90 Unspecified osteoarthritis, unspecified site; Z87.891 Personal history of nicotine dependence; Z85.46 Personal history of malignant neoplasm of prostate; Z79.899 Other long term (current) drug therapy; Z68.36 Body mass index [BMI] 36.0-36.9, adult; Z95.0 Presence of cardiac pacemaker
CPT/HCPCS: 52354; 52332; 00910; 76000; 88305; C1769; C2617; J2405

== ENCOUNTER 2021-10-01 10:30 | Outpatient (CLI) | payer MEDICARE, SELFPAY ==
[2021-10-01 11:58] LABS: Albumin, Serum 3.1 g/dL (3.2-5.0); BUN 31 mg/dL (7-18); BUN/Creat Ratio 11.7 RATIO (10-20); Calcium,Total 9.2 mg/dL (8.5-10.1); Chloride 109 mmol/L (98-107); Creatinine, Serum 2.65 mg/dL (0.70-1.30); EST Glomerular Filtration Rate 25 mL/min (>60); Est Glom Filt Rate - Afr Amer 30 mL/min (>60); Glucose 107 mg/dL (74-106); Phosphorus 3.4 mg/dL (2.5-4.9); Potassium 4.3 mmol/L (3.5-5.1); Sodium Level 139 mmol/L (136-145)
== END 2021-10-01 23:59 | disposition home or self-care (01) ==
LOC: LAB 10:31
PROVIDERS: PCP Family Medicine Geriatric Medicine; Visit Provider Internal Medicine Nephrology
DX: N18.32 Chronic kidney disease, stage 3b (principal)
CPT/HCPCS: 36415; 80069

== ENCOUNTER 2021-10-15 15:22 | Emergency (ER) | payer MEDICARE, SELFPAY ==
[2021-10-15 15:22] VITALS: BP 152/68; PULSE 77; RESP 14; TEMP 36.2; O2SAT 99; BMI 35.1
--- NOTE | 2021-10-15 16:12 | ED.VIS.LOWEX ---
HPI History of Present Illness HPI Narrative: Patient presents with pain and swelling to his left foot that has been getting worse over the past 4 days. Patient states it has been constant. Patient states it is gradually getting worse. Patient states it started over the left great toe and spread to the second toe. Patient states now it is over the fifth metatarsal area. Patient states his pain is worse with any weightbearing. Patient states Tylenol does help with the pain. Patient denies any paresthesias or weakness. Patient denies any trauma or injury. Patient does have a history of gout. Patient admits to subjective fevers at home. Chief Complaint: Lower Extremity Injury Informant: patient Onset/Context/Timing Onset: Days (4) Context: Gradual Onset Timing: Continuous Quality of Pain: Aching Location: Left foot Worsened by: Weightbearing Relieved by: Tylenol Associated Symptoms Associated Symptoms: Negative for Parasthesia, Weakness and Loss of Funtion PFSH [facility] Medical History AAA (abdominal aortic aneurysm) Arthritis Back pain Body mass index (BMI) 35 or more Cancer Cardiac pacemaker in situ (01/02/15) Cardiology follow-up encounter Chronic systolic (congestive) heart failure CKD (chronic kidney disease) stage 3, GFR 30-59 ml/min Community acquired pneumonia Congestive heart failure (CHF) CPAP (continuous positive airway pressure) dependence Diffuse large B cell lymphoma Dyspnea on exertion Esophageal reflux Former smoker Gastric reflux Gout Gout High cholesterol History of CHF (congestive heart failure) History of diverticulitis History of edema History of non-Hodgkin's lymphoma History of pacemaker History of pituitary adenoma History of pituitary tumor History of renal disease History of steroid therapy History of steroid therapy History of stress test History of ulceration Hx of echocardiogram Hyperlipidemia Hypertension Hyponatremia Increasing prostate specific antigen level Kidney disease Malignant lymphoma of extranodal and solid organ sites Mobitz (type) II atrioventricular block MRSA (methicillin resistant staphylococcus aureus) pneumonia Non-ischemic cardiomyopathy PORTILLO (obstructive sleep apnea) Pacemaker PAF (paroxysmal atrial fibrillation) Pericardial effusion Pleural effusion Prostate cancer Prostate disease Secondary adrenal insufficiency Shortness of breath on exertion Simple obesity Sleep apnea SSS (sick sinus syndrome) Wears partial dentures Home Medications pravastatin 40 mg PO QHS #0 12/21/13 [History Last Taken 12/26/20] carvedilol 25 mg tablet 25 mg PO BID #180 tab 02/06/21 [Rx Last Taken Unknown] allopurinol 300 mg PO DAILY 05/02/21 [History Last Taken Unknown] hydrocortisone 10 mg tablet See Rx Instructions PO BID #270 tab 06/12/21 [Rx Last Taken Unknown] famotidine 40 mg tablet 40 mg PO DAILY tab 07/12/21 [History Last Taken Unknown] furosemide 40 mg tablet 20 mg PO QODAY tab 07/17/21 [History Last Taken Unknown] amlodipine [Norvasc] 5 mg PO DAILY 08/08/21 [History Last Taken Unknown] cephalexin 500 mg PO Q6 #40 capsule 10/15/21 [Rx Last Taken Unknown] Allergy/AdvReac Type Severity Reaction Status Date / Time lisinopril Allergy Swelling Verified 10/15/21 15:24 shellfish derived Allergy Angioedema Verified 10/15/21 15:24 aspirin AdvReac GI BLEED, Verified 10/15/21 15:24 UPPER Family History Father FH: kidney cancer Mother Heart disease Diabetes Surgical History History of biopsy of bladder History of cardiac catheterization History of cystoscopy (~04/2021) History of surgical removal of pituitary gland History of vascular access device Hx of lymph node biopsy Hx of nephrostomy Status post transsphenoidal pituitary resection Social History Smoking Status: Former smoker quit date: 06/30/81 pack-years: 20 how long ago did patient quit smokin second hand exposure: No alcohol intake: never substance use type: does not use caffeine: Yes Type: coffee Number of servings: 3 what type of physical activity do you participate in: none xavi/zoroastrian: Anglican seatbelt use: always do you feel safe at home: Yes ROS ROS ED Constitutional Constitutional ED: Reports fever(s) and subjective; Denies chills Eyes Eyes: Denies blurry vision or change in vision ENT ENT ED: Denies rhinorrhea or sore throat Cardiovascular Cardiovascular: Denies chest pain or palpitations Respiratory/Chest Respiratory/Chest: Denies cough or dyspnea Gastrointestinal Gastrointestinal: Denies nausea or vomiting Genitourinary Genitourinary ED: Denies dysuria or hematuria Musculoskeletal Musculoskeletal: Reports neck pain; Denies back pain Integumentary Denies abscess or rash Neurologic Neurologic: Denies headache(s) or weakness Allergic/Immunologic Allergic/Immunologic ED: Denies mouth swelling or urticaria EXAM Physical Exam Const Vital Signs: 10/15/21 15:22 10/15/21 15:51 Temperature 97.2 F L Temperature Source Temporal Pulse Rate 77 Respiratory Rate 14 Respiratory Effort Normal Blood Pressure 152/68 H Blood Pressure Mean 96 Pulse Ox 99 Oxygen Delivery Method Room Air Positive well nourished, well developed and obese General Appearance ED: well developed and NAD Nutritional Appearance: obese HEENT Reports moist mucous membranes Neck full ROM and supple Chest Wall inspection of chest normal and palpation of chest normal Resp normal respiratory effort and clear to auscultation bilaterally Cardio regular rate and regular rhythm GI non-tender Palpation: soft Extremity Extremity Narrative: There is 1-2+ pitting edema of the lower extremities bilaterally. There is no calf tenderness noted. General Extremety ED: Yes edema General Extremity: edema Neuro oriented x3, CN's II-XII intact bilaterally, moves all extremities and no sensory deficits noted Sensorium / Orientation: alert Motor Exam: strength 5/5 throughout Psych mental status grossly normal Skin Skin Narrative: There is some erythema and warmth over the left first and second toes. There is also some erythema and warmth over the dorsal and lateral aspects of the left foot. There is no abscess formation. There is no induration. There is good range of motion of the left ankle and left foot. Sensation was intact to light touch in all digits. Capillary refills less than 2 seconds in all digits. MDM MDM MDM Narrative Medical decision making narrative: Patient was given Ancef here. CBC was within normal limits. Comprehensive metabolic profile showed a slightly elevated creatinine at 2.53 and BUN of 36. These are consistent with prior results. X-rays of the left foot were obtained. There are 3 views. On my interpretation, there is no acute fracture or dislocation. There is no evidence of osteomyelitis. There are some degenerative changes noted. Radiologist also interpreted the x-ray and agrees. Patient was advised that this most likely a cellulitis of his left foot. Patient was given prescription for Keflex. Patient was instructed to keep the area clean and dry. Patient was instructed to follow-up with his primary care physician 5 to 7 days. Patient understood and was agreeable with the plan. All questions were answered. Lab Data Attestation: I reviewed the patient's lab results. Labs: Laboratory Results - last 24 hr 10/15/21 10/15/21 16:25 16:25 WBC 9.8 RBC 4.16 L Hgb 12.0 L Hct 36.6 L MCV 88.0 MCH 28.8 MCHC 32.8 RDW Std Deviation 45.6 H RDW Coeff of Deyvi 14.1 Plt Count 310 MPV 9.1 Immature Gran % (Auto) 0.700 Neut % (Auto) 83.0 H Lymph % (Auto) 5.3 L [place] % (Auto) 10.0 Eos % (Auto) 0.8 Baso % (Auto) 0.2 Absolute Neuts (auto) 8.1 H Absolute Lymphs (auto) 0.52 L Nucleated RBC % 0 Differential Comment SCANNED Sodium 138 Potassium 4.5 Chloride 107 Carbon Dioxide 24.0 Anion Gap 7 BUN 36 H Creatinine 2.53 H Estim Creat Clear Calc 24.04 Est GFR (MDRD) Af Amer 32 L Est GFR (MDRD) Non-Af 26 L BUN/Creatinine Ratio 14.2 Glucose 116 H Calcium 9.7 Total Bilirubin 0.60 AST 30 ALT 21 Alkaline Phosphatase 61 Total Protein 7.5 Albumin 3.0 L Globulin 4.5 H Albumin/Globulin Ratio 0.7 L Radiography Diagnostic Testing: Clinical Impression(s) from Imaging Studies Foot X-Ray 10/15/21 16:46 IMPRESSION: Mild degenerative arthrosis of the first metatarsal phalangeal joint. Soft tissue swelling in the dorsum of the foot. Electronically Signed: Josue Santillan MD at 17:06 EDT Reading Location ID and State: [facility] / [place] , Service support , Discharge Plan Triage Chief Complaint: Lower Extremity Injury ED Provider: Tony Andrea Dx/Rx/DC Orders Clinical Impression: Cellulitis of left foot, CKD (chronic kidney disease) stage 3, GFR 30-59 ml/min Instructions: ED Cellulitis Prescriptions: New cephalexin [cephalexin] 500 MG capsule 500 mg PO Q6 Qty: 40 RF: 0 No Action famotidine 40 mg tablet 40 mg PO DAILY RF: 0 pravastatin 40 MG tablet 40 mg PO QHS Qty: 0 RF: 0 allopurinol 300 mg Tablet 300 mg PO DAILY RF: 0 amlodipine [Norvasc] 2.5 mg tablet 5 mg PO DAILY RF: 0 carvedilol [Coreg] 25 mg tablet 25 mg PO BID Qty: 180 RF: 3 hydrocortisone 10 mg tablet See Rx Instructions PO BID Qty: 270 RF: 2 furosemide [Lasix] 40 mg tablet 20 mg PO QODAY RF: 0 Primary Care Provider: Suraj Damian Chi Referrals: Suraj Damian Chi, MD [Primary Care Provider] - 3-5 Days Disposition Disposition: Home, Self Care
[2021-10-15] MEDS: Cefazolin 1 GM/50 ML BAG IV (16:41)
[2021-10-15 16:45] LABS: Absolute Lymphocyte Count 0.52 X10^3/uL (0.83-4.51); Absolute Neutrophil Count 8.1 X10^3/uL (2.0-7.7); Basophil# 0.02 X10^3/uL; Basophil% 0.2 % (0-1); Eosinophil# 0.08 X10^3/uL; Eosinophils% 0.8 % (0-5); Hematocrit 36.6 % (40-54); Lymphocyte # 0.52 X10^3/ul (0.83-4.51); Lymphocyte % 5.3 % (19-41); Mean Corp Hgb Conc 32.8 g/dL (32-36); Mean Corpuscular Hgb 28.8 pg (27.0-32.0); Mean Platelet Vol. 9.1 fl (6.2-12.0); Monocyte# 0.98 X10^3/uL; NRBC Flagged by Analyzer 0 % (0-5); Neutrophil # 8.13 X10^3/uL (2.7-7.7); POSITIVE DIFFERENTIAL YES; Platelet Count 310 K/mm3 (150-450); RBC Distribution Width CV 14.1 % (11.6-14.6); RBC Distribution Width SD 45.6 fl (35.1-43.9); Red Blood Count 4.16 M/mm3 (4.6-6.2); White Blood Count 9.8 K/mm3 (4.4-11.0)
--- NOTE | 2021-10-15 16:46 | RAD_ITS ---
EXAM: XR LEFT FOOT COMPLETE, 3 OR MORE VIEWS CLINICAL INDICATION: Injury/Pain TECHNIQUE: Frontal, lateral and oblique views of the left foot. This report was created using [employer] report generation technology. COMPARISON: None. FINDINGS: BONES/JOINTS: Mild degenerative arthrosis of the first metatarsal phalangeal joint. Soft tissue swelling in the dorsum of the foot. There is a calcaneal spur. No acute fracture. No subluxation. Normal alignment. No sclerotic or destructive changes observed. SOFT TISSUES: See above. RAD/Foot min 3 Views IMPRESSION: Mild degenerative arthrosis of the first metatarsal phalangeal joint. Soft tissue swelling in the dorsum of the foot. Electronically Signed: Josue Santillan MD at 17:06 EDT Reading Location ID and State: [facility] / [place] , Service support ,
[2021-10-15 16:57] LABS: ALB/GLOB Ratio 0.7 RATIO (0.9-2.4); AST(SGOT) 30 U/L (15-37); Alanine Aminotransfer ALT/SGPT 21 U/L (16-61); Alkaline Phosphatase 61 U/L (45-117); Anion Gap 7 (5-15); BUN 36 mg/dL (7-18); BUN/Creat Ratio 14.2 RATIO (10-20); Calcium,Total 9.7 mg/dL (8.5-10.1); Chloride 107 mmol/L (98-107); Creatinine, Serum 2.53 mg/dL (0.70-1.30); EST Glomerular Filtration Rate 26 mL/min (>60); Est Glom Filt Rate - Afr Amer 32 mL/min (>60); Estimated Creatinine Clearance 24.04 ml/min; Globulin 4.5 g/dL (2.2-4.2); Glucose 116 mg/dL (74-106); Potassium 4.5 mmol/L (3.5-5.1); Protein, Total 7.5 g/dL (6.4-8.2); Sodium Level 138 mmol/L (136-145)
[2021-10-15 17:05] LABS: Differential Indicated SCAN CRITERIA MET
[2021-10-15 17:09] LABS: Differential Comment SCANNED
== END 2021-10-15 19:05 | disposition home or self-care (01) ==
PROVIDERS: Emergency Provider Emergency Medicine; PCP Family Medicine Geriatric Medicine; Visit Provider Emergency Medicine
DX: L03.116 Cellulitis of left lower limb (principal); N18.30 Chronic kidney disease, stage 3 unspecified; G47.33 Obstructive sleep apnea (adult) (pediatric); E66.9 Obesity, unspecified; Z95.0 Presence of cardiac pacemaker; Z87.891 Personal history of nicotine dependence
CPT/HCPCS: 73630; 80053; 85025; 96365; 99283; A4216

== ENCOUNTER 2021-10-19 06:02 | Day surgery (SDC) | payer MEDICARE, SELFPAY ==
[2021-10-19] VITALS (7 sets, daily range): BP systolic 112–146; BP diastolic 59–69; PULSE 59–69; RESP 16–17; TEMP 36.3–37.1; O2SAT 97–100; BMI 34.7
[2021-10-19] MEDS: Lactated Ringers 1,000 ML 15 ML IV (06:30)
[2021-10-19] MEDS: Cefazolin 2 GM in 0.9% Normal Saline 100 ML IV (08:18)
--- NOTE | 2021-10-19 08:44 | PCM.HP.STD ---
HPI - General HPI Narrative DANITZA JAIN, is a 81 M who presents history of bladder cancer and transitional cell carcinoma of the right renal pelvis presents for removal of stent after BCG therapy and diagnostic check. [facility] Medical History AAA (abdominal aortic aneurysm) Arthritis Back pain Body mass index (BMI) 35 or more Cancer Cardiac pacemaker in situ (01/02/15) Cardiology follow-up encounter Chronic systolic (congestive) heart failure CKD (chronic kidney disease) stage 3, GFR 30-59 ml/min Community acquired pneumonia Congestive heart failure (CHF) CPAP (continuous positive airway pressure) dependence Diffuse large B cell lymphoma Dyspnea on exertion Esophageal reflux Former smoker Gastric reflux Gout Gout High cholesterol History of CHF (congestive heart failure) History of diverticulitis History of edema History of non-Hodgkin's lymphoma History of pacemaker History of pituitary adenoma History of pituitary tumor History of renal disease History of steroid therapy History of steroid therapy History of stress test History of ulceration Hx of echocardiogram Hyperlipidemia Hypertension Hyponatremia Increasing prostate specific antigen level Kidney disease Malignant lymphoma of extranodal and solid organ sites Mobitz (type) II atrioventricular block MRSA (methicillin resistant staphylococcus aureus) pneumonia Non-ischemic cardiomyopathy PORTILLO (obstructive sleep apnea) Pacemaker PAF (paroxysmal atrial fibrillation) Pericardial effusion Pleural effusion Prostate cancer Prostate disease Secondary adrenal insufficiency Shortness of breath on exertion Simple obesity Sleep apnea SSS (sick sinus syndrome) Wears partial dentures Home Medications pravastatin 40 mg PO QHS #0 12/21/13 [History Last Taken 12/26/20] carvedilol 25 mg tablet 25 mg PO BID #180 tab 02/06/21 [Rx Last Taken Unknown] allopurinol 300 mg PO DAILY 05/02/21 [History Last Taken Unknown] hydrocortisone 10 mg tablet See Rx Instructions PO BID #270 tab 06/12/21 [Rx Last Taken Unknown] famotidine 40 mg tablet 40 mg PO DAILY tab 07/12/21 [History Last Taken Unknown] furosemide 40 mg tablet 20 mg PO QODAY tab 07/17/21 [History Last Taken Unknown] amlodipine [Norvasc] 5 mg PO DAILY 08/08/21 [History Last Taken Unknown] cephalexin 500 mg PO Q6 #40 capsule 10/15/21 [Rx Last Taken Unknown] ciprofloxacin HCl 250 mg PO BID #10 tab 10/19/21 [Rx Last Taken Unknown] Allergy/AdvReac Type Severity Reaction Status Date / Time lisinopril Allergy Swelling Verified 10/19/21 06:47 shellfish derived Allergy Angioedema Verified 10/19/21 06:47 aspirin AdvReac GI BLEED, Verified 10/19/21 06:47 UPPER Family History Father FH: kidney cancer Mother Heart disease Diabetes Surgical History History of biopsy of bladder History of cardiac catheterization History of cystoscopy (~04/2021) History of surgical removal of pituitary gland History of vascular access device Hx of lymph node biopsy Hx of nephrostomy Status post transsphenoidal pituitary resection Social History Smoking Status: Former smoker quit date: 06/30/81 pack-years: 20 how long ago did patient quit smokin second hand exposure: No alcohol intake: never substance use type: does not use caffeine: Yes Type: coffee Number of servings: 3 what type of physical activity do you participate in: none xavi/jain: Quaker seatbelt use: always do you feel safe at home: Yes Vital Signs Vital Signs Vital Signs: 10/19/21 06:48 Temperature 97.3 F L Temperature Source Temporal Pulse Rate 59 L Respiratory Rate 17 Respiratory Pattern Normal Blood Pressure 134/61 H Blood Pressure Mean 85 Blood Pressure Source Monitor Blood Pressure Position Semi-Fowlers Blood Pressure Location Left Arm Pulse Ox 99 Oxygen Delivery Method Room Air Weight Weight: 110 kg Body Mass Index (BMI) 34.7 Results Lab / Micro Data Micro: Microbiology 10/19/21 06:33 Interface Orders SARS-CoV-2 Antigen (Rapid) - Final
--- NOTE | 2021-10-19 08:44 | PCM.DC ---
Discharge Instructions Diet Discharge Diet: No restrictions Activity Discharge Activity: Return to Normal Activity and May Not Drive (while taking narcotic pain medications.) Dressing / Incision Call your doctor if you observe: Fever of 101 or Higher Follow Up Care Please Follow Up With: Domenico Starr MD When: Call [phone] for an appointment Test Results: Test results from this visit will be discussed in further detail at your follow-up appointment, if applicable. Discharge Plan Admission Primary Reason for Your Visit: removal of stent Attending Provider: Domenico Starr Primary Care Provider: Suraj Damian Chi Discharge Orders/Prescriptions Prescriptions: New ciprofloxacin HCl 250 mg tablet 250 mg PO BID Qty: 10 RF: 0 Continued famotidine 40 mg tablet 40 mg PO DAILY RF: 0 pravastatin 40 MG tablet 40 mg PO QHS Qty: 0 RF: 0 allopurinol 300 mg Tablet 300 mg PO DAILY RF: 0 amlodipine [Norvasc] 2.5 mg tablet 5 mg PO DAILY RF: 0 cephalexin 500 MG capsule 500 mg PO Q6 Qty: 40 RF: 0 carvedilol [Coreg] 25 mg tablet 25 mg PO BID Qty: 180 RF: 3 hydrocortisone 10 mg tablet See Rx Instructions PO BID Qty: 270 RF: 2 furosemide [Lasix] 40 mg tablet 20 mg PO QODAY RF: 0 Referrals / Follow Up: Suraj Damian Chi, MD [Primary Care Provider] - Disposition Disposition (needs filled in before D/C Order can be placed): Home, Self Care
--- NOTE | 2021-10-19 08:45 | OP.PCM_ITS ---
Report of Operation Date of Procedure: 10/19/21 Pre-Operative Diagnosis: History of bladder cancer and transitional cell carcin jeremy of the right renal pelvis Post-Operative Diagnosis: The same Surgery/Procedure Performed:: Cystoscopy, right stent removal, right ureteroscopy diagnostic. No stent Description of Surgical Findings:: Indication this is an 81-year-old male has history of bladder cancer also history of transitional cell carcinoma of the right renal pelvis he is undergone resection of these tumors he is now completed BCG therapy with a stent to allow treatment of the right kidney. He now presents for stent removal and diagnostic check to the kidney and bladder. Patient was taken back to the operating room after smooth induction of general anesthesia he was placed in dorsolithotomy position. The penis and testicles were prepped and draped in usual sterile fashion within the bladder with a 21 Irish rigid cystourethroscope the entire length of the urethra is normal the prostate was normal inside the bladder the stent was emanating from the right ureteral orifice I used a grasper pulled out stent to the meatus put a wire up to the stent and then over the wire went in with a flexible ureteroscope went up to the kidney on the right side with a flexible ureteroscope was able to aggregate over the wire to I got into the right kidney pulled out the wire and then inspected the upper pole midpole lower pole of the right kidney in the renal pelvis there were no evidence of any tumors in the renal pelvis or the right kidney I worked my way down the ureter there were no tumors along the course of the ureter I checked the bladder the bladder was clear of any tumors we then drained the bladder no stent was placed patient anesthetic was versed and taken back to the PACU in good condition plan to see him back in the office for checkup in a few weeks and then will probably have to do another ureteroscopy check of his kidney about 4 months. Surgeon: lay Type of Anesthesia: General Drains: none Admit VTE Documentation VTE Present on Admission: No VTE Mechan Device Prophylaxis: SCD's VTE Pharm Prophylaxis ordered?: No
== END 2021-10-19 10:40 | disposition home or self-care (01) ==
LOC: SDC 06:04 → AC 06:05
PROVIDERS: PCP Family Medicine Geriatric Medicine; Referring Provider Urology; Visit Provider Urology
PROC: (CPT 52332; principal; 2021-10-19 08:10)
DX: C79.01 Secondary malignant neoplasm of right kidney and renal pelvis (principal); I13.0 Hypertensive heart and chronic kidney disease with heart failure and stage 1 through stage 4 chronic kidney disease, or unspecified chronic kidney disease; I50.22 Chronic systolic (congestive) heart failure; N18.30 Chronic kidney disease, stage 3 unspecified; E78.5 Hyperlipidemia, unspecified; M10.9 Gout, unspecified; G47.33 Obstructive sleep apnea (adult) (pediatric); E66.9 Obesity, unspecified; Z68.34 Body mass index [BMI] 34.0-34.9, adult; Z85.79 Personal history of other malignant neoplasms of lymphoid, hematopoietic and related tissues; Z85.46 Personal history of malignant neoplasm of prostate; Z87.891 Personal history of nicotine dependence; Z95.0 Presence of cardiac pacemaker; Z79.899 Other long term (current) drug therapy
CPT/HCPCS: 52310; 00910; 87426; J7120; C1769; J2405

== ENCOUNTER → 2021-10-22 12:16 | Outpatient (CLI) | payer MEDICARE, SELFPAY ==
[2021-10-22 17:27] LABS: Albumin, Serum 2.6 g/dL (3.2-5.0); BUN 35 mg/dL (7-18); BUN/Creat Ratio 16.6 RATIO (10-20); Calcium,Total 9.5 mg/dL (8.5-10.1); Chloride 101 mmol/L (98-107); Creatinine, Serum 2.11 mg/dL (0.70-1.30); EST Glomerular Filtration Rate 32 mL/min (>60); Est Glom Filt Rate - Afr Amer 39 mL/min (>60); Glucose 116 mg/dL (74-106); Phosphorus 3.3 mg/dL (2.5-4.9); Potassium 4.3 mmol/L (3.5-5.1); Sodium Level 134 mmol/L (136-145)
== END ==
PROVIDERS: PCP Family Medicine Geriatric Medicine; Visit Provider Internal Medicine Nephrology
DX: N18.4 Chronic kidney disease, stage 4 (severe) (principal)
CPT/HCPCS: 36415; 80069

== ENCOUNTER 2021-10-22 12:33 | Outpatient (CLI) | payer MEDICARE, SELFPAY ==
--- NOTE | 2021-10-22 12:39 | RAD_ITS ---
INDICATION: LUMBAR RADICULOPATHY EXAMINATION/TECHNIQUE: X-RAY - XR Spine Lumbar Min 4 Views COMPARISON: None. FINDINGS: VERTEBRAE/DISCS: Mild multilevel degenerative disc disease and facet arthropathy most prominent at the L5-S1 level. Associated minimal degenerative disc height loss and vertebral body height loss. No acute fracture or malalignment. Bilateral sacroiliac joints are unremarkable. INCLUDED ABDOMEN: Nonobstructive bowel gas pattern in the partially visualized abdomen. Advanced atherosclerotic calcifications in the aorta. RAD/L/S Spine Min 4 Views IMPRESSION: 1. No acute fracture or malalignment. 2. Mild multilevel degenerative disc disease and facet arthropathy most prominent at the L5-S1 level. 3. Arterial atherosclerotic disease. Electronically Signed: Adolfo Bobo, at 15:51 EDT ,
--- NOTE | 2021-10-22 12:53 | VDLE_ITS ---
Reason For Study: Edema RIGHT LEFT CFV is compressible, spontaneous, phasic, GSV is normal. competent and demonstrates normal CFV is compressible, spontaneous, phasic, augmentation. competent, and demonstrates normal Procedure augmentation. This is a venous duplex using B-mode, color FV is compressible, spontaneous, phasic, flow and spectral Doppler. competent and demonstrates normal Exam performed in department. augmentation. A preliminary report was called and/or faxed POP V is compressible, spontaneous, phasic, to Rickie ARCHER. competent and demonstrates normal augmentation. T/P Trunk is compressible. LT PerV is compressible. Acute deep vein thrombosis is noted in the left Gastroc vein and PTV. Nonvascularized structure is noted in the left popliteal fossa that measures 1.33 x 3.71 x 5.47 cm. VL/Venous Duplex US, Unilateral Interpretation Summary Acute deep vein thrombosis is noted in the left posterior tibial vein. Acute de ep vein thrombosis is noted in the left gastrocnemius vein. The remainder of the left lower extremity deep venous system is patent and compressible. Valvular competence appears intact within the proxi mal deep venous system on the left . The left great saphenous vein appears patent and compressi ble segmentally. A non-vascular, hypoechoic structure is noted in the left popliteal space, measur ing 1.33 cm x 3.71 cm x 5.47 cm. This probably represents a popliteal cyst. Clinical correlation is a dvised. Ordering Physician: Suraj Damian Referring Physician: Suraj Damian Chi Performed By: Lili Chavez RVT
== END 2021-10-22 23:59 | disposition home or self-care (01) ==
LOC: CVS 12:34
PROVIDERS: PCP Family Medicine Geriatric Medicine; Referring Provider Family Medicine Geriatric Medicine; Visit Provider Family Medicine Geriatric Medicine
DX: R60.0 Localized edema (principal); N18.4 Chronic kidney disease, stage 4 (severe); M54.16 Radiculopathy, lumbar region
CPT/HCPCS: 36415; 72110; 80069; 93971

== ENCOUNTER → 2021-11-12 | Outpatient (CLI) | payer MEDICARE, SELFPAY ==
[2021-11-12 17:32] LABS: Absolute Lymphocyte Count 0.36 X10^3/uL (0.83-4.51); Absolute Neutrophil Count 6.3 X10^3/uL (2.0-7.7); Basophil# 0.02 X10^3/uL; Basophil% 0.3 % (0-1); Eosinophil# 0.04 X10^3/uL; Eosinophils% 0.6 % (0-5); Hematocrit 31.9 % (40-54); Hemoglobin 9.8 g/dL (13.0-16.5); Lymphocyte # 0.36 X10^3/ul (0.83-4.51); Mean Corp Hgb Conc 30.7 g/dL (32-36); Mean Corpuscular Hgb 27.5 pg (27.0-32.0); Mean Corpuscular Volume 89.6 fL (80-94); Mean Platelet Vol. 9.8 fl (6.2-12.0); Monocyte% 5.6 % (0-10); NRBC Flagged by Analyzer 0 % (0-5); Neutrophil # 6.31 X10^3/uL (2.7-7.7); Neutrophil % 88.2 % (47-70); POSITIVE DIFFERENTIAL YES; Platelet Count 177 K/mm3 (150-450); RBC Distribution Width CV 16.6 % (11.6-14.6); RBC Distribution Width SD 54.6 fl (35.1-43.9); Red Blood Count 3.56 M/mm3 (4.6-6.2); White Blood Count 7.2 K/mm3 (4.4-11.0)
[2021-11-12 17:35] LABS: Differential Indicated SCAN CRITERIA MET
[2021-11-12 17:43] LABS: Ferritin 175 ng/mL (26-388); Iron 26 ug/dL (65-175); Iron Binding Capacity,Total 246 ug/dL (250-450); PERCENT IRON SATURATION 10.6 % (15.0-55.0)
[2021-11-12 17:46] LABS: Differential Comment SCANNED
== END | disposition home or self-care (01) ==
LOC: POLAB3 15:28
PROVIDERS: PCP Family Medicine Geriatric Medicine; Visit Provider Family Medicine Geriatric Medicine
DX: D62 Acute posthemorrhagic anemia (principal)
CPT/HCPCS: 36415; 82728; 83540; 83550; 85025

== ENCOUNTER → 2021-11-13 | Outpatient (CLI) | payer MEDICARE, SELFPAY ==
--- NOTE | 2021-11-13 11:05 | VDLE_ITS ---
Reason For Study: edema RIGHT LEFT CFV is compressible, spontaneous, phasic, GSV is normal. competent and demonstrates normal CFV is compressible, spontaneous, phasic, augmentation. competent, and demonstrates normal Procedure augmentation. This is a venous duplex using B-mode, color FV is compressible, spontaneous, phasic, flow and spectral Doppler. competent and demonstrates normal Exam performed in department. augmentation. The exam was abbreviated due to the COVID 19 POP V is compressible, spontaneous, phasic, protocol. competent and demonstrates normal The exam was diagnostic. augmentation. A preliminary report was called and/or faxed T/P Trunk is compressible. to Dr. Damian's office. LT PerV is compressible. Minimal vein wall thickening is noted in the PTV. Gastroc V is partially compressible. Improvement noted from previous study done 10/22/21. Hypoechoic area behind the knee measuring 1.39 x 4.06 cm. Area is nonvacular. VL/Venous Duplex US, Unilateral Interpretation Summary Acute and chronic deep vein thrombosis is noted in the left posterior tibial ve in and gastrocnemius vein, with improvement since a prior study on 10/22/2021. The remainder of the l eft lower extremity deep venous system is patent and compressible. Valvular competence appears inta ct within the proximal deep venous system on the left . The left great saphenous vein appears patent and compressible segmentally. A non-vascular, hypoechoic structure is noted in the left popliteal space, measuring 1.39 cm x 4.06 cm. This probably represents a popliteal cyst. Clinica l correlation is advised. Ordering Physician: Suraj Damian Performed By: Blaine Flores RVT
== END | disposition home or self-care (01) ==
LOC: CVS 11:00
PROVIDERS: PCP Family Medicine Geriatric Medicine; Referring Provider Family Medicine Geriatric Medicine; Visit Provider Family Medicine Geriatric Medicine
DX: R60.1 Generalized edema (principal)
CPT/HCPCS: 93971

== ENCOUNTER → 2021-12-03 | Outpatient (CLI) | payer MEDICARE, SELFPAY ==
[2021-12-03 12:33] LABS: Absolute Neutrophil Count 6.6 X10^3/uL (2.0-7.7); Basophil# 0.02 X10^3/uL; Basophil% 0.3 % (0-1); Eosinophil# 0.11 X10^3/uL; Eosinophils% 1.4 % (0-5); Hemoglobin 10.8 g/dL (13.0-16.5); Lymphocyte % 5.1 % (19-41); Mean Corpuscular Hgb 27.1 pg (27.0-32.0); Mean Corpuscular Volume 90.5 fL (80-94); Mean Platelet Vol. 9.6 fl (6.2-12.0); Monocyte# 0.69 X10^3/uL; Monocyte% 8.7 % (0-10); NRBC Flagged by Analyzer 0 % (0-5); Neutrophil # 6.63 X10^3/uL (2.7-7.7); POSITIVE DIFFERENTIAL YES; Platelet Count 205 K/mm3 (150-450); RBC Distribution Width CV 17.2 % (11.6-14.6); RBC Distribution Width SD 57.7 fl (35.1-43.9); Red Blood Count 3.98 M/mm3 (4.6-6.2); White Blood Count 7.9 K/mm3 (4.4-11.0)
[2021-12-03 12:40] LABS: Differential Indicated SCAN CRITERIA MET
[2021-12-03 13:26] LABS: Differential Comment SCANNED
== END | disposition home or self-care (01) ==
LOC: BIMLAB 10:39
PROVIDERS: PCP Family Medicine Geriatric Medicine; Referring Provider Family Medicine Geriatric Medicine; Visit Provider Family Medicine Geriatric Medicine
DX: D50.9 Iron deficiency anemia, unspecified (principal)
CPT/HCPCS: 36415; 85025

== ENCOUNTER → 2021-12-19 | Outpatient (CLI) | payer MEDICARE, SELFPAY ==
[2021-12-19 17:09] LABS: Albumin, Serum 3.1 g/dL (3.2-5.0); BUN 38 mg/dL (7-18); BUN/Creat Ratio 18.5 RATIO (10-20); Calcium,Total 9.2 mg/dL (8.5-10.1); Chloride 110 mmol/L (98-107); Creatinine, Serum 2.05 mg/dL (0.70-1.30); EST Glomerular Filtration Rate 33 mL/min (>60); Est Glom Filt Rate - Afr Amer 40 mL/min (>60); Glucose 104 mg/dL (74-106); Potassium 4.5 mmol/L (3.5-5.1); Sodium Level 140 mmol/L (136-145)
== END | disposition home or self-care (01) ==
LOC: POLAB3 13:39
PROVIDERS: PCP Family Medicine Geriatric Medicine; Visit Provider Internal Medicine Nephrology
DX: N18.32 Chronic kidney disease, stage 3b (principal)
CPT/HCPCS: 36415; 80069

== ENCOUNTER → 2022-02-19 | Outpatient (CLI) | payer MEDICARE, SELFPAY ==
[2022-02-19 17:10] LABS: Anion Gap 10 (5-15); BUN 57 mg/dL (7-18); BUN/Creat Ratio 21.8 RATIO (10-20); Calcium,Total 8.7 mg/dL (8.5-10.1); Chloride 102 mmol/L (98-107); Creatinine, Serum 2.62 mg/dL (0.70-1.30); EST Glomerular Filtration Rate 25 mL/min (>60); Est Glom Filt Rate - Afr Amer 30 mL/min (>60); Glucose 107 mg/dL (74-106); Potassium 3.3 mmol/L (3.5-5.1); Sodium Level 138 mmol/L (136-145)
== END | disposition home or self-care (01) ==
LOC: POLAB3 15:54
PROVIDERS: PCP Family Medicine Geriatric Medicine; Visit Provider Family Medicine Geriatric Medicine
DX: N18.4 Chronic kidney disease, stage 4 (severe) (principal)
CPT/HCPCS: 36415; 80048

== ENCOUNTER → 2022-02-22 | Outpatient (CLI) | payer MEDICARE, SELFPAY ==
[2022-02-22 10:25] LABS: Absolute Lymphocyte Count 0.21 X10^3/uL (0.83-4.51); Absolute Neutrophil Count 11.1 X10^3/uL (2.0-7.7); Basophil# 0.02 X10^3/uL; Basophil% 0.2 % (0-1); Eosinophil# 0.07 X10^3/uL; Eosinophils% 0.6 % (0-5); Hematocrit 40.6 % (40-54); Hemoglobin 13.5 g/dL (13.0-16.5); Lymphocyte # 0.21 X10^3/ul (0.83-4.51); Lymphocyte % 1.7 % (19-41); Mean Corp Hgb Conc 33.3 g/dL (32-36); Mean Corpuscular Hgb 26.9 pg (27.0-32.0); Mean Corpuscular Volume 80.9 fL (80-94); Monocyte# 1.06 X10^3/uL; Monocyte% 8.5 % (0-10); NRBC Flagged by Analyzer 0 % (0-5); Neutrophil # 11.05 X10^3/uL (2.7-7.7); Neutrophil % 88.5 % (47-70); POSITIVE DIFFERENTIAL YES; Platelet Count 187 K/mm3 (150-450); RBC Distribution Width CV 16.6 % (11.6-14.6); RBC Distribution Width SD 47.9 fl (35.1-43.9); Red Blood Count 5.02 M/mm3 (4.6-6.2); White Blood Count 12.5 K/mm3 (4.4-11.0)
[2022-02-22 10:28] LABS: Differential Indicated SCAN CRITERIA MET
[2022-02-22 10:52] LABS: Vitamin D,25 Hydroxy 19.4 ng/mL
[2022-02-22 11:14] LABS: Platelet Estimate ADEQUATE (ADEQ); Red Cell Morphology NORM C+C NORMAL (NORM C&C)
[2022-02-22 11:15] LABS: ALB/GLOB Ratio 0.6 RATIO (0.9-2.4); AST(SGOT) 101 U/L (15-37); Alanine Aminotransfer ALT/SGPT 71 U/L (16-61); Albumin, Serum 2.3 g/dL (3.2-5.0); Alkaline Phosphatase 189 U/L (45-117); Anion Gap 10 (5-15); BUN 65 mg/dL (7-18); BUN/Creat Ratio 25.5 RATIO (10-20); Chloride 101 mmol/L (98-107); Creatinine, Serum 2.55 mg/dL (0.70-1.30); EST Glomerular Filtration Rate 26 mL/min (>60); Est Glom Filt Rate - Afr Amer 31 mL/min (>60); Glucose 128 mg/dL (74-106); Potassium 3.9 mmol/L (3.5-5.1); Protein, Total 6.3 g/dL (6.4-8.2); Sodium Level 135 mmol/L (136-145); Thyroid Stim Hormone (TSH) 3.29 uIU/mL (0.358-3.74); Uric Acid 8.5 mg/dL (3.5-7.2)
== END | disposition home or self-care (01) ==
LOC: POLAB3 09:47
PROVIDERS: PCP Family Medicine Geriatric Medicine; Visit Provider Family Medicine Geriatric Medicine
DX: E55.9 Vitamin D deficiency, unspecified (principal); I10 Essential (primary) hypertension; M10.9 Gout, unspecified
CPT/HCPCS: 36415; 80053; 82306; 84443; 84550; 85025

== ENCOUNTER 2022-02-28 11:27 | Inpatient (IN) | payer MEDICARE, SELFPAY ==
[2022-02-28] VITALS (8 sets, daily range): BP systolic 113–120; BP diastolic 68–74; PULSE 60–72; RESP 14–22; TEMP 36.2–36.6; O2SAT 94–97; BMI 35.2; BMI 35.9
--- NOTE | 2022-02-28 11:49 | EKG12_ITS ---
Test Reason : sob Blood Pressure : / mmHG Vent. Rate : 061 BPM Atrial Rate : 061 BPM P-R Int : 218 ms QRS Dur : 210 ms QT Int : 566 ms P-R-T Axes : 000 -76 093 degrees QTc Int : 569 ms AV dual-paced rhythm with prolonged AV conduction Abnormal ECG Confirmed by ALECIA NICHOLAS, MARI ([id number]), editorial cartoonist MAGALI COLE ([id number]) on 03/01/2022 2:11:30 PM Referred By: Viktoriya Confirmed By:CALIN ALSTON MD
--- NOTE | 2022-02-28 11:49 | ED.VIS.DYS ---
HPI History of Present Illness Chief Complaint: Shortness of Breath Detail of Chief Complaint: Shortness of breath for 4 to 5 weeks Informant: patient Narrative Narrative: Patient presents to the emergency department with increasing dyspnea over the last 4 to 5 weeks. He complains of exertional dyspnea. Denies chest pain. He has an occasional cough that at times has thick sputum. He denies fevers. Patient was seen by his primary care physician a week ago and started on Lasix 80 mg twice a day and was told he had gained 20 pounds. Patient sleeps in a chair normally. Patient complains of swelling of his lower extremities. He does have history of CHF and history of chronic kidney disease. 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 Patient had been constipated and then took milk of magnesium after not having a bowel movements for 4 to 5 days and started having bowel movements last night. He denies any abdominal pain. [facility] Medical History AAA (abdominal aortic aneurysm) Arthritis Back pain Body mass index (BMI) 35 or more Cancer Cardiac pacemaker in situ (01/02/15) Cardiology follow-up encounter Chronic systolic (congestive) heart failure CKD (chronic kidney disease) stage 3, GFR 30-59 ml/min Community acquired pneumonia Congestive heart failure (CHF) CPAP (continuous positive airway pressure) dependence Diffuse large B cell lymphoma Dyspnea on exertion Esophageal reflux Former smoker Gastric reflux Gout Gout High cholesterol History of CHF (congestive heart failure) History of diverticulitis History of edema History of non-Hodgkin's lymphoma History of pacemaker History of pituitary adenoma History of pituitary tumor History of renal disease History of steroid therapy History of steroid therapy History of stress test History of ulceration Hx of echocardiogram Hyperlipidemia Hypertension Hyponatremia Increasing prostate specific antigen level Kidney disease Malignant lymphoma of extranodal and solid organ sites Mobitz (type) II atrioventricular block MRSA (methicillin resistant staphylococcus aureus) pneumonia Non-ischemic cardiomyopathy PORTILLO (obstructive sleep apnea) Pacemaker PAF (paroxysmal atrial fibrillation) Pericardial effusion Pleural effusion Prostate cancer Prostate disease Secondary adrenal insufficiency Shortness of breath on exertion Simple obesity Sleep apnea SSS (sick sinus syndrome) Wears partial dentures Home Medications pravastatin 40 mg tablet 40 mg PO QHS CHOLESTEROL ##0 12/21/13 [History Last Taken 12/26/20] carvedilol 25 mg tablet (Coreg) 25 mg PO BID heart #180 tabs 02/06/21 [Rx Last Taken Unknown] allopurinol 300 mg tablet 300 mg PO DAILY 05/02/21 [History Last Taken Unknown] famotidine 40 mg tablet 40 mg PO DAILY GERD 07/12/21 [History Last Taken Unknown] ferrous sulfate 325 mg (65 mg iron) tablet 325 mg PO BID 12/03/21 [History Last Taken Unknown] potassium chloride 20 mEq tablet,extended release(part/cryst) 20 meq PO DAILY 12/03/21 [History Last Taken Unknown] furosemide 40 mg tablet (Lasix) 20 mg PO QODAY PRN 12/05/21 [History Last Taken Unknown] hydrocortisone 10 mg tablet See Rx Instructions PO BID pain 12/05/21 [History Last Taken Unknown] amlodipine 5 mg tablet 5 mg PO DAILY #90 tabs 12/28/21 [Rx Last Taken Unknown] Allergy/AdvReac Type Severity Reaction Status Date / Time lisinopril Allergy Swelling Verified 02/28/22 11:27 shellfish derived Allergy Angioedema Verified 02/28/22 11:27 aspirin AdvReac GI BLEED, Verified 02/28/22 11:27 UPPER Family History Father FH: kidney cancer Mother Heart disease Diabetes Surgical History History of biopsy of bladder History of cardiac catheterization History of cystoscopy (10/19/21) History of surgical removal of pituitary gland History of vascular access device Hx of lymph node biopsy Hx of nephrostomy Status post transsphenoidal pituitary resection Social History Smoking Status: Former smoker quit date: 06/30/81 pack-years: 20 how long ago did patient quit smokin second hand exposure: No alcohol intake: never substance use type: does not use caffeine: Yes Type: coffee Number of servings: 3 what type of physical activity do you participate in: none xavi/denominational: Christian seatbelt use: always do you feel safe at home: Yes ROS ROS ED Review of Systems ROS Unobtainable: other Constitutional Constitutional ED: Reports lethargy; Denies chills, fever(s), sweats or weight loss Eyes Eyes: Denies blurry vision, change in vision or diplopia ENT ENT ED: Denies rhinorrhea or sore throat Cardiovascular Cardiovascular: Reports orthopnea and racing heartbeat; Denies chest pain Respiratory/Chest Respiratory/Chest: Reports dyspnea, dyspnea on exertion and orthopnea; Denies cough or sputum Gastrointestinal Gastrointestinal: Denies abdominal pain, diarrhea, nausea or vomiting Genitourinary Genitourinary ED: Denies dysuria, hematuria or urinary frequency Musculoskeletal Musculoskeletal: Denies arthralgias, back pain, myalgias or neck pain Integumentary Denies abscess, Abrasions or rash Neurologic Neurologic: Denies headache(s) or weakness Psychiatric Psychiatric: Denies anxiety, depression or suicidal thoughts Endocrine Endocrinology: Denies polydipsia, polyphagia or polyuria Hematologic/Lymphatic Hematologic/Lymphatic: Denies easy bleeding, easy bruising or lymphadenopathy Allergic/Immunologic Allergic/Immunologic ED: Denies mouth swelling, tongue swelling or urticaria EXAM Physical Exam Const Vital Signs: 02/28/22 11:28 02/28/22 12:05 02/28/22 12:05 Temperature 97.2 F L Temperature Source Temporal Pulse Rate 62 72 Respiratory Rate 14 18 Respiratory Effort Short of Breath Respiratory Depth Normal Respiratory Pattern Normal Blood Pressure 113/69 Blood Pressure Mean 83 Pulse Ox 94 96 Oxygen Delivery Method Room Air Room Air 02/28/22 12:08 Temperature Temperature Source Pulse Rate Respiratory Rate Respiratory Effort Normal Respiratory Depth Respiratory Pattern Blood Pressure Blood Pressure Mean Pulse Ox Oxygen Delivery Method Positive well nourished and well developed General Appearance ED: well developed and NAD HEENT Reports TM's clear and moist mucous membranes normocephalic and atraumatic; Negative for trauma or tenderness Tympanic Membrane ED: Yes TM's clear Eyes PERRL and EOMs intact bilaterally General Eye ED: Negative for pale conjunctiva or scleral icterus Neck no lymphadenopathy, supple and no JVD General: Negative for tenderness Chest Wall inspection of chest normal and palpation of chest normal Chest: Negative for tenderness Resp normal respiratory effort and clear to auscultation bilaterally Resp Narrative: Few rales in the bases. Mild tachypnea. No accessory muscle use or retractions. Effort and Inspection: Negative for respiratory distress or pain with movement Auscultation: rales; Negative for rhonchi, wheezes or diminished lung sounds Cardio regular rate, regular rhythm, S1 normal heart sound, S2 normal heart sound and no murmurs Peripheral Pulses: pulses 2+ throughout GI normal to inspection, nondistended, normoactive bowel sounds, soft to palpation, non-tender, non-distended and no masses Back/Spine no CVA tenderness and no thoracic nor lumbar tenderness Extremity normal to inspection Extremity Narrative: +3 edema both lower extremities General Extremety ED: Yes edema General Extremity: edema Neuro oriented x3, CN's II-XII intact bilaterally, no sensory deficits noted and gait normal Sensorium / Orientation: awake, alert, oriented to person, oriented to place and oriented to time Motor Exam: strength 5/5 throughout and strength abnormal Psych mental status grossly normal Skin no rashes or lesions noted and no wounds MDM MDM MDM Narrative Medical decision making narrative: IV line established on arrival. Patient was placed on a compliance monitor. EKG obtained showed a paced rhythm. CBC with differential was unremarkable. Chemistries showed a BUN of 87 and creatinine 3.23. BNP was elevated 180. Chest x-ray obtained showed questionable patchy infiltrates in the peripheral lateral aspect of the right lung with follow-up recommended. Clinically I do not feel patient is infectious. I suspect patient may have pulmonary congestion with acute kidney injury. Patient complaining of severe exertional dyspnea and case will be discussed with hospitalist evaluate for admission. Lab Data Attestation: I reviewed the patient's lab results. Labs: Laboratory Results - last 24 hr 02/28/22 02/28/22 02/28/22 12:00 12:00 12:00 WBC 10.6 RBC 4.98 Hgb 13.3 Hct 40.6 MCV 81.5 MCH 26.7 L MCHC 32.8 RDW Std Deviation 49.5 H RDW Coeff of Deyvi 17.0 H Plt Count 247 MPV 9.7 Immature Gran % (Auto) 1.000 H Neut % (Auto) 82.3 H Lymph % (Auto) 4.4 L Loving % (Auto) 11.5 H Eos % (Auto) 0.6 Baso % (Auto) 0.2 Absolute Neuts (auto) 8.7 H Absolute Lymphs (auto) 0.46 L Nucleated RBC % 0 Differential Comment COMMENT Sodium 134 L Potassium 4.2 Chloride 97 L Carbon Dioxide 23.0 Anion Gap 14 BUN 87 H Creatinine 3.23 H Estim Creat Clear Calc 18.83 Est GFR (MDRD) Af Amer 24 L Est GFR (MDRD) Non-Af 20 L BUN/Creatinine Ratio 26.9 H Glucose 105 Calcium 8.7 Troponin I High Sens 25 B-Natriuretic Peptide 179.8 H Radiography Diagnostic Testing: Clinical Impression(s) from Imaging Studies Chest X-Ray 02/28/22 12:10 IMPRESSION: Patchy infiltrates are seen in the peripheral lateral aspect of the right lung. Follow-up is recommended. Electronically Signed: Nik Martines MD at 12:34 EDT , 1 view chest x-ray obtained interpreted by myself as for inspiratory film with questionable pulmonary congestion especially right compared to the left side. Radiology felt patient had patchy infiltrates seen in peripheral lateral aspect of the right lung. EKG Initial EKG: Attestation: I personally reviewed and interpreted this EKG as follows: Comments: Ventricularly paced rhythm with a rate of 61 bpm Discharge Plan Triage Chief Complaint: Shortness of Breath ED Provider: Ruslan Persaud Dx/Rx/DC Orders Clinical Impression: Exertional dyspnea, Acute kidney injury, CHF (congestive heart failure) Prescriptions: No Action famotidine 40 mg tablet 40 mg PO DAILY potassium chloride 20 mEq tablet,ER particles/crystals 20 meq PO DAILY ferrous sulfate 325 mg (65 mg iron) tablet 325 mg PO BID hydrocortisone 10 mg tablet See Rx Instructions PO BID Rx Instructions: 20 mg am and 5 mg pm pravastatin 40 MG tablet 40 mg PO QHS Qty: 0 Label Comments: CHOLESTEROL allopurinol 300 mg Tablet 300 mg PO DAILY carvedilol [Coreg] 25 mg tablet 25 mg PO BID Qty: 180 3RF Rx Instructions: must administer with a meal/food furosemide [Lasix] 40 mg tablet 20 mg PO QODAY PRN amlodipine 5 mg tablet 5 mg PO DAILY Qty: 90 3RF Primary Care Provider: Suraj Damian Chi Referrals: Suraj Damian Chi, MD [Primary Care Provider] - Disposition Disposition: Acute Care [facility]
[2022-02-28 12:09] LABS: Absolute Lymphocyte Count 0.46 X10^3/uL (0.83-4.51); Absolute Neutrophil Count 8.7 X10^3/uL (2.0-7.7); Basophil# 0.02 X10^3/uL; Basophil% 0.2 % (0-1); Eosinophil# 0.06 X10^3/uL; Eosinophils% 0.6 % (0-5); Hematocrit 40.6 % (40-54); Hemoglobin 13.3 g/dL (13.0-16.5); Lymphocyte # 0.46 X10^3/ul (0.83-4.51); Lymphocyte % 4.4 % (19-41); Mean Corp Hgb Conc 32.8 g/dL (32-36); Mean Corpuscular Hgb 26.7 pg (27.0-32.0); Mean Corpuscular Volume 81.5 fL (80-94); Mean Platelet Vol. 9.7 fl (6.2-12.0); Monocyte# 1.22 X10^3/uL; Monocyte% 11.5 % (0-10); NRBC Flagged by Analyzer 0 % (0-5); Neutrophil % 82.3 % (47-70); POSITIVE DIFFERENTIAL YES; Platelet Count 247 K/mm3 (150-450); RBC Distribution Width SD 49.5 fl (35.1-43.9); Red Blood Count 4.98 M/mm3 (4.6-6.2); White Blood Count 10.6 K/mm3 (4.4-11.0)
--- NOTE | 2022-02-28 12:10 | RAD_ITS ---
STUDY: X-RAY CHEST REASON FOR EXAM: Male, 81 years old. Dyspnea TECHNIQUE: Single AP portable view of the chest. COMPARISON: Comparison is made with prior study dated 07/12/2021. FINDINGS: EKG electrodes are seen. New patchy infiltrates are seen in the peripheral lateral aspect of the right lung. There is no demonstrated pleural abnormality. A left-sided dual-chamber pacemaker is seen. Calcified bilateral hilar lymph nodes. Normal visualized pulmonary arteries. There is atherosclerotic calcification of the aortic arch with tortuosity. There are diffuse degenerative changes of the visualized thoracic spine. Dextroscoliosis. Normal visualized ribs, clavicles, and shoulders. There is no demonstrated abnormality of the visualized soft tissue structures of the upper abdomen. RAD/Chest 1 View (Portable) IMPRESSION: Patchy infiltrates are seen in the peripheral lateral aspect of the right lung. Follow-up is recommended. Electronically Signed: Nik Martines MD at 12:34 EDT ,
[2022-02-28 12:11] LABS: Differential Indicated SCAN CRITERIA MET
[2022-02-28 12:23] LABS: Anion Gap 14 (5-15); BUN 87 mg/dL (7-18); BUN/Creat Ratio 26.9 RATIO (10-20); Calcium,Total 8.7 mg/dL (8.5-10.1); Chloride 97 mmol/L (98-107); Creatinine, Serum 3.23 mg/dL (0.70-1.30); EST Glomerular Filtration Rate 20 mL/min (>60); Est Glom Filt Rate - Afr Amer 24 mL/min (>60); Estimated Creatinine Clearance 18.83 ml/min; Glucose 105 mg/dL (74-106); Potassium 4.2 mmol/L (3.5-5.1); Sodium Level 134 mmol/L (136-145); Troponin-I HS 25 pg/mL (3.0-78.0)
[2022-02-28 12:37] LABS: BNP,B-Type NATRIURETIC PEPTIDE 179.8 pg/mL (0-100)
--- NOTE | 2022-02-28 13:58 | HP.PCM.HOS_ITS ---
HPI - General General Date of Admission: 02/28/22 Date of Service: 02/28/22 Chief Complaint: Shortness of breath HPI Narrative DANITZA JAIN, is a 81 M who presents with progressive shortness of breath. Patient primarily experiences it with exertion. Symptoms have been progressive over the past months. Patient was noted recently to have abdominal girth swelling and his furosemide was increased from 40 twice a day to 80. 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 In the emergency room, patient had an x-ray that was concerning for patchy infiltrates. Patient has no fever or chills. He does state that his legs have progressively gotten swollen and his weight has been reported to have gone up 20 pounds in the past few weeks. [facility] Medical History AAA (abdominal aortic aneurysm) Arthritis Back pain Body mass index (BMI) 35 or more Cancer Cardiac pacemaker in situ (01/02/15) Cardiology follow-up encounter Chronic systolic (congestive) heart failure CKD (chronic kidney disease) stage 3, GFR 30-59 ml/min Community acquired pneumonia Congestive heart failure (CHF) CPAP (continuous positive airway pressure) dependence Diffuse large B cell lymphoma Dyspnea on exertion Esophageal reflux Former smoker Gastric reflux Gout Gout High cholesterol History of CHF (congestive heart failure) History of diverticulitis History of edema History of non-Hodgkin's lymphoma History of pacemaker History of pituitary adenoma History of pituitary tumor History of renal disease History of steroid therapy History of steroid therapy History of stress test History of ulceration Hx of echocardiogram Hyperlipidemia Hypertension Hyponatremia Increasing prostate specific antigen level Kidney disease Malignant lymphoma of extranodal and solid organ sites Mobitz (type) II atrioventricular block MRSA (methicillin resistant staphylococcus aureus) pneumonia Non-ischemic cardiomyopathy PORTILLO (obstructive sleep apnea) Pacemaker PAF (paroxysmal atrial fibrillation) Pericardial effusion Pleural effusion Prostate cancer Prostate disease Secondary adrenal insufficiency Shortness of breath on exertion Simple obesity Sleep apnea SSS (sick sinus syndrome) Wears partial dentures Home Medications pravastatin 40 mg tablet 40 mg PO QHS CHOLESTEROL ##0 12/21/13 [History Last Taken 12/26/20] carvedilol 25 mg tablet (Coreg) 25 mg PO BID heart #180 tabs 02/06/21 [Rx Last Taken Unknown] allopurinol 300 mg tablet 300 mg PO DAILY 05/02/21 [History Last Taken Unknown] famotidine 40 mg tablet 40 mg PO DAILY GERD 07/12/21 [History Last Taken Unknown] ferrous sulfate 325 mg (65 mg iron) tablet 325 mg PO BID 12/03/21 [History Last Taken Unknown] potassium chloride 20 mEq tablet,extended release(part/cryst) 20 meq PO DAILY 12/03/21 [History Last Taken Unknown] furosemide 40 mg tablet (Lasix) 20 mg PO QODAY PRN Respiratory Distress 12/05/21 [History Last Taken Unknown] hydrocortisone 10 mg tablet See Rx Instructions PO BID pain 12/05/21 [History Last Taken Unknown] amlodipine 5 mg tablet 5 mg PO DAILY #90 tabs 12/28/21 [Rx Last Taken Unknown] Allergy/AdvReac Type Severity Reaction Status Date / Time lisinopril Allergy Swelling Verified 02/28/22 11:27 shellfish derived Allergy Angioedema Verified 02/28/22 11:27 aspirin AdvReac GI BLEED, Verified 02/28/22 11:27 UPPER Family History Father FH: kidney cancer Mother Heart disease Diabetes Surgical History History of biopsy of bladder History of cardiac catheterization History of cystoscopy (10/19/21) History of surgical removal of pituitary gland History of vascular access device Hx of lymph node biopsy Hx of nephrostomy Status post transsphenoidal pituitary resection Social History Smoking Status: Former smoker quit date: 06/30/81 pack-years: 20 how long ago did patient quit smokin second hand exposure: No alcohol intake: never substance use type: does not use caffeine: Yes Type: coffee Number of servings: 3 what type of physical activity do you participate in: none xavi/jew: Zoroastrian seatbelt use: always do you feel safe at home: Yes KIKI Foley Is urinating well. No chest pain. All review of systems were negative except as mentioned above in the history of present illness and the other review of systems. Vital Signs Vital Signs Vital Signs: 02/28/22 11:28 02/28/22 12:05 02/28/22 12:05 Temperature 36.2 C L Temperature Source Temporal Pulse Rate 62 72 Respiratory Rate 14 18 Respiratory Effort Short of Breath Respiratory Depth Normal Respiratory Pattern Normal Blood Pressure 113/69 Blood Pressure Mean 83 Pulse Ox 94 96 Oxygen Delivery Method Room Air Room Air 02/28/22 12:08 Temperature Temperature Source Pulse Rate Respiratory Rate Respiratory Effort Normal Respiratory Depth Respiratory Pattern Blood Pressure Blood Pressure Mean Pulse Ox Oxygen Delivery Method Weight Weight: 111.13 kg Body Mass Index (BMI) 35.2 Physical Exam Const alert and no apparent distress HEENT normocephalic and head/scalp atraumatic Neck no lymphadenopathy Resp normal respiratory effort and no retractions Cardio regular rate, regular rhythm, S1 normal heart sound and S2 normal heart sound GI GI Narrative: Large girth. Obese. Abdominal wall edema. Extremity Extremity Narrative: 3+ Todt lower extremity edema. Neuro Sensorium / Orientation: awake and alert Psych affect normal Results Lab / Micro Data Attestation: I reviewed the patient's lab results. Result Diagrams: 02/28/22 12:00 02/28/22 12:00 Labs: Laboratory Results - last 24 hr 02/28/22 12:00: WBC 10.6, RBC 4.98, Hgb 13.3, Hct 40.6, MCV 81.5, MCH 26.7 L, MCHC 32.8, RDW Std Deviation 49.5 H, RDW Coeff of Deyvi 17.0 H, Plt Count 247, MPV 9.7, Immature Gran % (Auto) 1.000 H, Neut % (Auto) 82.3 H, Lymph % (Auto) 4.4 L, Grayson % (Auto) 11.5 H, Eos % (Auto) 0.6, Baso % (Auto) 0.2, Absolute Neuts (auto) 8.7 H, Absolute Lymphs (auto) 0.46 L, Nucleated RBC % 0, Differential Comment COMMENT 02/28/22 12:00: Sodium 134 L, Potassium 4.2, Chloride 97 L, Carbon Dioxide 23.0, Anion Gap 14, BUN 87 H, Creatinine 3.23 H, Estim Creat Clear Calc 18.83, Est GFR (MDRD) Af Amer 24 L, Est GFR (MDRD) Non-Af 20 L, BUN/Creatinine Ratio 26.9 H, Glucose 105, Calcium 8.7, Troponin I High Sens 25 02/28/22 12:00: B-Natriuretic Peptide 179.8 H EKG Initial EKG: Attestation: I personally reviewed and interpreted this EKG as follows: Prior EKG tracings: available for review EKG Rhythm Intrepretation: Atrial Paced (AV paced) Radiology Impression Chest X-Ray 02/28/22 12:10 IMPRESSION: Patchy infiltrates are seen in the peripheral lateral aspect of the right lung. Follow-up is recommended. Electronically Signed: Nik Martines MD at 12:34 EDT , Assessment & Plan Assessment/Plan (1) HFrEF (heart failure with reduced ejection fraction): PLAN: Patient had an EF of 37% from 2D echocardiogram from July 23, 2021. No mention on right ventricular pressures on that echocardiogram Patient is not hypoxic. Patient's weight is about a kilogram more than he was back in November. But clinically he has diffuse anasarca. Plan: * Repeat echo * IV furosemide 40 mg IV 3 times daily * Fluid restrict 1500 cc/day. Patient states that he was compliant with fluid restriction at 48 ounces per day which is roughly 1500 cc daily. He states he is also compliant with the salt intake as well. * If kidney function worsens or if no effect with furosemide, would consider consultation to nephrology to see if patient would be a candidate for ultrafiltration. * Hold amlodipine given the anasarca * Continue carvedilol. Patient not a candidate for RAMILA inhibitors nor angiotensin receptor blockers given his acute kidney injury (2) Acute kidney injury: PLAN: Acute kidney injury on CKD 4. Baseline creatinine is 2.55. Complicated by patient essentially being a solitary kidney patient Cannot rule out cardiorenal syndrome Diurese but consider consultation to nephrology if kidney function worsens. No need for renal placement therapy at this time. PLAN: Plan Chronic conditions * Obstructive sleep apnea: Patient said that he is compliant with his CPAP. I advised his family, who is present, to bring in his CPAP. * Hypertension: Monitor for now. Currently stable. Amlodipine will be held * Morbid obesity: Complicates care and recovery. * Gout: We will decrease his allopurinol from 300-100 for renal dosing. VTE prophylaxis: Subcu heparin CODE STATUS: Addressed with the patient: Patient is full CODE STATUS. Charges/Coding Visit Charges Inpatient E&M: 54882 Init Hosp L3
--- NOTE | 2022-02-28 14:30 | ECHOD_ITS ---
Reason For Study: CHF Procedure This was a 2D Doppler, Color Flow transthoracic echocardiogram. The study was technically difficult. Exam performed portable in patient room. Left Ventricle Mildly dilated left ventricle. Mild concentric left ventricular hypertrophy. Moderate segmental systolic dysfunction (see wall motion). The estimated ejection fraction is 35 %. Stage 1 diastolic dysfunction. Infero-Basal: Akinetic. Basal anteroseptal: Hypokinetic. Mid-Anterior : Hypokinetic. Mid-Lateral : Hypokinetic. Mid-Posterior: Hypokinetic. Mid-Inferior: Akinetic. Mid-inferoseptal : Hypokinetic. Mid-anteroseptal : Hypokinetic. Anterior [place] : Hypokinetic. Inferior [place] : Akinetic. Lateral [place] : Akinetic. Septal [place] : Akinetic. Right Ventricle Normal RV size. ICD or pacer leads identified within the right ventricle. Normal systolic function. Atria Normal left atrium. Normal right atrium. ICD or pacer leads identified within the right atrium. No doppler evidence for ASD. Mitral Valve There is no mitral annular calcification. Mild mitral valve prolapse, anterior leaflet. Mild- Moderate (1-2+) mitral valve insufficiency. Tricuspid Valve Normal tricuspid valve. Trivial tricuspid valve insufficiency. Right ventricular systolic pressure estimated to be 31 mmHg. Aortic Valve The aortic valve leaflets are not well visualized, however, based upon the 2D echocardiographic images obtained there appears to be diffuse thickening, calcification, and partial restriction. Moderate aortic stenosis. Trivial aortic valve insufficiency. Pulmonic Valve The pulmonic valve is not well visualized. Great Vessels Normal sized aortic root. Pericardium/Pleural No pericardial effusion. MMode/2D Measurements & Calculations LVIDd: 5.8 cm IVSd: 1.3 cm LVOT diam: 2.0 cm LVIDs: 3.5 cm LVPWd: 1.3 cm LVOT area: 3.2 cm2 RVDd: 3.4 cm FS: 40.2 % Ao root diam: 4.1 cm LAV(MOD-sp2): 52.7 ml LA dimension: 4.5 cm Time Measurements MV dec time: 0.25 sec Doppler Measurements & Calculations MV E max terrence: 56.4 cm/sec Lat Peak E' Terrence: 7.4 cm/sec Med Peak E' Terrence: 5.7 cm/sec MV A max terrence: 93.1 cm/sec E/E' lat: 7.6 E/E' med: 9.9 MV E/A: 0.61 MV V2 max: 113.2 cm/sec MV P1/2t max terrence: 66.3 cm/sec Ao V2 max: 295.1 cm/sec MV max P.1 mmHg MV P1/2t: 72.7 msec Ao max P.8 mmHg MV V2 mean: 56.9 cm/sec Ao V2 mean: 203.8 cm/sec MV mean P.6 mmHg MV dec slope: 267.0 cm/sec2 Ao mean P.1 mmHg MV V2 VTI: 29.8 cm MVA(P1/2t): 3.0 cm2 Ao V2 VTI: 63.6 cm MVA(VTI): 2.3 cm2 GILMA(I,D): 1.1 cm2 GILMA(V,D): 1.1 cm2 LV V1 max: 99.7 cm/sec MR max terrence: 565.2 cm/sec SV(LVOT): 67.8 ml LV V1 max P.0 mmHg MR max P.8 mmHg LV V1 mean P.1 mmHg MR mean terrence: 420.3 cm/sec LV V1 mean: 66.9 cm/sec MR mean P.1 mmHg LV V1 VTI: 21.5 cm MR VTI: 179.0 cm PA V2 max: 96.9 cm/sec TR max terrence: 265.1 cm/sec TR max P.1 mmHg ECHO/Echo Complete Interpretation Summary The study was technically difficult. Mildly dilated left ventricle. Moderate segmental systolic dysfunction (see wall motion). The estimated ejection fraction is 35 %. Mild concentric left ventricular hypertrophy. Mild mitral valve prolapse, anterior leaflet Mild-Moderate (1-2+) mitral valve insufficiency. Trivial tricuspid valve insufficiency. The aortic valve leaflets are not well visualized, however, based upon the 2D e chocardiographic images obtained there appears to be diffuse thickening, calcification, and part ial restriction. Moderate aortic stenosis. Trivial aortic valve insufficiency. Right ventricular systolic pressure estimated to be 31 mmHg. Stage 1 diastolic dysfunction. Ordering Physician: Tony Shanks Performed By: Trace Cristina RCS
[2022-02-28 15:26] LABS: Troponin-I HS 25 pg/mL (3.0-78.0)
[2022-02-28] MEDS: Furosemide 40 MG/4 ML Vial IV ×2 (15:45→21:48)
[2022-02-28] MEDS: Ferrous Sulfate 325 MG Tablet PO (16:59)
[2022-02-28] MEDS: Hydrocortisone 10 MG Tablet 5 MG PO (16:59)
[2022-02-28 18:43] LABS: Troponin-I HS 25 pg/mL (3.0-78.0)
[2022-02-28] MEDS: Pravastatin 40 MG Tablet PO (21:47)
[2022-02-28] MEDS: Carvedilol 25 MG Tablet PO (21:48)
[2022-02-28] MEDS: Heparin Injection (Vial) 5,000 UNIT/ML VIAL 5000 UNIT SC (21:48)
[2022-02-28] MEDS: 0.9% Saline Lock 10 ML Syringe IV (21:54)
[2022-03-01] VITALS (11 sets, daily range): BP systolic 109–116; BP diastolic 54–76; PULSE 60–63; RESP 18; TEMP 36.4–36.9; O2SAT 95–96
[2022-03-01] MEDS: Furosemide 40 MG/4 ML Vial IV ×3 (05:29→21:37)
[2022-03-01 06:44] LABS: Anion Gap 11 (5-15); BUN 91 mg/dL (7-18); BUN/Creat Ratio 26.5 RATIO (10-20); Chloride 97 mmol/L (98-107); Creatinine, Serum 3.44 mg/dL (0.70-1.30); EST Glomerular Filtration Rate 18 mL/min (>60); Est Glom Filt Rate - Afr Amer 22 mL/min (>60); Estimated Creatinine Clearance 17.68 ml/min; Glucose 97 mg/dL (74-106); Potassium 4.6 mmol/L (3.5-5.1); Sodium Level 132 mmol/L (136-145)
--- NOTE | 2022-03-01 07:56 | PN.HOSP_ITS ---
Subjective Subjective Feels better. Decreased LE edema. Objective Data Objective Data Vital Signs: Vital Signs Temp Pulse Resp BP Pulse Ox O2 Del Method 36.4 C L 63 18 110/60 95 Room Air 03/01/22 05:46 03/01/22 05:46 03/01/22 05:46 03/01/22 05:46 03/01/22 05:46 03/01/22 05:46 Oxygen Delivery Method Room Air Weight: 114.6 kg Body Mass Index (BMI) 35.9 Intake & Output: Intake and Output for Last 24 Hours 02/27/22 02/28/22 03/01/22 23:59 23:59 23:59 Intake Total 670 / 670 200 / 200 Output Total 800 / 800 Balance -130 / -130 200 / 200 Lab / Micro Data Result Diagrams: 02/28/22 12:00 03/01/22 05:31 Labs: Laboratory Results - last 24 hr 02/28/22 12:00: WBC 10.6, RBC 4.98, Hgb 13.3, Hct 40.6, MCV 81.5, MCH 26.7 L, MCHC 32.8, RDW Std Deviation 49.5 H, RDW Coeff of Deyvi 17.0 H, Plt Count 247, MPV 9.7, Immature Gran % (Auto) 1.000 H, Neut % (Auto) 82.3 H, Lymph % (Auto) 4.4 L, [place] % (Auto) 11.5 H, Eos % (Auto) 0.6, Baso % (Auto) 0.2, Absolute Neuts (auto) 8.7 H, Absolute Lymphs (auto) 0.46 L, Nucleated RBC % 0, Differential Comment COMMENT 02/28/22 12:00: Sodium 134 L, Potassium 4.2, Chloride 97 L, Carbon Dioxide 23.0, Anion Gap 14, BUN 87 H, Creatinine 3.23 H, Estim Creat Clear Calc 18.83, Est GFR (MDRD) Af Amer 24 L, Est GFR (MDRD) Non-Af 20 L, BUN/Creatinine Ratio 26.9 H, Glucose 105, Calcium 8.7, Troponin I High Sens 25 02/28/22 12:00: B-Natriuretic Peptide 179.8 H 02/28/22 14:57: Troponin I High Sens 02/28/22 18:06: Troponin I High Sens 25 03/01/22 05:31: Sodium 132 L, Potassium 4.6, Chloride 97 L, Carbon Dioxide 24.0, Anion Gap 11, BUN 91 H, Creatinine 3.44 H, Estim Creat Clear Calc 17.68, Est GFR (MDRD) Af Amer 22 L, Est GFR (MDRD) Non-Af 18 L, BUN/Creatinine Ratio 26.5 H, Glucose 97, Calcium 9.0 Radiography Diagnostic Testing: Radiology Impression Chest X-Ray 02/28/22 12:10 IMPRESSION: Patchy infiltrates are seen in the peripheral lateral aspect of the right lung. Follow-up is recommended. Electronically Signed: Nik Martines MD at 12:34 EDT , Echocardiogram 02/28/22 14:30 Interpretation Summary The study was technically difficult. Mildly dilated left ventricle. Moderate segmental systolic dysfunction (see wall motion). The estimated ejection fraction is 35 %. Mild concentric left ventricular hypertrophy. Mild mitral valve prolapse, anterior leaflet Mild-Moderate (1-2+) mitral valve insufficiency. Trivial tricuspid valve insufficiency. The aortic valve leaflets are not well visualized, however, based upon the 2D echocardiographic images obtained there appears to be diffuse thickening, calcification, and partial restriction. Moderate aortic stenosis. Trivial aortic valve insufficiency. Right ventricular systolic pressure estimated to be 31 mmHg. Stage 1 diastolic dysfunction. Ordering Physician: Tony Shanks Performed By: Trace Cristina RCS Physical Exam Const alert and no apparent distress Resp normal respiratory effort and no retractions Cardio regular rate, regular rhythm, S1 normal heart sound and S2 normal heart sound GI normal to inspection, nondistended, normoactive bowel sounds, soft to palpation and non-tender Assessment & Plan Assessment/Plan (1) HFrEF (heart failure with reduced ejection fraction): PLAN: Patient had an EF of 37% from 2D echocardiogram from July 23, 2021. No mention on right ventricular pressures on that echocardiogram Echo showed EF 35%, moderate RVSP 31mmHg Patient is not hypoxic. Patient's weight is about a kilogram more than he was back in November. But clinically he has diffuse anasarca. Plan: * IV furosemide 40 mg IV 3 times daily * Fluid restrict 1500 cc/day. Patient states that he was compliant with fluid restriction at 48 ounces per day which is roughly 1500 cc daily. He states he is also compliant with the salt intake as well. * If kidney function worsens or if no effect with furosemide, would consider consultation to nephrology to see if patient would be a candidate for ultrafiltration. * Hold amlodipine given the anasarca * Continue carvedilol. Patient not a candidate for RAMILA inhibitors nor angiotensin receptor blockers given his acute kidney injury (2) Acute kidney injury: PLAN: Creatinine up Acute kidney injury on CKD 4. Baseline creatinine is 2.55. Complicated by patient essentially being a solitary kidney patient Cannot rule out cardiorenal syndrome Diurese but consider consultation to nephrology if kidney function worsens. No need for renal placement therapy at this time. PLAN: Plan Chronic conditions * Obstructive sleep apnea: Patient said that he is compliant with his CPAP. I advised his family, who is present, to bring in his CPAP. * Hypertension: Monitor for now. Currently stable. Amlodipine will be held * Morbid obesity: Complicates care and recovery. * Gout: We will decrease his allopurinol from 300-100 for renal dosing. VTE prophylaxis: Subcu heparin CODE STATUS: Addressed with the patient: Patient is full CODE STATUS. Charges/Coding Visit Charges Inpatient E&M: 72695 Subs Hosp L2
[2022-03-01] MEDS: Ferrous Sulfate 325 MG Tablet PO ×2 (09:10→17:14)
[2022-03-01] MEDS: Hydrocortisone 10 MG Tablet 20 MG PO (09:10)
[2022-03-01] MEDS: Potassium Chloride Oral Tablet 20 MEQ PO (09:10)
[2022-03-01] MEDS: Heparin Injection (Vial) 5,000 UNIT/ML VIAL 5000 UNIT SC ×2 (09:11→21:37)
[2022-03-01] MEDS: Allopurinol 100 MG Tablet PO (09:11)
[2022-03-01] MEDS: Famotidine 20 MG Tablet 40 MG PO (09:11)
[2022-03-01] MEDS: Carvedilol 25 MG Tablet PO ×2 (09:15→21:37)
[2022-03-01] MEDS: 0.9% Saline Lock 10 ML Syringe IV ×3 (09:44→21:41)
--- NOTE | 2022-03-01 12:30 | CASEMGMT ---
RN CM FILLER OPERATOR CM to room to meet with patient for initial transition planning/care coordination assessment. Pt sleeping soundly. RN CM introduced self and role at [facility]. @ bedside and states will answer questions. Care providers, pharmacy, and demographics verified/updated at this time. PCP: Dr Damian Specialists:Dr Starr-urology, Dr Holt-cardiology, Dr Yuan-endocrinology, Dr Gonzales--nephrology [facility]erred [facility]acy: [facility] Insurance: [employer] Secure Prescription Benefit: Yes Living Will/HPOA: Pt has LW and HPOA, who is his , Benita LNOK: , Benita. 3 adult children: Carina Blair, Ami Living Arrangements: Lives w/ in 1-story home w/basement. Son, Johnnie, lives in apartment in basement. states d/t pt weakness and SOB, she has been assisting pt w/all care: getting in/out of chair, assisting w/urinal, changing depend, sponge-bathing him, managing medications. reports good support system. Their children are supportive and they take turns stopping in daily to assist. Johnnie works during the day, but is @ home during the night. Transportation: states pt has been driving up until this past week, but she has been trying to deter him from driving. and family assist w/transportation. Dtr, Carina, accompanies pt and to appts. DME: Has the following DME: walker, cane, pulse ox, BP machine, CPAP thru [employer]. states no need for further DME at this time. HHC/SNF: No hx of either. aware therapy evals are pending. Discussed options of SNF and HHC. She states if SNF is recommended, she is not sure if pt would be agreeable and that someone would need to talk w/him about it. She was made aware someone would discuss d/c plan w/pt and once evals are done to discuss discharge plan. She voices understanding. voices no further concerns/needs at this time. Advised to ask for CM if any further questions/concerns/needs arise. Voices understanding. PLAN: TBD by course of treatment and progress w/therapy. PT/OT evals pending. Nikita LEALN GIANNI TURPIN
--- NOTE | 2022-03-01 14:27 | CHAPLAIN ---
Type of Pastoral Visit _x__ Initial Visit ___ Follow-up Visit ___ On-call Visit ___ General Patient Visit ___ Spiritual Assessment ___ Family Conference ___ Bereavement ___ Rapid Response ___ Code Blue ___ Other (describe below) Pastoral Care Referral From _x__ Patient ___ Family ___ Nurse ___ Physician ___ Belt Picker ___ Forest Technology Professor ___ Other (describe below) Sacrament/Intervention _x__ Active listening ___ Anointing ___ Yazidism ___ Bereavement ___ Communion _x__ Edith exploration ___ _x__ Life review _x__ Prayer ___ Reconciliation ___ Sacrament of Sick _x__ Supportive presence ___ Wedding ___ Other (describe below) Pastoral Comments patient stated that he wanted spiritual care support; pt identifies as a believer and has been unable to go to restorationist since Covid; pt states his current health status and possible decisions about future in dialysis; pt welcomes presence and prayer; pt asks for return visit if possible
[2022-03-01] MEDS: Hydrocortisone 10 MG Tablet 5 MG PO (17:14)
[2022-03-01] MEDS: Pravastatin 40 MG Tablet PO (21:37)
[2022-03-02] VITALS (11 sets, daily range): BP systolic 102–118; BP diastolic 57–68; PULSE 58–68; RESP 16–18; TEMP 36.4–36.5; O2SAT 94–96
[2022-03-02] MEDS: Furosemide 40 MG/4 ML Vial IV ×3 (05:59→17:50)
[2022-03-02] MEDS: 0.9% Saline Lock 10 ML Syringe IV ×2 (05:59→17:50)
[2022-03-02 06:36] LABS: Anion Gap 13 (5-15); BUN 102 mg/dL (7-18); BUN/Creat Ratio 28.3 RATIO (10-20); Calcium,Total 8.7 mg/dL (8.5-10.1); Chloride 97 mmol/L (98-107); EST Glomerular Filtration Rate 17 mL/min (>60); Est Glom Filt Rate - Afr Amer 21 mL/min (>60); Glucose 113 mg/dL (74-106); Potassium 4.2 mmol/L (3.5-5.1); Sodium Level 130 mmol/L (136-145)
[2022-03-02] MEDS: Ferrous Sulfate 325 MG Tablet PO (08:24)
[2022-03-02] MEDS: Hydrocortisone 10 MG Tablet 20 MG PO (08:24)
[2022-03-02] MEDS: Allopurinol 100 MG Tablet PO (08:26)
[2022-03-02] MEDS: Potassium Chloride Oral Tablet 20 MEQ PO (08:26)
--- NOTE | 2022-03-02 08:36 | PN.HOSP_ITS ---
Subjective Subjective Does not feel any different from yesterday. Still is urinating. Objective Data Objective Data Vital Signs: Vital Signs Temp Pulse Resp BP Pulse Ox O2 Del Method 36.4 C L 58 L 18 109/63 94 Room Air 03/02/22 08:20 03/02/22 08:20 03/02/22 08:20 03/02/22 08:20 03/02/22 08:20 03/02/22 08:20 Oxygen Delivery Method Room Air Weight: 114 kg Body Mass Index (BMI) 35.9 Intake & Output: Intake and Output for Last 24 Hours 02/28/22 03/01/22 03/02/22 23:59 23:59 23:59 Intake Total 670 / 670 1120 / 1330 210 / 210 Output Total 800 / 800 425 / 875 750 / 750 Balance -130 / -130 695 / 455 -540 / -540 Lab / Micro Data Result Diagrams: 02/28/22 12:00 03/02/22 05:50 Labs: Laboratory Results - last 24 hr 03/02/22 05:50: Sodium 130 L, Potassium 4.2, Chloride 97 L, Carbon Dioxide 20.0 L, Anion Gap 13, BUN 102 H*, Creatinine 3.60 H, Estim Creat Clear Calc 16.90, Est GFR (MDRD) Af Amer 21 L, Est GFR (MDRD) Non-Af 17 L, BUN/Creatinine Ratio 28.3 H, Glucose 113 H, Calcium 8.7 Physical Exam Const Constitutional Narrative: Up in a chair. No respiratory distress. No conversational dyspnea. Resp normal respiratory effort, no retractions, no use of accessory muscles and clear to auscultation bilaterally Cardio regular rate, regular rhythm, S1 normal heart sound and S2 normal heart sound GI GI Narrative: Abdominal wall edema seen slightly less today Extremity General Extremity: edema bilateral lower extremity Details: severe (Pitting bilaterally) Neuro Sensorium / Orientation: awake and alert Psych affect normal Assessment & Plan Assessment/Plan (1) HFrEF (heart failure with reduced ejection fraction): PLAN: Patient had an EF of 37% from 2D echocardiogram from July 23, 2021. No mention on right ventricular pressures on that echocardiogram Echo showed EF 35%, moderate RVSP 31mmHg Patient is not hypoxic. Patient's weight is about a kilogram more than he was back in November. But clinically he has diffuse anasarca. Plan: * IV furosemide 40 mg IV 3 times daily * Fluid restrict 1500 cc/day. Patient states that he was compliant with fluid restriction at 48 ounces per day which is roughly 1500 cc daily. He states he is also compliant with the salt intake as well. * If kidney function worsens or if no effect with furosemide, would consider consultation to nephrology to see if patient would be a candidate for ultrafiltration. * Hold amlodipine given the anasarca * Continue carvedilol. Patient not a candidate for RAMILA inhibitors nor angiotensin receptor blockers given his acute kidney injury (2) Acute kidney injury: PLAN: Creatinine trending up Acute kidney injury on CKD 4. Baseline creatinine is 2.55. Complicated by patient essentially being a solitary kidney patient Cannot rule out cardiorenal syndrome No need for renal placement therapy at this time. Consult nephrology. Discussed with Dr. Gonzales, who recommends a Phipps catheter. PLAN: Plan Chronic conditions * Obstructive sleep apnea: Patient said that he is compliant with his CPAP. I advised his family, who is present, to bring in his CPAP. * Hypertension: Monitor for now. Currently stable. Amlodipine will be held * Morbid obesity: Complicates care and recovery. * Gout: We will decrease his allopurinol from 300-100 for renal dosing. VTE prophylaxis: Subcu heparin CODE STATUS: Addressed with the patient: Patient is full CODE STATUS. Charges/Coding Visit Charges Inpatient E&M: 29210 Subs Hosp L2
[2022-03-02] MEDS: Famotidine 20 MG Tablet PO (09:44)
[2022-03-02] MEDS: Heparin Injection (Vial) 5,000 UNIT/ML VIAL 5000 UNIT SC ×2 (09:44→21:26)
--- NOTE | 2022-03-02 12:47 | CON.PCM.RE_ITS ---
Assessment & Plan Assessment/Plan (1) Acute on chronic kidney failure: PLAN: creatinine baseline mid 2's progressed to mid 3's on escalating doses of lasix for anasarca, fluid overload. Suspect cardiorenal syndrome with underlying CKD stage 4 due to severe left renal atrophy, transitional cell cancer right kidney s/p stent. check renal us r/o upper tract obstruction, gutiérrez to CD. Discussed with pt and pt spouse, son that he may need dialyssi during hospitalization if renal function continues decline. Check 24h urine, spot urine sodium, creatinine. Discussed with hospitalist. (2) CKD (chronic kidney disease) stage 4, GFR 15-29 ml/min: PLAN: hx left renal atrophy with right kidney cancer s/p stent. 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 Cut back lasix to bid (7) Prostate cancer: HPI Consult Data Date of Consult: 03/03/22 HPI Narrative Reason for Consultation: Acute on CKD HPI Narrative: DANITZA JAIN, is a 81 M well known to me with transitional cell cancer of rigiht kidney s/p stent, renal atrophy on left, CKD stage 4, prostate cancer, lymphoma, cardiomyopathy with EF 35% admitted on 02/28/22 for increased shortness of breath, weakness, weight gain with abdominal distension and edema past several weeks. Pt too weak to come to office to see me past week. Baseline creatinine mid 2's increased to 3.2 on admit tp 3.6 with bun 100 today. His lasix dose was increased to 80mg twice a day as outpt prior to admit. He admits to eating out on a regular basis but not past several weeks due to not feeling w ell. Edema and weight gain persisted with shortness of breath. He did not have much diuresis despite increased lasix dose. He denied chest pain, pressure. Denied cough, fever, chills. Appetite has been poor. Sedentary past several weeks, unable to ambulate per pt son due to weakness. Discussed with pt and pt spouse and son may need dialysis this admission if renal fxn continues to decline. [facility] Medical History AAA (abdominal aortic aneurysm) Arthritis Back pain Body mass index (BMI) 35 or more Cancer Cardiac pacemaker in situ (01/02/15) Cardiology follow-up encounter Chronic systolic (congestive) heart failure CKD (chronic kidney disease) stage 3, GFR 30-59 ml/min Community acquired pneumonia Congestive heart failure (CHF) CPAP (continuous positive airway pressure) dependence Diffuse large B cell lymphoma Dyspnea on exertion Esophageal reflux Former smoker Gastric reflux Gout Gout High cholesterol History of CHF (congestive heart failure) History of diverticulitis History of edema History of non-Hodgkin's lymphoma History of pacemaker History of pituitary adenoma History of pituitary tumor History of renal disease History of steroid therapy History of steroid therapy History of stress test History of ulceration Hx of echocardiogram Hyperlipidemia Hypertension Hyponatremia Increasing prostate specific antigen level Kidney disease Malignant lymphoma of extranodal and solid organ sites Mobitz (type) II atrioventricular block MRSA (methicillin resistant staphylococcus aureus) pneumonia Non-ischemic cardiomyopathy PORTILLO (obstructive sleep apnea) Pacemaker PAF (paroxysmal atrial fibrillation) Pericardial effusion Pleural effusion Prostate cancer Prostate disease Secondary adrenal insufficiency Shortness of breath on exertion Simple obesity Sleep apnea SSS (sick sinus syndrome) Wears partial dentures Home Medications pravastatin 40 mg tablet 40 mg PO QHS CHOLESTEROL ##0 12/21/13 [History Last Taken 02/26/22] carvedilol 25 mg tablet (Coreg) 25 mg PO BID heart #180 tabs 02/06/21 [Rx Last Taken 02/27/22] allopurinol 300 mg tablet 300 mg PO DAILY gout 05/02/21 [History Last Taken 02/27/22] famotidine 40 mg tablet 40 mg PO DAILY GERD 07/12/21 [History Last Taken 02/27/22] ferrous sulfate 325 mg (65 mg iron) tablet 325 mg PO BID supplement 12/03/21 [History Last Taken 02/28/22] potassium chloride 20 mEq tablet,extended release(part/cryst) 20 meq PO DAILY supplement 12/03/21 [History Last Taken 02/27/22] furosemide 40 mg tablet (Lasix) 20 mg PO QODAY PRN Respiratory Distress 12/05/21 [History Last Taken 02/28/22] hydrocortisone 10 mg tablet See Rx Instructions PO BID pain 12/05/21 [History Last Taken 02/27/22] amlodipine 5 mg tablet 5 mg PO DAILY heart 02/28/22 [History Last Taken 02/27/22] Allergy/AdvReac Type Severity Reaction Status Date / Time lisinopril Allergy Swelling Verified 02/28/22 11:27 shellfish derived Allergy Angioedema Verified 02/28/22 11:27 aspirin AdvReac GI BLEED, Verified 02/28/22 11:27 UPPER Family History Father FH: kidney cancer Mother Heart disease Diabetes Surgical History History of biopsy of bladder History of cardiac catheterization History of cystoscopy (10/19/21) History of surgical removal of pituitary gland History of vascular access device Hx of lymph node biopsy Hx of nephrostomy Status post transsphenoidal pituitary resection Social History Smoking Status: Former smoker quit date: 06/30/81 pack-years: 20 how long ago did patient quit smokin second hand exposure: No alcohol intake: never substance use type: does not use caffeine: Yes Type: coffee Number of servings: 3 what type of physical activity do you participate in: none xavi/tenriism: Uatsdin seatbelt use: always do you feel safe at home: Yes ROS Constitutional Constitutional: Reports weakness and weight gain; Denies chills or fever(s) Eyes Eyes: Denies change in vision ENT HEENT: Reports dry mouth; Denies nasal congestion Cardiovascular Cardiovascular: Reports dyspnea on exertion, edema and leg edema; Denies chest pain or syncope Respiratory/Chest Respiratory/Chest: Reports dyspnea on exertion and shortness of breath at rest; Denies dry cough Gastrointestinal Gastrointestinal: Reports anorexia, weight changes and other Details: abdominal distension ; Denies abdominal pain, diarrhea, nausea or vomiting Genitourinary Genitourinary: Denies change in urinary stream, dysuria, flank pain or hematuria Integumentary Integumentary: Denies rash Neurologic Neurologic: Reports weakness; Denies burning sensations or confusion Psychiatric Psychiatric: Denies anxiety Endocrine Endocrinology: Reports fatigue Hematologic/Lymphatic Hematologic/Lymphatic: Reports anemia Physical Exam Const alert, oriented x3 and no apparent distress Constitutional Narrative: gen weakness General Appearance: well developed HEENT HEENT Narrative: dry mucus membranes, mouth breather Eyes EOMs intact bilaterally Neck no JVD Resp clear to auscultation bilaterally Cardio regular rate and no rub GI non-tender GI Narrative: obese Auscultation: normoactive bowel sounds Palpation: soft Bladder / Kidney Exam: catheter in place urethral (miryam urine) Extremity General Extremity: edema bilateral (2+ pitting) Skin General Skin Exam: Negative for ecchymosis Neuro moves all extremities Neuro Narrative: no tremor Sensorium / Orientation: awake and alert Psych cooperative Lab / Micro Data Result Diagrams: 02/28/22 12:00 03/03/22 05:41 Labs: Laboratory Results - last 24 hr 03/02/22 05:50: Sodium 130 L, Potassium 4.2, Chloride 97 L, Carbon Dioxide 20.0 L, Anion Gap 13, BUN 102 H*, Creatinine 3.60 H, Estim Creat Clear Calc 16.90, Est GFR (MDRD) Af Amer 21 L, Est GFR (MDRD) Non-Af 17 L, BUN/Creatinine Ratio 28.3 H, Glucose 113 H, Calcium 8.7
--- NOTE | 2022-03-02 13:04 | CASEMGMT ---
As per poultry feed supervisor, he has LW/POA and plans to bring in the forms. Pt states Benita Garces is medical POA. WES Mckeon
--- NOTE | 2022-03-02 14:33 | US_ITS ---
STUDY: RENAL ULTRASOUND - COMPLETE REASON FOR EXAM: Male, 81 years old. renal failure TECHNIQUE: Ultrasound evaluation of the kidneys was performed with real-time and static mckeon-scale imaging. COMPARISON: None. FINDINGS: RIGHT KIDNEY: Normal location of the right kidney, which is normal in size. The right kidney measures 9.6 cm. . There is a normal cortex of the right kidney. There is no right renal mass or cyst. There are no right renal calculi. There is no right hydronephrosis. DISTAL RIGHT URETER: There is non-visualization of the distal right ureter. There is no demonstrated right ureterovesical junction calculus. There is no demonstrated right ureteral jet. LEFT KIDNEY: with moderate renal atrophy. The left kidney measures 5.1 cm. . There is diffuse thinning of the renal cortex. There is no left renal mass or cyst. There are no left renal calculi. There is no left hydronephrosis. DISTAL LEFT URETER: There is non-visualization of the distal left ureter. There is no demonstrated left ureterovesical junction calculus. There is no demonstrated left ureteral jet. AORTA: There is no elongation or tortuosity of the abdominal aorta. Aorta measures: mm. There is no demonstrated aneurysm.. I.V.C.: The IVC is patent. BLADDER: Balloon Ascites. Hepatic mass. CT can better evaluate. US/Kidney and Bladder IMPRESSION: Left renal atrophy. Ascites. Hepatic mass. CT can better evaluate. Note: Renal size measurements and size measurements of other organs etc may vary depending on modality and bottom precipitator operator dependent variations in measurements. (i.e. Measuring a kidney on an US does not correlate with an exact same measurement on a CT.) Electronically Signed: Josue Santillan MD at 15:57 EDT ,
[2022-03-02 14:43] LABS: Urine Sodium 14 mmol/L (Not Establ.)
--- NOTE | 2022-03-02 16:30 | CASEMGMT ---
RN CM reviewed therapy notes, recommending HHC. RN CM in to discuss discharge planning with patient. Patient states he is not sure if he would like HHC at discharge. A list of HHC providers including quality and resource use data and consistent with the patient?s preferred geographic region, medical needs, and insurance network were provided from the [facility]. GIANNI TURPIN requested patient review list for preferences. CM to follow-up will follow-up with patient regarding HHC setup and plan for a safe discharge.
[2022-03-02] MEDS: Hydrocortisone 10 MG Tablet 5 MG PO (17:49)
[2022-03-02] MEDS: Pravastatin 40 MG Tablet PO (21:26)
--- NOTE | 2022-03-02 23:00 | NURSING ---
PT refused to wear CPAP at this time. PT thanked this nurse for asking.
[2022-03-03] VITALS (8 sets, daily range): BP systolic 109–125; BP diastolic 59–73; PULSE 60–71; RESP 16–18; TEMP 35.4–36.4; O2SAT 94–98
[2022-03-03 06:22] LABS: Anion Gap 14 (5-15); BUN 109 mg/dL (7-18); BUN/Creat Ratio 29.1 RATIO (10-20); Calcium,Total 8.7 mg/dL (8.5-10.1); Chloride 100 mmol/L (98-107); Creatinine, Serum 3.74 mg/dL (0.70-1.30); EST Glomerular Filtration Rate 17 mL/min (>60); Est Glom Filt Rate - Afr Amer 20 mL/min (>60); Estimated Creatinine Clearance 16.27 ml/min; Glucose 104 mg/dL (74-106); Potassium 4.2 mmol/L (3.5-5.1); Sodium Level 131 mmol/L (136-145)
--- NOTE | 2022-03-03 08:09 | PN.HOSP_ITS ---
Subjective Subjective Still edematous. Denies any change Objective Data Objective Data Vital Signs: Vital Signs Temp Pulse Resp BP Pulse Ox O2 Del Method 36.4 C L 62 18 125/73 H 94 Room Air 03/03/22 03:00 03/03/22 07:00 03/03/22 03:00 03/03/22 03:00 03/03/22 03:00 03/03/22 06:45 Oxygen Delivery Method Room Air Weight: 114 kg Body Mass Index (BMI) 35.9 Intake & Output: Intake and Output for Last 24 Hours 03/01/22 03/02/22 03/03/22 23:59 23:59 23:59 Intake Total 1120 / 1330 810 / 810 Output Total 425 / 875 1200 / 1400 750 / 750 Balance 695 / 455 -390 / -590 -750 / -750 Lab / Micro Data Result Diagrams: 02/28/22 12:00 03/03/22 05:41 Labs: Laboratory Results - last 24 hr 03/02/22 14:20: Urine Creatinine 75.40 03/02/22 14:20: Ur Random Sodium 14 03/03/22 05:41: Sodium 131 L, Potassium 4.2, Chloride 100, Carbon Dioxide 17.0 L , Anion Gap 14, BUN 109 H*, Creatinine 3.74 H, Estim Creat Clear Calc 16.27, Est GFR (MDRD) Af Amer 20 L, Est GFR (MDRD) Non-Af 17 L, BUN/Creatinine Ratio 29.1 H , Glucose 104, Calcium 8.7 Radiography Diagnostic Testing: Radiology Impression Renal Ultrasound 03/02/22 14:33 IMPRESSION: Left renal atrophy. Ascites. Hepatic mass. CT can better evaluate. Note: Renal size measurements and size measurements of other organs etc may vary depending on modality and combined rail operator dependent variations in measurements. (i.e. Measuring a kidney on an US does not correlate with an exact same measurement on a CT.) Electronically Signed: Josue Santillan MD at 15:57 EDT , Physical Exam Const alert and no apparent distress HEENT head/scalp atraumatic Resp normal respiratory effort, no retractions, no use of accessory muscles and clear to auscultation bilaterally Cardio regular rate, regular rhythm, S1 normal heart sound and S2 normal heart sound GI normal to inspection, nondistended, normoactive bowel sounds Extremity Extremity Narrative: Diffuse 3+ lower extremity edema extending into his back and lower abdomen Psych affect normal Assessment & Plan Assessment/Plan (1) HFrEF (heart failure with reduced ejection fraction): PLAN: ?Patient had an EF of 37% from 2D echocardiogram from July 23, 2021.? No mention on right ventricular pressures on that echocardiogram Echo showed EF 35%, moderate RVSP 31mmHg Patient is not hypoxic. Patient's weight is about a kilogram more than he was back in November.? But clinically he has diffuse anasarca. Plan: * IV furosemide 40 mg IV 3 times daily * Fluid restrict 1500 cc/day.? Patient states that he was compliant with fluid restriction at 48 ounces per day which is roughly 1500 cc daily.? He states he is also compliant with the salt intake as well. * If kidney function worsens or if no effect with furosemide, would consider consultation to nephrology to see if patient would be a candidate for ultrafiltration. * Hold amlodipine given the anasarca * Continue carvedilol.? Patient not a candidate for RAMILA inhibitors nor angiotensin receptor blockers given his acute kidney injury (2) Acute kidney injury: PLAN: Creatinine trending up Acute kidney injury on CKD 4.? Baseline creatinine is 2.55.? Complicated by patient essentially being a solitary kidney patient Cannot rule out cardiorenal syndrome Worsening kidney function. Phipps catheter placed. Discussed with the patient his that he may need dialysis. Nephrology to determine when. (3) Liver mass: PLAN: Incidental finding on ultrasound check CAT scan without contrast. Of note had previously not been present on prior CTs. Informed patient and his . PLAN: Plan Chronic conditions * Obstructive sleep apnea: Patient said that he is compliant with his CPAP.? I advised his family, who is present, to bring in his CPAP. * Hypertension: Monitor for now.? Currently stable.? Amlodipine will be held * Morbid obesity: Complicates care and recovery. * Gout: We will decrease his allopurinol from 300-100 for renal dosing. VTE prophylaxis: Subcu heparin CODE STATUS: Addressed with the patient: Patient is full CODE STATUS. Charges/Coding Visit Charges Inpatient E&M: 10499 Subs Hosp L2
[2022-03-03] MEDS: Carvedilol 25 MG Tablet PO ×2 (08:34→21:44)
[2022-03-03] MEDS: Heparin Injection (Vial) 5,000 UNIT/ML VIAL 5000 UNIT SC ×2 (08:34→21:44)
[2022-03-03] MEDS: Hydrocortisone 10 MG Tablet 20 MG PO (08:34)
[2022-03-03] MEDS: Allopurinol 100 MG Tablet PO (08:34)
[2022-03-03] MEDS: Famotidine 20 MG Tablet PO (08:34)
[2022-03-03] MEDS: Furosemide 40 MG/4 ML Vial IV ×2 (08:35→17:39)
[2022-03-03] MEDS: 0.9% Saline Lock 10 ML Syringe IV ×3 (08:39→17:39)
--- NOTE | 2022-03-03 12:34 | CT_ITS ---
STUDY: CT ABDOMEN AND PELVIS WITHOUT CONTRAST REASON FOR EXAM: Male, 81 years old. Liver mass on US RADIATION DOSAGE (If Supplied By Facility): CTDIvol = ( 18.81 ) mGy, DLP = ( 1127.74 ) mGycm TECHNIQUE: Transaxial images were obtained from the dome of the diaphragm to the symphysis pubis without oral contrast, and without intravenous contrast. Sagittal and coronal images were reconstructed. Individualized dose optimization techniques were used for this CT. COMPARISON: Ultrasound of 03/02/[address] abdomen and pelvis of 12/29/2020. FINDINGS: The visualized portions of lung bases demonstrate partially visualized pleural-based opacity/masses in both lower lobes and right upper lobe abutting the minor fissure. Trace of bilateral pleural effusions. Normal heart size. Pacemaker wires. There is a diffuse contour abnormality of the liver consistent with cirrhotic changes. Ill-defined nodular changes are possible masses in the dome of the liver poorly visualized on this examination. Contracted gallbladder with gallstones. Normal spleen. There is diffuse atrophy of the pancreas. Normal bilateral adrenal glands. No evidence of right hydronephrosis. Atrophic left kidney. There is a small hiatal hernia. Normal caliber small bowel loops. Diverticulosis of the sigmoid colon without evidence of acute diverticulitis. The appendix is not definitely identified. There is diffuse atherosclerotic calcification of the abdominal aorta, without a demonstrated aneurysm. Normal inferior vena cava. No evidence of retroperitoneal adenopathy. Moderate amount of ascites in the abdomen and pelvis new since previous examination. Phipps catheter in the bladder. The bladder is not distended. Normal abdominal wall. Degenerative changes in the spine. Vague sclerotic lesions in the vertebral bodies of L3 and L4. CT/Abdomen/Pelvis without Cont IMPRESSION: 1. Partially visualized pleural-based opacity/masses in the lower lungs. CT scan to chest might be of value. 2. Trace of bilateral pleural effusions. 3. Cirrhosis of the liver with nodular changes. Masses in the dome of the liver cannot be excluded on this noncontrast exam. Follow-up exam with contrast is recommended if it can be performed. 4. Moderate amount of ascites in the abdomen and pelvis new since previous exam. 5. Contracted gallbladder with gallstones. Electronically Signed: Jonathan Nuñez MD at 13:59 EDT ,
--- NOTE | 2022-03-03 14:11 | CT_ITS ---
EXAM: CT CHEST WITHOUT INTRAVENOUS CONTRAST CLINICAL INDICATION: pleural based masses TECHNIQUE: Helically acquired images were obtained of the chest without intravenous contrast. This CT exam was performed using one or more of the following dose reduction techniques: automated exposure control, adjustment of the mA and/or kV according to patient size, and/or use of iterative reconstruction technique. This report was created using [employer] report generation technology. COMPARISON: 01/10/2015 FINDINGS: LUNGS AND PLEURAL SPACES: Small bilateral effusions with bibasilar consolidation. There is also pleural-based consolidation seen within the right upper lobe laterally as well as in the superior segment of the left lower lobe. No mass. No pneumothorax. HEART: Unremarkable. Heart size is normal. No pericardial effusion. No significant coronary artery calcifications. MEDIASTINUM: Unremarkable. No mediastinal or hilar adenopathy. Esophagus is unremarkable. No hiatal hernia. THYROID: Unremarkable. No thyroid lesions. BONES/JOINTS: See above. VASCULATURE: Unremarkable. Thoracic aorta is non-dilated. INTRAPERITONEAL SPACE: There is free fluid seen within the upper abdomen compatible with ascites. CT/Chest without Contrast IMPRESSION: Bilateral pleural effusions. There is pleural-based consolidation seen within the right upper lobe and both lower lobes which may represent multifocal pneumonia. Electronically Signed: Kyle Gonzales MD at 18:06 EDT ,
[2022-03-03] MEDS: Hydrocortisone 10 MG Tablet 5 MG PO (17:39)
[2022-03-03 19:03] LABS: Creatinine Serum Creat 3.7 mg/dL (0.8-1.3); EST Glomerular Filtration Rate 17 mL/min (>60); Est Glom Filt Rate - Afr Amer 17 mL/min (>60)
[2022-03-03 19:12] LABS: 24HR. UA Prot. Total Volume 1425 mL; Creat.Clear Total Volume 1425 mL
[2022-03-03 19:36] LABS: Creatinine Clearance 21 ml/min (100-200); Creatinine Urine 81.3 mg/dL (NO RANGE EST.)
[2022-03-03 19:39] LABS: Urine Protein (24 Hour) 16.7 mg/dL (<11.9)
[2022-03-03] MEDS: Pravastatin 40 MG Tablet PO (21:44)
[2022-03-04] VITALS (9 sets, daily range): BP systolic 113–121; BP diastolic 54–65; PULSE 58–67; RESP 16–18; TEMP 36.3–36.6; O2SAT 95–97
[2022-03-04 06:38] LABS: Absolute Lymphocyte Count 0.49 X10^3/uL (0.83-4.51); Absolute Neutrophil Count 10.7 X10^3/uL (2.0-7.7); Basophil# 0.02 X10^3/uL; Basophil% 0.2 % (0-1); Eosinophil# 0.05 X10^3/uL; Eosinophils% 0.4 % (0-5); Hematocrit 40.3 % (40-54); Lymphocyte # 0.49 X10^3/ul (0.83-4.51); Lymphocyte % 3.9 % (19-41); Mean Corp Hgb Conc 32.3 g/dL (32-36); Mean Corpuscular Volume 80.6 fL (80-94); Mean Platelet Vol. 9.7 fl (6.2-12.0); Monocyte# 1.29 X10^3/uL; Monocyte% 10.2 % (0-10); NRBC Flagged by Analyzer 0 % (0-5); Neutrophil # 10.65 X10^3/uL (2.7-7.7); POSITIVE DIFFERENTIAL YES; Platelet Count 284 K/mm3 (150-450); RBC Distribution Width CV 17.4 % (11.6-14.6); RBC Distribution Width SD 49.1 fl (35.1-43.9); White Blood Count 12.7 K/mm3 (4.4-11.0)
[2022-03-04 06:40] LABS: Differential Indicated SCAN CRITERIA MET
[2022-03-04 07:06] LABS: Anisocytosis 1+
[2022-03-04 07:25] LABS: Albumin, Serum 2.2 g/dL (3.2-5.0); Anion Gap 14 (5-15); BUN 113 mg/dL (7-18); BUN/Creat Ratio 28.5 RATIO (10-20); Calcium,Total 8.8 mg/dL (8.5-10.1); Chloride 96 mmol/L (98-107); Creatinine, Serum 3.96 mg/dL (0.70-1.30); EST Glomerular Filtration Rate 16 mL/min (>60); Est Glom Filt Rate - Afr Amer 19 mL/min (>60); Estimated Creatinine Clearance 15.36 ml/min; Glucose 108 mg/dL (74-106); Phosphorus 4.7 mg/dL (2.5-4.9); Potassium 4.3 mmol/L (3.5-5.1); Sodium Level 131 mmol/L (136-145)
--- NOTE | 2022-03-04 08:16 | PN.HOSP_ITS ---
Subjective Subjective Follow-up for diffuse anasarca with worsening kidney function. Patient has chronic bilateral lower extremity for long time but worsening in the last 1 to 2 months with ascites. Patient is also short of breath on minimal exertion. Denies chest pain or pressure. Patient states he was found to have right kidney cancer and about 5 years ago. Objective Data Objective Data Vital Signs: Vital Signs Temp Pulse Resp BP Pulse Ox O2 Del Method 97.8 F 67 18 113/54 L 95 Room Air 03/04/22 02:03 03/04/22 07:25 03/04/22 02:03 03/04/22 02:03 03/04/22 02:03 03/04/22 02:03 Oxygen Delivery Method Room Air Weight: 251 lb 15.814 oz Body Mass Index (BMI) 35.9 Intake & Output: Intake and Output for Last 24 Hours 03/02/22 03/03/22 03/04/22 23:59 23:59 23:59 Intake Total 810 / 810 1180 / 1180 240 / 240 Output Total 1200 / 1400 1400 / 1400 300 / 300 Balance -390 / -590 -220 / -220 -60 / -60 Lab / Micro Data Result Diagrams: 03/04/22 06:20 03/04/22 06:20 Labs: Laboratory Results - last 24 hr 03/03/22 18:20: Creatinine 3.7 H, Est GFR (MDRD) Af Amer 17 L, Est GFR (MDRD) Non-Af 17 L, Urine Collection Time 24.0, Timed Urine Volume 1425, Urine Creatinine 81.3, Creatinine Clearance 21 L 03/03/22 18:20: Urine Collection Time 24.0, Timed Urine Volume 1425, Ur Total Protein 24 Hr 238.0 H, Urine Total Protein 16.7 H 03/04/22 06:20: Sodium 131 L, Potassium 4.3, Chloride 96 L, Carbon Dioxide 21.0, Anion Gap 14, BUN 113 H*, Creatinine 3.96 H, Estim Creat Clear Calc 15.36, Est GFR (MDRD) Af Amer 19 L, Est GFR (MDRD) Non-Af 16 L, BUN/Creatinine Ratio 28.5 H , Glucose 108 H, Calcium 8.8, Phosphorus 4.7, Albumin 2.2 L 03/04/22 06:20: WBC 12.7 H, RBC 5.00, Hgb 13.0, Hct 40.3, MCV 80.6, MCH 26.0 L, MCHC 32.3, RDW Std Deviation 49.1 H, RDW Coeff of Deyvi 17.4 H, Plt Count 284, MPV 9.7, Immature Gran % (Auto) 1.300 H, Neut % (Auto) 84.0 H, Lymph % (Auto) 3.9 L, Sterling % (Auto) 10.2 H, Eos % (Auto) 0.4, Baso % (Auto) 0.2, Absolute Neuts (auto) 10.7 H, Absolute Lymphs (auto) 0.49 L, Nucleated RBC % 0, Anisocytosis 1+ Radiography Diagnostic Testing: Radiology Impression Abdomen/Pelvis CT 03/03/22 12:34 IMPRESSION: 1. Partially visualized pleural-based opacity/masses in the lower lungs. CT scan to chest might be of value. 2. Trace of bilateral pleural effusions. 3. Cirrhosis of the liver with nodular changes. Masses in the dome of the liver cannot be excluded on this noncontrast exam. Follow-up exam with contrast is recommended if it can be performed. 4. Moderate amount of ascites in the abdomen and pelvis new since previous exam. 5. Contracted gallbladder with gallstones. Electronically Signed: Jonathan Nuñez MD at 13:59 EDT , Chest CT 03/03/22 14:11 IMPRESSION: Bilateral pleural effusions. There is pleural-based consolidation seen within the right upper lobe and both lower lobes which may represent multifocal pneumonia. Electronically Signed: Kyle Gonzales MD at 18:06 EDT , Physical Exam Narrative General: Alert, Oriented x3, Cooperative, morbid obese BMI 36.2 kg/m? HEENT: Atraumatic, PERRLA, EOMI, Normocephalic Oral: No Gingival or Mucosal Lesions/ Ulcerations Neck: Supple, No JVD, Negative Carotid Bruits Lungs: Air entry diminished both sides. No crepitation/rhonchi. Diaphragm pushed upwards. Cardiovascular: AV dual paced rhythm, Normal S1, Normal S2, No murmurs, left upper chest pacemaker Abdomen: Bowel Sounds sluggish, Soft, nontender, distended/bloating. Ascites. : No renal angle tenderness. No suprapubic tenderness. Extremities: Bilateral 3+ thigh-high pitting edema, Capillary Refill Less than 3 Seconds Skin: Mild edema of lower legs due to edema/venous hypertension Musculoskeletal: No Tenderness to Palpation of Joints or Extremities, muscle strength 4/5 at major joints of LE due to edema Neurological: Cranial nerves II-XII grossly intact, DTR 2+/4 Psych/Mental Status: Flat affect. Assessment & Plan Assessment/Plan (1) HFrEF (heart failure with reduced ejection fraction): PLAN: Acute on chronic HFrEF:?Patient had an EF of 37% from 2D echocardiogram from July 23, 2021.? No mention on right ventricular pressures on that echocardiogram Echo showed EF 35%, moderate RVSP 31mmHg, mild concentric LVH, stage I diastolic dysfunction, moderate aortic stenosis, 1-2+ MR, RVSP 31 mmHg Patient is not hypoxic but gets dyspnea on minimal exertion Plan: IV furosemide 40 mg every 8 hourly. Heart failure core measures including intake and output, fluid restriction less than 1500 mL, daily weight monitoring, kidney and electrolytes monitoring. No worsening of creatinine from 3.23-3.96 on diuretic therefore will consult associate marketing manager. On carvedilol. Hold RAMILA/ARB due to DELIA and amlodipine because of vasodilatory properties and patient has significant edema (2) Acute kidney injury: PLAN: Creatinine trending up, associate marketing manager is being consulted. Acute kidney injury on CKD 4.? Baseline creatinine is 2.55.? Complicated by patient essentially being a solitary kidney patient. Ultrasound reviewed shows left atrophic kidney. No right hydronephrosis. There is priority of cardiorenal syndrome with history of right pelvis transitional cell carcinoma, prostate cancer. Discussed with the associate marketing manager. (3) Liver mass: PLAN: Incidental finding on ultrasound. CT abdomen shows with ill-defined nodular changes. Masses in the dome of liver cannot be ruled out with noncontrast exam. Contracted GB with gallstone. Cirrhotic liver.Normal spleen. Diffuse atrophy of pancreas. Moderate ascites. check CAT scan without contrast. Of note had previously not been present on prior CTs. Informed patient and his . With history of multiple cancers including NHL, diffuse large B cell lymphoma, prostate cancer, transitional carcinoma of right renal pelvis and acute and chronic DVT with improvement noted in October 2021, venous duplex ordered. Oncology consult to Dr. Arteaga. PLAN: Plan Chronic conditions * Obstructive sleep apnea: Patient said that he is compliant with his CPAP.? I advised his family, who is present, to bring in his CPAP. * Hypertension: Monitor for now.? Currently stable.? Amlodipine will be held * Morbid obesity: Complicates care and recovery. * Gout: decrease his allopurinol from 300-100 for renal dosing. * Non-Hodgkin's lymphoma: Patient follows Dr. Arteaga. 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 Had laparoscopic biopsy in September 2011 and had 4 cycles of R-CHOP. EF decreased to 53 therefore received 2 additional cycles of R?CEOP. Completed treatment on 03/25/2012. CT on 11/2019 showed atrophic left kidney. Prostate biopsy on 12/2019 showed adenocarcinoma, Sim's score 7. Was treated with ADT and radiation. 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 VTE prophylaxis: Subcu heparin CODE STATUS: Addressed with the patient: Patient is full CODE STATUS. Total time of the visit including total time spent in counseling or coordination of care, (more than 50% of the total time, spent in obtaining medical information from nurses and other ancillary care providers,explaining to the patient about labs, imaging, diagnosis and management of active complex medical conditions), discussion with consultants, review of labs and imaging is 40 minutes. Clinical Impression(s) from Imaging Studies Chest X-Ray 02/28/22 12:10 IMPRESSION: Patchy infiltrates are seen in the peripheral lateral aspect of the right lung. Follow-up is recommended. Electronically Signed: Nik Martines MD at 12:34 EDT , Echocardiogram 02/28/22 14:30 Interpretation Summary The study was technically difficult. Mildly dilated left ventricle. Moderate segmental systolic dysfunction (see wall motion). The estimated ejection fraction is 35 %. Mild concentric left ventricular hypertrophy. Mild mitral valve prolapse, anterior leaflet Mild-Moderate (1-2+) mitral valve insufficiency. Trivial tricuspid valve insufficiency. The aortic valve leaflets are not well visualized, however, based upon the 2D echocardiographic images obtained there appears to be diffuse thickening, calcification, and partial restriction. Moderate aortic stenosis. Trivial aortic valve insufficiency. Right ventricular systolic pressure estimated to be 31 mmHg. Stage 1 diastolic dysfunction. Ordering Physician: Tony Shanks Performed By: Trace Cristina RCS Renal Ultrasound 03/02/22 14:33 IMPRESSION: Left renal atrophy. Ascites. Hepatic mass. CT can better evaluate. Note: Renal size measurements and size measurements of other organs etc may vary depending on modality and receptionist telephone operator dependent variations in measurements. (i.e. Measuring a kidney on an US does not correlate with an exact same measurement on a CT.) Abdomen/Pelvis CT 03/03/22 12:34 IMPRESSION: 1. Partially visualized pleural-based opacity/masses in the lower lungs. CT scan to chest might be of value. 2. Trace of bilateral pleural effusions. 3. Cirrhosis of the liver with nodular changes. Masses in the dome of the liver cannot be excluded on this noncontrast exam. Follow-up exam with contrast is recommended if it can be performed. 4. Moderate amount of ascites in the abdomen and pelvis new since previous exam. 5. Contracted gallbladder with gallstones. Chest CT 03/03/22 14:11 IMPRESSION: Bilateral pleural effusions. There is pleural-based consolidation seen within the right upper lobe and both lower lobes which may represent multifocal pneumonia. Electronically Signed: Kyle Gonzales MD at 18:06 EDT , Charges/Coding Visit Charges Inpatient E&M: 50692 Subs Hosp L3
[2022-03-04] MEDS: Famotidine 20 MG Tablet PO (08:30)
[2022-03-04] MEDS: Heparin Injection (Vial) 5,000 UNIT/ML VIAL 5000 UNIT SC ×2 (08:30→21:39)
[2022-03-04] MEDS: Allopurinol 100 MG Tablet PO (08:30)
[2022-03-04] MEDS: Hydrocortisone 10 MG Tablet 20 MG PO (08:30)
[2022-03-04] MEDS: Furosemide 40 MG/4 ML Vial IV (08:30)
[2022-03-04] MEDS: Carvedilol 25 MG Tablet PO (10:29)
--- NOTE | 2022-03-04 11:29 | VDLE_ITS ---
Reason For Study: swelling RIGHT LEFT GSV is normal. GSV is normal. CFV is compressible, spontaneous, phasic, CFV is compressible, spontaneous, phasic, competent and demonstrates normal competent, and demonstrates normal augmentation. augmentation. FV is compressible, spontaneous, phasic, FV is compressible, spontaneous, phasic, competent and demonstrates normal competent and demonstrates normal augmentation. augmentation. POP V is compressible, spontaneous, phasic, POP V is compressible, spontaneous, phasic, competent and demonstrates normal competent and demonstrates normal augmentation. augmentation. T/P Trunk is compressible. T/P Trunk is compressible. PTV is compressible. PTV is compressible. RT PerV is compressible. LT PerV is compressible. Procedure This is a venous duplex using B-mode, color flow and spectral Doppler. Exam performed portable in patient room. The exam was diagnostic. A preliminary report was called and/or faxed to the pt's RN. VL/Venous Duplex US - Tong Extrem Interpretation Summary No evidence for acute deep venous thrombosis bilateral lower extremities with p atent and compressible bilateral great saphenous veins. Ordering Physician: Jordy Wang Performed By: Blaine Flores RVT
--- NOTE | 2022-03-04 15:03 | ONC.CONSULT ---
Assessment & Plan Assessment/Plan (1) Ascites: Status: Acute Code(s): R18.8 - Other ascites Plan: To obtain Diagnostic Paracentesis to rule out malignant ascites. (2) History of non-Hodgkin's lymphoma: Status: Chronic Code(s): Z85.72 - Personal history of non-Hodgkin lymphomas Plan: To do observation. (3) Renal pelvis transitional cell malignant neoplasm: Status: Acute Code(s): C65.9 - Malignant neoplasm of unspecified renal pelvis Plan: Now has ascites, to R/O malignant ascites with paracentesis. (4) Multiple lung nodules: Status: Acute Code(s): R91.8 - Other nonspecific abnormal finding of lung field Plan: If Paracentesis in negative for malignancy then should consider CT guided bx of lung lesions. HPI Consult Data Date of Service:: 03/04/22 PCP / Referring Provider: Dr. Suraj Damian MD Attending: Dr. 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 He had laparoscopic biopsy on October 03, 2011.? He received 4 cycles of R CHOP, EF decreased to 53 so received 2 additional cycles of R-CEOP.? He finished treatment on 03/25/2012.? He was found to have pituitary adenoma, underwent transsphenoidal resection on June 12, 2012.? He is in remission.? Had Polycythemia-Hgb 18.9 on 09/01/2018, thought to be related Carbon monoxide and so had his house checked. He was found to have increase in PSA.? CT a/p on 12/21/2019 showed atrophy L kidney.? Bone scan on 12/17/2019 was negative. Prostate biopsy on 01/20/2020 showed adenocarcinoma, Sim 3+4=7. He was treated with ADT and Radiation. PSA was 0.04 in November 2020. 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 He is now admitted with SOB, ascites, bilateral lung nodules Advanced Directives Power of Manager Market: Yes Living Will: Yes FOR[facility]LY [facility] Medical History AAA (abdominal aortic aneurysm) Arthritis Back pain Body mass index (BMI) 35 or more Cancer Cardiac pacemaker in situ (01/02/15) Cardiology follow-up encounter Chronic systolic (congestive) heart failure CKD (chronic kidney disease) stage 3, GFR 30-59 ml/min Community acquired pneumonia Congestive heart failure (CHF) CPAP (continuous positive airway pressure) dependence Diffuse large B cell lymphoma Dyspnea on exertion Esophageal reflux Former smoker Gastric reflux Gout Gout High cholesterol History of CHF (congestive heart failure) History of diverticulitis History of edema History of non-Hodgkin's lymphoma History of pacemaker History of pituitary adenoma History of pituitary tumor History of renal disease History of steroid therapy History of steroid therapy History of stress test History of ulceration Hx of echocardiogram Hyperlipidemia Hypertension Hyponatremia Increasing prostate specific antigen level Kidney disease Malignant lymphoma of extranodal and solid organ sites Mobitz (type) II atrioventricular block MRSA (methicillin resistant staphylococcus aureus) pneumonia Non-ischemic cardiomyopathy PORTILLO (obstructive sleep apnea) Pacemaker PAF (paroxysmal atrial fibrillation) Pericardial effusion Pleural effusion Prostate cancer Prostate disease Secondary adrenal insufficiency Shortness of breath on exertion Simple obesity Sleep apnea SSS (sick sinus syndrome) Wears partial dentures Home Medications pravastatin 40 mg tablet 40 mg PO QHS CHOLESTEROL ##0 12/21/13 [History Last Taken 02/26/22] carvedilol 25 mg tablet (Coreg) 25 mg PO BID heart #180 tabs 02/06/21 [Rx Last Taken 02/27/22] allopurinol 300 mg tablet 300 mg PO DAILY gout 05/02/21 [History Last Taken 02/27/22] famotidine 40 mg tablet 40 mg PO DAILY GERD 07/12/21 [History Last Taken 02/27/22] ferrous sulfate 325 mg (65 mg iron) tablet 325 mg PO BID supplement 12/03/21 [History Last Taken 02/28/22] potassium chloride 20 mEq tablet,extended release(part/cryst) 20 meq PO DAILY supplement 12/03/21 [History Last Taken 02/27/22] furosemide 40 mg tablet (Lasix) 20 mg PO QODAY PRN Respiratory Distress 12/05/21 [History Last Taken 02/28/22] hydrocortisone 10 mg tablet See Rx Instructions PO BID pain 12/05/21 [History Last Taken 02/27/22] amlodipine 5 mg tablet 5 mg PO DAILY heart 02/28/22 [History Last Taken 02/27/22] Allergy/AdvReac Type Severity Reaction Status Date / Time lisinopril Allergy Swelling Verified 02/28/22 11:27 shellfish derived Allergy Angioedema Verified 02/28/22 11:27 aspirin AdvReac GI BLEED, Verified 02/28/22 11:27 UPPER Family History Father FH: kidney cancer Mother Heart disease Diabetes Surgical History History of biopsy of bladder History of cardiac catheterization History of cystoscopy (10/19/21) History of surgical removal of pituitary gland History of vascular access device Hx of lymph node biopsy Hx of nephrostomy Status post transsphenoidal pituitary resection Social History Smoking Status: Former smoker quit date: 06/30/81 pack-years: 20 how long ago did patient quit smokin second hand exposure: No alcohol intake: never substance use type: does not use caffeine: Yes Type: coffee Number of servings: 3 what type of physical activity do you participate in: none xavi/orthodoxy: Mormon seatbelt use: always do you feel safe at home: Yes Vital Signs Temperature 97.4 F L 03/04/22 10:27 Temperature Source Oral 03/04/22 10:27 Pulse Rate 64 03/04/22 10:27 Pulse Strength Normal (2+) 03/04/22 08:40 Respiratory Rate 18 03/04/22 10:27 Respiratory Effort Non-Labored 03/04/22 13:55 Respiratory Depth Normal 03/04/22 13:55 Respiratory Pattern Normal 03/04/22 13:55 Blood Pressure 116/55 L 03/04/22 10:27 Blood Pressure Mean 75 03/04/22 10:27 Blood Pressure Source Monitor 03/04/22 10:27 Blood Pressure Position Semi-Fowlers 03/04/22 10:27 Blood Pressure Location Right Arm 03/04/22 10:27 Pulse Ox 97 03/04/22 10:27 Oxygen Delivery Method Room Air 03/04/22 13:55 Laboratory Results - last 24 hr 03/03/22 18:20: Creatinine 3.7 H, Est GFR (MDRD) Af Amer 17 L, Est GFR (MDRD) Non-Af 17 L, Urine Collection Time 24.0, Timed Urine Volume 1425, Urine Creatinine 81.3, Creatinine Clearance 21 L 03/03/22 18:20: Urine Collection Time 24.0, Timed Urine Volume 1425, Ur Total Protein 24 Hr 238.0 H, Urine Total Protein 16.7 H 03/04/22 06:20: Sodium 131 L, Potassium 4.3, Chloride 96 L, Carbon Dioxide 21.0, Anion Gap 14, BUN 113 H*, Creatinine 3.96 H, Estim Creat Clear Calc 15.36, Est GFR (MDRD) Af Amer 19 L, Est GFR (MDRD) Non-Af 16 L, BUN/Creatinine Ratio 28.5 H, Glucose 108 H, Calcium 8.8, Phosphorus 4.7, Albumin 2.2 L 03/04/22 06:20: WBC 12.7 H, RBC 5.00, Hgb 13.0, Hct 40.3, MCV 80.6, MCH 26.0 L, MCHC 32.3, RDW Std Deviation 49.1 H, RDW Coeff of Deyvi 17.4 H, Plt Count 284, MPV 9.7, Immature Gran % (Auto) 1.300 H, Neut % (Auto) 84.0 H, Lymph % (Auto) 3.9 L, [place] % (Auto) 10.2 H, Eos % (Auto) 0.4, Baso % (Auto) 0.2, Absolute Neuts (auto) 10.7 H, Absolute Lymphs (auto) 0.49 L, Nucleated RBC % 0, Anisocytosis 1+ Diagnostic Data Chest X-Ray 02/28/22 12:10 IMPRESSION: Patchy infiltrates are seen in the peripheral lateral aspect of the right lung. Follow-up is recommended. Electronically Signed: Nik Martines MD at 12:34 EDT , Echocardiogram 02/28/22 14:30 Interpretation Summary The study was technically difficult. Mildly dilated left ventricle. Moderate segmental systolic dysfunction (see wall motion). The estimated ejection fraction is 35 %. Mild concentric left ventricular hypertrophy. Mild mitral valve prolapse, anterior leaflet Mild-Moderate (1-2+) mitral valve insufficiency. Trivial tricuspid valve insufficiency. The aortic valve leaflets are not well visualized, however, based upon the 2D echocardiographic images obtained there appears to be diffuse thickening, calcification, and partial restriction. Moderate aortic stenosis. Trivial aortic valve insufficiency. Right ventricular systolic pressure estimated to be 31 mmHg. Stage 1 diastolic dysfunction. Ordering Physician: Tony Shanks Performed By: Trace Cristina RCS Renal Ultrasound 03/02/22 14:33 IMPRESSION: Left renal atrophy. Ascites. Hepatic mass. CT can better evaluate. Note: Renal size measurements and size measurements of other organs etc may vary depending on modality and injection press operator dependent variations in measurements. (i.e. Measuring a kidney on an US does not correlate with an exact same measurement on a CT.) Electronically Signed: Josue Santillan MD at 15:57 EDT Reading Location ID and State: [facility] / [place] , Service support , Abdomen/Pelvis CT 03/03/22 12:34 IMPRESSION: 1. Partially visualized pleural-based opacity/masses in the lower lungs. CT scan to chest might be of value. 2. Trace of bilateral pleural effusions. 3. Cirrhosis of the liver with nodular changes. Masses in the dome of the liver cannot be excluded on this noncontrast exam. Follow-up exam with contrast is recommended if it can be performed. 4. Moderate amount of ascites in the abdomen and pelvis new since previous exam. 5. Contracted gallbladder with gallstones. Electronically Signed: Jonathan Nuñez MD at 13:59 EDT , Chest CT 03/03/22 14:11 IMPRESSION: Bilateral pleural effusions. There is pleural-based consolidation seen within the right upper lobe and both lower lobes which may represent multifocal pneumonia. Electronically Signed: Kyle Gonzales MD at 18:06 EDT , Charges/Coding Visit Charges Office Visits / Consults: 08014 IP Consult L4
--- NOTE | 2022-03-04 15:55 | PN.RENAL_ITS ---
Subjective Subjective Still with fatigue, anorexia, shortness of breath. Chronic lower extremity edema on Cortef for pituitary adenoma. Renal ultrasound did not show obstruction but showed an incidental liver mass this was followed up with a CT without IV contrast of the chest and abdomen. Objective Data Objective Data Vital Signs: Vital Signs Temp Pulse Resp BP Pulse Ox O2 Del Method 97.4 F L 60 18 116/55 L 97 Room Air 03/04/22 10:27 03/04/22 15:06 03/04/22 10:03/04/22 10:03/04/22 10:03/04/22 13:55 Oxygen Delivery Method Room Air Weight: 114.3 kg Body Mass Index (BMI) 35.9 Intake & Output: Intake and Output for Last 24 Hours 03/02/22 03/03/22 03/04/22 23:59 23:59 23:59 Intake Total 810 / 810 1180 / 1180 720 / 720 Output Total 1200 / 1400 1400 / 1400 600 / 600 Balance -390 / -590 -220 / -220 120 / 120 Lab / Micro Data Result Diagrams: 03/04/22 06:20 03/04/22 06:20 Labs: Laboratory Results - last 24 hr 03/03/22 18:20: Creatinine 3.7 H, Est GFR (MDRD) Af Amer 17 L, Est GFR (MDRD) Non-Af 17 L, Urine Collection Time 24.0, Timed Urine Volume 1425, Urine Creatinine 81.3, Creatinine Clearance 21 L 03/03/22 18:20: Urine Collection Time 24.0, Timed Urine Volume 1425, Ur Total Protein 24 Hr 238.0 H, Urine Total Protein 16.7 H 03/04/22 06:20: Sodium 131 L, Potassium 4.3, Chloride 96 L, Carbon Dioxide 21.0, Anion Gap 14, BUN 113 H*, Creatinine 3.96 H, Estim Creat Clear Calc 15.36, Est GFR (MDRD) Af Amer 19 L, Est GFR (MDRD) Non-Af 16 L, BUN/Creatinine Ratio 28.5 H , Glucose 108 H, Calcium 8.8, Phosphorus 4.7, Albumin 2.2 L 03/04/22 06:20: WBC 12.7 H, RBC 5.00, Hgb 13.0, Hct 40.3, MCV 80.6, MCH 26.0 L, MCHC 32.3, RDW Std Deviation 49.1 H, RDW Coeff of Deyvi 17.4 H, Plt Count 284, MPV 9.7, Immature Gran % (Auto) 1.300 H, Neut % (Auto) 84.0 H, Lymph % (Auto) 3.9 L, [place] % (Auto) 10.2 H, Eos % (Auto) 0.4, Baso % (Auto) 0.2, Absolute Neuts (auto) 10.7 H, Absolute Lymphs (auto) 0.49 L, Nucleated RBC % 0, Anisocytosis 1+ Radiography Diagnostic Testing: Radiology Impression Chest CT 03/03/22 14:11 IMPRESSION: Bilateral pleural effusions. There is pleural-based consolidation seen within the right upper lobe and both lower lobes which may represent multifocal pneumonia. Electronically Signed: Kyle Gonzales MD at 18:06 EDT , Physical Exam Const alert and oriented x3 General Appearance: frail Nutritional Appearance: obese HEENT normocephalic Mouth: dry mucous membranes Resp Auscultation: diminished lung sounds Cardio Cardio Narrative: Paced rhythm GI non-tender Auscultation: normoactive bowel sounds Palpation: soft and ascites Bladder / Kidney Exam: catheter in place urethral Extremity General Extremity: edema Neuro Neuro Narrative: Generalized weakness Motor Exam: Negative for asterixis Assessment & Plan Assessment/Plan (1) Acute on chronic kidney failure: PLAN: creatinine baseline mid 2's progressed to mid 3's on escalating doses of lasix for anasarca, fluid overload. Creatinine 3.96 today. Change IV Lasix to p.o. 24-hour urine creatinine clearance 20 cc/min therefore does not qualify for dialysis. He does not have nephrotic proteinuria. Spot urine sodium low suggestive of prerenal event or hemodynamically mediated renal failure. Renal u ltrasound did not show hydronephrosis. However an incidental liver mass noted. This was followed up with a CT of the chest and abdomen without IV contrast. (2) CKD (chronic kidney disease) stage 4, GFR 15-29 ml/min: PLAN: hx left renal atrophy with right kidney cancer s/p stent. (3) Systolic heart failure: PLAN: EF 35% changed to oral Lasix (4) Transitional cell carcinoma of right kidney: (5) Chronic systolic (congestive) heart failure: PLAN: EF 35% on fluid restriction, lasix po (6) Hyponatremia: PLAN: likely from volume expansion but mostl extravascular, check urine sodium. Cut back lasix to bid (7) Prostate cancer: (8) Leg edema: PLAN: Chronic with history of DVT. Consider venous Dopplers to rule out DVT since patient has been sedentary past several weeks. He is also on Cortef contributing to chronic leg edema.
[2022-03-04] MEDS: Hydrocortisone 10 MG Tablet 5 MG PO (17:06)
[2022-03-04] MEDS: Furosemide 40 MG Tablet PO (17:06)
[2022-03-04] MEDS: Pravastatin 40 MG Tablet PO (21:39)
[2022-03-05] VITALS (12 sets, daily range): BP systolic 98–118; BP diastolic 52–61; PULSE 58–65; RESP 16–18; TEMP 36.1–36.7; O2SAT 93–98
--- NOTE | 2022-03-05 | IMM_PTH ---
PATIENT: DANITZA JAIN LOC: [facility] U#:[id number] AGE/SX: 81/M ROOM: [facility] RE02/28/[address]: Dr. Jordy Wang MD : 1940 BED: 1 DIS: 03/08/2022 SPEC #: [id number] RECD: 03/06/22 13:10 STATUS: SOUDiane REQ #: [id number] MARSHAL: 03/05/22 00:[address]: Jordy Wang DEPT: IMMUNOHISTOCHEMISTRY RECD BY: Michelle Monterroso ENTERED: 03/06/22 13:13 SP TYPE: IMMUNO OTHR DR: Dr. Meliza Gonzales, MD Dr. Tony Srinivasan Dr., DO Dr. Joseph Prah, MD Dr. Mansour Isckarus, MD Dr. Robert Field, MD Dr. Ryan Jin, MD Dr. Roger Macklis, MD Dr. Steve Walston, DO MD Xiao Kumar Chi, MEDICATION NURSE-C Tissues: PARACENTESIS FLUID Procedures: RCC (add) NAPSIN A (add) Cheo Ret (add) CK20 (add) CK5-6 (add) CK7 (add) CK8 (add) MOBLEY-2 (add) HEP PAR (add) MACRO (add) TTF1 (add) Vimentin (add) Pankeratin (initial) P40 (add) CDX2 (add) CD44 (add) PSAP (add) PHYSICIAN & INSTITUTION [facility] [address] [place] [address] [place] [address] SPECIMEN INFORMATION: Tissue Source: Paracentesis fluid Clinical Info: Ascites Specimen Number: [id number] CPT code: 55689, 49301 x16 METHODOLOGY: Deparaffinized sections of prefer/formalin-fixed tissue or PAP/DQ stained slides are incubated with monoclonal/polyclonal antibodies/oligonucleotide probes. Localization is made via biotin free immunoperoxidase method. Appropriate controls are performed and reacted as expected. Results on target cell population are indicated in the following table: RESULTS: ANTIBODY / CLONE RESULT AE1-3 (AE1/AE3/PCK26) positive CK7 (OV-TL12/30) positive CK8 (97tbzkY82) positive CK20 (KS20.8) positive, focal Vimentin (V9) negative Macro (HAM-56) negative TTF-1 (8G7G3/1) negative Napsin A (Rabbit Polyclonal) negative HepPar (OCh1E5) negative RCC (PN-15) negative PSAP (PASE/4LJ) negative CALRET (polyclonal) negative anti-CD44 (SP37) negative, equivocal CK5-6 (D5 & 1684) negative P40 (BC28) negative CDX2 (MAQ5065E) negative MOBLEY-2 (SP21) positive These tests were developed and their performance characteristics determined by [facility]. They may not have been cleared or approved by the U.S. Food and Drug Administration. The FDA has determined that such clearance or approval is not necessary. The above immunohistochemical/dualISH markers are ordered and reviewed by the Pathologist. INTERPRETATION: Paracentesis fluid (cell block): Malignant cells present derived from metastatic carcinoma. See comment. SJ:tiarra 03/07/2022 Comment: IHC is noncontributory for primary site of origin.
--- NOTE | 2022-03-05 | FLU_PTH ---
PATIENT: DANITZA JAIN LOC: [facility] U#:[id number] AGE/SX: 81/M ROOM: [facility] RE02/28/[address]: Dr. Jordy Wang MD : 1940 BED: 1 DIS: 03/08/2022 SPEC #: [id number] RECD: 03/05/22 13:02 STATUS: MENDY REAngeles #: [id number] MARSHAL: 03/05/22 00:[address]: Jordy Wang DEPT: CYTOLOGY RECD BY: Sebastian Marshall ENTERED: 03/05/22 13:03 SP TYPE: Fluid OTHR DR: Dr. Meliza Gonzales, MD Dr. Tony Srinivasan Dr., DO Dr. Joseph Prah, MD Dr. Mansour Isckarus, MD Dr. Robert Field, MD Dr. Ryan Jin, MD Dr. Roger Macklis, MD Dr. Steve Walston, MD Xiao De Leon Dr., Chi, POWER ELECTRONICS RESEARCH ENGINEER-C Tissues: PARACENTESIS FLUID Procedures: Special Stain Group II Surgery Specimen Level IV Cytospin Fluid HEADER OPERATION: Ultrasound-guided right paracentesis PRE-OP DIAGNOSIS: Ascites TISSUE SUBMITTED: Paracentesis fluid for cytology DIAGNOSIS CYTOLOGY Paracentesis fluid for cytology (cytospin): Malignant cells present derived from metastatic carcinoma. See comment. SJ:tiarra 03/06/2022 COMMENT Immunohistochemistry ([id number]) supports the above diagnosis. IHC profile is noncontributory for primary site of origin. Clinical correlation and appropriate follow up are necessary. Please make reference to previous specimens ([id number]) prostate, right mid and prostate, left apex, mid and base, core biopsies with diagnosis of ?adenocarcinoma,? 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 Case has been reviewed in consultation with Dr. Roca who concurs with the above diagnosis. IDC:AM CYTOLOGY STUDY Slides are reviewed. CYTOLOGY GROSS Received is 100 ml of yellow cloudy fluid labeled with the patient's name and and designated per the requisition as paracentesis. Submitted for cytology preparation including cell block. / tiarra 03/05/2022 TC:0 CPT: 99402, 14076
--- NOTE | 2022-03-05 06:00 | NURSING ---
gutiérrez catheter removed, pt. tolerated well
[2022-03-05 06:52] LABS: AST(SGOT) 135 U/L (15-37); Alanine Aminotransfer ALT/SGPT 66 U/L (16-61); Alkaline Phosphatase 268 U/L (45-117); Anion Gap 13 (5-15); BUN 117 mg/dL (7-18); BUN/Creat Ratio 29.9 RATIO (10-20); Bilirubin, Direct 1.12 mg/dL (0.00-0.30); Calcium,Total 9.1 mg/dL (8.5-10.1); Chloride 97 mmol/L (98-107); Creatinine, Serum 3.91 mg/dL (0.70-1.30); EST Glomerular Filtration Rate 16 mL/min (>60); Est Glom Filt Rate - Afr Amer 19 mL/min (>60); Estimated Creatinine Clearance 15.56 ml/min; Glucose 92 mg/dL (74-106); Potassium 4.3 mmol/L (3.5-5.1); Sodium Level 131 mmol/L (136-145)
--- NOTE | 2022-03-05 07:32 | US_ITS ---
PROCEDURE: ULTRASOUND GUIDED PARACENTESIS CLINICAL HISTORY: Male, 81 years old. ASCITES CONSENT: The risks, benefits and alternatives to the procedure were explained to the patient, and the patient agreed to the procedure and signed the consent. SEDATION: Local Anesthesia STERILE BARRIER TECHNIQUE: The following sterile barrier precautions were used during the procedure: hand hygiene; use of 2% chlorhexidine aseptic; use of a cap, mask, sterile gown, sterile gloves, sterile full body drape, and a large sterile sheet. PROCEDURE/TECHNIQUE: The risks, benefits, and alternatives to the procedure were explained to patient, and the patient agreed to the procedure and signed a consent form for the procedure. TECHNIQUE: Under the ultrasound guidance using sterile technique and after infiltration of the skin and subcutaneous soft tissues with 10 mL of lidocaine 1% a 5 Belarusian drainage catheter is introduced in the lower part of the abdomen. 5820 mL of fluid were removed sample sent to lab for evaluation. The patient tolerated the procedure there was no immediate complication. FINDINGS: FLUID PRE-PROCEDURE There is posterior enhancement. The findings appear anechoic. There is no loculation. FLUID POST-PROCEDURE Amount of fluid drained: 5820 ml. US/Paracentesis with US IMPRESSION: Successful ultrasound-guided paracentesis. Electronically Signed: Nomi Baugh MD at 16:24 EDT ,
[2022-03-05] MEDS: Nystatin Powder 15gm Bottle 1 APPLIC TOPICAL ×2 (09:04→22:42)
[2022-03-05] MEDS: Famotidine 20 MG Tablet PO (09:04)
[2022-03-05] MEDS: Allopurinol 100 MG Tablet PO (09:04)
[2022-03-05] MEDS: Hydrocortisone 10 MG Tablet 20 MG PO (09:04)
[2022-03-05] MEDS: Carvedilol 25 MG Tablet PO (09:05)
[2022-03-05] MEDS: Lidocaine 2% (10 ml mdv) 10 ML Vial INFILT (10:40)
[2022-03-05] MEDS: Furosemide 40 MG Tablet PO ×2 (11:26→17:18)
[2022-03-05 11:48] LABS: Body Fluid Mononuclear WBC # 0.164 10^3/uL; Body Fluid Mononuclear WBC % 59.9 %; Body Fluid Polynuclear WBC % 40.1 %; Body Fluid Total Cells Counted 0.375 10^3/ul; White Blood Count/Body Fluid 0.274 10^3/uL
--- NOTE | 2022-03-05 11:56 | CASEMGMT ---
Discharge Business Services Sales Representative Discharge Business Services Sales Representative Ludy otero/lissett kennel assistant was at patient bedside. Ludy provided a list of SNF providers including quality and resource use data and consistent with the pt's preferred geographic region, medical needs, and insurance network via [facility]. Patient would like to have a talk with his . Plan: Ludy Harrell Discharge Business Services Sales Representative
[2022-03-05 11:57] LABS: Auto B Fluid Analyzer BKGD Ct COUNTS W/IN LIMITS (W/IN LIMITS); Source- Body Fluid OTHER
[2022-03-05 11:58] LABS: Appearance/Body Fluid CLOUDY; Color/Body Fluid YELLOW
[2022-03-05 12:02] LABS: Glucose, Body Fluid 87 mg/dL (40-70); LDH,Body Fluid 187 Units/l (Not Establ.); Protein, Body Fluid 2.8 g/dL (Not Establ.)
[2022-03-05 12:45] LABS: Lymphocytes 4 %; Monocytes 6 %; Neutrophil (Segs) 22 %; Other Cell Type/BF 68 %
[2022-03-05 12:46] LABS: Body Fluid QC Type(s) BF1Q; Red Cell Count/Body Fluid 14 /mm3
--- NOTE | 2022-03-05 13:55 | CASEMGMT ---
This RN CM to room to discuss therapy notes and plan for discharge. Pt is aware of of need for further therapy at discharge and states his took the SNF list home and they will decide on choices. CM to follow. Tejinder ARCHER CM
--- NOTE | 2022-03-05 15:18 | PN.HOSP_ITS ---
Subjective Subjective Seen and examined Patient is still has exertional dyspnea although dyspnea at rest has gotten better. No chest pain or tightness. Objective Data Objective Data Vital Signs: Vital Signs Temp Pulse Resp BP Pulse Ox O2 Del Method 97.6 F L 62 16 106/61 93 Room Air 03/05/22 11:23 03/05/22 15:07 03/05/22 11:23 03/05/22 11:23 03/05/22 14:47 03/05/22 14:05 Oxygen Delivery Method [3] Room Air Oxygen Delivery Method [2] Room Air Oxygen Delivery Method [1 ( Room Air Initial Baseline)] Oxygen Delivery Method Room Air Weight: 251 lb 5.231 oz Body Mass Index (BMI) 35.9 Intake & Output: Intake and Output for Last 24 Hours 03/03/22 03/04/22 03/05/22 23:59 23:59 23:59 Intake Total 1180 / 1180 1120 / 1120 480 / 480 Output Total 1400 / 1400 1150 / 1150 6820 / 6820 Balance -220 / -220 -30 / -30 -6340 / -6340 Lab / Micro Data Result Diagrams: 03/04/22 06:20 03/05/22 05:20 Labs: Laboratory Results - last 24 hr 03/05/22 05:20: Sodium 131 L, Potassium 4.3, Chloride 97 L, Carbon Dioxide 21.0, Anion Gap 13, BUN 117 H*, Creatinine 3.91 H, Estim Creat Clear Calc 15.56, Est GFR (MDRD) Af Amer 19 L, Est GFR (MDRD) Non-Af 16 L, BUN/Creatinine Ratio 29.9 H , Glucose 92, Calcium 9.1, Total Bilirubin 2.00 H, Direct Bilirubin 1.12 H, AST 135 H, ALT 66 H, Alkaline Phosphatase 268 H, Total Protein 6.0 L, Albumin 2.0 L, Globulin 4.0 03/05/22 11:08: Fluid Glucose 87 H, Fluid Total Protein 2.8, Fluid LDH 187 03/05/22 : Fluid Source OTHER, Fluid Color YELLOW, Fluid Appearance CLOUDY, Fluid WBC 0.274, Fluid RBC 14, Fluid Tot Cell Count 0.375, Fld Polynuclear WBCs # 0.110, Fld Polynuclear WBCs % 40.1, Fluid Mononuclear WBCs 0.164, Fld Mononuclear WBCs % 59.9, Fluid Neutrophils 22, Fluid Lymphocytes 4, Fluid Monocytes 6, Fluid Other Cells 68, Fl Pathologist Comment May follow, Fluid Comment 2 SEE COMMENT Physical Exam Narrative General: Alert, Oriented x3, Cooperative, morbid obese BMI 36.2 kg/m? HEENT: Atraumatic, PERRLA, EOMI, Normocephalic Oral: No Gingival or Mucosal Lesions/ Ulcerations Neck: Supple, No JVD, Negative Carotid Bruits Lungs: Air entry diminished both sides. No crepitation/rhonchi. No hypoxia or tachypnea. Cardiovascular: AV dual paced rhythm, Normal S1, Normal S2, No murmurs, left upper chest pacemaker Abdomen: Bowel Sounds sluggish, Soft, nontender, distended/bloating. Ascites. : No renal angle tenderness. No suprapubic tenderness. Extremities: Bilateral 3+ thigh-high pitting edema, Capillary Refill Less than 3 Seconds Skin: Chronic venous hypertensive changes. Musculoskeletal: No Tenderness to Palpation of Joints or Extremities, muscle strength 4/5 at major joints of LE due to edema Neurological: Cranial nerves II-XII grossly intact, DTR 2+/4 Psych/Mental Status: Flat affect. Assessment & Plan Assessment/Plan (1) HFrEF (heart failure with reduced ejection fraction): PLAN: Acute on chronic HFrEF:?Patient had an EF of 37% from 2D echocardiogram from July 23, 2021.? No mention on right ventricular pressures on that echocardiogram Echo showed EF 35%, moderate RVSP 31mmHg, mild concentric LVH, stage I diastolic dysfunction, moderate aortic stenosis, 1-2+ MR, RVSP 31 mmHg Patient is not hypoxic but gets dyspnea on minimal exertion Plan: IV furosemide 40 mg every 8 hourly. Heart failure core measures incl uding intake and output, fluid restriction less than 1500 mL, daily weight monitoring, kidney and electrolytes monitoring. No worsening of creatinine from 3.23-3.96 on diuretic therefore will consult dust box worker. On carvedilol. Hold RAMILA/ARB due to DELIA and amlodipine because of vasodilatory properties and patient has significant edema 03/05: Patient has hyponatremia and hypochloremia. Creatinine is stable at 3.9 for last 2 days (2) Acute kidney injury: PLAN: Creatinine trending up, dust box worker is being consulted. Acute kidney injury on CKD 4.? Baseline creatinine is 2.55.? Complicated by patient essentially being a solitary kidney patient. Ultrasound reviewed shows left atrophic kidney. No right hydronephrosis. There is priority of cardiorenal syndrome with history of right pelvis transitional cell carcinoma, prostate cancer. Discussed with the dust box worker. (3) Liver mass: PLAN: Incidental finding on ultrasound. CT abdomen shows with ill-defined nodular changes. Masses in the dome of liver cannot be ruled out with noncont rast exam. Contracted GB with gallstone. Cirrhotic liver.Normal spleen. Diffuse atrophy of pancreas. Moderate ascites. check CAT scan without contrast. Of note had previously not been present on prior CTs. Informed patient and his . With history of multiple cancers including NHL, diffuse large B cell lymphoma, prostate cancer, transitional carcinoma of right renal pelvis and acute and chr onic DVT with improvement noted in October 2021, venous duplex ordered. Oncology consult to Dr. Arteaga. 03/05: Discussed with oncologist and patient had diagnostic paracentesis if that being negative for cancer cells he suggested lung biopsy but I think patient is overall high risk given multiple comorbidities with complication of pneumothorax/lung collapse. Total fluid cell count 375. 40% polynuclear, 60% mononuclear, neutrophil 22%, lymphocyte 4%, monocytes 6%. Glucose 87. Total protein 2.8. LDH 187. Cloudy yellow fluid taken out. Pathology comment pending PLAN: Plan Chronic conditions * Obstructive sleep apnea: Patient said that he is compliant with his CPAP.? I advised his family, who is present, to bring in his CPAP. * Hypertension: Monitor for now.? Currently stable.? Amlodipine will be held * Morbid obesity: Complicates care and recovery. * Gout: decrease his allopurinol from 300-100 for renal dosing. * Non-Hodgkin's lymphoma: Patient follows Dr. Arteaga. 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 Had laparoscopic biopsy in September 2011 and had 4 cycles of R-CHOP. EF decreased to 53 therefore received 2 additional cycles of R?CEOP. Completed treatment on 03/25/2012. CT on 11/2019 showed atrophic left kidney. Prostate biopsy on 12/2019 showed adenocarcinoma, [place]'s score 7. Was treated with ADT and radiation. 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 VTE prophylaxis: Subcu heparin CODE STATUS: Addressed with the patient: Patient is full CODE STATUS. Total time of the visit including total time spent in counseling or coordination of care, (more than 50% of the total time, spent in obtaining medical information from nurses and other ancillary care providers,explaining to the patient about labs, imaging, diagnosis and management of active complex medical conditions), discussion with consultants, review of labs and imaging is 40 minutes. Laboratory Results 03/05/22 05:20: Sodium 131 L, Potassium 4.3, Chloride 97 L, Carbon Dioxide 21.0, Anion Gap 13, BUN 117 H*, Creatinine 3.91 H, Estim Creat Clear Calc 15.56, Est GFR (MDRD) Af Amer 19 L, Est GFR (MDRD) Non-Af 16 L, BUN/Creatinine Ratio 29.9 H , Glucose 92, Calcium 9.1, Total Bilirubin 2.00 H, Direct Bilirubin 1.12 H, AST 135 H, ALT 66 H, Alkaline Phosphatase 268 H, Total Protein 6.0 L, Albumin 2.0 L, Globulin 4.0 03/05/22 11:08: Fluid Glucose 87 H, Fluid Total Protein 2.8, Fluid LDH 187 03/05/22 : Fluid Source OTHER, Fluid Color YELLOW, Fluid Appearance CLOUDY, Fluid WBC 0.274, Fluid RBC 14, Fluid Tot Cell Count 0.375, Fld Polynuclear WBCs # 0.110, Fld Polynuclear WBCs % 40.1, Fluid Mononuclear WBCs 0.164, Fld Mononuclear WBCs % 59.9, Fluid Neutrophils 22, Fluid Lymphocytes 4, Fluid Monocytes 6, Fluid Other Cells 68, Fl Pathologist Comment May follow, Fluid Comment 2 SEE COMMENT Clinical Impression(s) from Imaging Studies Chest X-Ray 02/28/22 12:10 IMPRESSION: Patchy infiltrates are seen in the peripheral lateral aspect of the right lung. Follow-up is recommended. Electronically Signed: Nik Martines MD at 12:34 EDT , Echocardiogram 02/28/22 14:30 Interpretation Summary The study was technically difficult. Mildly dilated left ventricle. Moderate segmental systolic dysfunction (see wall motion). The estimated ejection fraction is 35 %. Mild concentric left ventricular hypertrophy. Mild mitral valve prolapse, anterior leaflet Mild-Moderate (1-2+) mitral valve insufficiency. Trivial tricuspid valve insufficiency. The aortic valve leaflets are not well visualized, however, based upon the 2D echocardiographic images obtained there appears to be diffuse thickening, calcification, and partial restriction. Moderate aortic stenosis. Trivial aortic valve insufficiency. Right ventricular systolic pressure estimated to be 31 mmHg. Stage 1 diastolic dysfunction. Ordering Physician: Tony Shanks Performed By: Trace Cristina RCS Renal Ultrasound 03/02/22 14:33 IMPRESSION: Left renal atrophy. Ascites. Hepatic mass. CT can better evaluate. Note: Renal size measurements and size measurements of other organs etc may vary depending on modality and gang drill operator dependent variations in measurements. (i.e. Measuring a kidney on an US does not correlate with an exact same measurement on a CT.) Abdomen/Pelvis CT 03/03/22 12:34 IMPRESSION: 1. Partially visualized pleural-based opacity/masses in the lower lungs. CT scan to chest might be of value. 2. Trace of bilateral pleural effusions. 3. Cirrhosis of the liver with nodular changes. Masses in the dome of the liver cannot be excluded on this noncontrast exam. Follow-up exam with contrast is recommended if it can be performed. 4. Moderate amount of ascites in the abdomen and pelvis new since previous exam. 5. Contracted gallbladder with gallstones. Chest CT 03/03/22 14:11 IMPRESSION: Bilateral pleural effusions. There is pleural-based consolidation seen within the right upper lobe and both lower lobes which may represent multifocal pneumonia. Electronically Signed: Kyle Gonzales MD at 18:06 EDT , Charges/Coding Visit Charges Inpatient E&M: 12552 Subs Hosp L2
--- NOTE | 2022-03-05 16:39 | PN.RENAL_ITS ---
Subjective Subjective underwent diagnostic and therapeutic paracentesis with 5820cc fluid removed today. More awake. Still with leg edema, that is chronic on cortef, and shortness of breath. Still with anorexia. Nonoliguric on oral lasix. Creatinine 3.9 today Objective Data Objective Data Vital Signs: Vital Signs Temp Pulse Resp BP Pulse Ox O2 Del Method 97.9 F 60 16 118/60 96 Room Air 03/05/22 15:39 03/05/22 15:39 03/05/22 15:39 03/05/22 15:39 03/05/22 15:39 03/05/22 15:39 Oxygen Delivery Method [3] Room Air Oxygen Delivery Method [2] Room Air Oxygen Delivery Method [1 ( Room Air Initial Baseline)] Oxygen Delivery Method Room Air Weight: 114 kg Body Mass Index (BMI) 35.9 Intake & Output: Intake and Output for Last 24 Hours 03/03/22 03/04/22 03/05/22 23:59 23:59 23:59 Intake Total 1180 / 1180 1120 / 1120 480 / 480 Output Total 1400 / 1400 1150 / 1150 6820 / 6820 Balance -220 / -220 -30 / -30 -6340 / -6340 Lab / Micro Data Result Diagrams: 03/04/22 06:20 03/05/22 05:20 Labs: Laboratory Results - last 24 hr 03/05/22 05:20: Sodium 131 L, Potassium 4.3, Chloride 97 L, Carbon Dioxide 21.0, Anion Gap 13, BUN 117 H*, Creatinine 3.91 H, Estim Creat Clear Calc 15.56, Est GFR (MDRD) Af Amer 19 L, Est GFR (MDRD) Non-Af 16 L, BUN/Creatinine Ratio 29.9 H , Glucose 92, Calcium 9.1, Total Bilirubin 2.00 H, Direct Bilirubin 1.12 H, AST 135 H, ALT 66 H, Alkaline Phosphatase 268 H, Total Protein 6.0 L, Albumin 2.0 L, Globulin 4.0 03/05/22 11:08: Fluid Glucose 87 H, Fluid Total Protein 2.8, Fluid LDH 187 03/05/22 : Fluid Source OTHER, Fluid Color YELLOW, Fluid Appearance CLOUDY, Fluid WBC 0.274, Fluid RBC 14, Fluid Tot Cell Count 0.375, Fld Polynuclear WBCs # 0.110, Fld Polynuclear WBCs % 40.1, Fluid Mononuclear WBCs 0.164, Fld Mononuclear WBCs % 59.9, Fluid Neutrophils 22, Fluid Lymphocytes 4, Fluid Monoc ytes 6, Fluid Other Cells 68, Fl Pathologist Comment May follow, Fluid Comment 2 SEE COMMENT Radiography Diagnostic Testing: Radiology Impression Paracentesis Ultrasound 03/05/22 07:32 IMPRESSION: Successful ultrasound-guided paracentesis. Electronically Signed: Nomi Baugh MD at 16:24 EDT , Physical Exam Const alert and oriented x3 Constitutional Narrative: generallized weakness General Appearance: cooperative and ill appearing Orientation / Consciousness: awake Nutritional Appearance: obese Resp clear to auscultation bilaterally Cardio Cardio Narrative: paced GI non-tender and non-distended GI Narrative: obese Auscultation: normoactive bowel sounds Palpation: soft Extremity General Extremity: edema bilateral (2+) lower extremity Psych cooperative Assessment & Plan Assessment/Plan (1) Acute on chronic kidney failure: PLAN: creatinine baseline mid 2's progressed to mid 3's on escalating doses of lasix for anasarca, fluid overload. Creatinine 3.91 today. Changed IV Lasix to p.o. 24-hour urine creatinine clearance 20 cc/min therefore does not qualify for dialysis. He does not have nephrotic proteinuria. Spot urine sodium low suggestive of prerenal event or hemodynamically mediated renal failure. BNP low at 179 . (2) CKD (chronic kidney disease) stage 4, GFR 15-29 ml/min: PLAN: hx left renal atrophy with right kidney cancer s/p stent. (3) Systolic heart failure: PLAN: EF 35% changed to oral Lasix (4) Transitional cell carcinoma of right kidney: (5) Chronic systolic (congestive) heart failure: PLAN: EF 35% on fluid restriction, lasix po (6) Hyponatremia: PLAN: likely from volume expansion but mostl extravascular, check urine sodium. Cut back lasix to bid po. s/P paracetentesis 5.8L today (7) Prostate cancer: (8) Leg edema: PLAN: Chronic with history of DVT. Consider venous Dopplers to rule out DVT since patient has been sedentary past several weeks. He is also on Cortef contributing to chronic leg edema. (9) Liver mass: PLAN: with ascites s/p paracentesis. Follow up with oncology (10) Lung nodule, multiple: PLAN: pleural based, f/u with oncology
[2022-03-05] MEDS: Hydrocortisone 10 MG Tablet 5 MG PO (17:18)
[2022-03-05] MEDS: Heparin Injection (Vial) 5,000 UNIT/ML VIAL 5000 UNIT SC (22:41)
[2022-03-05] MEDS: Pravastatin 40 MG Tablet PO (22:42)
[2022-03-06] VITALS (13 sets, daily range): BP systolic 98–104; BP diastolic 50–66; PULSE 59–69; RESP 16–18; TEMP 36.6–37.2; O2SAT 94–98
[2022-03-06 06:55] LABS: Anion Gap 15 (5-15); BUN 116 mg/dL (7-18); BUN/Creat Ratio 30.1 RATIO (10-20); Calcium,Total 8.6 mg/dL (8.5-10.1); Chloride 99 mmol/L (98-107); Creatinine, Serum 3.85 mg/dL (0.70-1.30); EST Glomerular Filtration Rate 16 mL/min (>60); Est Glom Filt Rate - Afr Amer 20 mL/min (>60); Glucose 117 mg/dL (74-106); Potassium 4.4 mmol/L (3.5-5.1); Sodium Level 130 mmol/L (136-145)
[2022-03-06] MEDS: Famotidine 20 MG Tablet PO (09:21)
[2022-03-06] MEDS: Hydrocortisone 10 MG Tablet 20 MG PO (09:21)
[2022-03-06] MEDS: Carvedilol 25 MG Tablet PO (09:22)
[2022-03-06] MEDS: Furosemide 40 MG Tablet PO ×2 (09:22→18:10)
[2022-03-06] MEDS: Allopurinol 100 MG Tablet PO (09:22)
[2022-03-06] MEDS: Heparin Injection (Vial) 5,000 UNIT/ML VIAL 5000 UNIT SC ×2 (09:24→21:54)
[2022-03-06] MEDS: Nystatin Powder 15gm Bottle 1 APPLIC TOPICAL ×2 (09:25→21:54)
--- NOTE | 2022-03-06 10:13 | CASEMGMT ---
Discharge Fruit Dumper Ludy d/lissett phlebotomist medical lab assistant was at bedside with patient and . Patient and would like a referral sent to the [facility] [place]. Ludy sent referral over to Katie at the [facility] via [facility]. Plan?: [facility], Waiting Acceptance Ludy Harrell Discharge Fruit Dumper
--- NOTE | 2022-03-06 10:42 | CASEMGMT ---
Discharge Post Office Manager Katie from the [facility] reached out. Patient has been accepted. Ludy went to patient bedside and notified patient and of the acceptance at the [facility]. KIMBERLY Paredes has been notified and will work on pre-cert. Plan: [facility], Waiting Acceptance Ludy Harrell Discharge Post Office Manager
--- NOTE | 2022-03-06 11:43 | CASEMGMT ---
SW completed pre-cert request and submitted all necessary information to [employer] (the company that manages SNF authorizations for [place].). Await insurance authorization. Plan: d/c to [facility] pending insurance approval. Lena GO
--- NOTE | 2022-03-06 12:51 | CASEMGMT ---
KIMBERLY called [facility] to confirm receipt of patient's clinicals and request for SNF. KIMBERLY spoke with [facility] and she said they did receive the clinicals and the case is pending review. Plan: d/c to [facility] [place] under skille level of care pending pre-cert. Lena Acosta STOVE MECHANIC ABBI
--- NOTE | 2022-03-06 12:53 | PN.HOSP_ITS ---
Subjective Subjective Patient shortness of breath is much improved. Leg swelling is also decreasing. Abdominal ascites little better after paracentesis. Objective Data Objective Data Vital Signs: Vital Signs Temp Pulse Resp BP Pulse Ox O2 Del Method 98 F 59 L 16 101/66 98 Room Air 03/06/22 09:17 03/06/22 10:12 03/06/22 09:17 03/06/22 09:17 03/06/22 10:12 03/06/22 10:12 Oxygen Delivery Method [3] Room Air Oxygen Delivery Method [2] Room Air Oxygen Delivery Method [1 ( Room Air Initial Baseline)] Oxygen Delivery Method Room Air Weight: 240 lb 4.862 oz Body Mass Index (BMI) 35.9 Intake & Output: Intake and Output for Last 24 Hours 03/04/22 03/05/22 03/06/22 23:59 23:59 23:59 Intake Total 1120 / 1120 1150 / 1150 360 / 360 Output Total 1150 / 1150 7320 / 7320 Balance -30 / -30 -6170 / -6170 360 / 360 Lab / Micro Data Result Diagrams: 03/04/22 06:20 03/06/22 05:20 Labs: Laboratory Results - last 24 hr 03/06/22 05:20: Sodium 130 L, Potassium 4.4, Chloride 99, Carbon Dioxide 16.0 L, Anion Gap 15, BUN 116 H*, Creatinine 3.85 H, Estim Creat Clear Calc 15.80, Est GFR (MDRD) Af Amer 20 L, Est GFR (MDRD) Non-Af 16 L, BUN/Creatinine Ratio 30.1 H , Glucose 117 H, Calcium 8.6 Radiography Diagnostic Testing: Radiology Impression Venous Doppler Study 03/04/22 11:29 Interpretation Summary No evidence for acute deep venous thrombosis bilateral lower extremities with patent and compressible bilateral great saphenous veins. Ordering Physician: Jordy Wang Performed By: Blaine Flores RVT Paracentesis Ultrasound 03/05/22 07:32 IMPRESSION: Successful ultrasound-guided paracentesis. Electronically Signed: Nomi Baugh MD at 16:24 EDT , Physical Exam Narrative Seen and examined General: Alert, Oriented x3, Cooperative, morbid obese BMI 36.2 kg/m? HEENT: Atraumatic, PERRLA, EOMI, Normocephalic Oral: Oral mucosa dry no Gingival or Mucosal Lesions/ Ulcerations Neck: Supple, No JVD, Negative Carotid Bruits Lungs: Air entry diminished both sides. No crepitation/rhonchi. No hypoxia or tachypnea. Cardiovascular: AV dual paced rhythm, Normal S1, Normal S2, No murmurs, left upper chest pacemaker Abdomen: Bowel Sounds sluggish, Soft, nontender, distended/bloating. Ascites and subcutaneous abdominal wall edema. Umbilicus everted : No renal angle tenderness. No suprapubic tenderness. Extremities: Bilateral 2+ below-knee pitting edema, Capillary Refill Less than 3 Seconds Skin: Chronic venous hypertensive changes. Musculoskeletal: No Tenderness to Palpation of Joints or Extremities, muscle strength 4/5 at major joints of LE due to edema Neurological: Cranial nerves II-XII grossly intact, DTR 2+/4 Psych/Mental Status: Flat affect. Assessment & Plan Assessment/Plan (1) HFrEF (heart failure with reduced ejection fraction): PLAN: Acute on chronic HFrEF:?Patient had an EF of 37% from 2D echocardiogram fr July 23, 2021.? No mention on right ventricular pressures on that echocardiogram Echo showed EF 35%, moderate RVSP 31mmHg, mild concentric LVH, stage I diastolic dysfunction, moderate aortic stenosis, 1-2+ MR, RVSP 31 mmHg Patient is not hypoxic but gets dyspnea on minimal exertion Plan: IV furosemide 40 mg every 8 hourly. Heart failure core measures including intake and output, fluid restriction less than 1500 mL, daily weight monitoring, kidney and electrolytes monitoring. No worsening of creatinine from 3.23-3.96 on diuretic therefore will consult switchboard operator helper. On carvedilol. Hold RAMILA/ARB due to DELIA and amlodipine because of vasodilatory properties and patient has significant edema 03/05: Patient has hyponatremia and hypochloremia. Creatinine is stable at 3.9 for last 2 days 03/06: Creatinine is 3.85, getting better. Continue Lasix IV changed to 40 mg oral daily. Patient had 5820 mL fluid removed on 03/05. Laboratory Results 03/06/22 05:20: Sodium 130 L, Potassium 4.4, Chloride 99, Carbon Dioxide 16.0 L, Anion Gap 15, BUN 116 H*, Creatinine 3.85 H, Estim Creat Clear Calc 15.80, Est GFR (MDRD) Af Amer 20 L, Est GFR (MDRD) Non-Af 16 L, BUN/ 2. DELIA on CKD stage IV: Creatinine Ratio 30.1 H, Glucose 117 H, Calcium 8.6 Creatinine trending up, switchboard operator helper is being consulted. Acute kidney injury on CKD 4.? Baseline creatinine is 2.55.? Complicated by patient essentially being a solitary kidney patient. Ultrasound reviewed shows left atrophic kidney. No right hydronephrosis. There is priority of cardiorenal syndrome with history of right pelvis transitional cell carcinoma, prostate cancer. Discussed with the switchboard operator helper. (2) Acute kidney injury: (3) Liver mass: PLAN: Incidental finding on ultrasound. CT abdomen shows with ill-defined nodular changes. Masses in the dome of liver cannot be ruled out with noncontrast exam. Contracted GB with gallstone. Cirrhotic liver.Normal spleen. Diffuse atrophy of pancreas. Moderate ascites. check CAT scan without contrast. Of note had previously not been present on prior CTs. Informed patient and his . With history of multiple cancers including NHL, diffuse large B cell lymphoma, prostate cancer, transitional carcinoma of right renal pelvis and acute and chronic DVT with improvement noted in October 2021, venous duplex ordered. Oncology consult to Dr. Arteaga. 03/05: Discussed with oncologist and patient had diagnostic paracentesis if that being negative for cancer cells he suggested lung biopsy but I think patient is overall high risk given multiple comorbidities with complication of pneumothorax/lung collapse. Total fluid cell count 375. 40% polynuclear, 60% mononuclear, neutrophil 22%, lymphocyte 4%, monocytes 6%. Glucose 87. Total protein 2.8. LDH 187. Cloudy yellow fluid taken out. Pathology comment pending 02/28: Cell cytology from ascitic fluid pending. PLAN: Plan Chronic conditions * Obstructive sleep apnea: Patient said that he is compliant with his CPAP.? I advised his family, who is present, to bring in his CPAP. * Hypertension: Monitor for now.? Currently stable.? Amlodipine will be held * Morbid obesity: Complicates care and recovery. * Gout: decrease his allopurinol from 300-100 for renal dosing. * Non-Hodgkin's lymphoma: Patient follows Dr. Arteaga. 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 Had laparoscopic biopsy in September 2011 and had 4 cycles of R-CHOP. EF decreased to 53 therefore received 2 additional cycles of R?CEOP. Completed treatment on 03/25/2012. CT on 11/2019 showed atrophic left kidney. Prostate biopsy on 12/2019 showed adenocarcinoma, Sim's score 7. Was treated with ADT and radiation. 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 VTE prophylaxis: Subcu heparin Living will/advanced directive/end of life care: Patient does not have living will or advanced directive. After discussion of benefits/risks procedures in volved with full code, DNR CC arrest and DNR CC, the patient and his opted for DNRCC arrest with no intubation. Patient does not want artificial life support including intubation, tube feed, ventilator and/chest compression, central venous catheter, vasopressor and DC shock if needed Total time spent in [id number] encounter in discussion of advanced directive 16 minutes. Total time of the visit including total time spent in counseling or coordination of care, (more than 50% of the total time, spent in obtaining medical information from nurses and other ancillary care providers,explaining to the patient about labs, imaging, diagnosis and management of active complex medical conditions), discussion with consultants, review of labs and imaging is 40 minutes. Clinical Impression(s) from Imaging Studies Chest X-Ray 02/28/22 12:10 IMPRESSION: Patchy infiltrates are seen in the peripheral lateral aspect of the right lung. Follow-up is recommended. Electronically Signed: Nik Martines MD at 12:34 EDT , Echocardiogram 02/28/22 14:30 Interpretation Summary The study was technically difficult. Mildly dilated left ventricle. Moderate segmental systolic dysfunction (see wall motion). The estimated ejection fraction is 35 %. Mild concentric left ventricular hypertrophy. Mild mitral valve prolapse, anterior leaflet Mild-Moderate (1-2+) mitral valve insufficiency. Trivial tricuspid valve insufficiency. The aortic valve leaflets are not well visualized, however, based upon the 2D echocardiographic images obtained there appears to be diffuse thickening, calcification, and partial restriction. Moderate aortic stenosis. Trivial aortic valve insufficiency. Right ventricular systolic pressure estimated to be 31 mmHg. Stage 1 diastolic dysfunction. Ordering Physician: Tony Shanks Performed By: Trace Cristina RCS Renal Ultrasound 03/02/22 14:33 IMPRESSION: Left renal atrophy. Ascites. Hepatic mass. CT can better evaluate. Note: Renal size measurements and size measurements of other organs etc may vary depending on modality and ripper operator dependent variations in measurements. (i.e. Measuring a kidney on an US does not correlate with an exact same measurement on a CT.) Abdomen/Pelvis CT 03/03/22 12:34 IMPRESSION: 1. Partially visualized pleural-based opacity/masses in the lower lungs. CT scan to chest might be of value. 2. Trace of bilateral pleural effusions. 3. Cirrhosis of the liver with nodular changes. Masses in the dome of the liver cannot be excluded on this noncontrast exam. Follow-up exam with contrast is recommended if it can be performed. 4. Moderate amount of ascites in the abdomen and pelvis new since previous exam. 5. Contracted gallbladder with gallstones. Chest CT 03/03/22 14:11 IMPRESSION: Bilateral pleural effusions. There is pleural-based consolidation seen within the right upper lobe and both lower lobes which may represent multifocal pneumonia. Electronically Signed: Kyle Gonzales MD at 18:06 EDT ,
--- NOTE | 2022-03-06 14:02 | PN.RENAL_ITS ---
Subjective Subjective up to chair, weak, mild dyspnea with leg edema persists. Urine output inaccurate with gutiérrez removed. Objective Data Objective Data Vital Signs: Vital Signs Temp Pulse Resp BP Pulse Ox O2 Del Method 98 F 59 L 16 101/66 98 Room Air 03/06/22 09:17 03/06/22 10:12 03/06/22 09:17 03/06/22 09:17 03/06/22 10:12 03/06/22 10:12 Oxygen Delivery Method [3] Room Air Oxygen Delivery Method [2] Room Air Oxygen Delivery Method [1 ( Room Air Initial Baseline)] Oxygen Delivery Method Room Air Weight: 109 kg Body Mass Index (BMI) 35.9 Intake & Output: Intake and Output for Last 24 Hours 03/04/22 03/05/22 03/06/22 23:59 23:59 23:59 Intake Total 1120 / 1120 1150 / 1150 360 / 360 Output Total 1150 / 1150 7320 / 7320 Balance -30 / -30 -6170 / -6170 360 / 360 Lab / Micro Data Result Diagrams: 03/04/22 06:20 03/06/22 05:20 Labs: Laboratory Results - last 24 hr 03/06/22 05:20: Sodium 130 L, Potassium 4.4, Chloride 99, Carbon Dioxide 16.0 L, Anion Gap 15, BUN 116 H*, Creatinine 3.85 H, Estim Creat Clear Calc 15.80, Est GFR (MDRD) Af Amer 20 L, Est GFR (MDRD) Non-Af 16 L, BUN/Creatinine Ratio 30.1 H , Glucose 117 H, Calcium 8.6 Radiography Diagnostic Testing: Radiology Impression Venous Doppler Study 03/04/22 11:29 Interpretation Summary No evidence for acute deep venous thrombosis bilateral lower extremities with patent and compressible bilateral great saphenous veins. Ordering Physician: Jordy Wang Performed By: Blaine Flores RVT Paracentesis Ultrasound 03/05/22 07:32 IMPRESSION: Successful ultrasound-guided paracentesis. Electronically Signed: Nomi Baugh MD at 16:24 EDT , Physical Exam Const alert and oriented x3 General Appearance: frail Resp clear to auscultation bilaterally Cardio Cardio Narrative: afib GI non-tender and non-distended GI Narrative: obese Palpation: soft Extremity General Extremity: edema bilateral lower extremity Neuro Neuro Narrative: gen weakness, debilitated Psych cooperative Assessment & Plan Assessment/Plan (1) Acute on chronic kidney failure: PLAN: creatinine baseline mid 2's progressed to mid 3's on escalating doses of lasix for anasarca, fluid overload. Creatinine improved to 3.85 today. He does not have nephrotic proteinuria to explain anasarca. Likely from cardiomyopathy, liver disease with ascites. Continue lasix po. BNP low at 179. OK to dc to rehab if renal fxn better tomorrow (2) CKD (chronic kidney disease) stage 4, GFR 15-29 ml/min: PLAN: hx left renal atrophy with right kidney cancer s/p stent. 24h urine CRCL 20cc/min (3) Systolic heart failure: PLAN: EF 35% continue Lasix (4) Transitional cell carcinoma of right kidney: (5) Chronic systolic (congestive) heart failure: PLAN: EF 35% on fluid restriction, lasix po (6) Hyponatremia: PLAN: likely from volume expansion but mostl extravascular, check urine sodium. Cut back lasix to bid po. s/P paracetentesis 5.8L today (7) Prostate cancer: (8) Leg edema: PLAN: anasarca, rec compression hose or vania wraps (9) Liver mass: PLAN: with ascites s/p paracentesis. Follow up with oncology (10) Lung nodule, multiple: PLAN: pleural based, f/u with oncology
[2022-03-06 15:43] LABS: Pathologist Comment/Body Fluid Reviewed
[2022-03-06] MEDS: Hydrocortisone 10 MG Tablet 5 MG PO (18:10)
[2022-03-06] MEDS: Pravastatin 40 MG Tablet PO (21:55)
[2022-03-07] VITALS (10 sets, daily range): BP systolic 103–112; BP diastolic 54–71; PULSE 60–65; RESP 16–20; TEMP 36.2–36.7; O2SAT 95–97
[2022-03-07 06:19] LABS: Absolute Lymphocyte Count 0.33 X10^3/uL (0.83-4.51); Absolute Neutrophil Count 9.9 X10^3/uL (2.0-7.7); Basophil# 0.01 X10^3/uL; Basophil% 0.1 % (0-1); Eosinophil# 0.04 X10^3/uL; Eosinophils% 0.3 % (0-5); Hematocrit 40.8 % (40-54); Hemoglobin 13.4 g/dL (13.0-16.5); Lymphocyte # 0.33 X10^3/ul (0.83-4.51); Lymphocyte % 2.8 % (19-41); Mean Corp Hgb Conc 32.8 g/dL (32-36); Mean Corpuscular Hgb 26.7 pg (27.0-32.0); Mean Corpuscular Volume 81.4 fL (80-94); Mean Platelet Vol. 10.3 fl (6.2-12.0); Monocyte# 1.31 X10^3/uL; Monocyte% 11.2 % (0-10); NRBC Flagged by Analyzer 0 % (0-5); Neutrophil % 84.4 % (47-70); POSITIVE DIFFERENTIAL YES; Platelet Count 220 K/mm3 (150-450); RBC Distribution Width CV 17.8 % (11.6-14.6); RBC Distribution Width SD 50.1 fl (35.1-43.9); Red Blood Count 5.01 M/mm3 (4.6-6.2); White Blood Count 11.7 K/mm3 (4.4-11.0)
[2022-03-07 06:23] LABS: Differential Indicated SCAN CRITERIA MET
[2022-03-07 06:42] LABS: Anisocytosis 1+
[2022-03-07 06:59] LABS: Anion Gap 14 (5-15); BUN 128 mg/dL (7-18); BUN/Creat Ratio 32.5 RATIO (10-20); Calcium,Total 8.9 mg/dL (8.5-10.1); Chloride 97 mmol/L (98-107); Creatinine, Serum 3.94 mg/dL (0.70-1.30); EST Glomerular Filtration Rate 16 mL/min (>60); Est Glom Filt Rate - Afr Amer 19 mL/min (>60); Estimated Creatinine Clearance 15.44 ml/min; Glucose 105 mg/dL (74-106); Potassium 4.1 mmol/L (3.5-5.1); Sodium Level 132 mmol/L (136-145)
[2022-03-07] MEDS: Furosemide 40 MG Tablet PO ×2 (07:57→17:29)
[2022-03-07] MEDS: Hydrocortisone 10 MG Tablet 20 MG PO (07:57)
[2022-03-07] MEDS: Nystatin Powder 15gm Bottle 1 APPLIC TOPICAL ×2 (07:57→20:50)
[2022-03-07] MEDS: Allopurinol 100 MG Tablet PO (07:57)
[2022-03-07] MEDS: Heparin Injection (Vial) 5,000 UNIT/ML VIAL 5000 UNIT SC ×2 (07:58→20:49)
[2022-03-07] MEDS: Famotidine 20 MG Tablet PO (07:58)
[2022-03-07] MEDS: Carvedilol 25 MG Tablet PO ×2 (07:58→20:49)
--- NOTE | 2022-03-07 10:10 | CASEMGMT ---
KIMBERLY called [facility] to check on status of the pre-cert request. KIMBERLY spoke with Amy and she said the case is still being reviewed. Lena Acosta STEWARD/STEWARDESS CHIEF [employer] VESSEL CATECHIST
--- NOTE | 2022-03-07 10:27 | PN.RENAL_ITS ---
Subjective Subjective rise in creatinine likely from recent large volume paracentesis with low albumin. Remains nonoligiuric. Still with chronic edema but improved, legs wrapped. Objective Data Objective Data Vital Signs: Vital Signs Temp Pulse Resp BP Pulse Ox O2 Del Method 98.0 F 60 18 112/54 L 97 Room Air 03/07/22 03:30 03/07/22 07:02 03/07/22 03:30 03/07/22 03:30 03/07/22 03:30 03/07/22 09:08 Oxygen Delivery Method [3] Room Air Oxygen Delivery Method [2] Room Air Oxygen Delivery Method [1 ( Room Air Initial Baseline)] Oxygen Delivery Method Room Air Weight: 107.3 kg Body Mass Index (BMI) 35.9 Intake & Output: Intake and Output for Last 24 Hours 03/05/22 03/06/22 03/07/22 23:59 23:59 23:59 Intake Total 1150 / 1150 1060 / 1060 Output Total 7320 / 7320 Balance -6170 / -6170 1060 / 1060 Lab / Micro Data Result Diagrams: 03/07/22 05:50 03/07/22 05:50 Labs: Laboratory Results - last 24 hr 03/05/22 : Fl Pathologist Comment Reviewed 03/07/22 05:50: WBC 11.7 H, RBC 5.01, Hgb 13.4, Hct 40.8, MCV 81.4, MCH 26.7 L, MCHC 32.8, RDW Std Deviation 50.1 H, RDW Coeff of Deyvi 17.8 H, Plt Count 220, MPV 10.3, Immature Gran % (Auto) 1.200 H, Neut % (Auto) 84.4 H, Lymph % (Auto) 2.8 L , [place] % (Auto) 11.2 H, Eos % (Auto) 0.3, Baso % (Auto) 0.1, Absolute Neuts (auto) 9.9 H, Absolute Lymphs (auto) 0.33 L, Nucleated RBC % 0, Anisocytosis 1+ 03/07/22 05:50: Sodium 132 L, Potassium 4.1, Chloride 97 L, Carbon Dioxide 21.0, Anion Gap 14, BUN 128 H*, Creatinine 3.94 H, Estim Creat Clear Calc 15.44, Est GFR (MDRD) Af Amer 19 L, Est GFR (MDRD) Non-Af 16 L, BUN/Creatinine Ratio 32.5 H , Glucose 105, Calcium 8.9 Physical Exam Const alert, oriented x3 and no apparent distress Constitutional Narrative: generallized weakness General Appearance: cooperative Nutritional Appearance: obese HEENT normocephalic Resp Auscultation: diminished lung sounds Cardio Cardio Narrative: afib GI non-tender GI Narrative: obese Auscultation: normoactive bowel sounds Palpation: soft and ascites Extremity General Extremity: edema bilateral (improving, legs wrapped) lower extremity Neuro Neuro Narrative: gen weakness, debilitated Sensorium / Orientation: awake and alert Motor Exam: Negative for asterixis Psych cooperative Assessment & Plan Assessment/Plan (1) Acute on chronic kidney failure: PLAN: creatinine baseline mid 2's progressed to mid 3's on escalating doses of lasix for anasarca, fluid overload. Creatinine slightly worse due to recent large volume paracentesis. Remains nonoliguric on oral lasix twice a day. DC to [facility]. Follow up in office 2wks with bmp in 1 week (2) CKD (chronic kidney disease) stage 4, GFR 15-29 ml/min: PLAN: hx left renal atrophy with right kidney cancer s/p stent. 24h urine CRCL 20cc/min (3) Systolic heart failure: PLAN: EF 35% continue Lasix (4) Transitional cell carcinoma of right kidney: (5) Chronic systolic (congestive) heart failure: PLAN: EF 35% on fluid restriction, lasix po (6) Hyponatremia: PLAN: likely from volume expansion but mostly extravascular, third spacing with low albumin. (7) Prostate cancer: (8) Leg edema: PLAN: anasarca, rec compression hose or vania wraps (9) Liver mass: PLAN: with ascites s/p paracentesis. Follow up with oncology (10) Lung nodule, multiple: PLAN: pleural based, f/u with oncology
--- NOTE | 2022-03-07 10:48 | PN.HOSP_ITS ---
Subjective Subjective Follow-up for CHF exacerbation. Patient shortness of breath is resolved. Bilateral lower extremity swelling is much improved. Discharge planning Objective Data Objective Data Vital Signs: Vital Signs Temp Pulse Resp BP Pulse Ox O2 Del Method 98.0 F 60 18 112/54 L 97 Room Air 03/07/22 03:30 03/07/22 07:02 03/07/22 03:30 03/07/22 03:30 03/07/22 03:30 03/07/22 09:08 Oxygen Delivery Method [3] Room Air Oxygen Delivery Method [2] Room Air Oxygen Delivery Method [1 ( Room Air Initial Baseline)] Oxygen Delivery Method Room Air Weight: 236 lb 8.896 oz Body Mass Index (BMI) 35.9 Intake & Output: Intake and Output for Last 24 Hours 03/05/22 03/06/22 03/07/22 23:59 23:59 23:59 Intake Total 1150 / 1150 1060 / 1060 Output Total 7320 / 7320 Balance -6170 / -6170 1060 / 1060 Lab / Micro Data Result Diagrams: 03/07/22 05:50 03/07/22 05:50 Labs: Laboratory Results - last 24 hr 03/05/22 : Fl Pathologist Comment Reviewed 03/07/22 05:50: WBC 11.7 H, RBC 5.01, Hgb 13.4, Hct 40.8, MCV 81.4, MCH 26.7 L, MCHC 32.8, RDW Std Deviation 50.1 H, RDW Coeff of Deyvi 17.8 H, Plt Count 220, MPV 10.3, Immature Gran % (Auto) 1.200 H, Neut % (Auto) 84.4 H, Lymph % (Auto) 2.8 L , [place] % (Auto) 11.2 H, Eos % (Auto) 0.3, Baso % (Auto) 0.1, Absolute Neuts (auto) 9.9 H, Absolute Lymphs (auto) 0.33 L, Nucleated RBC % 0, Anisocytosis 1+ 03/07/22 05:50: Sodium 132 L, Potassium 4.1, Chloride 97 L, Carbon Dioxide 21.0, Anion Gap 14, BUN 128 H*, Creatinine 3.94 H, Estim Creat Clear Calc 15.44, Est GFR (MDRD) Af Amer 19 L, Est GFR (MDRD) Non-Af 16 L, BUN/Creatinine Ratio 32.5 H , Glucose 105, Calcium 8.9 Physical Exam Narrative Seen and examined No hypoxia. Pulse ox 97% on room air. Physical exam General: Alert, Oriented x3, Cooperative, morbid obese BMI 36.2 kg/m? HEENT: Atraumatic, PERRLA, EOMI, Normocephalic Oral: Oral mucosa dry no Gingival or Mucosal Lesions/ Ulcerations Neck: Supple, No JVD, Negative Carotid Bruits Lungs: Air entry diminished both sides. No crepitation/rhonchi. No hypoxia or tachypnea. Cardiovascular: AV dual paced rhythm, Normal S1, Normal S2, No murmurs, left upp er chest pacemaker Abdomen: Bowel Sounds sluggish, Soft, nontender, distended/bloating. Ascites and subcutaneous abdominal wall edema. Umbilicus everted : No renal angle tenderness. No suprapubic tenderness. Extremities: Bilateral 2+ pitting edema at ankle level, Capillary Refill Less than 3 Seconds Skin: Chronic venous hypertensive changes. Musculoskeletal: No Tenderness to Palpation of Joints or Extremities, muscle strength 4/5 at major joints of LE due to edema Neurological: Cranial nerves II-XII grossly intact, DTR 2+/4 Psych/Mental Status: Flat affect. Assessment & Plan Assessment/Plan (1) Acute on chronic kidney failure: PLAN: Patient 81-year-old gentleman was admitted with progressive shortness of breath, bilateral lower extremity edema and ascites consistent with anasarca. Furosemide dose increased to 80 mg twice daily as an outpatient still not responding therefore admitted to PCU (1) HFrEF (heart failure with reduced ejection fraction): PLAN: Acute on chronic HFrEF:?Patient had an EF of 37% from 2D echocardiogram from July 23, 2021.? No mention on right ventricular pressures on that echocardiogram Echo showed EF 35%, moderate RVSP 31mmHg, mild concentric LVH, stage I diastolic dysfunction, moderate aortic stenosis, 1-2+ MR, RVSP 31 mmHg Patient is not hypoxic but gets dyspnea on minimal exertion Plan: IV furosemide 40 mg every 8 hourly. ? Heart failure core measures includi ng intake and output, fluid restriction less than 1500 mL, daily weight monitoring, kidney and electrolytes monitoring.? No worsening of creatinine from 3.23-3.96 on diuretic therefore will consult healthcare applications analyst.? On carvedilol.? Hold RAMILA/ARB due to DELIA and amlodipine because of vasodilatory properties and? patient has significant edema 03/05: Patient has hyponatremia and hypochloremia.? Creatinine is stable at 3.9 for last 2 days 03/06: Creatinine is 3.85, getting better.? Continue Lasix IV changed to? 40 mg oral daily.? Patient had 5820 mL fluid removed on 03/05. 2.? DLEIA on CKD stage IV:Creatinine trending up, healthcare applications analyst is being consulted.? Baseline creatinine is 2.55.? Complicated by patient essentially being a solitary kidney patient.? Ultrasound reviewed shows left atrophic kidney.? No right hydronephrosis.? There is priority of cardiorenal syndrome with history of right pelvis transitional cell carcinoma, prostate cancer.Discussed with the healthcare applications analyst. (3) Liver mass: Incidental finding on ultrasound.? CT abdomen shows with ill- defined nodular changes.? Masses in the dome of liver cannot be ruled out with noncontrast exam.? Contracted GB with gallstone.? Cirrhotic liver.Normal spleen.? Diffuse atrophy of pancreas.? Moderate ascites. check CAT scan without contrast.? Of note had previously not been present on prior CTs. I informed patient and his , with history of multiple cancers including NHL, diffuse large B cell lymphoma, prostate cancer, transitional carcinoma of right renal pelvis and acute and chronic DVT with improvement noted in October 2021, venous duplex ordered.? Oncology consult to Dr. Arteaga. 03/05: Discussed with oncologist and patient had diagnostic paracentesis if that being negative for cancer cells he suggested lung biopsy but I think patient is overall high risk given multiple comorbidities with complication of pneumothorax/lung collapse.? Total fluid cell count 375.? 40% polynuclear, 60% mononuclear, neutrophil 22%, lymphocyte 4%, monocytes 6%.? Glucose 87.? Total protein 2.8.? LDH 187.? Cloudy yellow fluid taken out.? Pathology comment pendjelly pena 02/28: Cell cytology from ascitic fluid pending. Chronic conditions * Obstructive sleep apnea: Patient said that he is compliant with his CPAP.? I advised his family, who is present, to bring in his CPAP. * Hypertension: Monitor for now.? Currently stable.? Amlodipine will be held * Morbid obesity: Complicates care and recovery. * Gout: decrease his allopurinol from 300-100 for renal dosing. * Non-Hodgkin's lymphoma: Patient follows Dr. Arteaga.? 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 Had laparoscopic biopsy in September 2011 and had 4 cycles of R-CHOP.? EF decreased to 53 therefore received 2 additional cycles of R?CEOP.? Completed treatment on 03/25/2012.? CT on 11/2019 showed atrophic left kidney.? Prostate biopsy on 12/2019 showed ad enocarcinoma, Sim's score 7.? Was treated with ADT and radiation.? 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 VTE prophylaxis: Subcu heparin Living will/advanced directive/end of life care: Patient does not have living will or advanced directive.? After discussion of benefits/risks procedures involved with? full code, DNR CC arrest and DNR CC, the patient and his opted for DNRCC arrest with no intubation. Patient ? does not want artificial life support including intubation, tube feed, ventilator and/chest compression, central venous catheter, vasopressor and DC shock if needed. Total time spent in [id number] encounter in discussion of advanced directive 16 minutes. (2) CKD (chronic kidney disease) stage 4, GFR 15-29 ml/min: (3) Systolic heart failure: (4) Transitional cell carcinoma of right kidney: (5) Chronic systolic (congestive) heart failure: (6) Hyponatremia: (7) Prostate cancer: (8) Leg edema: (9) Liver mass: PLAN: Incidental finding on ultrasound. CT abdomen shows with ill-defined nodular changes. Masses in the dome of liver cannot be ruled out with noncontrast exam. Contracted GB with gallstone. Cirrhotic liver.Normal spleen. Diffuse atrophy of pancreas. Moderate ascites. check CAT scan without contrast. Of note had previously not been present on prior CTs. Informed patient and his . With history of multiple cancers including NHL, diffuse large B cell lymphoma, prostate cancer, transitional carcinoma of right renal pelvis and acute and chronic DVT with improvement noted in October 2021, venous duplex ordered. Oncology consult to Dr. Arteaga. 03/05: Discussed with oncologist and patient had diagnostic paracentesis if that being negative for cancer cells he suggested lung biopsy but I think patient is overall high risk given multiple comorbidities with complication of pneumothorax/lung collapse. Total fluid cell count 375. 40% polynuclear, 60% mononuclear, neutrophil 22%, lymphocyte 4%, monocytes 6%. Glucose 87. Total protein 2.8. LDH 187. Cloudy yellow fluid taken out. Pathology comment pending 02/28: Cell cytology from ascitic fluid pending. (10) Lung nodule, multiple: PLAN: Plan Chronic conditions * Obstructive sleep apnea: Patient said that he is compliant with his CPAP.? I advised his family, who is present, to bring in his CPAP. * Hypertension: Monitor for now.? Currently stable.? Amlodipine will be held * Morbid obesity: Complicates care and recovery. * Gout: decrease his allopurinol from 300-100 for renal dosing. * Non-Hodgkin's lymphoma: Patient follows Dr. Arteaga. 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 Had laparoscopic biopsy in September 2011 and had 4 cycles of R-CHOP. EF decreased to 53 therefore received 2 additional cycles of R?CEOP. Completed treatment on 03/25/2012. CT on 11/2019 showed atrophic left kidney. Prostate biopsy on 12/2019 showed adenocarcinoma, Richland's score 7. Was treated with ADT and radiation. 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 VTE prophylaxis: Subcu heparin Living will/advanced directive/end of life care: Patient does not have living will or advanced directive. After discussion of benefits/risks procedures involved with full code, DNR CC arrest and DNR CC, the patient and his opted for DNRCC arrest with no intubation. Patient does not want artificial life support including intubation, tube feed, ventilator and/chest compression, central venous catheter, vasopressor and DC shock if needed Total time spent in [id number] encounter in discussion of advanced directive 16 minutes. Total time of the visit including total time spent in counseling or coordination of care, (more than 50% of the total time, spent in obtaining medical information from nurses and other ancillary care providers,explaining to the patient about labs, imaging, diagnosis and management of active complex medical conditions), discussion with consultants, review of labs and imaging is 40 minutes. Clinical Impression(s) from Imaging Studies Chest X-Ray 02/28/22 12:10 IMPRESSION: Patchy infiltrates are seen in the peripheral lateral aspect of the right lung. Follow-up is recommended. Electronically Signed: Nik Martines MD at 12:34 EDT , Echocardiogram 02/28/22 14:30 Interpretation Summary The study was technically difficult. Mildly dilated left ventricle. Moderate segmental systolic dysfunction (see wall motion). The estimated ejection fraction is 35 %. Mild concentric left ventricular hypertrophy. Mild mitral valve prolapse, anterior leaflet Mild-Moderate (1-2+) mitral valve insufficiency. Trivial tricuspid valve insufficiency. The aortic valve leaflets are not well visualized, however, based upon the 2D echocardiographic images obtained there appears to be diffuse thickening, calcification, and partial restriction. Moderate aortic stenosis. Trivial aortic valve insufficiency. Right ventricular systolic pressure estimated to be 31 mmHg. Stage 1 diastolic dysfunction. Ordering Physician: Tony Shanks Performed By: Trace Cristina RCS Renal Ultrasound 03/02/22 14:33 IMPRESSION: Left renal atrophy. Ascites. Hepatic mass. CT can better evaluate. Note: Renal size measurements and size measurements of other organs etc may vary depending on modality and wildlife control operator dependent variations in measurements. (i.e. Measuring a kidney on an US does not correlate with an exact same measurement on a CT.) Abdomen/Pelvis CT 03/03/22 12:34 IMPRESSION: 1. Partially visualized pleural-based opacity/masses in the lower lungs. CT scan to chest might be of value. 2. Trace of bilateral pleural effusions. 3. Cirrhosis of the liver with nodular changes. Masses in the dome of the liver cannot be excluded on this noncontrast exam. Follow-up exam with contrast is recommended if it can be performed. 4. Moderate amount of ascites in the abdomen and pelvis new since previous exam. 5. Contracted gallbladder with gallstones. Chest CT 03/03/22 14:11 IMPRESSION: Bilateral pleural effusions. There is pleural-based consolidation seen within the right upper lobe and both lower lobes which may represent multifocal pneumonia. Electronically Signed: Kyle Gonzales MD at 18:06 EDT , Charges/Coding Visit Charges Inpatient E&M: 54254 Subs Hosp L2
--- NOTE | 2022-03-07 11:44 | PHA.DC.MR ---
Pharmacy Service has performed discharge medication reconciliation for this patient upon transfer to TCU Home Medications pravastatin 40 mg tablet 40 mg PO QHS CHOLESTEROL ##0 12/21/13 carvedilol 25 mg tablet (Coreg) 25 mg PO BID heart #180 tabs 02/06/21 potassium chloride 20 mEq tablet,extended release(part/cryst) 20 meq PO DAILY supplement 12/03/21 hydrocortisone 10 mg tablet See Rx Instructions PO BID pain 12/05/21 acetaminophen 325 mg tablet (Tylenol) 650 mg PO Q6H PRN PRN Pain Score 1-10/Temp > 100.7 F #0 tabs 03/07/22 allopurinol 100 mg tablet 100 mg PO DAILYCM #0 tabs 03/07/22 famotidine 20 mg tablet 20 mg PO DAILY #0 tabs 03/07/22 ferrous sulfate 325 mg (65 mg iron) tablet 325 mg PO QODAY supplement #30 tabs 03/07/22 furosemide 40 mg tablet 40 mg PO BIDLX #0 tabs 03/07/22 nystatin 100,000 unit/gram topical powder (Nyamyc) 1 applic topical BID #0 grams 03/07/22 The patient's discharge medication list was reviewed for discrepancies and discrepancies were resolved.
--- NOTE | 2022-03-07 13:22 | CASEMGMT ---
KIMBERLY called [facility] to check on status of pre-cert. KIMBERLY spoke with Erika and patient's case is still pending review. KIMBERLY asked her if it has been looked at yet. Erika said it has not. SW asked if all the necessary documentation has been received. At first she said she received 6 pages then she said she received another 41 pages. SW asked how long it usually takes to get an answer. Erika said they have 24-48 hours from receipt of clinicals and request. Lena Acosta STAGE ELECTRICIAN [facility]
--- NOTE | 2022-03-07 15:37 | CASEMGMT ---
KIMBERLY called [facility] and spoke with Leanna Lockett regarding status of patient's pre-cert request. Patient's case is actively being reviewed by a nurse reviewer. KIMBERLY double checked that the request is being looked at and Leanna confirmed it is being looked at. Lena Acosta EKG TECH [facility]
[2022-03-07] MEDS: Hydrocortisone 10 MG Tablet 5 MG PO (17:29)
[2022-03-07] MEDS: Pravastatin 40 MG Tablet PO (20:50)
[2022-03-07] MEDS: 0.9% Saline Lock 10 ML Syringe IV (20:50)
[2022-03-08 03:00] VITALS: PULSE 67
[2022-03-08 03:37] VITALS: BP 96/64; PULSE 62; RESP 16; TEMP 36.6; O2SAT 99
[2022-03-08 07:03] VITALS: PULSE 60
[2022-03-08 07:14] LABS: Anion Gap 13 (5-15); BUN 126 mg/dL (7-18); BUN/Creat Ratio 31.9 RATIO (10-20); Calcium,Total 8.6 mg/dL (8.5-10.1); Chloride 97 mmol/L (98-107); Creatinine, Serum 3.95 mg/dL (0.70-1.30); EST Glomerular Filtration Rate 16 mL/min (>60); Est Glom Filt Rate - Afr Amer 19 mL/min (>60); Glucose 102 mg/dL (74-106); Sodium Level 131 mmol/L (136-145)
[2022-03-08] MEDS: Nystatin Powder 15gm Bottle 1 APPLIC TOPICAL (08:11)
[2022-03-08] MEDS: Famotidine 20 MG Tablet PO (08:12)
[2022-03-08] MEDS: Heparin Injection (Vial) 5,000 UNIT/ML VIAL 5000 UNIT SC (08:12)
[2022-03-08] MEDS: Furosemide 40 MG Tablet PO (08:12)
[2022-03-08] MEDS: Hydrocortisone 10 MG Tablet 20 MG PO (08:12)
[2022-03-08] MEDS: Allopurinol 100 MG Tablet PO (08:12)
--- NOTE | 2022-03-08 09:10 | CASEMGMT ---
SW received a call from [facility]. It was a computer automated call. Patient was approved for SNF. Pre-cert is good for 5 days and expires 03-12-22. The approval number is: [id number]. KIMBERLY will notify physician, patient, [facility], and RN. Plan: d/c to [facility]. Lena Acosta MSW [facility]
[2022-03-08 09:37] VITALS: BP 91/51; PULSE 68; RESP 20; TEMP 36.3; O2SAT 98
--- NOTE | 2022-03-08 10:34 | TREXTCAR_ITS ---
Diet Diet Order/Speech Therapy: 02/28/22 14:30 Diet: Cardiac - Heart Healthy Food consistency:: Regular Liquid Consistency:: Regular/Thin Dietary Modifications:: Sodium Restricted Type of Dietary Supplement:: Ensure Plus High Protein Is pt able to select menu?: Yes Fluid restriction:: 1500 mL Diet Comments: 120 ml vicki ensure plus high protein BID w/ breakfast and dinner Routine Orders/Code Status Suppository Type: Dulcolax 10mg Suppository Frequency: Daily PRN Routine Lab Work: CBC Code Status: DNRCC-A Wound(s) RUQ: Wound Type: Puncture Therapies Weight Bearing: Weight bearing as tolerated Extremity Affected:: Bilateral Lower Physical Therapy: Eval and Treat Occupational Therapy: Eval and Treat Speech Therapy: Eval and Treat Problem/Diagnosis (1) Acute on chronic kidney failure: Status: Chronic Code(s): N17.9 - Acute kidney failure, unspecified; N18.9 - Chronic kidney disease, unspecified (2) CKD (chronic kidney disease) stage 4, GFR 15-29 ml/min: Status: Chronic Code(s): N18.4 - Chronic kidney disease, stage 4 (severe) (3) Systolic heart failure: Status: Acute Code(s): I50.20 - Unspecified systolic (congestive) heart failure (4) Transitional cell carcinoma of right kidney: Status: Acute Code(s): C64.1 - Malignant neoplasm of right kidney, except renal pelvis (5) Chronic systolic (congestive) heart failure: Status: Chronic Code(s): I50.22 - Chronic systolic (congestive) heart failure (6) Hyponatremia: Status: Acute Code(s): E87.1 - Hypo-osmolality and hyponatremia (7) Prostate cancer: Status: Chronic Code(s): C61 - Malignant neoplasm of prostate Comment: MIKEY. (8) Leg edema: Status: Acute Code(s): R60.0 - Localized edema (9) Liver mass: Status: Acute Code(s): R16.0 - Hepatomegaly, not elsewhere classified Plan: Incidental finding on ultrasound. CT abdomen shows with ill-defined nodular changes. Masses in the dome of liver cannot be ruled out with noncontrast exam. Contracted GB with gallstone. Cirrhotic liver.Normal spleen. Diffuse atrophy of pancreas. Moderate ascites. check CAT scan without contrast. Of note had previously not been present on prior CTs. Informed patient and his . With history of multiple cancers including NHL, diffuse large B cell lymphoma, prostate cancer, transitional carcinoma of right renal pelvis and acute and chronic DVT with improvement noted in October 2021, venous duplex ordered. Oncology consult to Dr. Arteaga. 03/05: Discussed with oncologist and patient had diagnostic paracentesis if that being negative for cancer cells he suggested lung biopsy but I think patient is overall high risk given multiple comorbidities with complication of pneumothorax/lung collapse. Total fluid cell count 375. 40% polynuclear, 60% mononuclear, neutrophil 22%, lymphocyte 4%, monocytes 6%. Glucose 87. Total protein 2.8. LDH 187. Cloudy yellow fluid taken out. Pathology comment pending 02/28: Cell cytology from ascitic fluid pending. (10) Lung nodule, multiple: Status: Acute Code(s): R91.8 - Other nonspecific abnormal finding of lung field Plan Chronic conditions * Obstructive sleep apnea: Patient said that he is compliant with his CPAP.? I advised his family, who is present, to bring in his CPAP. * Hypertension: Monitor for now.? Currently stable.? Amlodipine will be held * Morbid obesity: Complicates care and recovery. * Gout: decrease his allopurinol from 300-100 for renal dosing. * Non-Hodgkin's lymphoma: Patient follows Dr. Arteaga. 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 Had laparoscopic biopsy in September 2011 and had 4 cycles of R-CHOP. EF decreased to 53 therefore received 2 additional cycles of R?CEOP. Completed treatment on 03/25/2012. CT on 11/2019 showed atrophic left kidney. Prostate biopsy on 12/2019 showed adenocarcinoma, [place]'s score 7. Was treated with ADT and radiation. 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 VTE prophylaxis: Subcu heparin Living will/advanced directive/end of life care: Patient does not have living will or advanced directive. After discussion of benefits/risks procedures involved with full code, DNR CC arrest and DNR CC, the patient and his opted for DNRCC arrest with no intubation. Patient does not want artificial life support including intubation, tube feed, ventilator and/chest compression, central venous catheter, vasopressor and DC shock if needed Total time spent in [id number] encounter in discussion of advanced directive 16 minutes. Total time of the visit including total time spent in counseling or coordination of care, (more than 50% of the total time, spent in obtaining medical information from nurses and other ancillary care providers,explaining to the patient about labs, imaging, diagnosis and management of active complex medical conditions), discussion with consultants, review of labs and imaging is 40 minutes. Clinical Impression(s) from Imaging Studies Chest X-Ray 02/28/22 12:10 IMPRESSION: Patchy infiltrates are seen in the peripheral lateral aspect of the right lung. Follow-up is recommended. Electronically Signed: Nik Martines MD at 12:34 EDT , Echocardiogram 02/28/22 14:30 Interpretation Summary The study was technically difficult. Mildly dilated left ventricle. Moderate segmental systolic dysfunction (see wall motion). The estimated ejection fraction is 35 %. Mild concentric left ventricular hypertrophy. Mild mitral valve prolapse, anterior leaflet Mild-Moderate (1-2+) mitral valve insufficiency. Trivial tricuspid valve insufficiency. The aortic valve leaflets are not well visualized, however, based upon the 2D echocardiographic images obtained there appears to be diffuse thickening, calcification, and partial restriction. Moderate aortic stenosis. Trivial aortic valve insufficiency. Right ventricular systolic pressure estimated to be 31 mmHg. Stage 1 diastolic dysfunction. Ordering Physician: Tony Shanks Performed By: Trace Cristina RCS Renal Ultrasound 03/02/22 14:33 IMPRESSION: Left renal atrophy. Ascites. Hepatic mass. CT can better evaluate. Note: Renal size measurements and size measurements of other organs etc may vary depending on modality and tip banding machine operator dependent variations in measurements. (i.e. Measuring a kidney on an US does not correlate with an exact same measurement on a CT.) Abdomen/Pelvis CT 03/03/22 12:34 IMPRESSION: 1. Partially visualized pleural-based opacity/masses in the lower lungs. CT scan to chest might be of value. 2. Trace of bilateral pleural effusions. 3. Cirrhosis of the liver with nodular changes. Masses in the dome of the liver cannot be excluded on this noncontrast exam. Follow-up exam with contrast is recommended if it can be performed. 4. Moderate amount of ascites in the abdomen and pelvis new since previous exam. 5. Contracted gallbladder with gallstones. Chest CT 03/03/22 14:11 IMPRESSION: Bilateral pleural effusions. There is pleural-based consolidation seen within the right upper lobe and both lower lobes which may represent multifocal pneumonia. Electronically Signed: Kyle Gonzales MD at 18:06 EDT , Allergies/Procedures Done in Hospital Allergies lisinopril Allergy (Verified 02/28/22 11:27) Swelling shellfish derived Allergy (Verified 02/28/22 11:27) Angioedema aspirin Adverse Reaction (Verified 02/28/22 11:27) GI BLEED, UPPER Type of Care/Length of Stay Estimated LOS: Convalescent Care Less Than 30 days Type of Care Needed: Skilled Rehab Potential: Good Prognosis: Good Additional Orders/Day of Discharge Day of Discharge: 03/08/22 Dietary and Speech Recommendations Dietitian Recommendations/Changes: Continue Cardiac/Heart Healthy; Sodium- Restricted diet with 1500ml FR per day. Will continue 120 ml vicki ensure plus high protein BID w/ breakfast and dinner given overall fair intake at meals. Maintain consistent protein given CKD stage 4; pt is not eating enough to restri ct protein in diet at this time. Liberalize diet as needed if PO does not improve at meals. Discharge Plan Admission Admit Date/Time: 02/28/22 13:52 Primary Reason for Your Visit: Acute on chronic HFrEF, anasarca, acute kidney injury on CKD stage IV Attending Provider: Jordy Wang Primary Care Provider: Suraj Damian Chi Consulting Providers: Meliza Gonzales ; Tony Shanks ; Arnold Ray ; Rene Arteaga ; Frances Ny ; Ayden Clemens ; Glen Marquez ; Shiva Orourke ; Reuben Collins ; Xiao Nogueira DOVETAILER Instructions Patient Instructions: RAD RN Paracentesis Dc Discharge Orders/Prescriptions Prescriptions: New furosemide 40 mg Tablet 40 mg PO BIDLX Qty: 0 0RF acetaminophen [Tylenol] 325 mg Tablet 650 mg PO Q6H PRN PRN (Reason: Pain Score 1-10/Temp > 100.7 F) Qty: 0 0RF allopurinol 100 mg Tablet 100 mg PO DAILYCM Qty: 0 0RF nystatin [Nyamyc] 100,000 unit/gram Powder 1 applic topical BID Qty: 0 0RF Protocol: *Topical Application Instructions APPLICATION INSTRUCTIONS: Apply to reddened areas in groin famotidine 20 mg Tablet 20 mg PO DAILY Qty: 0 0RF Continued potassium chloride 20 mEq tablet,ER particles/crystals 20 meq PO DAILY hydrocortisone 10 mg tablet See Rx Instructions PO BID Rx Instructions: 20 mg am and 5 mg pm pravastatin 40 MG tablet 40 mg PO QHS Qty: 0 Label Comments: CHOLESTEROL carvedilol [Coreg] 25 mg tablet 25 mg PO BID Qty: 180 3RF Rx Instructions: must administer with a meal/food Changed ferrous sulfate 325 mg (65 mg iron) tablet 325 mg PO QODAY Qty: 30 0RF Discontinued famotidine 40 mg tablet 40 mg PO DAILY allopurinol 300 mg Tablet 300 mg PO DAILY amlodipine 5 mg tablet 5 mg PO DAILY furosemide [Lasix] 40 mg tablet 20 mg PO QODAY PRN (Reason: Respiratory Distress) Referrals / Follow Up: Suraj Damian Chi, MD [Primary Care Provider] - Disposition Disposition (needs filled in before D/C Order can be placed): Senior Living Facility
--- NOTE | 2022-03-08 10:34 | DS.PCM_ITS ---
Providers Date of Admission: 02/28/22 Date of Discharge: 03/08/22 Primary Care Physician: Dr. Suraj Damian MD Consultations 03/02/22 11:12 Consult: Nephrology Routine Consulting Provider: Meliza Gonzales Reason for Consult: DELIA EMERGENT Consult: No Notified: Yes Date Notified: 03/02/22 Time Notified: 11:12 Method of Notification: Verbal 03/04/22 11:27 Consult: Oncology/Hematology Routine Consulting Provider: [facility] ([facility]) Reason for Consult: muliple lesions on liver and B/L lungs, mets? EMERGENT Consult: No Notified: Yes Date Notified: 03/04/22 Time Notified: 11:27 Method of Notification: Text Reason For Visit: EXERTIONAL DYSPNEA, CHF, ACUTE KIDNEY INJURY Diagnosis Discharge Diagnosis (1) Acute on chronic kidney failure: Status: Chronic Code(s): N17.9 - Acute kidney failure, unspecified; N18.9 - Chronic kidney disease, unspecified (2) CKD (chronic kidney disease) stage 4, GFR 15-29 ml/min: Status: Chronic Code(s): N18.4 - Chronic kidney disease, stage 4 (severe) (3) Systolic heart failure: Status: Acute Code(s): I50.20 - Unspecified systolic (congestive) heart failure (4) Transitional cell carcinoma of right kidney: Status: Acute Code(s): C64.1 - Malignant neoplasm of right kidney, except renal pelvis (5) Chronic systolic (congestive) heart failure: Status: Chronic Code(s): I50.22 - Chronic systolic (congestive) heart failure (6) Hyponatremia: Status: Acute Code(s): E87.1 - Hypo-osmolality and hyponatremia (7) Prostate cancer: Status: Chronic Code(s): C61 - Malignant neoplasm of prostate (8) Leg edema: Status: Acute Code(s): R60.0 - Localized edema (9) Liver mass: Status: Acute Code(s): R16.0 - Hepatomegaly, not elsewhere classified Plan: Incidental finding on ultrasound. CT abdomen shows with ill-defined nodular changes. Masses in the dome of liver cannot be ruled out with noncontrast exam. Contracted GB with gallstone. Cirrhotic liver.Normal spleen. Diffuse atrophy of pancreas. Moderate ascites. check CAT scan without contrast. Of note had previously not been present on prior CTs. Informed patient and his . With history of multiple cancers including NHL, diffuse large B cell lymphoma, prostate cancer, transitional carcinoma of right renal pelvis and acute and chronic DVT with improvement noted in October 2021, venous duplex ordered. Oncology consult to Dr. Arteaga. 03/05: Discussed with oncologist and patient had diagnostic paracentesis if that being negative for cancer cells he suggested lung biopsy but I think patient is overall high risk given multiple comorbidities with complication of pneumothorax/lung collapse. Total fluid cell count 375. 40% polynuclear, 60% mononuclear, neutrophil 22%, lymphocyte 4%, monocytes 6%. Glucose 87. Total protein 2.8. LDH 187. Cloudy yellow fluid taken out. Pathology comment pending 02/28: Cell cytology from ascitic fluid pending. (10) Lung nodule, multiple: Status: Acute Code(s): R91.8 - Other nonspecific abnormal finding of lung field Plan Chronic conditions * Obstructive sleep apnea: Patient said that he is compliant with his CPAP.? I advised his family, who is present, to bring in his CPAP. * Hypertension: Monitor for now.? Currently stable.? Amlodipine will be held * Morbid obesity: Complicates care and recovery. * Gout: decrease his allopurinol from 300-100 for renal dosing. * Non-Hodgkin's lymphoma: Patient follows Dr. Arteaga. 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 Had laparoscopic biopsy in September 2011 and had 4 cycles of R-CHOP. EF decreased to 53 therefore received 2 additional cycles of R?CEOP. Completed treatment on 03/25/2012. CT on 11/2019 showed atrophic left kidney. Prostate biopsy on 12/2019 showed adenocarcinoma, [place]'s score 7. Was treated with ADT and radiation. 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 VTE prophylaxis: Subcu heparin Living will/advanced directive/end of life care: Patient does not have living will or advanced directive. After discussion of benefits/risks procedures involved with full code, DNR CC arrest and DNR CC, the patient and his opted for DNRCC arrest with no intubation. Patient does not want artificial life support including intubation, tube feed, ventilator and/chest compression, central venous catheter, vasopressor and DC shock if needed Total time spent in [id number] encounter in discussion of advanced directive 16 minutes. Total time of the visit including total time spent in counseling or coordination of care, (more than 50% of the total time, spent in obtaining medical information from nurses and other ancillary care providers,explaining to the pa tient about labs, imaging, diagnosis and management of active complex medical conditions), discussion with consultants, review of labs and imaging is 40 minutes. Clinical Impression(s) from Imaging Studies Chest X-Ray 02/28/22 12:10 IMPRESSION: Patchy infiltrates are seen in the peripheral lateral aspect of the right lung. Follow-up is recommended. Electronically Signed: Nik Martines MD at 12:34 EDT , Echocardiogram 02/28/22 14:30 Interpretation Summary The study was technically difficult. Mildly dilated left ventricle. Moderate segmental systolic dysfunction (see wall motion). The estimated ejection fraction is 35 %. Mild concentric left ventricular hypertrophy. Mild mitral valve prolapse, anterior leaflet Mild-Moderate (1-2+) mitral valve insufficiency. Trivial tricuspid valve insufficiency. The aortic valve leaflets are not well visualized, however, based upon the 2D echocardiographic images obtained there appears to be diffuse thickening, calcification, and partial restriction. Moderate aortic stenosis. Trivial aortic valve insufficiency. Right ventricular systolic pressure estimated to be 31 mmHg. Stage 1 diastolic dysfunction. Ordering Physician: Tony Shanks Performed By: Trace Cristina RCS Renal Ultrasound 03/02/22 14:33 IMPRESSION: Left renal atrophy. Ascites. Hepatic mass. CT can better evaluate. Note: Renal size measurements and size measurements of other organs etc may vary depending on modality and well reactivator operator dependent variations in measurements. (i.e. Measuring a kidney on an US does not correlate with an exact same measurement on a CT.) Abdomen/Pelvis CT 03/03/22 12:34 IMPRESSION: 1. Partially visualized pleural-based opacity/masses in the lower lungs. CT scan to chest might be of value. 2. Trace of bilateral pleural effusions. 3. Cirrhosis of the liver with nodular changes. Masses in the dome of the liver cannot be excluded on this noncontrast exam. Follow-up exam with contrast is recommended if it can be performed. 4. Moderate amount of ascites in the abdomen and pelvis new since previous exam. 5. Contracted gallbladder with gallstones. Chest CT 03/03/22 14:11 IMPRESSION: Bilateral pleural effusions. There is pleural-based consolidation seen within the right upper lobe and both lower lobes which may represent multifocal pneumonia. Electronically Signed: Kyle Gonzales MD at 18:06 EDT , Medications at Discharge Home Medications pravastatin 40 mg tablet 40 mg PO QHS CHOLESTEROL ##0 12/21/13 carvedilol 25 mg tablet (Coreg) 25 mg PO BID heart #180 tabs 02/06/21 potassium chloride 20 mEq tablet,extended release(part/cryst) 20 meq PO DAILY supplement 12/03/21 hydrocortisone 10 mg tablet See Rx Instructions PO BID pain 12/05/21 acetaminophen 325 mg tablet (Tylenol) 650 mg PO Q6H PRN PRN Pain Score 1-10/Temp > 100.7 F #0 tabs 03/07/22 allopurinol 100 mg tablet 100 mg PO DAILYCM #0 tabs 03/07/22 famotidine 20 mg tablet 20 mg PO DAILY #0 tabs 03/07/22 ferrous sulfate 325 mg (65 mg iron) tablet 325 mg PO QODAY supplement #30 tabs 03/07/22 furosemide 40 mg tablet 40 mg PO BIDLX #0 tabs 03/07/22 nystatin 100,000 unit/gram topical powder ([facility]) 1 applic topical BID #0 grams 03/07/22 Hospital Course Summary of Care Provided Hospital Course: Patient 81-year-old gentleman was admitted with progressive shortness of breath, bilateral lower extremity edema and ascites consistent with anasarca.? Furosemide dose increased to 80 mg twice daily as an outpatient still not responding therefore admitted to PCU His hospital course as mentioned below (1) Acute on chronic kidney failure: (1) HFrEF (heart failure with reduced ejection fraction): PLAN: Acute on chronic HFrEF:?Patient had an EF of 37% from 2D echocardiogram from July 23, 2021.? No mention on right ventricular pressures on that echocardiogram Echo during hospital stay showed EF 35%, moderate RVSP 31mmHg, mild concentric LVH, stage I diastolic dysfunction, moderate aortic stenosis, 1-2+ MR, RVSP 31 mmHg Plan IV furosemide 40 mg every 8 hourly. ? Heart failure core measures including intake and output, fluid restriction less than 1500 mL, daily weight monitoring, kidney and electrolytes monitoring.? No worsening of creatinine from 3.23-3.96 on diuretic therefore will consult job setter honing.? On carvedilol.? Hold RAMILA/ARB due to DELIA and amlodipine because of vasodilatory properties and? patient has significant edema 03/05: Patient has hyponatremia and hypochloremia.? Creatinine is stable at 3.9 for last 2 days 03/06: Creatinine is 3.85, getting better.? Continue Lasix IV changed to? 40 mg oral daily.? Patient had 5820 mL fluid removed on 03/05. 03/08: Patient discharged on Lasix 40 mg twice daily and follow-up with the job setter honing. 2.? DELIA on CKD stage IV:Creatinine trending up, job setter honing is being consulted.? Baseline creatinine is 2.55.? Complicated by patient essentially being a solitary kidney patient.? Ultrasound reviewed shows left atrophic kidney.? No right hydronephrosis.? There is priority of cardiorenal syndrome with history of right pelvis transitional cell carcinoma, prostate cancer.Discussed with the job setter honing. 03/08: BUN/creatinine 126/3.9, stable for last 3 days (3) Liver mass: Incidental finding on ultrasound.? CT abdomen shows with ill- defined nodular changes.? Masses in the dome of liver cannot be ruled out with noncontrast exam.? Contracted GB with gallstone.? Cirrhotic liver.Normal spleen.? Diffuse atrophy of pancreas.? Moderate ascites. check CAT scan without contrast.? Of note had previously not been present on prior CTs. I informed patient and his , with history of multiple cancers including NHL, diffuse large B cell lymphoma, prostate cancer, transitional carcinoma of right renal pelvis and acute and chronic DVT with improvement noted in October 2021, venous duplex ordered.? Oncology consult to Dr. Arteaga. 03/05: Discussed with oncologist and patient had diagnostic paracentesis if that being negative for cancer cells he suggested lung biopsy but I think patient is overall high risk given multiple comorbidities with complication of pneumothorax/lung collapse.? Total fluid cell count 375.? 40% polynuclear, 60% mononuclear, neutrophil 22%, lymphocyte 4%, monocytes 6%.? Glucose 87.? Total protein 2.8.? LDH 187.? Cloudy yellow fluid taken out.? Pathology comment pending 03/08: Paracentesis fluid cytology shows malignant cells derived from metastatic carcinoma. Follow with Dr. Arteaga. I also advised patient and his to discuss about further plan of care as it seems patient did not want aggressive treatment of cancer but focus on quality of life including nutrition ADL and functional activity. Chronic conditions * Obstructive sleep apnea: Patient said that he is compliant with his CPAP.? I advised his family, who is present, to bring in his CPAP. * Hypertension: Monitor for now.? Currently stable.? Amlodipine will be held * Morbid obesity: Complicates care and recovery. * Gout: decrease his allopurinol from 300-100 for renal dosing. * Non-Hodgkin's lymphoma: Patient follows Dr. Arteaga.? 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 Had laparoscopic biopsy in September 2011 and had 4 cycles of R-CHOP.? EF decreased to 53 therefore received 2 additional cycles of R?CEOP.? Completed treatment on 03/25/2012.? CT on 11/2019 showed atrophic left kidney.? Prostate biopsy on 12/2019 showed adenocarcinoma, Sim's score 7.? Was treated with ADT and radiation.? 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 VTE prophylaxis: Subcu heparin Living will/advanced directive/end of life care: Patient does not have living will or advanced directive.? After discussion of benefits/risks procedures involved with? full code, DNR CC arrest and DNR CC, the patient and his opted for DNRCC arrest with no intubation. Patient ? does not want artificial life support including intubation, tube feed, ventilator and/chest compression, central venous catheter, vasopressor and DC shock if needed ?? Discharge medication reconciliation done. Discharge follow-up instructions completed. Discharge process discussed with the patient and all questions were answered to patient's satisfaction. Discharged to SNF. Total time spent, exact 35 minutes on discharge meds reconciliation, examination, coordination of care with nurses and ancillary staff, review of imaging and blood test and discussion with the patient on follow-up instructions. Physical Exam Narrative Seen and examined Shortness of breath is resolved. Pulse ox 98% on room air. Lower extremity swelling much better. Physical exam General: Alert, Oriented x3, Cooperative, morbid obese BMI 36.2 kg/m? HEENT: Atraumatic, PERRLA, EOMI, Normocephalic Oral: Oral mucosa dry no Gingival or Mucosal Lesions/ Ulcerations Neck: Supple, No JVD, Negative Carotid Bruits Lungs: Air entry diminished both sides. No crepitation/rhonchi. No hypoxia or tachypnea. Cardiovascular: AV dual paced rhythm, Normal S1, Normal S2, No murmurs, left upper chest pacemaker Abdomen: Bowel Sounds normal, Soft, mild ascites and subcutaneous abdominal wall edema. Umbilicus everted : No renal angle tenderness. No suprapubic tenderness. Extremities: Bilateral 1+ pitting edema at ankle level, Capillary Refill Less than 3 Seconds Skin: Chronic venous hypertensive changes. Musculoskeletal: No Tenderness to Palpation of Joints or Extremities, muscle strength 4/5 at major joints of LE due to edema Neurological: Cranial nerves II-XII grossly intact, DTR 2+/4 Psych/Mental Status: Flat affect. Weight / BMI Weight Weight: 235 lb 10.786 oz Body Mass Index (BMI) 35.9 ABG / Lab / Microbiology Data Result Diagrams: 03/07/22 05:50 03/08/22 06:09 Laboratory: Laboratory Results - last 24 hr 03/08/22 06:09: Sodium 131 L, Potassium 4.0, Chloride 97 L, Carbon Dioxide 21.0, Anion Gap 13, BUN 126 H*, Creatinine 3.95 H, Estim Creat Clear Calc 15.40, Est GFR (MDRD) Af Amer 19 L, Est GFR (MDRD) Non-Af 16 L, BUN/Creatinine Ratio 31.9 H , Glucose 102, Calcium 8.6 Meaningful Use Info Meaningful Use Diagnoses (Choose all that apply): None applicable Discharge Plan Admission Admit Date/Time: 02/28/22 13:52 Primary Reason for Your Visit: Acute on chronic HFrEF, anasarca, acute kidney injury on CKD stage IV Attending Provider: Jordy Wang Primary Care Provider: Suraj Damian Chi Consulting Providers: Meliza Gonzales ; Tony Shanks ; Arnold Ray ; Rene Arteaga ; Frances Ny ; Ayden Clemens ; Glen Marquez ; Shiva Orourke ; Reuben Castillo ; Xiao Nogueira ELECTRONICS ASSEMBLER Instructions Patient Instructions: VIVIAN RN Paracentesis Dc Discharge Orders/Prescriptions Prescriptions: New furosemide 40 mg Tablet 40 mg PO BIDLX Qty: 0 0RF acetaminophen [Tylenol] 325 mg Tablet 650 mg PO Q6H PRN PRN (Reason: Pain Score 1-10/Temp > 100.7 F) Qty: 0 0RF allopurinol 100 mg Tablet 100 mg PO DAILYCM Qty: 0 0RF nystatin [Nyamyc] 100,000 unit/gram Powder 1 applic topical BID Qty: 0 0RF Protocol: *Topical Application Instructions APPLICATION INSTRUCTIONS: Apply to reddened areas in groin famotidine 20 mg Tablet 20 mg PO DAILY Qty: 0 0RF Continued potassium chloride 20 mEq tablet,ER particles/crystals 20 meq PO DAILY hydrocortisone 10 mg tablet See Rx Instructions PO BID Rx Instructions: 20 mg am and 5 mg pm pravastatin 40 MG tablet 40 mg PO QHS Qty: 0 Label Comments: CHOLESTEROL carvedilol [Coreg] 25 mg tablet 25 mg PO BID Qty: 180 3RF Rx Instructions: must administer with a meal/food Changed ferrous sulfate 325 mg (65 mg iron) tablet 325 mg PO QODAY Qty: 30 0RF Discontinued famotidine 40 mg tablet 40 mg PO DAILY allopurinol 300 mg Tablet 300 mg PO DAILY amlodipine 5 mg tablet 5 mg PO DAILY furosemide [Lasix] 40 mg tablet 20 mg PO QODAY PRN (Reason: Respiratory Distress) Referrals / Follow Up: Suraj Damian Chi, MD [Primary Care Provider] - Disposition Disposition (needs filled in before D/C Order can be placed): Care Home Facility Charges/Coding Visit Charges Inpatient E&M: 26845 Disch Hosp
--- NOTE | 2022-03-08 11:16 | CASEMGMT ---
RN, physician, Katie at [facility], patient, and patient's have all been notified of approval and d/c today. KIMBERLY sent orders to [facility] via [employer]. KIMBERLY completed 7000 on HENS. KIMBERLY arranged for patient to get picked up at 1300 via wheelchair van. KIMBERLY notified patient, his , RNKatie at [facility] via [employer], and assembler carbon brushes. All in agreement with discharge plan. Plan: d/c to [facility] [place] under skilled level of care on a convalescent stay. Physicians transported via wheelchair van. Lena Acosta HEALTH PHYSICS TECHNICIAN ABBI
--- NOTE | 2022-03-08 12:20 | NURSING ---
Report called to nurse Harrington at the [facility] where pt will be DC to, Juany will assume care at that time
--- NOTE | 2022-03-08 15:10 | NURSING ---
Report given to EMS [facility] as they are transporting pt to [facility] [place]
== END 2022-03-08 15:15 | DRG 291 ==
LOC: ED 13:06 → PCU 14:00
PROVIDERS: Internal Medicine Nephrology; Emergency Provider Emergency Medicine; PCP Family Medicine Geriatric Medicine; Visit Provider Internal Medicine
DX: I13.0 Hypertensive heart and chronic kidney disease with heart failure and stage 1 through stage 4 chronic kidney disease, or unspecified chronic kidney disease (principal); I50.23 Acute on chronic systolic (congestive) heart failure; R18.0 Malignant ascites; E27.40 Unspecified adrenocortical insufficiency; E87.1 Hypo-osmolality and hyponatremia; N17.9 Acute kidney failure, unspecified; N18.4 Chronic kidney disease, stage 4 (severe); I49.5 Sick sinus syndrome; R16.0 Hepatomegaly, not elsewhere classified; I42.8 Other cardiomyopathies; D35.2 Benign neoplasm of pituitary gland; I48.0 Paroxysmal atrial fibrillation; K74.60 Unspecified cirrhosis of liver; E66.01 Morbid (severe) obesity due to excess calories; G47.33 Obstructive sleep apnea (adult) (pediatric); E78.00 Pure hypercholesterolemia, unspecified; K21.9 Gastro-esophageal reflux disease without esophagitis; I35.0 Nonrheumatic aortic (valve) stenosis; M10.9 Gout, unspecified; E87.8 Other disorders of electrolyte and fluid balance, not elsewhere classified; N26.1 Atrophy of kidney (terminal); Z68.36 Body mass index [BMI] 36.0-36.9, adult; Z66 Do not resuscitate; Z20.822 Contact with and (suspected) exposure to COVID-19; Z95.0 Presence of cardiac pacemaker; Z87.891 Personal history of nicotine dependence; Z85.72 Personal history of non-Hodgkin lymphomas; Z85.46 Personal history of malignant neoplasm of prostate; Z85.528 Personal history of other malignant neoplasm of kidney; Z92.3 Personal history of irradiation; Z86.718 Personal history of other venous thrombosis and embolism
CPT/HCPCS: 36415; 49083; 71045; 71250; 74176; 76770; 80048; 80069; 80076; 81050; 82570; 82575; 82945; 83615; 83880; 84156; 84157; 84300; 84484; 85025; 87426; 88108; 88305; 88313; 88341; 88342; 89050; 93005; 93306; 93970; 97110; 97116; 97162; 97166; 97530; 97535; 97802; 97803; 99285; A4216; J1940